=== PATIENT | female | born 1955 | race American Indian/Alaskan Native ===

== ENCOUNTER 2019-05-09 07:20 | Outpatient (CLI) | payer BC ==
--- NOTE | 2019-05-09 14:03 | Mammography Report ---
DIGITAL SCREENING MAMMOGRAM WITH CAD, 05/09/2019 INDICATION: Routine screening mammography. TECHNIQUE: Digital bilateral 2D mammography was obtained in the craniocaudal and mediolateral obliq ue projections. This examination was interpreted with the benefit of Computer-Aided Detection analysi s. COMPARISON: 04/19/2018 FINDINGS: Breast Density: There are scattered areas of fibroglandular density. There is no evidence of dominant mass, suspicious calcifications or architectural distortion in eithe r breast. IMPRESSION: No mammographic evidence of malignancy. Follow up recommendation: Routine yearly BI-RADS Category 2: Benign. A "normal" or negative report should not discourage follow up or biopsy of a clinically significant f inding. A written summary of these findings will be mailed to the patient. The patient will be entered into a mammography reporting system which will generate a reminder letter for the patient's next appointmen t at the appropriate interval. The [employer] recommends yearly mammograms starting at age 40 and continuing as l bryanna as a woman is in good health. Breast MRI is recommended for women with an approximate 20-25% or greater lifetime risk of breast cancer, including women with a strong family history of breast or ova mary cancer or who have been treated for Hodgkin's disease. Signer Name: Hao North MD Signed: 05/09/2019 1:58 PM Workstation Name: [id number]
== END 2019-05-09 07:21 | disposition home or self-care (01) ==
LOC: MAMMO 07:20
PROVIDERS: ATTEND Family Medicine Adult Medicine
DX: Z12.31 Encounter for screening mammogram for malignant neoplasm of breast (principal)
CPT/HCPCS: 77067

== ENCOUNTER 2019-11-16 06:53 | Outpatient (CLI) | payer BC ==
[2019-11-16 08:55] LABS: Basophils % (Auto) 0.7 % (0.0-1.8); Eosinophils # (Auto) 0.1 K/mm3 (0.0-0.4); Eosinophils % (Auto) 1.4 % (0.0-4.3); Hematocrit 39.3 % (30.3-42.9); Hemoglobin 13.3 gm/dl (10.1-14.3); Lymphocytes # (Auto) 2.2 K/mm3 (1.2-5.4); Lymphocytes % (Auto) 34.1 % (13.4-35.0); Mean Corpuscular HGB Conc 34 % (30-34); Mean Corpuscular Volume 87 fl (79-97); Monocytes # (Auto) 0.5 K/mm3 (0.0-0.8); Monocytes % (Auto) 7.8 % (0.0-7.3); Platelet Count 254 K/mm3 (140-440); Red Blood Count 4.51 M/mm3 (3.65-5.03); Red Cell Distribution Width 13.5 % (13.2-15.2)
[2019-11-16 10:01] LABS: Alanine Aminotransferase 16 units/L (7-56); BUN/Creatinine Ratio 14; Blood Urea Nitrogen 7 mg/dL (7-17); Calcium 9.4 mg/dL (8.4-10.2); Hemolysis Index 2; LDL Cholesterol,Direct 181 mg/dL (50-130)
[2019-11-16 10:49] LABS: Chol/HDL Ratio 5.57 %; HDL Cholesterol 42 mg/dL (40-59)
[2019-11-16 11:46] LABS: Albumin 4.4 g/dL (3.9-5)
[2019-11-19 11:58] LABS: Vitamin D, 25-OH, D2 <4 ng/mL
== END 2019-11-16 06:54 | disposition home or self-care (01) ==
LOC: LAB 06:53
PROVIDERS: ATTEND Internal Medicine
DX: Z00.00 Encounter for general adult medical examination without abnormal findings (principal); Z13.220 Encounter for screening for lipoid disorders; Z13.29 Encounter for screening for other suspected endocrine disorder; Z13.21 Encounter for screening for nutritional disorder
CPT/HCPCS: 36415; 80053; 80061; 82306; 82607; 83036; 84443; 85025

== ENCOUNTER 2020-03-07 06:53 | Outpatient (CLI) | payer BC ==
[2020-03-07 09:00] LABS: Chol/HDL Ratio 2.75 %
== END 2020-03-07 06:54 | disposition home or self-care (01) ==
LOC: LAB 06:53
PROVIDERS: ATTEND Internal Medicine
DX: E56.9 Vitamin deficiency, unspecified (principal); E78.5 Hyperlipidemia, unspecified; Z13.1 Encounter for screening for diabetes mellitus
CPT/HCPCS: 36415; 80061; 82306; 82607; 83036

== ENCOUNTER 2020-05-10 07:08 | Outpatient (CLI) | payer BC ==
--- NOTE | 2020-05-10 16:27 | Mammography Report ---
DIGITAL SCREENING MAMMOGRAM WITH CAD, 05/10/2020 INDICATION: Routine screening mammography. TECHNIQUE: Digital bilateral 2D mammography was obtained in the craniocaudal and mediolateral obliq ue projections. This examination was interpreted with the benefit of Computer-Aided Detection analysi s. COMPARISON: 05/09/2019. FINDINGS: Breast Density: There are scattered areas of fibroglandular density. There is no evidence of dominant mass, suspicious calcifications or architectural distortion in eithe r breast. IMPRESSION: Follow up recommendation: Routine yearly BI-RADS Category 1: Negative. A "normal" or negative report should not discourage follow up or biopsy of a clinically significant f inding. A written summary of these findings will be mailed to the patient. The patient will be entered into a mammography reporting system which will generate a reminder letter for the patient's next appointmen t at the appropriate interval. The [employer] recommends yearly mammograms starting at age 40 and continuing as l bryanna as a woman is in good health. Breast MRI is recommended for women with an approximate 20-25% or greater lifetime risk of breast cancer, including women with a strong family history of breast or ova mary cancer or who have been treated for Hodgkin's disease. Signer Name: Rico Ivan MD Signed: 05/10/2020 4:23 PM Workstation Name: [email or web address]
== END 2020-05-10 07:09 | disposition home or self-care (01) ==
LOC: MAMMO 07:08
PROVIDERS: ATTEND Internal Medicine
DX: Z12.31 Encounter for screening mammogram for malignant neoplasm of breast (principal)
CPT/HCPCS: 77067

== ENCOUNTER 2020-06-23 12:05 | Emergency (ER) | payer BC ==
[2020-06-23 12:17] VITALS: BP 134/92
--- NOTE | 2020-06-23 12:36 | Emergency Department Report ---
ED Back Pain/Injury HPI - General Chief Complaint: Back Pain/Injury Stated Complaint: BACK PAIN Time Seen by Provider: 06/23/20 12:31 Source: patient Limitations: No Limitations - History of Present Illness Initial Comments: The patient was evaluated in the emergency department for symptoms described in the history of present illness. He/she was evaluated in the context of the global COVID-19 pandemic, which necessitated consideration that the patient might be at risk for infection with the virus that causes COVID-19. Institutional protocols and algorithms that pertain to the evaluation of patients at risk for COVID-19 are in a state of rapid change based on information released by regulatory bodies including the CDC and federal and state organizations. These policies and algorithms were followed during the patient's care in the emergency department. Please note that these policies, procedures and recommendations changed on a rapid basis. 64-year-old -[place] female presents to the emergency room complaining of back pain for a week with a history of chronic back pain. Patient states that she has been on meloxicam and Flexeril without any relief of back pain. Patient states that she was seen by Dr. Frannie Freitas on Wednesday. She denies any fever no dysuria no chills no hematuria no vaginal discharge or bleeding. Patient denies any recent injuries. She reports the pain is worse with lying down and better with sitting up. Patient takes no chronic medication has no known drug allergies. MD Complaint: back pain Onset/Timin -: week(s) Similar Symptoms Previously: Yes Severity scale (0 -10): 7 Quality: aching Consistency: constant Improves With: sitting upright Worsens With: supine Associated Symptoms: denies other symptoms Treatments Prior to Arrival: NSAIDS, other medications (Flexeril) - Related Data Previous Rx's Medication Instructions Recorded Last Taken Type Celecoxib [celeBREX] 50 mg PO BID #30 capsule 06/23/20 Unknown Rx traMADoL [Ultram 50 MG tab] 50 mg PO Q6HR PRN #12 tablet 06/23/20 Unknown Rx Allergies Allergy/AdvReac Type Severity Reaction Status Date / Time No Known Allergies Allergy Unverified 04/19/18 07:47 ED Review of Systems ROS: Stated complaint: BACK PAIN Other details as noted in HPI Comment: All other systems reviewed and negative ED Past Medical Hx - Past Medical History Previous Medical History?: Yes Additional medical history: Back pain - Surgical History Past Surgical History?: No - Social History Smoking Status: Current Every Day Smoker Substance Use Type: Alcohol - Medications Home Medications: Home Medications Medication Instructions Recorded Confirmed Last Taken Type Celecoxib [celeBREX] 50 mg PO BID #30 capsule 06/23/20 Unknown Rx traMADoL [Ultram 50 MG tab] 50 mg PO Q6HR PRN #12 tablet 06/23/20 Unknown Rx ED Physical Exam - General Limitations: No Limitations General appearance: alert, in no apparent distress - Head Head exam: Present: atraumatic, normocephalic - Eye Eye exam: Present: normal appearance - ENT ENT exam: Present: mucous membranes moist - Neck Neck exam: Present: normal inspection, full ROM - Respiratory Respiratory exam: Absent: accessory muscle use - Cardiovascular Cardiovascular Exam: Present: regular rate, normal rhythm. Absent: systolic murmur, diastolic murmur, rubs, gallop - Extremities Exam Extremities exam: Present: normal inspection, full ROM - Back Exam Back exam: Present: full ROM. Absent: tenderness, muscle spasm, paraspinal tenderness - Neurological Exam Neurological exam: Present: alert, oriented X3, normal gait - Psychiatric Psychiatric exam: Present: normal affect, normal mood - Skin Skin exam: Present: warm, dry, intact, normal color. Absent: rash ED Course Vital Signs 06/23/20 12:09 Temperature 98.9 F Pulse Rate 94 H Respiratory 18 Rate Blood Pressure 134/92 O2 Sat by Pulse 100 Oximetry ED Medical Decision Making - Radiology Data Radiology results: report reviewed Patient: GRACY LIU MR#: [id number] : 1955 Acct:[id number] Age/Sex: 64 / F ADM Date: 06/23/20 Loc: ED Attending Dr: Ordering Physician: IRMA GIRON Date of Service: 06/23/20 Procedure(s): XR spine thoracolumbar 2V Accession Number(s): [id number] cc: IRMA GIRON Fluoro Time In Minutes: THORACOLUMBAR JUNCTION SPINE 2 VIEWS INDICATION / CLINICAL INFORMATION: Nontraumatic back pain. COMPARISON: None available. FINDINGS: VERTEBRAE: No acute fracture. No significant malalignment. DISC SPACES / FACET JOINTS:Mild multilevel degenerative changes. PARASPINAL SOFT TISSUES:No significant abnormality. ADDITIONAL FINDINGS: None. Signer Name: Pete Sosa MD Signed: 06/23/2020 1:05 PM Workstation Name: [id number] Transcribed By: ISABEL Dictated By: PETE SOSA Electronically Authenticated By: PETE SOSA Signed Date/Time: 06/23/20 1305 DD/ 1304 TD/TT: Referring Physician:SONJA SPEARPatient Name:GRACY LIUPatient ID:[id number] of :[id number]:FemaleAccession:[id number] Date:[id number] Status:Finalized Findings [facility] [address] [place] [address] XRay Report Signed Patient: GRACY LIU MR#: [id number] : 1955 Acct:[id number] Age/Sex: 64 / F ADM Date: 06/23/20 Loc: ED Attending Dr: Ordering Physician: IRMA GIRON Date of Service: 06/23/20 Procedure(s): XR spine lumbosacral 2-3V Accession Number(s): [id number] cc: IRMA GIRON Fluoro Time In Minutes: LUMBAR SPINE 3 VIEWS INDICATION / CLINICAL INFORMATION: Nontraumatic back pain. COMPARISON: None available. FINDINGS: VERTEBRAE: No acute fracture. Mild anterolisthesis noted at L4-L5. DISC SPACES / FACET JOINTS:Mild multilevel degenerative changes are noted most prominent at L4-L5 and L5-S1 with loss of intervertebral disc space height and facet arthropathy. PARASPINAL SOFT TISSUES:No significant abnormality. ADDITIONAL FINDINGS: Calcified fibroids are noted of the pelvis. Signer Name: Pete Sosa MD Signed: 06/23/2020 1:06 PM Workstation Name: [id number] Transcribed By: ISABEL Dictated By: PETE SOSA Electronically Authenticated By: PETE SOSA Signed Date/Time: 06/23/20 1306 DD/ 1305 TD/TT: - Medical Decision Making 64-year-old -[place] female presents to the emergency room complaining of back pain for a week with a history of chronic back pain. Patient states that she has been on meloxicam and Flexeril without any relief of back pain. Patient states that she was seen by Dr. Frannie Freitas on Wednesday. She denies any fever no dysuria no chills no hematuria no vaginal discharge or bleeding. Patient denies any recent injuries. She reports the pain is worse with lying down and better with sitting up. Patient takes no chronic medication has no known drug allergies. Urinalysis ordered, thoracic call number and lumbar sacral x-rays have been ordered. Urinalysis is negative for any acute infection x-ray of back shows multilevel degenerative disc disease. Patient be discharged home on Celebrex and tramadol referral to [facility] orthopedic provider as well as to follow-up with her primary care provider. Critical care attestation.: If time is entered above; I have spent that time in minutes in the direct care of this critically ill patient, excluding procedure time. ED Disposition Clinical Impression: Degenerative disc disease, lumbar Disposition: DC- TO HOME OR SELFCARE Is pt being admited?: No Does the pt Need Aspirin: No Condition: Stable Instructions: Degenerative Disk Disease Additional Instructions: X-rays are negative for any acute fractures. It does shows multilevel of degenerative disc disease. Urinalysis is negative for any infection and no blood in your urine. I recommend taking the Celebrex in tramadol for pain. Do not operate heavy machinery while taking tramadol. Follow-up with your primary care provider. As well as I am referring you to a back specialist. Prescriptions: Celecoxib [celeBREX] 50 mg PO BID #30 capsule traMADoL [Ultram 50 MG tab] 50 mg PO Q6HR PRN #12 tablet PRN Reason: Pain Referrals: PRIMARY MD MICHAEL [Primary Care Provider] - 3-5 Days CHAN JON MD [Staff Physician] - 3-5 Days [facility] [Provider Group] - 3-5 Days Forms: Work/School Release Form(ED)
--- NOTE | 2020-06-23 13:10 | XRay Report ---
THORACOLUMBAR JUNCTION SPINE 2 VIEWS INDICATION / CLINICAL INFORMATION: Nontraumatic back pain. COMPARISON: None available. FINDINGS: VERTEBRAE: No acute fracture. No significant malalignment. DISC SPACES / FACET JOINTS:Mild multilevel degenerative changes. PARASPINAL SOFT TISSUES:No significant abnormality. ADDITIONAL FINDINGS: None. Signer Name: Pete Vogel MD Signed: 06/23/2020 1:05 PM Workstation Name: [id number]
--- NOTE | 2020-06-23 13:11 | XRay Report ---
LUMBAR SPINE 3 VIEWS INDICATION / CLINICAL INFORMATION: Nontraumatic back pain. COMPARISON: None available. FINDINGS: VERTEBRAE: No acute fracture. Mild anterolisthesis noted at L4-L5. DISC SPACES / FACET JOINTS:Mild multilevel degenerative changes are noted most prominent at L4-L5 and L5-S1 with loss of intervertebral disc space height and facet arthropathy. PARASPINAL SOFT TISSUES:No significant abnormality. ADDITIONAL FINDINGS: Calcified fibroids are noted of the pelvis. Signer Name: Pete Vogel MD Signed: 06/23/2020 1:06 PM Workstation Name: [id number]
[2020-06-23 13:37] LABS: Bacteria,Urine 1+ /HPF (Negative); Bilirubin,Urine NEG (Negative); Blood,Urine NEG (Negative); Color,Urine Yellow (Yellow); Mucus,Urine FEW /HPF; Urobilinogen,Urine < 2.0 mg/dL (<2.0)
== END 2020-06-23 13:53 | disposition home or self-care (01) ==
LOC: ED 12:05
DX: M51.36 Other intervertebral disc degeneration, lumbar region (principal); F17.200 Nicotine dependence, unspecified, uncomplicated; Z79.899 Other long term (current) drug therapy
CPT/HCPCS: 72080; 72100; 81001

== ENCOUNTER 2020-07-14 09:55 | Emergency (ER) | payer BC ==
[2020-07-14 10:10] VITALS: BP 152/97
--- NOTE | 2020-07-14 10:12 | Emergency Department Report ---
Chief Complaint: Back Pain/Injury Stated Complaint: back pains Time Seen by Provider: 07/14/20 10:07 - HPI History of Present Illness: pt presents for chronic mid and lower back pain. she has had an exacerbation of her back pain for 6 weeks. she was evaluated in the ED on 06/23/2020 and had XRs performed at that time XR T-spine VERTEBRAE: No acute fracture. No significant malalignment. DISC SPACES / FACET JOINTS:Mild multilevel degenerative changes. PARASPINAL SOFT TISSUES:No significant abnormality. ADDITIONAL FINDINGS: None. XR L-spine: VERTEBRAE: No acute fracture. Mild anterolisthesis noted at L4-L5. DISC SPACES / FACET JOINTS:Mild multilevel degenerative changes are noted most prominent at L4-L5 and L5-S1 with loss of intervertebral disc space height and facet arthropathy. PARASPINAL SOFT TISSUES:No significant abnormality. ADDITIONAL FINDINGS: Calcified fibroids are noted of the pelvis. she was given tramadol on 06/23/2020. she states she has been seeing her PCP multiple times. she has not seen orthopedic or spine. she was given percocet on 07/03/2020 by her PCP. please see [place] PRODUCT SUPPORT REP below. she has had no change in her back pain. she has had no recent trauma. she denies any radiation of the pain. no numbness, weakness, bowel or bladder incontinence. VSS on exam: non toxic appearing, no acute distress atraumatic, normocephalic normal appearance of the eyes, EOMI, no periorbital edema or erythema no respiratory distress, no accessory muscle use A&Ox4, no focal neuro deficit, moving all extremities, normal gait pt is present for chronic back pain she has had no change in her back pain has had XRs and has been given two prescriptions for narcotics will be referred to orthopedic/spine discussed strict return precautions medical screening exam performed and there is no threat to life or limb at this time Filled ID Written Drug QTY Days Prescriber Rx # Pharmacy * Refills Daily Dose Pymt Type PRODUCT SUPPORT REP 07/03/2020 1 07/03/2020 OXYCODONE-ACETAMINOPHEN 5-325 28.0 7 CR CAR [id number] [facility] (6195) 0 30.0 [facility] [place] 06/23/2020 1 06/23/2020 TRAMADOL HCL 50 MG TABLET 12.0 3 RY SHE [id number] [facility] (3795) 0 20.0 [facility] [place] MSE screening note: Focused history and physical exam performed. Due to findings the following was ordered: ED Medical Decision Making - Radiology Data Radiology results: report reviewed Ordering Physician: IRMA GIRON Date of Service: 06/23/20 Procedure(s): XR spine thoracolumbar 2V Accession Number(s): [id number] cc: IRMA GIRON Fluoro Time In Minutes: THORACOLUMBAR JUNCTION SPINE 2 VIEWS INDICATION / CLINICAL INFORMATION: Nontraumatic back pain. COMPARISON: None available. FINDINGS: VERTEBRAE: No acute fracture. No significant malalignment. DISC SPACES / FACET JOINTS:Mild multilevel degenerative changes. PARASPINAL SOFT TISSUES:No significant abnormality. ADDITIONAL FINDINGS: None. Signer Name: Pete Sosa MD Signed: 06/23/2020 1:05 PM Workstation Name: [id number] Transcribed By: CH Dictated By: PETE SOSA Electronically Authenticated By: PETE SOSA Signed Date/Time: 06/23/20 1305 DD/ 1304 TD/TT: Patient: GRACY LIU MR#: [id number] : 1955 Acct:[id number] Age/Sex: 64 / F ADM Date: 06/23/20 Loc: ED Attending Dr: Ordering Physician: IRMA GIRON Date of Service: 06/23/20 Procedure(s): XR spine lumbosacral 2-3V Accession Number(s): [id number] cc: IRMA GIRON Fluoro Time In Minutes: LUMBAR SPINE 3 VIEWS INDICATION / CLINICAL INFORMATION: Nontraumatic back pain. COMPARISON: None available. FINDINGS: VERTEBRAE: No acute fracture. Mild anterolisthesis noted at L4-L5. DISC SPACES / FACET JOINTS:Mild multilevel degenerative changes are noted most prominent at L4-L5 and L5-S1 with loss of intervertebral disc space height and facet arthropathy. PARASPINAL SOFT TISSUES:No significant abnormality. ADDITIONAL FINDINGS: Calcified fibroids are noted of the pelvis. Signer Name: Pete Sosa MD Signed: 06/23/2020 1:06 PM Workstation Name: [id number] Transcribed By: Dictated By: PETE SOSA Electronically Authenticated By: PETE SOSA Signed Date/Time: 06/23/20 1306 DD/ 1305 TD/TT: ED Disposition for MSE Clinical Impression: Back pain Qualifiers: Back pain location: low back pain Chronicity: chronic Back pain laterality: b ilateral Sciatica presence: without sciatica Qualified Code(s): M54.5 - Low back pain Disposition: MED SCREENING EXAM-LEFT Is pt being admited?: No Does the pt Need Aspirin: No Condition: Stable Instructions: Chronic Back Pain Additional Instructions: may alternate tylenol or ibuprofen as needed for discomfort. may use ice pack, heating pad, rest, epsom salt bath. follow up with a primary care doctor. follow up with an orthopedic/entry specialists. return to the emergency room for any new or worsening symptoms. Referrals: CHAN JON MD [Staff Physician] - 3-5 Days JOHANNA MILLER II, MD [Staff Physician] - 3-5 Days [facility] [Provider Group] - 3-5 Days MACY MELGOZA MD [Staff Physician] - 3-5 Days Time of Disposition: 10:11 Print Language: MARSHALLESE
== END 2020-07-14 10:22 | disposition left against medical advice (07) ==
LOC: ED 09:55
DX: M54.9 Dorsalgia, unspecified (principal); Z53.21 Procedure and treatment not carried out due to patient leaving prior to being seen by health care provider

== ENCOUNTER 2020-08-01 10:06 | Outpatient (CLI) | payer BC ==
[2020-08-01 10:54] LABS: Alanine Aminotransferase 66 units/L (7-56); Albumin 4.4 g/dL (3.9-5); Blood Urea Nitrogen 7 mg/dL (7-17); Calcium 9.6 mg/dL (8.4-10.2); Eosinophils % (Auto) 0.6 % (0.0-4.3); Hematocrit 37.6 % (30.3-42.9); Hemoglobin 13.3 gm/dl (10.1-14.3); Hemolysis Index 9; Lymphocytes # (Auto) 2.2 K/mm3 (1.2-5.4); Lymphocytes % (Auto) 30.9 % (13.4-35.0); Mean Corpuscular HGB Conc 35 % (30-34); Mean Corpuscular Volume 85 fl (79-97); Monocytes # (Auto) 0.6 K/mm3 (0.0-0.8); Monocytes % (Auto) 8.5 % (0.0-7.3); Platelet Count 263 K/mm3 (140-440); Red Blood Count 4.41 M/mm3 (3.65-5.03); Red Cell Distribution Width 13.9 % (13.2-15.2)
[2020-08-01 11:02] LABS: BUN/Creatinine Ratio 12
[2020-08-01 11:33] LABS: Bacteria,Urine 1+ /HPF (Negative); Bilirubin,Urine NEG (Negative); Blood,Urine NEG (Negative); Color,Urine Amber (Yellow); Hyaline Casts,Urine 10 /LPF; Mucus,Urine 3+ /HPF
== END 2020-08-01 10:07 | disposition home or self-care (01) ==
LOC: LAB 10:06
PROVIDERS: ATTEND Internal Medicine
DX: E11.65 Type 2 diabetes mellitus with hyperglycemia (principal); N39.0 Urinary tract infection, site not specified; K21.9 Gastro-esophageal reflux disease without esophagitis
CPT/HCPCS: 36415; 80053; 81001; 83036; 85025; 87086

== ENCOUNTER 2020-08-05 05:42 | Inpatient (IN) | payer BC ==
[2020-08-05] MEDS ORDERED: dexAMETHasone 20 MG/5 ML VIAL IV ONE (06:11)
[2020-08-05] MEDS ORDERED: KETOROLAC 30 MG/1 ML INJ IV ONE (06:11)
--- NOTE | 2020-08-05 06:15 | Event Note ---
ED Screening Note Date of service: 08/05/20 Time: 06:12 ED Screening Note: Patient is a 64-year-old -[place] female with a history of chronic low back pain who presents to the ED with acute exacerbation of her chronic low back pain that worsened in the last 2 days. Patient states that she is currently taking Zanaflex and Tylenol 3 for pain with no relief. Patient states that she was recently evaluated by her primary care physician and had some lab she has not heard from her primary care physician about the results. Patient states that she woke up this morning about 3 hours ago with worsening pain in her lower back despite taking the medications. Patient denies fall, traumatic injury, dizziness, syncope, hematuria, dysuria, chest pain, shortness of breath, abdominal pain, vaginal bleeding, vaginal discharge, heavy lifting, fever and chills. This initial assessment/diagnostic orders/clinical plan/treatment(s) is/are subject to change based on patients health status, clinical progression and re- assessment by fellow clinical providers in the ED. Further treatment and workup at subsequent clinical providers discretion. Patient/guardian urged not to elope from the ED as their condition may be serious if not clinically assessed and managed. Initial orders include: CBC, CMP, UA, troponin, EKG, CT lumbar spine without contrast
[2020-08-05] MEDS ORDERED: ONDANSETRON 4 MG/2 ML INJ IV ONE (06:43)
[2020-08-05] MEDS ORDERED: MORPHINE 4 MG/1 ML INJ IV ONE (06:43)
--- NOTE | 2020-08-05 06:47 | Emergency Department Report ---
ED Abdominal Pain HPI - General Chief Complaint: Nausea/Vomiting/Diarrhea Stated Complaint: VOMITING/ABDOMINAL AND BACK PAIN Time Seen by Provider: 08/05/20 06:37 Source: patient Mode of arrival: Ambulatory Limitations: No Limitations - History of Present Illness Initial Comments: Patient is 65 years old female with no significant past medical history. Patient presented to the ER complaining of mid back pain, 10 out of 10, sharp in nature, constant. Patient stated that she started having epigastric abdominal pain yesterday and today she started having back pain. Patient stated that she has nausea and vomiting yesterday. Patient denied any fever or chills. Patient also denied any recent injury or trauma. No chest pain or shortness of breath. MD Complaint: abdominal pain -: Last night Location: epigastric Radiation: back Migration to: no migration Severity scale (0 -10): 10 Consistency: constant - Related Data Previous Rx's Medication Instructions Recorded Last Taken Type Celecoxib [celeBREX] 50 mg PO BID #30 capsule 06/23/20 Unknown Rx traMADoL [Ultram 50 MG tab] 50 mg PO Q6HR PRN #12 tablet 06/23/20 Unknown Rx Allergies Allergy/AdvReac Type Severity Reaction Status Date / Time No Known Allergies Allergy Unverified 04/19/18 07:47 ED Review of Systems ROS: Stated complaint: VOMITING/ABDOMINAL AND BACK PAIN Other details as noted in HPI Comment: All other systems reviewed and negative Constitutional: denies: chills, fever Respiratory: denies: cough, shortness of breath, SOB with exertion, SOB at rest, wheezing Cardiovascular: denies: chest pain, palpitations Gastrointestinal: abdominal pain, nausea, vomiting. denies: diarrhea, constipation, hematemesis, melena Musculoskeletal: back pain Neurological: weakness. denies: headache, numbness, paresthesias, confusion, abnormal gait ED Past Medical Hx - Past Medical History Hx Diabetes: Yes (pre-diabetes) Additional medical history: Back pain - Surgical History Past Surgical History?: No - Social History Smoking Status: Never Smoker Substance Use Type: None - Medications Home Medications: Home Medications Medication Instructions Recorded Confirmed Last Taken Type Celecoxib [celeBREX] 50 mg PO BID #30 capsule 06/23/20 Unknown Rx traMADoL [Ultram 50 MG tab] 50 mg PO Q6HR PRN #12 tablet 06/23/20 Unknown Rx ED Physical Exam - General Limitations: No Limitations General appearance: alert, in no apparent distress - Head Head exam: Present: atraumatic, normocephalic, normal inspection - Eye Eye exam: Present: normal appearance - ENT ENT exam: Present: mucous membranes dry - Neck Neck exam: Present: normal inspection, full ROM. Absent: tenderness, meningismus - Respiratory Respiratory exam: Present: normal lung sounds bilaterally - Cardiovascular Cardiovascular Exam: Present: regular rate, normal rhythm, normal heart sounds - GI/Abdominal GI/Abdominal exam: Present: soft, normal bowel sounds. Absent: distended, tenderness, guarding, rebound, rigid, organomegaly, mass, bruit, pulsatile mass, hernia - Extremities Exam Extremities exam: Present: normal inspection, full ROM, normal capillary refill. Absent: tenderness, pedal edema, joint swelling, calf tenderness - Back Exam Back exam: Present: normal inspection, full ROM. Absent: CVA tenderness (R), CVA tenderness (L), muscle spasm, paraspinal tenderness, vertebral tenderness - Neurological Exam Neurological exam: Present: alert, oriented X3, CN II-XII intact, normal gait, reflexes normal. Absent: motor sensory deficit - Psychiatric Psychiatric exam: Present: normal mood - Skin Skin exam: Present: warm, intact, normal color ED Course Vital Signs 08/05/20 08/05/20 08/05/20 06:02 07:25 07:26 Temperature 97.7 F Pulse Rate 72 75 Respiratory 18 19 20 Rate Blood Pressure Blood Pressure 128/81 [Right] O2 Sat by Pulse 100 Oximetry 08/05/20 08/05/20 08/05/20 07:30 07:46 08:06 Temperature Pulse Rate 82 74 Respiratory 18 7 L Rate Blood Pressure 128/81 128/81 128/81 Blood Pressure [Right] O2 Sat by Pulse 99 99 78 L Oximetry 08/05/20 08/05/20 08/05/20 08:16 08:30 08:46 Temperature Pulse Rate 67 71 75 Respiratory 10 L 13 12 Rate Blood Pressure 137/84 137/84 137/84 Blood Pressure [Right] O2 Sat by Pulse 99 97 98 Oximetry ED Medical Decision Making - Lab Data Result diagrams: 08/05/20 06:47 08/05/20 06:47 - EKG Data -: EKG Interpreted by Id EKG shows normal: sinus rhythm Rate: normal - Radiology Data Radiology results: report reviewed - Medical Decision Making Patient is 65 years old female with no significant past medical history. Patient presented to the ER complaining of mid back pain, 10 out of 10, sharp in nature, constant. Patient stated that she started having epigastric abdominal pain yesterday and today she started having back pain. Patient stated that she has nausea and vomiting yesterday. Patient denied any fever or chills. Patient also denied any recent injury or trauma. No chest pain or shortness of breath. Patient received morphine, Zofran and Dilaudid. Labs reviewed and showed el evated lipase of 150. CT abdomen pelvis with IV contrast showed a pancreatic mass. Patient will be admitted to the hospital for intractable pain and vomiting. I discussed the patient with Dr. Tony Sanchez, he agreed to admit the patient to medical service for further management. Critical care attestation.: If time is entered above; I have spent that time in minutes in the direct care of this critically ill patient, excluding procedure time. ED Disposition Clinical Impression: Acute abdominal pain, Intractable abdominal pain, Intractable nausea and vomiting, Pancreatic mass Disposition: OP ADMIT IP TO THIS HOSP Is pt being admited?: Yes Condition: Stable Referrals: PRIMARY CARE, [Primary Care Provider] - 3-5 Days
[2020-08-05 07:02] LABS: Basophils % (Auto) 0.7 % (0.0-1.8); Eosinophils % (Auto) 0.7 % (0.0-4.3); Hematocrit 39.6 % (30.3-42.9); Hemoglobin 13.1 gm/dl (10.1-14.3); Lymphocytes # (Auto) 1.8 K/mm3 (1.2-5.4); Mean Corpuscular HGB Conc 33 % (30-34); Mean Corpuscular Volume 87 fl (79-97); Monocytes # (Auto) 0.7 K/mm3 (0.0-0.8); Monocytes % (Auto) 10.5 % (0.0-7.3); Platelet Count 240 K/mm3 (140-440); Red Blood Count 4.54 M/mm3 (3.65-5.03); Red Cell Distribution Width 13.9 % (13.2-15.2)
[2020-08-05 07:24] LABS: Alanine Aminotransferase 48 units/L (7-56); Albumin 4.5 g/dL (3.9-5); Bilirubin,Direct 0.3 mg/dL (0-0.2); Blood Urea Nitrogen 7 mg/dL (7-17); Calcium 9.4 mg/dL (8.4-10.2); Hemolysis Index 0
[2020-08-05 07:26] LABS: BUN/Creatinine Ratio 12
--- NOTE | 2020-08-05 08:26 | Cat Scan Report ---
CT ABDOMEN AND PELVIS WITH CONTRAST HISTORY: Abdominal pain. Back pain.. COMPARISON: None. TECHNIQUE: Helical CT images of the abdomen and pelvis were obtained following administration of intr avenous contrast. Sagittal and coronal reformatted images were reviewed. All CT scans at this [facility] are performed using CT dose reduction for ALARA by means of automated exposure control. CONTRAST: 100 ml of intravenous contrast administered. FINDINGS: Abdomen/pelvis: There is abnormal soft tissue density measuring 3.7 x 2.9 cm which appears to encirc le the celiac axis. This appears to represent an exophytic mass projecting superiorly from the body o f the pancreas. Celiac axis adenopathy could also be considered. There is mild dilatation of the dist al pancreatic duct. No acute inflammatory findings are appreciated. The soft tissue density significa ntly narrows the celiac trunk and proximal splenic artery although they appear to be patent. The aort a, SMA, NORMAN and renal arteries are unremarkable. The portal venous system appears widely patent. The remainder of the pancreas is unremarkable. The liver is normal size and contour. 1.9 cm lobulated cyst in the posterior right hepatic lobe is no greg. The biliary system, spleen, and adrenal glands are unremarkable. Scattered simple renal cysts ar e noted. Punctate calyceal stone is identified at the superior pole of the left kidney. No hydronephr osis. There is mild diverticulosis of the distal colon. No evidence for bowel obstruction, free fluid or fr ee air. Normal appendix. A 3.6 cm simple appearing right ovarian cyst is identified. A 2.3 cm calcified fibroid is identified in the anterior uterine fundus. The left adnexa and bladder are unremarkable. Lungs/bones: The lung bases are clear. No suspicious bony lesion is detected. IMPRESSION: Abnormal soft tissue density encircling the celiac axis vessels as described. This appears to represe nt an exophytic lesion from the pancreas. Pancreatic neoplasm should be considered. Bilateral renal cysts. Nonobstructing left renal stone. 3.6 cm right ovarian cyst. Liver cyst. Mild diverticulosis of the distal colon. Mild uterine fibroid disease. Signer Name: Bob Villatoro Jr, MD Signed: 08/05/2020 8:22 AM Workstation Name: [id number]
[2020-08-05] MEDS ORDERED: SODIUM CHLORIDE 0.9% 1000 ML 1,000 ML IV ONE (09:22)
[2020-08-05] MEDS ORDERED: METOCLOPRAMIDE 10 MG/2 ML INJ IV ONE (09:22)
[2020-08-05] MEDS ORDERED: HYDROmorphone 1 MG/1 ML INJ IV ONE (09:22)
[2020-08-05 09:23] LABS: Bacteria,Urine 1+ /HPF (Negative); Bilirubin,Urine NEG (Negative); Blood,Urine SM (Negative); Color,Urine Amber (Yellow); Granular Casts,Urine 2 /LPF; Mucus,Urine 2+ /HPF
--- NOTE | 2020-08-05 12:14 | History and Physical Report ---
History of Present Illness Date of admission: 08/05/20 09:20 Chief complaint: Intractable vomiting History of present illness: 65 years old female with no significant past medical history here with back pain, intractable nausea and vomiting. Pain is around the mid back area, 10 out of 10, sharp in nature, constant. Patient stated that she has nausea and vomiting with very poor appetite. She notes some weight loss as a result of not tolerating PO. Patient denied any fever or chills. Patient also denied any recent injury or trauma. No chest pain or shortness of breath. She drinks alco hol sparingly. Last drink was in June. She denies tobacco abuse or IV drug use. Past History Past Medical History: No medical history Medications and Allergies Allergies Allergy/AdvReac Type Severity Reaction Status Date / Time No Known Allergies Allergy Unverified 04/19/18 07:47 Home Medications Medication Instructions Recorded Confirmed Last Taken Type Celecoxib [celeBREX] 50 mg PO BID #30 capsule 06/23/20 Unknown Rx traMADoL [Ultram 50 MG tab] 50 mg PO Q6HR PRN #12 tablet 06/23/20 Unknown Rx Review of Systems All systems: negative Gastrointestinal: nausea, vomiting Exam - Physical Exam Narrative exam: VITAL SIGNS: Reviewed. GENERAL: Awake HEAD: No signs of head trauma. EYES: Pupils are equal. Extraocular motions intact. MOUTH: Oropharynx is normal. NECK: No adenopathy, no JVD. CHEST: Chest with diminished breath sounds bilaterally. No wheezes, rales, or rhonchi. CARDIAC: normal S1 and S2, without murmurs, gallops, or rubs. ABDOMEN: Soft, non tender and non distended. No rebound or guarding, and no masses palpated. Bowel Sounds normal. MUSCULOSKELETAL: No edema NEUROLOGIC EXAM: Alert and oriented x3. No focal neurologic deficits SKIN: No obvious lesions - Constitutional Vitals: Temp Pulse Resp BP Pulse Ox 97.7 F 86 13 114/55 98 08/05/20 06:02 08/05/20 11:30 08/05/20 10:16 08/05/20 11:30 08/05/20 11:30 HEART Score - HEART Score Troponin: Troponin T < 0.010 ng/mL (0.00-0.029) 08/05/20 06:47 Results - Labs CBC & Chem 7: 08/05/20 06:47 08/05/20 06:47 Labs: Laboratory Last Values WBC 6.4 K/mm3 (4.5-11.0) 08/05/20 06:47 RBC 4.54 M/mm3 (3.65-5.03) 08/05/20 06:47 Hgb 13.1 gm/dl (10.1-14.3) 08/05/20 06:47 Hct 39.6 % (30.3-42.9) 08/05/20 06:47 MCV 87 fl (79-97) 08/05/20 06:47 MCH 29 pg (28-32) 08/05/20 06:47 MCHC 33 % (30-34) 08/05/20 06:47 RDW 13.9 % (13.2-15.2) 08/05/20 06:47 Plt Count 240 K/mm3 (140-440) 08/05/20 06:47 Lymph % (Auto) 29.0 % (13.4-35.0) 08/05/20 06:47 [place] % (Auto) 10.5 % (0.0-7.3) H 08/05/20 06:47 Eos % (Auto) 0.7 % (0.0-4.3) 08/05/20 06:47 Baso % (Auto) 0.7 % (0.0-1.8) 08/05/20 06:47 Lymph # (Auto) 1.8 K/mm3 (1.2-5.4) 08/05/20 06:47 [place] # (Auto) 0.7 K/mm3 (0.0-0.8) 08/05/20 06:47 Eos # (Auto) 0.0 K/mm3 (0.0-0.4) 08/05/20 06:47 Baso # (Auto) 0.0 K/mm3 (0.0-0.1) 08/05/20 06:47 Seg Neutrophils % 59.1 % (40.0-70.0) 08/05/20 06:47 Seg Neutrophils # 3.8 K/mm3 (1.8-7.7) 08/05/20 06:47 Sodium 138 mmol/L (137-145) 08/05/20 06:47 Potassium 3.5 mmol/L (3.6-5.0) L 08/05/20 06:47 Chloride 98.2 mmol/L (98-107) 08/05/20 06:47 Carbon Dioxide 30 mmol/L (22-30) 08/05/20 06:47 Anion Gap 13 mmol/L 08/05/20 06:47 BUN 7 mg/dL (7-17) 08/05/20 06:47 Creatinine 0.6 mg/dL (0.6-1.2) 08/05/20 06:47 Estimated GFR > 60 ml/min 08/05/20 06:47 BUN/Creatinine Ratio 12 % 08/05/20 06:47 Glucose 170 mg/dL (65-100) H 08/05/20 06:47 Calcium 9.4 mg/dL (8.4-10.2) 08/05/20 06:47 Total Bilirubin 1.50 mg/dL (0.1-1.2) H 08/05/20 06:47 Direct Bilirubin 0.3 mg/dL (0-0.2) H 08/05/20 06:47 Indirect Bilirubin 1.2 mg/dL 08/05/20 06:47 AST 22 units/L (5-40) 08/05/20 06:47 ALT 48 units/L (7-56) 08/05/20 06:47 Alkaline Phosphatase 55 units/L (35-129) 08/05/20 06:47 Troponin T < 0.010 ng/mL (0.00-0.029) 08/05/20 06:47 Total Protein 7.6 g/dL (6.3-8.2) 08/05/20 06:47 Albumin 4.5 g/dL (3.9-5) 08/05/20 06:47 Albumin/Globulin Ratio 1.5 % 08/05/20 06:47 Lipase 151 units/L (13-60) H 08/05/20 06:47 Urine Color Anastacia (Yellow) 08/05/20 07:55 Urine Turbidity Cloudy (Clear) 08/05/20 07:55 Urine pH 6.0 (5.0-7.0) 08/05/20 07:55 Ur Specific [place] 1.016 (1.003-1.030) 08/05/20 07:55 Urine Protein 100 mg/dl mg/dL (Negative) 08/05/20 07:55 Urine Glucose (UA) Neg mg/dL (Negative) 08/05/20 07:55 Urine Ketones 20 mg/dL (Negative) 08/05/20 07:55 Urine Blood Sm (Negative) 08/05/20 07:55 Urine Nitrite Neg (Negative) 08/05/20 07:55 Urine Bilirubin Neg (Negative) 08/05/20 07:55 Urine Urobilinogen 4.0 mg/dL (<2.0) 08/05/20 07:55 Ur Leukocyte Esterase Tr (Negative) 08/05/20 07:55 Urine WBC (Auto) 9.0 /HPF (0.0-6.0) H 08/05/20 07:55 Urine RBC (Auto) 7.0 /HPF (0.0-6.0) 08/05/20 07:55 U Epithel Cells (Auto) 21.0 /HPF (0-13.0) H 08/05/20 07:55 Urine Bacteria (Auto) 1+ /HPF (Negative) 08/05/20 07:55 Granular Casts 2 /LPF 08/05/20 07:55 Urine Mucus 2+ /HPF 08/05/20 07:55 Assessment and Plan Assessment and plan: #Intractable nausea vomiting -Continue Zofran -IV hydration -Labs showed elevated bilirubin, lipase 151 -CT abdomen with IV contrast shows abnormal soft tissue mass encircling the celiac axis vessels which represents an exophytic lesion on the pancreas. Pancreatic neoplasm should be considered. -GI consulted -Patient may need an MRI MRCP for further evaluation #Elevated lipase -Continue IV hydration #DVT prophylaxis-Lovenox Full code
[2020-08-05] MEDS: MORPHINE 2 MG/1 ML INJ IV PRN ×3 (13:25→22:17)
[2020-08-05] MEDS: ONDANSETRON 4 MG/2 ML INJ IV PRN (13:25)
[2020-08-05] MEDS: D5W/0.9% NACL 1,000 ML IV SCH (13:35)
[2020-08-06] MEDS: D5W/0.9% NACL 1,000 ML IV SCH ×2 (00:01→11:42)
[2020-08-06] MEDS: traZODone 50 MG TAB PO PRN (00:02)
[2020-08-06] MEDS: MORPHINE 2 MG/1 ML INJ IV PRN ×5 (04:07→20:57)
[2020-08-06 05:05] LABS: Basophils % (Auto) 0.1 % (0.0-1.8); Eosinophils % (Auto) 0.1 % (0.0-4.3); Hematocrit 36.1 % (30.3-42.9); Hemoglobin 12.1 gm/dl (10.1-14.3); Lymphocytes # (Auto) 1.9 K/mm3 (1.2-5.4); Lymphocytes % (Auto) 21.7 % (13.4-35.0); Mean Corpuscular HGB Conc 33 % (30-34); Mean Corpuscular Volume 88 fl (79-97); Monocytes # (Auto) 0.9 K/mm3 (0.0-0.8); Platelet Count 211 K/mm3 (140-440); Red Blood Count 4.13 M/mm3 (3.65-5.03); Red Cell Distribution Width 14.2 % (13.2-15.2)
[2020-08-06 05:22] LABS: Alanine Aminotransferase 46 units/L (7-56); Albumin 3.8 g/dL (3.9-5); Blood Urea Nitrogen 5 mg/dL (7-17); Calcium 8.8 mg/dL (8.4-10.2); Hemolysis Index 6
[2020-08-06 05:23] LABS: BUN/Creatinine Ratio 13
[2020-08-06] MEDS: POTASSIUM CHLORIDE 10 MEQ 10 MEQ/100 ML BAG IV SCH ×4 (08:36→12:08)
--- NOTE | 2020-08-06 09:05 | Progress Note ---
Assessment and Plan Assessment and plan: #Intractable nausea vomiting -Continue Zofran -IV hydration -Labs showed elevated bilirubin, lipase 151 -CT abdomen with IV contrast shows abnormal soft tissue mass encircling the celiac axis vessels which represents an exophytic lesion on the pancreas. Pancreatic neoplasm should be considered. -GI evaluation pending. -Patient may need an MRI MRCP for further evaluation. #Elevated lipase -Continue IV hydration -Trend lipase #DVT prophylaxis-Lovenox Full code History Interval history: 08/06. Tolerating diet more now. She still has back pain and some epigastric discomfort. GI evaluation pending. May need MRI MRCP for further evaluation of pancreatic pathology. Hospitalist Physical - Physical exam Narrative exam: VITAL SIGNS: Reviewed. GENERAL: Awake HEAD: No signs of head trauma. EYES: Pupils are equal. Extraocular motions intact. MOUTH: Oropharynx is normal. NECK: No adenopathy, no JVD. CHEST: Chest with diminished breath sounds bilaterally. No wheezes, rales, or rhonchi. CARDIAC: normal S1 and S2, without murmurs, gallops, or rubs. ABDOMEN: Soft, non tender and non distended. No rebound or guarding, and no masses palpated. Bowel Sounds normal. MUSCULOSKELETAL: No edema NEUROLOGIC EXAM: Alert and oriented x3. No focal neurologic deficits SKIN: No obvious lesions - Constitutional Vitals: Temp Pulse Resp BP Pulse Ox 98.0 F 69 16 123/85 100 08/06/20 08:21 08/06/20 08:21 08/06/20 08:37 08/06/20 08:21 08/06/20 08:21 HEART Score - HEART Score Troponin: Troponin T < 0.010 ng/mL (0.00-0.029) 08/05/20 06:47 Results - Labs CBC & Chem 7: 08/06/20 04:20 08/06/20 04:20 Labs: Laboratory Last Values WBC 8.6 K/mm3 (4.5-11.0) 08/06/20 04:20 RBC 4.13 M/mm3 (3.65-5.03) 08/06/20 04:20 Hgb 12.1 gm/dl (10.1-14.3) 08/06/20 04:20 Hct 36.1 % (30.3-42.9) 08/06/20 04:20 MCV 88 fl (79-97) 08/06/20 04:20 MCH 29 pg (28-32) 08/06/20 04:20 MCHC 33 % (30-34) 08/06/20 04:20 RDW 14.2 % (13.2-15.2) 08/06/20 04:20 Plt Count 211 K/mm3 (140-440) 08/06/20 04:20 Lymph % (Auto) 21.7 % (13.4-35.0) 08/06/20 04:20 [place] % (Auto) 10.0 % (0.0-7.3) H 08/06/20 04:20 Eos % (Auto) 0.1 % (0.0-4.3) 08/06/20 04:20 Baso % (Auto) 0.1 % (0.0-1.8) 08/06/20 04:20 Lymph # (Auto) 1.9 K/mm3 (1.2-5.4) 08/06/20 04:20 [place] # (Auto) 0.9 K/mm3 (0.0-0.8) H 08/06/20 04:20 Eos # (Auto) 0.0 K/mm3 (0.0-0.4) 08/06/20 04:20 Baso # (Auto) 0.0 K/mm3 (0.0-0.1) 08/06/20 04:20 Seg Neutrophils % 68.1 % (40.0-70.0) 08/06/20 04:20 Seg Neutrophils # 5.9 K/mm3 (1.8-7.7) 08/06/20 04:20 Sodium 139 mmol/L (137-145) 08/06/20 04:20 Potassium 3.2 mmol/L (3.6-5.0) L 08/06/20 04:20 Chloride 105.2 mmol/L (98-107) 08/06/20 04:20 Carbon Dioxide 23 mmol/L (22-30) D 08/06/20 04:20 Anion Gap 14 mmol/L 08/06/20 04:20 BUN 5 mg/dL (7-17) L 08/06/20 04:20 Creatinine 0.4 mg/dL (0.6-1.2) L 08/06/20 04:20 Estimated GFR > 60 ml/min 08/06/20 04:20 BUN/Creatinine Ratio 13 % 08/06/20 04:20 Glucose 159 mg/dL (65-100) H 08/06/20 04:20 Calcium 8.8 mg/dL (8.4-10.2) 08/06/20 04:20 Total Bilirubin 0.80 mg/dL (0.1-1.2) 08/06/20 04:20 Direct Bilirubin 0.3 mg/dL (0-0.2) H 08/05/20 06:47 Indirect Bilirubin 1.2 mg/dL 08/05/20 06:47 AST 24 units/L (5-40) 08/06/20 04:20 ALT 46 units/L (7-56) 08/06/20 04:20 Alkaline Phosphatase 49 units/L (35-129) 08/06/20 04:20 Troponin T < 0.010 ng/mL (0.00-0.029) 08/05/20 06:47 Total Protein 6.4 g/dL (6.3-8.2) 08/06/20 04:20 Albumin 3.8 g/dL (3.9-5) L 08/06/20 04:20 Albumin/Globulin Ratio 1.5 % 08/06/20 04:20 Lipase 151 units/L (13-60) H 08/05/20 06:47 Urine Color [place]astacia (Yellow) 08/05/20 07:55 Urine Turbidity Cloudy (Clear) 08/05/20 07:55 Urine pH 6.0 (5.0-7.0) 08/05/20 07:55 Ur Specific [place] 1.016 (1.003-1.030) 08/05/20 07:55 Urine Protein 100 mg/dl mg/dL (Negative) 08/05/20 07:55 Urine Glucose (UA) Neg mg/dL (Negative) 08/05/20 07:55 Urine Ketones 20 mg/dL (Negative) 08/05/20 07:55 Urine Blood Sm (Negative) 08/05/20 07:55 Urine Nitrite Neg (Negative) 08/05/20 07:55 Urine Bilirubin Neg (Negative) 08/05/20 07:55 Urine Urobilinogen 4.0 mg/dL (<2.0) 08/05/20 07:55 Ur Leukocyte Esterase Tr (Negative) 08/05/20 07:55 Urine WBC (Auto) 9.0 /HPF (0.0-6.0) H 08/05/20 07:55 Urine RBC (Auto) 7.0 /HPF (0.0-6.0) 08/05/20 07:55 U Epithel Cells (Auto) 21.0 /HPF (0-13.0) H 08/05/20 07:55 Urine Bacteria (Auto) 1+ /HPF (Negative) 08/05/20 07:55 Granular Casts 2 /LPF 08/05/20 07:55 Urine Mucus 2+ /HPF 08/05/20 07:55 [place]/IV: Voiding Method Toilet Active Medications - Current Medications Current Medications: Generic Name Dose Route Start Last Admin Trade Name Freq PRN Reason Stop Dose Admin Dextrose/Sodium Chloride 1,000 mls @ 100 mls/hr 08/05/20 13:00 08/06/20 00:01 D5ns IV 100 mls/hr DIRECT EVELYN Administration Potassium Chloride 10 meq in 100 mls @ 100 mls/hr 08/06/20 08:00 08/06/20 08:36 Kcl 10meq/100ml IV 08/06/20 11:59 100 mls/hr Q1H EVELYN Administration Morphine Sulfate 2 mg 08/05/20 12:27 08/06/20 08:37 Morphine 2 Mg/1 Ml Inj IV 2 mg Q4H PRN Administration Pain, Moderate (4-6) Ondansetron HCl 4 mg 08/05/20 12:26 08/05/20 13:25 Ondansetron 4 Mg/2 Ml Inj IV 4 mg Q8H PRN Administration Nausea And Vomiting Potassium Chloride 20 meq 08/06/20 10:00 Potassium Chloride Er 20 Meq Tab PO QDAY EVELYN Trazodone HCl 50 mg 08/05/20 22:23 08/06/20 00:02 Trazodone 50 Mg Tab PO 50 mg QHS PRN Administration Insomnia
[2020-08-06] MEDS ORDERED: POTASSIUM CHLORIDE ER 20 MEQ TAB PO SCH (10:00)
--- NOTE | 2020-08-06 22:48 | Consultation ---
REFERRING PHYSICIAN: Mayelin Bonilla M.D. INDICATION: 1. Abdominal pain. 2. Diverticulitis. HISTORY OF PRESENT ILLNESS: The patient is a 64-year-old female with no significant past medical history, now being seen for abdominal pain. The patient reports in recent days, she has had tenderness and lower abdominal sharp pain radiating to the back. She reports no diarrhea, constipation or rectal bleeding. Denies any nausea, vomiting. The patient reports no history of recent alcohol or drug use. The patient subsequently came to the Emergency Room, where she had a CT scan, raising the possibility of intra-abdominal process. She subsequently was admitted and GI consulted. Of note, the patient does report some unintentional weight loss and pain is radiating to the back. PAST MEDICAL HISTORY: Negative. MEDICATIONS: See chart. ALLERGIES: No known drug allergies. SOCIAL HISTORY: Denies alcohol, tobacco or drug abuse. FAMILY HISTORY: Negative for colon cancer, IBD, or liver disease. REVIEW OF SYSTEMS: GENERAL: Reports some weakness. HEENT: No visual complaints or tinnitus. PULMONARY: No shortness of breath or chest pain. GASTROINTESTINAL: Reports abdominal pain and back pain as well as weight loss. All points of 13-point review of systems otherwise negative. PHYSICAL EXAMINATION: VITAL SIGNS: Temperature of 98.0, pulse 61, respirations 18, blood pressure 111/71. GENERAL: Fairly nourished female, in no acute distress. HEENT: Pupils equal, round and reactive. PULMONARY: Clear to auscultation bilaterally. CARDIOVASCULAR: Regular rhythm. Normal S1, S2. ABDOMEN: Positive bowel, soft. SKIN: No obvious rashes. LABORATORY DATA: Pertinent for white count of 8.6, hemoglobin and hematocrit of 12.1 and 36.1, platelet count of 211. Chem-7 within normal limits except for potassium of 3.2. LFTs within normal limits. CT scan of abdomen and pelvis done with contrast on 08/05/2020, showed abnormal soft tissue density and ____. ASSESSMENT AND PLAN: This is a 64-year-old black female who reports recent weeks of mid abdominal pain radiating to the back with nonspecific weight loss. A CT scan raising possibility of a lesion in surrounding celiac axis, concerning for malignant process. PLAN: 1. Review CT scan. 2. Labs including CA-19-9. 3. MRI, MRCP. 4. Follow further recommendation based on progress as well as MRI. JOB# [id number] OBDULIO/NTS
[2020-08-07] MEDS: MORPHINE 2 MG/1 ML INJ IV PRN ×6 (00:44→23:00)
[2020-08-07] MEDS: D5W/0.9% NACL 1,000 ML IV SCH (05:01)
[2020-08-07 05:27] LABS: Basophils % (Auto) 0.3 % (0.0-1.8); Eosinophils % (Auto) 0.3 % (0.0-4.3); Hematocrit 35.7 % (30.3-42.9); Hemoglobin 12.1 gm/dl (10.1-14.3); Lymphocytes # (Auto) 2.6 K/mm3 (1.2-5.4); Lymphocytes % (Auto) 35.7 % (13.4-35.0); Mean Corpuscular HGB Conc 34 % (30-34); Mean Corpuscular Volume 87 fl (79-97); Monocytes # (Auto) 0.8 K/mm3 (0.0-0.8); Monocytes % (Auto) 10.4 % (0.0-7.3); Platelet Count 220 K/mm3 (140-440); Red Blood Count 4.11 M/mm3 (3.65-5.03); Red Cell Distribution Width 14.2 % (13.2-15.2)
[2020-08-07 05:40] LABS: Alanine Aminotransferase 60 units/L (7-56); Albumin 3.9 g/dL (3.9-5); Blood Urea Nitrogen 2 mg/dL (7-17); Calcium 8.7 mg/dL (8.4-10.2); Hemolysis Index 5
[2020-08-07 05:44] LABS: BUN/Creatinine Ratio 4
--- NOTE | 2020-08-07 11:23 | Progress Note ---
Assessment and Plan Assessment and plan: #Intractable nausea vomiting -CT abdomen with IV contrast shows abnormal soft tissue mass encircling the celiac axis vessels which represents an exophytic lesion on the pancreas. Pancreatic neoplasm should be considered. -Continue Zofran -Lipase bumped up to 202 today. Continue IV hydration -CA 19-9 and CEA ordered -For MR abdomen and MRCP today -GI recommendations appreciated #Elevated lipase -Continue IV hydration -Trend lipase #DVT prophylaxis-Lovenox Full code History Interval history: 65 years old female with no significant past medical history here with back pain, intractable nausea and vomiting. Pain is around the mid back area, 10 out of 10, sharp in nature, constant. Patient stated that she has nausea and vomiting with very poor appetite. She notes some weight loss as a result of not tolerating PO. Patient denied any fever or chills. Patient also denied any recent injury or trauma. No chest pain or shortness of breath. She drinks al cohol sparingly. Last drink was in June. She denies tobacco abuse or IV drug use. 3/2. Tolerating diet more now. She still has back pain and some epigastric discomfort. GI evaluation pending. CA 19-9 and CEA ordered. May need MRI MRCP for further evaluation of pancreatic pathology. 3/3. Complains of pain today. Labs reviewed-lipase 202. She has been seen by GI. Recommended checking CA 19-9 which has been ordered yesterday. MRI MRCP also ordered. Hospitalist Physical - Physical exam Narrative exam: VITAL SIGNS: Reviewed. GENERAL: Awake HEAD: No signs of head trauma. EYES: Pupils are equal. Extraocular motions intact. MOUTH: Oropharynx is normal. NECK: No adenopathy, no JVD. CHEST: Chest with diminished breath sounds bilaterally. No wheezes, rales, or rhonchi. CARDIAC: normal S1 and S2, without murmurs, gallops, or rubs. ABDOMEN: Soft, non tender and non distended. No rebound or guarding, and no masses palpated. Bowel Sounds normal. MUSCULOSKELETAL: No edema NEUROLOGIC EXAM: Alert and oriented x3. No focal neurologic deficits SKIN: No obvious lesions - Constitutional Vitals: Temp Pulse Resp BP Pulse Ox 98.4 F 71 16 100/61 97 08/07/20 07:48 08/07/20 07:48 08/07/20 07:48 08/07/20 07:48 08/07/20 07:48 HEART Score - HEART Score Troponin: Troponin T < 0.010 ng/mL (0.00-0.029) 08/05/20 06:47 Results - Labs CBC & Chem 7: 08/08/20 04:46 08/08/20 04:46 Labs: Laboratory Last Values WBC 7.3 K/mm3 (4.5-11.0) 08/07/20 05:00 RBC 4.11 M/mm3 (3.65-5.03) 08/07/20 05:00 Hgb 12.1 gm/dl (10.1-14.3) 08/07/20 05:00 Hct 35.7 % (30.3-42.9) 08/07/20 05:00 MCV 87 fl (79-97) 08/07/20 05:00 MCH 30 pg (28-32) 08/07/20 05:00 MCHC 34 % (30-34) 08/07/20 05:00 RDW 14.2 % (13.2-15.2) 08/07/20 05:00 Plt Count 220 K/mm3 (140-440) 08/07/20 05:00 Lymph % (Auto) 35.7 % (13.4-35.0) H 08/07/20 05:00 [place] % (Auto) 10.4 % (0.0-7.3) H 08/07/20 05:00 Eos % (Auto) 0.3 % (0.0-4.3) 08/07/20 05:00 Baso % (Auto) 0.3 % (0.0-1.8) 08/07/20 05:00 Lymph # (Auto) 2.6 K/mm3 (1.2-5.4) 08/07/20 05:00 [place] # (Auto) 0.8 K/mm3 (0.0-0.8) 08/07/20 05:00 Eos # (Auto) 0.0 K/mm3 (0.0-0.4) 08/07/20 05:00 Baso # (Auto) 0.0 K/mm3 (0.0-0.1) 08/07/20 05:00 Seg Neutrophils % 53.3 % (40.0-70.0) 08/07/20 05:00 Seg Neutrophils # 3.9 K/mm3 (1.8-7.7) 08/07/20 05:00 Sodium 138 mmol/L (137-145) 08/07/20 05:00 Potassium 3.4 mmol/L (3.6-5.0) L 08/07/20 05:00 Chloride 102.9 mmol/L (98-107) 08/07/20 05:00 Carbon Dioxide 25 mmol/L (22-30) 08/07/20 05:00 Anion Gap 14 mmol/L 08/07/20 05:00 BUN 2 mg/dL (7-17) L 08/07/20 05:00 Creatinine 0.5 mg/dL (0.6-1.2) L 08/07/20 05:00 Estimated GFR > 60 ml/min 08/07/20 05:00 BUN/Creatinine Ratio 4 % 08/07/20 05:00 Glucose 133 mg/dL (65-100) H 08/07/20 05:00 Calcium 8.7 mg/dL (8.4-10.2) 08/07/20 05:00 Total Bilirubin 1.10 mg/dL (0.1-1.2) 08/07/20 05:00 Direct Bilirubin 0.3 mg/dL (0-0.2) H 08/05/20 06:47 Indirect Bilirubin 1.2 mg/dL 08/05/20 06:47 AST 30 units/L (5-40) 08/07/20 05:00 ALT 60 units/L (7-56) H 08/07/20 05:00 Alkaline Phosphatase 48 units/L (35-129) 08/07/20 05:00 Troponin T < 0.010 ng/mL (0.00-0.029) 08/05/20 06:47 Total Protein 6.5 g/dL (6.3-8.2) 08/07/20 05:00 Albumin 3.9 g/dL (3.9-5) 08/07/20 05:00 Albumin/Globulin Ratio 1.5 % 08/07/20 05:00 Lipase 202 units/L (13-60) H 08/07/20 05:00 Urine Color Anastacia (Yellow) 08/05/20 07:55 Urine Turbidity Cloudy (Clear) 08/05/20 07:55 Urine pH 6.0 (5.0-7.0) 08/05/20 07:55 Ur Specific [place] 1.016 (1.003-1.030) 08/05/20 07:55 Urine Protein 100 mg/dl mg/dL (Negative) 08/05/20 07:55 Urine Glucose (UA) Neg mg/dL (Negative) 08/05/20 07:55 Urine Ketones 20 mg/dL (Negative) 08/05/20 07:55 Urine Blood Sm (Negative) 08/05/20 07:55 Urine Nitrite Neg (Negative) 08/05/20 07:55 Urine Bilirubin Neg (Negative) 08/05/20 07:55 Urine Urobilinogen 4.0 mg/dL (<2.0) 08/05/20 07:55 Ur Leukocyte Esterase Tr (Negative) 08/05/20 07:55 Urine WBC (Auto) 9.0 /HPF (0.0-6.0) H 08/05/20 07:55 Urine RBC (Auto) 7.0 /HPF (0.0-6.0) 08/05/20 07:55 U Epithel Cells (Auto) 21.0 /HPF (0-13.0) H 08/05/20 07:55 Urine Bacteria (Auto) 1+ /HPF (Negative) 08/05/20 07:55 Granular Casts 2 /LPF 08/05/20 07:55 Urine Mucus 2+ /HPF 08/05/20 07:55 Microbiology: Microbiology 08/05/20 07:55 Urine,Clean Catch Urine Culture - Final Gaspar/IV: Voiding Method Toilet Active Medications - Current Medications Current Medications: Generic Name Dose Route Start Last Admin Trade Name Freq PRN Reason Stop Dose Admin Dextrose/Sodium Chloride 1,000 mls @ 100 mls/hr 08/05/20 13:00 08/07/20 05:01 D5ns IV 100 mls/hr DIRECT EVELYN Administration Morphine Sulfate 2 mg 08/05/20 12:27 08/07/20 09:28 Morphine 2 Mg/1 Ml Inj IV 2 mg Q4H PRN Administration Pain, Moderate (4-6) Ondansetron HCl 4 mg 08/05/20 12:26 08/05/20 13:25 Ondansetron 4 Mg/2 Ml Inj IV 4 mg Q8H PRN Administration Nausea And Vomiting Potassium Chloride 40 meq 08/07/20 10:00 Potassium Chloride Er 20 Meq Tab PO QDAY EVELYN Trazodone HCl 50 mg 08/05/20 22:23 08/06/20 00:02 Trazodone 50 Mg Tab PO 50 mg QHS PRN Administration Insomnia Nutrition/Malnutrition Assess - Dietary Evaluation Nutrition/Malnutrition Findings: Nutrition Notes Start: 08/06/20 12:28 Freq: Status: Active Protocol: Document 08/06/20 12:28 AT (Rec: 08/06/20 12:43 AT [id number]) Co-Sign 08/06/20 12:28 MK Nutrition Notes Need for Assessment generated from: tip mender,MST Initial or Follow up Assessment Other Pertinent Diagnosis Intractable N/V, back pain Current Diet Full Liquids Labs/Tests K 3.2 BUN 5 Cr 0.4 BG 159 Pertinent Medications KCl 10 mEq D5NS at 100 mL/hr Zofran K-Dur 20 mEq Height 5 ft 4 in Weight 68.039 kg Usual Body Weight 72.5 kg [place] Body Weight (kg) 54.54 BMI 25.7 Intake Prior to Admission Poor Weight change and time frame 9% weight loss in 6 weeks () Weight Status Overweight Subjective/Other Information Screen for malnutrition. Pt reports eating less than 50% of meals since the beginning of June. Pt reports that she was experiencing severe pain, which prevented her from eating. Pt reports weight loss of 6% since the beginning of June, but per earlier visit, pt has lost 9% of body weight in 6 months. Billet Examiner observed that pt had consumed 25% of breakfast. Pt agreed to try ONS; pt does not like chocolate. Pt reports that she is no longer experiencing N/V . Burn Absent Trauma Absent GI Symptoms None Food Allergy No Usual Diet at Home Regular Current % PO Poor (25-49%) Minimum of two criteria Yes Energy Intake (severe) < or equal to 50% Estimated Energy Requirement > or equal to 5 days Interpretation of Weight Loss (severe) >5% in 1 month #2 Nutrition Diagnosis Inadequate energy intake Etiology intractable N/V As Evidenced by Signs and Symptoms pt reports inability to eat everyday for more than 2 months, pt on Full Liquid diet #1 Nutrition Diagnosis Malnutrition Etiology intractable N/V, severe pain As Evidenced by Signs and Symptoms >5% weight loss in one month, pt reports consuming <50% of energy needs for > 5 days Is patient on ventilator? No Is Patient Ambulatory and/or Out of Bed No REE-([place] [place]-confined to bed) 1475.604 Kcal/Kg value to use for calculation 25 Approximate Energy Requirements Using 1701 kcal/Kg Calculation Used for Recommendations Kcal/kg Additional Notes PRO needs: 82-102 g(1.2-1.5 g/ kg) Fluid needs: 1mL/kcal or per MD Nutrition Intervention Change Diet Order: Continue Full Liquids, advance when medically feasible Add Supplement/Snack (indicate name/kcal Ensure Enlive BID /protein ) Provides kCal: 700 Provides Protein (gm) 40 Goal #1 Diet advancement Goal #2 Weight maintenance Goal #3 Meet at least 80% of needs via diet and ONS Anticipated Discharge Needs: Regular Diet Follow-Up By: 08/08/20 Additional Comments F/U intakes, ONS tolerance
[2020-08-07] MEDS: POTASSIUM CHLORIDE ER 20 MEQ TAB PO SCH (11:43)
--- NOTE | 2020-08-07 12:01 | Magnetic Resonance Report ---
MRI ABDOMEN WITHOUT CONTRAST MRCP. HISTORY: Pancreatic mass COMPARISON: CT abdomen pelvis with contrast 08/05/2020 TECHNIQUE: Multiplanar, multisequence MR imaging was performed of the abdomen without intravenous con trast. T2-weighted MIP projections were post-processed under concurrent physician supervision for pu rposes of MRCP. CONTRAST: None. FINDINGS: Liver: The liver is normal size, contour and signal. 1.9 cm lobulated cyst is noted in the posterior right hepatic lobe. No suspicious liver mass. Biliary: The gallbladder, common bile duct and intrahepatic ducts are unremarkable. The proximal panc reatic duct is normal caliber measuring 2 mm. The distal pancreatic duct is dilated up to 4 mm. Spleen: No significant abnormality. Pancreas: Ill-defined mass arising from the body of the pancreas measuring up to 3.9 x 3.3 cm in axia l plane is again seen. This mass extends superiorly and appears to encircle the celiac axis/trunk ves sels. This mass abuts the splenic vein but does not appear to occlude it. The superior mesenteric vei n, portal vein and portal confluence are not involved. Adrenals: No significant abnormality. Kidneys: Both kidneys are normal size and position. There are a few scattered simple appearing renal cysts bilaterally measuring up to 2.4 cm. Lymphatics: No lymphadenopathy is detected. Vasculature: Patent. Bowel and Mesentery: Visualized portions without significant abnormality. Fluid: No ascites. Osseous Structures: No significant abnormality. Additional Findings: None. IMPRESSION: Noncontrast MRI and MRCP imaging is also suspicious for pancreatic neoplasm as described above. No me tastatic lesions or adenopathy is identified. Signer Name: Bob Villatoro Jr, MD Signed: 08/07/2020 11:57 AM Workstation Name: [id number]
[2020-08-07] MEDS: oxyCODONE 5 MG TAB PO PRN (13:01)
[2020-08-07] MEDS: ONDANSETRON 4 MG/2 ML INJ IV PRN ×2 (14:19→23:00)
--- NOTE | 2020-08-07 17:14 | Gastroenterology Progress Note ---
Assessment and Plan GI: pt presented w/ abdominal pain w/ ct concerning for possible malignancy. MRCP results reviewed, pancreatic body mass w/ vascular involvement - will require EUS w/ bx as outpt - rec Oncology consult - follow ca 19-9 - if stable can complete further evaluation and management as outpt - will follow Subjective Date of service: 08/07/20 Interval history: - pt reports continued abdominal pain. Denies other complaints Objective - Constitutional Vitals: Temp Pulse Resp BP Pulse Ox 98.4 F 71 16 100/61 97 08/07/20 07:48 08/07/20 07:48 08/07/20 07:48 08/07/20 07:48 08/07/20 07:48 General appearance: no acute distress - EENT Eyes: PERRL - Respiratory Respiratory: bilateral: CTA - Cardiovascular Rhythm: regular Heart Sounds: Present: S1 & S2 - Gastrointestinal General gastrointestinal: Present: soft, non-tender, tender - Labs CBC & Chem 7: 08/07/20 05:00 08/07/20 05:00 Labs: Laboratory Results - last 24 hr 08/07/20 08/07/20 05:00 05:00 WBC 7.3 RBC 4.11 Hgb 12.1 Hct 35.7 MCV 87 MCH 30 MCHC 34 RDW 14.2 Plt Count 220 Lymph % (Auto) 35.7 H [place] % (Auto) 10.4 H Eos % (Auto) 0.3 Baso % (Auto) 0.3 Lymph # (Auto) 2.6 [place] # (Auto) 0.8 Eos # (Auto) 0.0 Baso # (Auto) 0.0 Seg Neutrophils % 53.3 Seg Neutrophils # 3.9 Sodium 138 Potassium 3.4 L Chloride 102.9 Carbon Dioxide 25 Anion Gap 14 BUN 2 L Creatinine 0.5 L Estimated GFR > 60 BUN/Creatinine Ratio 4 Glucose 133 H Calcium 8.7 Total Bilirubin 1.10 AST 30 ALT 60 H Alkaline Phosphatase 48 Total Protein 6.5 Albumin 3.9 Albumin/Globulin Ratio 1.5 Lipase 202 H
[2020-08-08] MEDS: oxyCODONE 5 MG TAB PO PRN (01:45)
[2020-08-08] MEDS: D5W/0.9% NACL 1,000 ML IV SCH ×3 (01:46→17:50)
[2020-08-08 05:35] LABS: Basophils % (Auto) 0.3 % (0.0-1.8); Eosinophils % (Auto) 0.7 % (0.0-4.3); Hematocrit 36.8 % (30.3-42.9); Hemoglobin 12.4 gm/dl (10.1-14.3); Lymphocytes # (Auto) 1.9 K/mm3 (1.2-5.4); Lymphocytes % (Auto) 30.8 % (13.4-35.0); Mean Corpuscular HGB Conc 34 % (30-34); Mean Corpuscular Volume 88 fl (79-97); Monocytes # (Auto) 0.7 K/mm3 (0.0-0.8); Platelet Count 205 K/mm3 (140-440); Red Cell Distribution Width 13.9 % (13.2-15.2)
[2020-08-08 06:06] LABS: Alanine Aminotransferase 98 units/L (7-56); Blood Urea Nitrogen 2 mg/dL (7-17); Hemolysis Index 10
[2020-08-08 06:12] LABS: BUN/Creatinine Ratio 4
[2020-08-08] MEDS: MORPHINE 2 MG/1 ML INJ IV PRN ×3 (07:10→17:07)
[2020-08-08] MEDS: POTASSIUM CHLORIDE ER 20 MEQ TAB PO SCH (09:15)
--- NOTE | 2020-08-08 09:33 | Progress Note ---
Assessment and Plan Assessment and plan: #Intractable nausea vomiting -CT abdomen with IV contrast shows abnormal soft tissue mass encircling the celiac axis vessels which represents an exophytic lesion on the pancreas. Pancreatic neoplasm should be considered. -MR abdomen and MRCP shows possible pancreatic malignancy. Plan to have endoscopic ultrasound as outpatient as per GI -Continue Zofran. Pain medications -CA 19-9 and CEA pending -GI recommendations appreciated -Hematology/oncology consulted #Elevated lipase -Continue IV hydration -Trend lipase #DVT prophylaxis-Lovenox Full code Discharge planning-discharge when pain is more tolerable. Plan to follow-up with oncology and GI as outpatient History Interval history: 65 years old female with no significant past medical history here with back pain, intractable nausea and vomiting. Pain is around the mid back area, 10 out of 10, sharp in nature, constant. Patient stated that she has nausea and vomiting with very poor appetite. She notes some weight loss as a result of not tolerating PO. Patient denied any fever or chills. Patient also denied any recent injury or trauma. No chest pain or shortness of breath. She drinks alcohol sparingly. Last drink was in June. She denies tobacco abuse or IV drug use. 3/2. Tolerating diet more now. She still has back pain and some epigastric discomfort. GI evaluation pending. CA 19-9 and CEA ordered. May need MRI MRCP for further evaluation of pancreatic pathology. 3/3. Complains of pain today. Labs reviewed-lipase 202. She has been seen by GI. Recommended checking CA 19-9 which has been ordered yesterday. MRI MRCP also ordered. 08/08. MRI abdomen/MRCP also shows pancreatic mass with vascularization around vascular bed. CA 19-9 pending. Hematology oncology consulted. Patient still complains of pain this AM which interferes with eating. Pain medications adjusted. As per GI, patient will need to have endoscopic ultrasound performed as outpatient. Vitals remained stable Hospitalist Physical - Physical exam Narrative exam: VITAL SIGNS: Reviewed. GENERAL: Awake HEAD: No signs of head trauma. EYES: Pupils are equal. Extraocular motions intact. MOUTH: Oropharynx is normal. NECK: No adenopathy, no JVD. CHEST: Chest with diminished breath sounds bilaterally. No wheezes, rales, or rhonchi. CARDIAC: normal S1 and S2, without murmurs, gallops, or rubs. ABDOMEN: Soft, abdominal discomfort. MUSCULOSKELETAL: No edema NEUROLOGIC EXAM: Alert and oriented x3. No focal neurologic deficits SKIN: No obvious lesions - Constitutional Vitals: Temp Pulse Resp BP Pulse Ox 97.9 F 65 18 110/67 100 08/08/20 05:27 08/08/20 05:27 08/08/20 07:40 08/08/20 05:27 08/08/20 05:27 HEART Score - HEART Score Troponin: Troponin T < 0.010 ng/mL (0.00-0.029) 08/05/20 06:47 Results - Labs CBC & Chem 7: 08/08/20 04:46 08/08/20 04:46 Labs: Laboratory Last Values WBC 6.2 K/mm3 (4.5-11.0) 08/08/20 04:46 RBC 4.20 M/mm3 (3.65-5.03) 08/08/20 04:46 Hgb 12.4 gm/dl (10.1-14.3) 08/08/20 04:46 Hct 36.8 % (30.3-42.9) 08/08/20 04:46 MCV 88 fl (79-97) 08/08/20 04:46 MCH 30 pg (28-32) 08/08/20 04:46 MCHC 34 % (30-34) 08/08/20 04:46 RDW 13.9 % (13.2-15.2) 08/08/20 04:46 Plt Count 205 K/mm3 (140-440) 08/08/20 04:46 Lymph % (Auto) 30.8 % (13.4-35.0) 08/08/20 04:46 [place] % (Auto) 12.0 % (0.0-7.3) H 08/08/20 04:46 Eos % (Auto) 0.7 % (0.0-4.3) 08/08/20 04:46 Baso % (Auto) 0.3 % (0.0-1.8) 08/08/20 04:46 Lymph # (Auto) 1.9 K/mm3 (1.2-5.4) 08/08/20 04:46 [place] # (Auto) 0.7 K/mm3 (0.0-0.8) 08/08/20 04:46 Eos # (Auto) 0.0 K/mm3 (0.0-0.4) 08/08/20 04:46 Baso # (Auto) 0.0 K/mm3 (0.0-0.1) 08/08/20 04:46 Seg Neutrophils % 56.2 % (40.0-70.0) 08/08/20 04:46 Seg Neutrophils # 3.5 K/mm3 (1.8-7.7) 08/08/20 04:46 Sodium 141 mmol/L (137-145) 08/08/20 04:46 Potassium 3.6 mmol/L (3.6-5.0) 08/08/20 04:46 Chloride 104.3 mmol/L (98-107) 08/08/20 04:46 Carbon Dioxide 27 mmol/L (22-30) 08/08/20 04:46 Anion Gap 13 mmol/L 08/08/20 04:46 BUN 2 mg/dL (7-17) L 08/08/20 04:46 Creatinine 0.5 mg/dL (0.6-1.2) L 08/08/20 04:46 Estimated GFR > 60 ml/min 08/08/20 04:46 BUN/Creatinine Ratio 4 % 08/08/20 04:46 Glucose 176 mg/dL (65-100) H 08/08/20 04:46 Calcium 9.0 mg/dL (8.4-10.2) 08/08/20 04:46 Total Bilirubin 1.20 mg/dL (0.1-1.2) 08/08/20 04:46 Direct Bilirubin 0.3 mg/dL (0-0.2) H 08/05/20 06:47 Indirect Bilirubin 1.2 mg/dL 08/05/20 06:47 AST 55 units/L (5-40) H 08/08/20 04:46 ALT 98 units/L (7-56) H 08/08/20 04:46 Alkaline Phosphatase 55 units/L (35-129) 08/08/20 04:46 Troponin T < 0.010 ng/mL (0.00-0.029) 08/05/20 06:47 Total Protein 6.8 g/dL (6.3-8.2) 08/08/20 04:46 Albumin 4.0 g/dL (3.9-5) 08/08/20 04:46 Albumin/Globulin Ratio 1.4 % 08/08/20 04:46 Lipase 202 units/L (13-60) H 08/07/20 05:00 Urine Color [place]ast[place] (Yellow) 08/05/20 07:55 Urine Turbidity Cloudy (Clear) 08/05/20 07:55 Urine pH 6.0 (5.0-7.0) 08/05/20 07:55 Ur Specific [place] 1.016 (1.003-1.030) 08/05/20 07:55 Urine Protein 100 mg/dl mg/dL (Negative) 08/05/20 07:55 Urine Glucose (UA) Neg mg/dL (Negative) 08/05/20 07:55 Urine Ketones 20 mg/dL (Negative) 08/05/20 07:55 Urine Blood Sm (Negative) 08/05/20 07:55 Urine Nitrite Neg (Negative) 08/05/20 07:55 Urine Bilirubin Neg (Negative) 08/05/20 07:55 Urine Urobilinogen 4.0 mg/dL (<2.0) 08/05/20 07:55 Ur Leukocyte Esterase Tr (Negative) 08/05/20 07:55 Urine WBC (Auto) 9.0 /HPF (0.0-6.0) H 08/05/20 07:55 Urine RBC (Auto) 7.0 /HPF (0.0-6.0) 08/05/20 07:55 U Epithel Cells (Auto) 21.0 /HPF (0-13.0) H 08/05/20 07:55 Urine Bacteria (Auto) 1+ /HPF (Negative) 08/05/20 07:55 Granular Casts 2 /LPF 08/05/20 07:55 Urine Mucus 2+ /HPF 08/05/20 07:55 Microbiology: Microbiology 08/05/20 07:55 Urine,Clean Catch Urine Culture - Final Gaspar/IV: Voiding Method Toilet Active Medications - Current Medications Current Medications: Generic Name Dose Route Start Last Admin Trade Name Freq PRN Reason Stop Dose Admin Dextrose/Sodium Chloride 1,000 mls @ 125 mls/hr 08/05/20 13:00 08/08/20 09:20 D5ns IV 100 mls/hr DIRECT EVELYN Administration Morphine Sulfate 2 mg 08/05/20 12:27 08/08/20 07:10 Morphine 2 Mg/1 Ml Inj IV 2 mg Q4H PRN Administration Pain, Moderate (4-6) Ondansetron HCl 4 mg 08/05/20 12:26 08/07/20 23:00 Ondansetron 4 Mg/2 Ml Inj IV 4 mg Q8H PRN Administration Nausea And Vomiting Oxycodone HCl 5 mg 08/07/20 12:08 08/08/20 01:45 Oxycodone 5 Mg Tab PO 5 mg Q8H PRN Administration Pain, Moderate (4-6) Potassium Chloride 40 meq 08/07/20 10:00 08/08/20 09:15 Potassium Chloride Er 20 Meq Tab PO 40 meq QDAY EVELYN Administration Trazodone HCl 50 mg 08/05/20 22:23 08/06/20 00:02 Trazodone 50 Mg Tab PO 50 mg QHS PRN Administration Insomnia Nutrition/Malnutrition Assess - Dietary Evaluation Nutrition/Malnutrition Findings: Nutrition Notes Start: 08/06/20 12:28 Freq: Status: Active Protocol: Document 08/06/20 12:28 AT (Rec: 08/06/20 12:43 AT [id number]) Co-Sign 08/06/20 12:28 MK Nutrition Notes Need for Assessment generated from: dip tanker,MST Initial or Follow up Assessment Other Pertinent Diagnosis Intractable N/V, back pain Current Diet Full Liquids Labs/Tests K 3.2 BUN 5 Cr 0.4 BG 159 Pertinent Medications KCl 10 mEq D5NS at 100 mL/hr Zofran K-Dur 20 mEq Height 5 ft 4 in Weight 68.039 kg Usual Body Weight 72.5 kg [place] Body Weight (kg) 54.54 BMI 25.7 Intake Prior to Admission Poor Weight change and time frame 9% weight loss in 6 weeks () Weight Status Overweight Subjective/Other Information Screen for malnutrition. Pt reports eating less than 50% of meals since the beginning of June. Pt reports that she was experiencing severe pain, which prevented her from eating. Pt reports weight loss of 6% since the beginning of June, but per earlier visit, pt has lost 9% of body weight in 6 months. Director Of Collections And Archives observed that pt had consumed 25% of breakfast. Pt agreed to try ONS; pt does not like chocolate. Pt reports that she is no longer experiencing N/V . Burn Absent Trauma Absent GI Symptoms None Food Allergy No Usual Diet at Home Regular Current % PO Poor (25-49%) Minimum of two criteria Yes Energy Intake (severe) < or equal to 50% Estimated Energy Requirement > or equal to 5 days Interpretation of Weight Loss (severe) >5% in 1 month #2 Nutrition Diagnosis Inadequate energy intake Etiology intractable N/V As Evidenced by Signs and Symptoms pt reports inability to eat everyday for more than 2 months, pt on Full Liquid diet #1 Nutrition Diagnosis Malnutrition Etiology intractable N/V, severe pain As Evidenced by Signs and Symptoms >5% weight loss in one month, pt reports consuming <50% of energy needs for > 5 days Is patient on ventilator? No Is Patient Ambulatory and/or Out of Bed No REE-([place]-confined to bed) 1475.604 Kcal/Kg value to use for calculation 25 Approximate Energy Requirements Using 1701 kcal/Kg Calculation Used for Recommendations Kcal/kg Additional Notes PRO needs: 82-102 g(1.2-1.5 g/ kg) Fluid needs: 1mL/kcal or per MD Nutrition Intervention Change Diet Order: Continue Full Liquids, advance when medically feasible Add Supplement/Snack (indicate name/kcal Ensure Enlive BID /protein ) Provides kCal: 700 Provides Protein (gm) 40 Goal #1 Diet advancement Goal #2 Weight maintenance Goal #3 Meet at least 80% of needs via diet and ONS Anticipated Discharge Needs: Regular Diet Follow-Up By: 08/08/20 Additional Comments F/U intakes, ONS tolerance
[2020-08-08] MEDS: oxyCODONE ER 10 MG TAB PO SCH ×2 (13:14→21:50)
--- NOTE | 2020-08-08 16:09 | Hem/Onc Consultation ---
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 will need long-acting pain meds for home consider celiac block procedure referral to tertiary care oncologist for "neoadjuvant" chemo for pancreatic cancer GI eval underway-->Outpt EUS/biopsy labs to include CEA, CA19-9 Vital Signs Temp Pulse Resp BP Pulse Ox 97.9 F 65 18 110/67 100 08/08/20 05:27 08/08/20 05:27 08/08/20 07:40 08/08/20 05:27 08/08/20 05:27 Temperature -Last 24 Hours Temperature 97.9 F Temperature 98.7 F Temperature 99.0 F Active Medications Dextrose/Sodium Chloride (D5ns) 1,000 mls @ 125 mls/hr IV DIRECT [facility] Last Admin: 08/08/20 09:20 Dose: 100 mls/hr Documented by: Morphine Sulfate (Morphine 2 Mg/1 Ml Inj) 2 mg IV Q4H PRN PRN Reason: Pain, Moderate (4-6) Last Admin: 08/08/20 10:47 Dose: 2 mg Documented by: Ondansetron HCl (Ondansetron 4 Mg/2 Ml Inj) 4 mg IV Q8H PRN PRN Reason: Nausea And Vomiting Last Admin: 08/07/20 23:00 Dose: 4 mg Documented by: Oxycodone HCl (Oxycodone 5 Mg Tab) 5 mg PO Q8H PRN PRN Reason: Pain, Moderate (4-6) Last Admin: 08/08/20 01:45 Dose: 5 mg Documented by: Oxycodone HCl (Oxycodone Er 10 Mg Tab) 10 mg PO Q12HR [facility] Last Admin: 08/08/20 13:14 Dose: 10 mg Documented by: Potassium Chloride (Potassium Chloride Er 20 Meq Tab) 40 meq PO QDAY [facility] Last Admin: 08/08/20 09:15 Dose: 40 meq Documented by: Trazodone HCl (Trazodone 50 Mg Tab) 50 mg PO QHS PRN PRN Reason: Insomnia Last Admin: 08/06/20 00:02 Dose: 50 mg Documented by: Laboratory Last Values WBC 6.2 K/mm3 (4.5-11.0) 08/08/20 04:46 Hgb 12.4 gm/dl (10.1-14.3) 08/08/20 04:46 Hct 36.8 % (30.3-42.9) 08/08/20 04:46 Plt Count 205 K/mm3 (140-440) 08/08/20 04:46 Creatinine 0.5 mg/dL (0.6-1.2) L 08/08/20 04:46 Total Bilirubin 1.20 mg/dL (0.1-1.2) 08/08/20 04:46 Direct Bilirubin 0.3 mg/dL (0-0.2) H 08/05/20 06:47 Indirect Bilirubin 1.2 mg/dL 08/05/20 06:47 AST 55 units/L (5-40) H 08/08/20 04:46 ALT 98 units/L (7-56) H 08/08/20 04:46 Alkaline Phosphatase 55 units/L (35-129) 08/08/20 04:46 Urine Mucus 2+ /HPF 08/05/20 07:55 Past History Past Medical History: No medical history Medications and Allergies Allergies Allergy/AdvReac Type Severity Reaction Status Date / Time No Known Allergies Allergy Unverified 04/19/18 07:47 Home Medications Medication Instructions Recorded Confirmed Last Taken Type Celecoxib [celeBREX] 50 mg PO BID #30 capsule 06/23/20 08/07/20 Unknown Rx traMADoL [Ultram 50 MG tab] 50 mg PO Q6HR PRN #12 tablet 06/23/20 08/07/20 Unknown Rx Active Meds: Active Medications Dextrose/Sodium Chloride (D5ns) 1,000 mls @ 125 mls/hr IV DIRECT [facility] Last Admin: 08/08/20 09:20 Dose: 100 mls/hr Documented by: Morphine Sulfate (Morphine 2 Mg/1 Ml Inj) 2 mg IV Q4H PRN PRN Reason: Pain, Moderate (4-6) Last Admin: 08/08/20 10:47 Dose: 2 mg Documented by: Ondansetron HCl (Ondansetron 4 Mg/2 Ml Inj) 4 mg IV Q8H PRN PRN Reason: Nausea And Vomiting Last Admin: 08/07/20 23:00 Dose: 4 mg Documented by: Oxycodone HCl (Oxycodone 5 Mg Tab) 5 mg PO Q8H PRN PRN Reason: Pain, Moderate (4-6) Last Admin: 08/08/20 01:45 Dose: 5 mg Documented by: Oxycodone HCl (Oxycodone Er 10 Mg Tab) 10 mg PO Q12HR [facility] Last Admin: 08/08/20 13:14 Dose: 10 mg Documented by: Potassium Chloride (Potassium Chloride Er 20 Meq Tab) 40 meq PO QDAY [facility] Last Admin: 08/08/20 09:15 Dose: 40 meq Documented by: Trazodone HCl (Trazodone 50 Mg Tab) 50 mg PO QHS PRN PRN Reason: Insomnia Last Admin: 08/06/20 00:02 Dose: 50 mg Documented by: Exam - Constitutional Vitals: Last Vital Signs Temp 97.9 F 08/08/20 05:27 Pulse 65 08/08/20 05:27 Resp 18 08/08/20 07:40 BP 110/67 08/08/20 05:27 Pulse Ox 100 08/08/20 05:27 Results - Labs lab Results: Laboratory Results - last 24 hr 08/08/20 08/08/20 04:46 04:46 WBC 6.2 RBC 4.20 Hgb 12.4 Hct 36.8 MCV 88 MCH 30 MCHC 34 RDW 13.9 Plt Count 205 Lymph % (Auto) 30.8 Gates % (Auto) 12.0 H Eos % (Auto) 0.7 Baso % (Auto) 0.3 Lymph # (Auto) 1.9 Gates # (Auto) 0.7 Eos # (Auto) 0.0 Baso # (Auto) 0.0 Seg Neutrophils % 56.2 Seg Neutrophils # 3.5 Sodium 141 Potassium 3.6 Chloride 104.3 Carbon Dioxide 27 Anion Gap 13 BUN 2 L Creatinine 0.5 L Estimated GFR > 60 BUN/Creatinine Ratio 4 Glucose 176 H Calcium 9.0 Total Bilirubin 1.20 AST 55 H ALT 98 H Alkaline Phosphatase 55 Total Protein 6.8 Albumin 4.0 Albumin/Globulin Ratio 1.4
[2020-08-08] MEDS ORDERED: diphenhydrAMINE 50 MG/ML VIAL IV PRN (16:10)
[2020-08-08] MEDS ORDERED: METOCLOPRAMIDE 10 MG/2 ML INJ IV PRN (16:10)
[2020-08-08] MEDS ORDERED: ONDANSETRON 4 MG/2 ML INJ IV PRN (16:10)
[2020-08-08] MEDS ORDERED: NALOXONE 0.4 MG/1 ML INJ IV PRN (16:10)
--- NOTE | 2020-08-08 16:19 | Gastroenterology Progress Note ---
Assessment and Plan GI: pancreatic mass w/ possible vascular involvement - awaiting ca 19-9 - EUS w/ bx as outpt - pain management per primary team - ok to dc in am from GI standpoint, will schedule EUS as outpt Subjective Date of service: 08/08/20 Interval history: - reports still w/ abdominal pain managed w/ pain meds Objective - Constitutional Vitals: Temp Pulse Resp BP Pulse Ox 97.9 F 65 18 110/67 100 08/08/20 05:27 08/08/20 05:27 08/08/20 07:40 08/08/20 05:27 08/08/20 05:27 General appearance: no acute distress - EENT Eyes: PERRL - Respiratory Respiratory: bilateral: CTA - Cardiovascular Rhythm: regular Heart Sounds: Present: S1 & S2 - Gastrointestinal General gastrointestinal: Present: soft, non-tender, non-distended - Labs CBC & Chem 7: 08/08/20 04:46 08/08/20 04:46 Labs: Laboratory Results - last 24 hr 08/08/20 08/08/20 04:46 04:46 WBC 6.2 RBC 4.20 Hgb 12.4 Hct 36.8 MCV 88 MCH 30 MCHC 34 RDW 13.9 Plt Count 205 Lymph % (Auto) 30.8 Nolan % (Auto) 12.0 H Eos % (Auto) 0.7 Baso % (Auto) 0.3 Lymph # (Auto) 1.9 Nolan # (Auto) 0.7 Eos # (Auto) 0.0 Baso # (Auto) 0.0 Seg Neutrophils % 56.2 Seg Neutrophils # 3.5 Sodium 141 Potassium 3.6 Chloride 104.3 Carbon Dioxide 27 Anion Gap 13 BUN 2 L Creatinine 0.5 L Estimated GFR > 60 BUN/Creatinine Ratio 4 Glucose 176 H Calcium 9.0 Total Bilirubin 1.20 AST 55 H ALT 98 H Alkaline Phosphatase 55 Total Protein 6.8 Albumin 4.0 Albumin/Globulin Ratio 1.4
[2020-08-08] MEDS ORDERED: HYDROmorphone/NS 6 MG/30 ML PCA INJ IV SCH (18:00)
[2020-08-08] MEDS: HYDROmorphone 2 MG/1 ML INJ IV PRN (19:52)
[2020-08-08] MEDS: SENNOSIDES/DOCUSATE SODIUM 8.6/50 MG TAB PO SCH (21:50)
[2020-08-08] MEDS: traZODone 50 MG TAB PO PRN (21:50)
[2020-08-09] MEDS: D5W/0.9% NACL 1,000 ML IV SCH ×2 (00:57→10:01)
[2020-08-09 04:58] VITALS: BP 119/65
[2020-08-09 05:24] LABS: Basophils % (Auto) 0.4 % (0.0-1.8); Eosinophils # (Auto) 0.1 K/mm3 (0.0-0.4); Eosinophils % (Auto) 1.3 % (0.0-4.3); Hematocrit 36.3 % (30.3-42.9); Hemoglobin 12.3 gm/dl (10.1-14.3); Lymphocytes % (Auto) 32.8 % (13.4-35.0); Mean Corpuscular HGB Conc 34 % (30-34); Mean Corpuscular Volume 85 fl (79-97); Monocytes # (Auto) 0.6 K/mm3 (0.0-0.8); Monocytes % (Auto) 9.7 % (0.0-7.3); Platelet Count 209 K/mm3 (140-440); Red Blood Count 4.25 M/mm3 (3.65-5.03); Red Cell Distribution Width 13.8 % (13.2-15.2)
[2020-08-09 05:46] LABS: Alanine Aminotransferase 90 units/L (7-56); Albumin 3.9 g/dL (3.9-5); Calcium 8.9 mg/dL (8.4-10.2); Hemolysis Index 12
[2020-08-09 05:48] LABS: BUN/Creatinine Ratio 3; Blood Urea Nitrogen 1 mg/dL (7-17)
[2020-08-09] MEDS: HYDROmorphone 2 MG/1 ML INJ IV PRN (06:57)
[2020-08-09] MEDS ORDERED: POTASSIUM CHLORIDE ER 20 MEQ TAB PO SCH (10:00)
[2020-08-09] MEDS: oxyCODONE ER 10 MG TAB PO SCH (10:02)
[2020-08-09] MEDS: SENNOSIDES/DOCUSATE SODIUM 8.6/50 MG TAB PO SCH (10:02)
--- NOTE | 2020-08-09 10:18 | Discharge Summary ---
Providers - Providers Date of Admission: 08/05/20 09:20 Date of discharge: 08/09/20 Attending physician: BRIANA JEFFERSON 08/05/20 10:48 Consult to Physician [CONS] Routine Comment: Consulting Provider: OLIMPIA BRAGG Physician Instructions: Reason For Exam: Intractable nausea and vomiting. Pancreatic mass 08/07/20 13:16 Consult to Physician [CONS] Routine Comment: Consulting Provider: JOSE C TORRES Physician Instructions: Reason For Exam: Pancreatic mass 08/08/20 16:33 Consult to Physician [CONS] Routine Comment: Consulting Provider: GLENN SIMONS Physician Instructions: Reason For Exam: Celiac nerve block Primary care physician: IN[employer]PLICATION ANALYST Hospitalization Reason for admission: Pancreatic mass Condition: Stable Hospital course: 65 years old female with no significant past medical history here with back pain, intractable nausea and vomiting. The patient presented with pain around the mid back area, 10 out of 10, sharp in nature, constant in character and stated that she had nausea and vomiting with very poor appetite. The patient also reported some weight loss as a result of not tolerating PO. The patient was admitted with diagnosis of intractable nausea and vomiting, pancreatic mass and elevated lipase. CT abdomen with IV contrast shows abnormal soft tissue mass encircling the celiac axis vessels which represents an exophytic lesion on the pancreas. Pancreatic neoplasm should be considered. The patient was seen by oncology and gastroenterology in consultation. CA 199 was ordered and is pending and will be followed up as an outpatient. Patient is also to follow-up with EUS w/ bx as outpt. Dedicated discharge time 35 minutes. Disposition: - TO HOME OR SELFCARE Time spent for discharge: 35 - Discharge Diagnoses (1) Acute abdominal pain Status: Acute (2) Intractable abdominal pain Status: Acute (3) Intractable nausea and vomiting Status: Acute (4) Pancreatic mass Status: Acute Core Measure Documentation - Palliative Care Palliative Care/ Comfort Measures: Not Applicable - Core Measures Any of the following diagnoses?: none Exam - Constitutional Vitals: Temp Pulse Resp BP Pulse Ox 98.7 F 71 17 119/65 100 08/09/20 04:43 08/09/20 04:43 08/09/20 06:57 08/09/20 04:43 08/09/20 04:43 General appearance: Present: no acute distress, well-nourished - EENT Eyes: Present: PERRL ENT: hearing intact, clear oral mucosa - Neck Neck: Present: supple, normal ROM - Respiratory Respiratory effort: normal Respiratory: bilateral: CTA - Cardiovascular Heart Sounds: Present: S1 & S2. Absent: rub, click - Extremities Extremities: pulses symmetrical, No edema Peripheral Pulses: within normal limits - Abdominal General gastrointestinal: Present: soft, non-tender, non-distended, normal bowel sounds Female genitourinary: Present: normal - Integumentary Integumentary: Present: clear, warm, dry - Musculoskeletal Musculoskeletal: gait normal, strength equal bilaterally - Psychiatric Psychiatric: appropriate mood/affect, intact judgment & insight - Neurologic Neurologic: CNII-XII intact, moves all extremities Plan Activity: advance as tolerated Weight Bearing Status: Weight Bear as Tolerated Diet: regular Additional Instructions: Patient is also to follow-up with EUS w/ bx as outpt. Follow up with: PRIMARY CARE, [Primary Care Provider] - 3-5 Days OLIMPIA BRAGG MD [Staff Physician] - 7 Days JOSE C TORRES MD [Staff Physician] - 7 Days Prescriptions: Celecoxib [celeBREX] 50 mg PO BID #30 capsule traZODone [Desyrel] 50 mg PO QHS PRN #30 tablet PRN Reason: Insomnia oxyCODONE ER [oxyCONTIN ER] 10 mg PO Q12HR #30 tablet oxyCODONE [roxiCODONE] 5 mg PO Q8H PRN #30 tablet PRN Reason: Pain, Moderate (4-6) traMADoL [Ultram 50 MG tab] 50 mg PO Q6HR PRN #12 tablet PRN Reason: Pain
[2020-08-09] MEDS: oxyCODONE 5 MG TAB PO PRN (11:57)
--- NOTE | 2020-08-09 11:59 | Hem/Onc Progress Note ---
Subjective Interval history: 65yo [place] woman, [employer] employee with no chornic medical ptoblems now adm for back pain x 2 months, vomiting, now found to have 3cm panc mass, presumed malig unresectable-appearing tumor MRI reveals tumor encircling celiat axis/trunk she received dilaudid yesterday, finally says pain is tolerable planning discharge, discussed referral to oncologist on her health plan after discharge discussed "neoadjuvant" chemotherapy DATA REVIEWED BELOW IMP: locally advanced pamcreatic cancer, unresectable-appearing tumor severe pain requiring opiate mets good functional status; good candidate for chemotherapy REC: opiate meds for pain--> will need long-acting pain meds for home referral to oncologist on her health plan for "neoadjuvant" chemo for pancreatic cancer GI eval underway-->Outpt EUS/biopsy needed labs to include CEA, CA19-9 OK to plan discharge from onc perspective, but needs help with planning, appointments Laboratory Last Values WBC 6.1 K/mm3 (4.5-11.0) 08/09/20 04:58 Hgb 12.3 gm/dl (10.1-14.3) 08/09/20 04:58 Hct 36.3 % (30.3-42.9) 08/09/20 04:58 Plt Count 209 K/mm3 (140-440) 08/09/20 04:58 Total Bilirubin 1.10 mg/dL (0.1-1.2) 08/09/20 04:58 Direct Bilirubin 0.3 mg/dL (0-0.2) H 08/05/20 06:47 Indirect Bilirubin 1.2 mg/dL 08/05/20 06:47 AST 37 units/L (5-40) 08/09/20 04:58 ALT 90 units/L (7-56) H 08/09/20 04:58 Alkaline Phosphatase 55 units/L (35-129) 08/09/20 04:58 Albumin 3.9 g/dL (3.9-5) 08/09/20 04:58 Granular Casts 2 /LPF 08/05/20 07:55 Urine Mucus 2+ /HPF 08/05/20 07:55 Objective - Constitutional Vitals: Last Vital Signs Temp 98.7 F 08/09/20 04:43 Pulse 71 08/09/20 04:43 Resp 17 08/09/20 06:57 BP 119/65 08/09/20 04:43 Pulse Ox 100 08/09/20 04:43 - Labs Lab Results: Laboratory Results - last 24 hr 08/09/20 08/09/20 04:58 04:58 WBC 6.1 RBC 4.25 Hgb 12.3 Hct 36.3 MCV 85 MCH 29 MCHC 34 RDW 13.8 Plt Count 209 Lymph % (Auto) 32.8 [place] % (Auto) 9.7 H Eos % (Auto) 1.3 Baso % (Auto) 0.4 Lymph # (Auto) 2.0 [place] # (Auto) 0.6 Eos # (Auto) 0.1 Baso # (Auto) 0.0 Seg Neutrophils % 55.8 Seg Neutrophils # 3.4 Sodium 141 Potassium 3.4 L Chloride 103.2 Carbon Dioxide 29 Anion Gap 12 BUN 1 L Creatinine 0.4 L Estimated GFR > 60 BUN/Creatinine Ratio 3 Glucose 162 H Calcium 8.9 Total Bilirubin 1.10 AST 37 ALT 90 H Alkaline Phosphatase 55 Total Protein 6.4 Albumin 3.9 Albumin/Globulin Ratio 1.6 Lipase 171 H Medications & Allergies - Medications Allergies/Adverse Reactions: Allergies No Known Allergies Allergy (Unverified 04/19/18 07:47) Home Medications: Home Medications Medication Instructions Recorded Confirmed Last Taken Type Celecoxib [celeBREX] 50 mg PO BID #30 capsule 08/09/20 Unknown Rx Sennosides/Docusate Sodium [Stool 1 each PO DAILY #30 tablet 08/09/20 Unknown Rx Soft-Stimulant Lax Tab] oxyCODONE ER [oxyCONTIN ER] 10 mg PO Q12HR #30 tablet 08/09/20 Unknown Rx oxyCODONE [roxiCODONE] 5 mg PO Q8H PRN #30 tablet 08/09/20 Unknown Rx traMADoL [Ultram 50 MG tab] 50 mg PO Q6HR PRN #12 tablet 08/09/20 Unknown Rx traZODone [Desyrel] 50 mg PO QHS PRN #30 tablet 08/09/20 Unknown Rx Active Medications: Generic Name Dose Route Start Last Admin Trade Name Freq PRN Reason Stop Dose Admin Diphenhydramine HCl 25 mg 08/08/20 16:10 Diphenhydramine 50 Mg/Ml Vial IV Q4H PRN Itching Hydromorphone HCl 2 mg 08/08/20 16:10 08/09/20 06:57 Hydromorphone 2 Mg/1 Ml Inj IV 2 mg Q2H PRN Administration Pain , Severe (7-10) Dextrose/Sodium Chloride 1,000 mls @ 125 mls/hr 08/05/20 13:00 08/09/20 10:01 D5ns IV 100 mls/hr DIRECT [facility] Administration Metoclopramide HCl 10 mg 08/08/20 16:10 Metoclopramide 10 Mg/2 Ml Inj IV Q6H PRN N/V if NPO. Morphine Sulfate 2 mg 08/05/20 12:27 08/08/20 17:07 Morphine 2 Mg/1 Ml Inj IV 2 mg Q4H PRN Administration Pain, Moderate (4-6) Naloxone HCl 0.1 mg 08/08/20 16:10 Naloxone 0.4 Mg/1 Ml Inj IV Q2MIN PRN Res Rate </= 8 or 02 SAT < 92% Ondansetron HCl 4 mg 08/08/20 16:10 Ondansetron 4 Mg/2 Ml Inj IV Q8H PRN N/V unrelieved by Fantasma Oxycodone HCl 5 mg 08/07/20 12:08 08/08/20 01:45 Oxycodone 5 Mg Tab PO 5 mg Q8H PRN Administration Pain, Moderate (4-6) Oxycodone HCl 10 mg 08/08/20 10:00 08/09/20 10:02 Oxycodone Er 10 Mg Tab PO 10 mg Q12HR [facility] Administration Potassium Chloride 20 meq 08/09/20 10:00 08/09/20 10:03 Potassium Chloride Er 20 Meq Tab PO 20 meq QDAY [facility] Administration Senna/Docusate Sodium 1 tab 08/08/20 22:00 08/09/20 10:02 Sennosides/Docusate Sodium 8.6/50 Mg Tab PO 1 tab BID [facility] Administration Trazodone HCl 50 mg 08/05/20 22:23 08/08/20 21:50 Trazodone 50 Mg Tab PO 50 mg QHS PRN Administration Insomnia
--- NOTE | 2020-08-09 14:07 | Gastroenterology Progress Note ---
Assessment and Plan GI: pancreatic mass w/ signs vascular involvement - for outpt eus and further management - ok to dc w/ follow up outpt Subjective Date of service: 08/09/20 Interval history: - stable overnight w/ some discomfort Objective - Constitutional Vitals: Temp Pulse Resp BP Pulse Ox 98.7 F 71 17 119/65 100 08/09/20 04:43 08/09/20 04:43 08/09/20 06:57 08/09/20 04:43 08/09/20 04:43 General appearance: no acute distress - EENT Eyes: PERRL - Respiratory Respiratory: bilateral: CTA - Cardiovascular Rhythm: regular Heart Sounds: Present: S1 & S2 - Gastrointestinal General gastrointestinal: Present: soft, non-tender, non-distended - Labs CBC & Chem 7: 08/09/20 04:58 08/09/20 04:58 Labs: Laboratory Results - last 24 hr 08/09/20 08/09/20 04:58 04:58 WBC 6.1 RBC 4.25 Hgb 12.3 Hct 36.3 MCV 85 MCH 29 MCHC 34 RDW 13.8 Plt Count 209 Lymph % (Auto) 32.8 Phillips % (Auto) 9.7 H Eos % (Auto) 1.3 Baso % (Auto) 0.4 Lymph # (Auto) 2.0 Phillips # (Auto) 0.6 Eos # (Auto) 0.1 Baso # (Auto) 0.0 Seg Neutrophils % 55.8 Seg Neutrophils # 3.4 Sodium 141 Potassium 3.4 L Chloride 103.2 Carbon Dioxide 29 Anion Gap 12 BUN 1 L Creatinine 0.4 L Estimated GFR > 60 BUN/Creatinine Ratio 3 Glucose 162 H Calcium 8.9 Total Bilirubin 1.10 AST 37 ALT 90 H Alkaline Phosphatase 55 Total Protein 6.4 Albumin 3.9 Albumin/Globulin Ratio 1.6 Lipase 171 H
== END 2020-08-09 12:31 | disposition home or self-care (01) | DRG 436 ==
LOC: ED 05:42 → 4A 09:20 → 3A 08-07 15:59
PROVIDERS: ADMIT Internal Medicine; ATTEND Hospitalist
DX: C25.9 Malignant neoplasm of pancreas, unspecified (principal); K57.92 Diverticulitis of intestine, part unspecified, without perforation or abscess without bleeding; M54.9 Dorsalgia, unspecified; G89.29 Other chronic pain; R73.03 Prediabetes; Z79.899 Other long term (current) drug therapy; Z79.891 Long term (current) use of opiate analgesic; Z79.01 Long term (current) use of anticoagulants
CPT/HCPCS: 36415; 74177; 74181; 80048; 80053; 80076; 81001; 82378; 83690; 84484; 85025; 86301; 87086; 93005; 96361; 96374; 96375; G0378; J1100; J1170; J2270; J2405; J2765; J3480; J7030; J7042; Q9967

== ENCOUNTER 2020-08-23 13:57 | Emergency (ER) | payer BC ==
[2020-08-23] MEDS ORDERED: MORPHINE 2 MG/1 ML INJ IV ONE (14:14)
[2020-08-23] MEDS ORDERED: ONDANSETRON 4 MG/2 ML INJ IV ONE (14:14)
[2020-08-23] MEDS ORDERED: SODIUM CHLORIDE 0.9% 1000 ML 1,000 ML IV ONE (14:16)
--- NOTE | 2020-08-23 14:18 | Emergency Department Report ---
<RIZWAN TURPIN III - Last Filed: 08/23/20 17:33> ED Abdominal Pain HPI - General Chief Complaint: Abdominal Pain Stated Complaint: PAIN Time Seen by Provider: 08/23/20 14:03 - Related Data Previous Rx's Medication Instructions Recorded Last Taken Type Celecoxib [celeBREX] 50 mg PO BID #30 capsule 08/09/20 Unknown Rx Sennosides/Docusate Sodium [Stool 1 each PO DAILY #30 tablet 08/09/20 Unknown Rx Soft-Stimulant Lax Tab] oxyCODONE ER [oxyCONTIN ER] 10 mg PO Q12HR #30 tablet 08/09/20 Unknown Rx traMADoL [Ultram 50 MG tab] 50 mg PO Q6HR PRN #12 tablet 08/09/20 Unknown Rx traZODone [Desyrel] 50 mg PO QHS PRN #30 tablet 08/09/20 Unknown Rx Dicyclomine [Bentyl] 20 mg PO QID PRN #20 tablet 08/23/20 Unknown Rx oxyCODONE [roxiCODONE] 5 mg PO Q6H PRN #12 tablet 08/23/20 Unknown Rx Allergies Allergy/AdvReac Type Severity Reaction Status Date / Time No Known Allergies Allergy Unverified 04/19/18 07:47 ED Past Medical Hx - Medications Home Medications: Home Medications Medication Instructions Recorded Confirmed Last Taken Type Celecoxib [celeBREX] 50 mg PO BID #30 capsule 08/09/20 Unknown Rx Sennosides/Docusate Sodium [Stool 1 each PO DAILY #30 tablet 08/09/20 Unknown Rx Soft-Stimulant Lax Tab] oxyCODONE ER [oxyCONTIN ER] 10 mg PO Q12HR #30 tablet 08/09/20 Unknown Rx traMADoL [Ultram 50 MG tab] 50 mg PO Q6HR PRN #12 tablet 08/09/20 Unknown Rx traZODone [Desyrel] 50 mg PO QHS PRN #30 tablet 08/09/20 Unknown Rx Dicyclomine [Bentyl] 20 mg PO QID PRN #20 tablet 08/23/20 Unknown Rx oxyCODONE [roxiCODONE] 5 mg PO Q6H PRN #12 tablet 08/23/20 Unknown Rx ED Medical Decision Making - Lab Data Result diagrams: 08/23/20 14:18 08/23/20 14:18 ED Disposition Clinical Impression: Abdominal pain Disposition: DC-01 TO HOME OR SELFCARE Condition: Stable Instructions: Abdominal Pain, Adult, Abdominal Pain (ED) Prescriptions: Dicyclomine [Bentyl] 20 mg PO QID PRN #20 tablet PRN Reason: abdominal pain oxyCODONE [roxiCODONE] 5 mg PO Q6H PRN #12 tablet PRN Reason: Pain, Moderate (4-6) Referrals: PRIMARY CARE,MD [Primary Care Provider] - 3-5 Days <MANAN LINDSEY - Last Filed: 08/24/20 18:16> ED Abdominal Pain HPI - General Source: patient Mode of arrival: Ambulatory Limitations: No Limitations - History of Present Illness Initial Comments: 64-year-old female with pancreatic cancer, presents to ED with abdominal pain. Patient was recently diagnosed with pancreatic cancer earlier this month via b iopsy. Patient states she is due to start chemotherapy soon. Patient states she normally has back pain, however this morning she began having lower abdominal pain which is new for her. Patient states pain is crampy in nature, located below the bellybutton. Patient has been taking oxycodone and reports she has not had a bowel movement in 2 weeks. She also reports she has not been eating or drinking much for 1 month due to decrease in appetite. Patient states she took a Dulcolax last night due to her constipation. This morning she woke up with cramping in the lower abdomen and feeling like she needed to have a bowel movement. Patient states she sat on the commode but did not have a bowel movement. Patient reports associated mild nausea and vomiting. She denies any fever, dysuria, hematuria, urinary frequency. MD Complaint: abdominal pain -: This morning Location: suprapubic Radiation: none Migration to: no migration Severity: moderate Severity scale (0 -10): 10 Quality: cramping Consistency: constant Improves With: nothing Worsens With: nothing Associated Symptoms: nausea, vomiting, constipation. denies: diarrhea, fever, chills, dysuria, hematuria ED Review of Systems ROS: Stated complaint: PAIN Other details as noted in HPI Comment: All other systems reviewed and negative Constitutional: denies: chills, fever Gastrointestinal: abdominal pain, nausea, vomiting, constipation. denies: diarrhea Genitourinary: denies: dysuria, frequency ED Past Medical Hx - Past Medical History Previous Medical History?: Yes Hx Diabetes: Yes (pre-diabetes) Additional medical history: Pancreatic CA - Social History Smoking Status: Never Smoker ED Physical Exam - General Limitations: No Limitations General appearance: alert, in no apparent distress - Head Head exam: Present: atraumatic, normocephalic - Eye Eye exam: Present: normal appearance. Absent: scleral icterus - ENT ENT exam: Present: mucous membranes moist - Neck Neck exam: Present: normal inspection - Respiratory Respiratory exam: Present: normal lung sounds bilaterally. Absent: respiratory distress - Cardiovascular Cardiovascular Exam: Present: regular rate, normal rhythm - GI/Abdominal GI/Abdominal exam: Present: soft. Absent: distended, tenderness - Extremities Exam Extremities exam: Present: normal inspection - Neurological Exam Neurological exam: Present: alert, oriented X3 - Psychiatric Psychiatric exam: Present: normal affect, normal mood - Skin Skin exam: Present: warm, dry, intact, normal color ED Course Vital Signs 08/23/20 08/23/20 08/23/20 13:59 14:01 15:50 Temperature 97.4 F L Pulse Rate 80 Respiratory 18 Rate Blood Pressure Blood Pressure 132/91 [Right] O2 Sat by Pulse 97 96 Oximetry 08/23/20 08/23/20 08/23/20 16:01 16:15 16:31 Temperature Pulse Rate Respiratory Rate Blood Pressure 115/83 115/83 135/70 Blood Pressure [Right] O2 Sat by Pulse 99 99 97 Oximetry 08/23/20 08/23/20 08/23/20 16:45 17:01 17:15 Temperature Pulse Rate Respiratory Rate Blood Pressure 134/78 139/88 139/88 Blood Pressure [Right] O2 Sat by Pulse 98 97 99 Oximetry 08/23/20 08/23/20 08/23/20 17:31 17:45 17:51 Temperature Pulse Rate Respiratory 18 Rate Blood Pressure 144/88 140/91 Blood Pressure [Right] O2 Sat by Pulse 98 98 Oximetry 08/23/20 08/23/20 18:01 18:21 Temperature Pulse Rate Respiratory 18 Rate Blood Pressure 121/82 Blood Pressure [Right] O2 Sat by Pulse 94 Oximetry ED Medical Decision Making - Lab Data Result diagrams: 08/23/20 14:18 08/23/20 14:18 - Radiology Data Radiology results: report reviewed, image reviewed - Medical Decision Making 64-year-old female presents to ED with a history of lower abdominal cramping after taking a Dulcolax for constipation last night. Patient recently diagnosed with pancreatic cancer. Abdomen soft and nontender on exam. Patient has elevated WBCs, however she is afebrile. Remainder of vitals are normal. Pneumonia unlikely as patient is not tachypneic or hypoxic and denies cough. UA is negative for infection. CT is negative for any acute findings. Patient reports she has not had a bowel movement in 2 weeks, however patient states she has not really been eating much in the past month. She states she has not had the urge to have bowel movements until today after taking the Dulcolax. Abdominal cramping may be secondary to this laxative. Work-up is unremarkable except for leukocytosis. Patient given strong return precautions, advised to return if she develops fever, worsening abdominal pain or vomiting, or any other findings of concern. Will discharge at this time with prescriptions. Patient has follow-up appointment with her oncologist in 3 days. - Differential Diagnosis Bowel obstruction, constipation, UTI Critical care attestation.: If time is entered above; I have spent that time in minutes in the direct care of this critically ill patient, excluding procedure time. ED Disposition Is pt being admited?: No Time of Disposition: 16:20
[2020-08-23 14:31] LABS: Hematocrit 39.1 % (30.3-42.9); Hemoglobin 13.4 gm/dl (10.1-14.3); Mean Corpuscular HGB Conc 34 % (30-34); Mean Corpuscular Volume 86 fl (79-97); Platelet Count 242 K/mm3 (140-440); Red Blood Count 4.56 M/mm3 (3.65-5.03); Red Cell Distribution Width 13.9 % (13.2-15.2)
[2020-08-23 14:47] LABS: Blood Urea Nitrogen 9 mg/dL (7-17); Hemolysis Index 11
[2020-08-23 14:51] LABS: Albumin 4.3 g/dL (3.9-5); Bilirubin,Direct 0.5 mg/dL (0-0.2)
[2020-08-23 14:52] LABS: BUN/Creatinine Ratio 18
[2020-08-23 15:28] LABS: Mucus,Urine FEW /HPF
[2020-08-23 15:43] LABS: Bilirubin,Urine SM (Negative); Blood,Urine NEG (Negative); Color,Urine Amber (Yellow); Protein,Urine <15 mg/dL mg/dL (Negative)
[2020-08-23 15:52] LABS: Ictotest,Urine Positive (Negative)
--- NOTE | 2020-08-23 16:04 | Cat Scan Report ---
CT ABDOMEN AND PELVIS WITH CONTRAST INDICATION / CLINICAL INFORMATION: Lower abdominal pain, history of pancreatic cancer. TECHNIQUE: Axial CT images were obtained through the abdomen and pelvis after 100 cc Omnipaque [address] scans at this location are performed using CT dose reduction for ALARA by means of automated exposure control. COMPARISON: CT abdomen and pelvis with contrast from 08/05/2020. FINDINGS: LOWER CHEST: A 3 mm noncalcified nodule of uncertain significance is seen superiorly along the right middle lobe on image 9 of series 2. No other significant abnormality. LIVER: Unchanged posterior hepatic dome cyst. No other significant abnormality. GALLBLADDER: No significant abnormality. BILE DUCTS: No significant abnormality. PANCREAS: Mild dilatation of the pancreatic duct is unchanged. A hypodense mass is again seen that is continuous with the pancreatic body and surrounds the celiac trunk and its proximal branches on imag es 54 through 68 of series 2 measuring up to 3.5 x 3.3 cm. This mass extends cranially to the gastroh epatic ligament and caudally to the mesenteric root with a craniocaudal dimension of 4.5 cm. No assoc iated acute vascular abnormality is identified. SPLEEN: No significant abnormality. ADRENALS: No significant abnormality. RIGHT KIDNEY / URETER: Unchanged right renal cysts. No other significant abnormality. LEFT KIDNEY / URETER: Unchanged left renal cysts. No other significant abnormality. STOMACH / SMALL BOWEL: No significant abnormality. COLON: There is descending and sigmoid diverticulosis without evidence of diverticulitis. No other si gnificant abnormality. APPENDIX: No significant abnormality. PERITONEUM: No free fluid. No free air. No fluid collection. LYMPH NODES: No significant adenopathy. AORTA / ARTERIES: No significant abnormality. IVC / VEINS: No significant abnormality. URINARY BLADDER: No significant abnormality. REPRODUCTIVE ORGANS: Unchanged calcified uterine fundal fibroid. Unchanged right ovarian cyst. No oth er significant abnormality. ADDITIONAL FINDINGS: None. SKELETAL SYSTEM: No significant abnormality. IMPRESSION: 1. Pancreatic mass as above without evidence of metastatic disease in the abdomen or pelvis. 2. Indeterminate right middle lobe nodule measuring 3 mm could represent metastatic disease. Continue d imaging follow up is recommended with a repeat CT chest in 3 months. Signer Name: Cricket Bowens MD Signed: 08/23/2020 4:00 PM Workstation Name: [id number]
[2020-08-23] MEDS ORDERED: POTASSIUM CHLORIDE ER 20 MEQ TAB PO ONE (16:12)
[2020-08-23] MEDS ORDERED: DICYCLOMINE 20 MG TAB PO ONE (16:13)
[2020-08-23 17:41] LABS: Band Neutrophils # (Manual) 2.1 K/mm3; Total Cells Counted 100
[2020-08-23 17:42] LABS: Burr Cells Few; Ovalocytes Rare
[2020-08-23 17:43] LABS: Large Platelets Rare; Platelet Estimate Consistent w Auto
[2020-08-23] MEDS ORDERED: HYDROmorphone 1 MG/1 ML INJ IV ONE (17:45)
[2020-08-23 18:42] VITALS: BP 121/82
== END 2020-08-23 18:44 | disposition home or self-care (01) ==
LOC: ED 13:57
DX: R10.9 Unspecified abdominal pain (principal); E11.9 Type 2 diabetes mellitus without complications; Z79.899 Other long term (current) drug therapy
CPT/HCPCS: 36415; 74177; 80048; 80076; 81001; 83690; 85007; 85025; 96361; 96374; 96375; 99284; J1170; J2270; J2405; J7030; Q9967

== ENCOUNTER 2020-10-18 08:07 | Outpatient (CLI) | payer BC ==
[2020-10-18 08:51] LABS: Blood Urea Nitrogen 5 mg/dL (7-17)
--- NOTE | 2020-10-18 10:32 | Cat Scan Report ---
CT OF THE CHEST WITH CONTRAST INDICATION: Pancreatic cancer, right middle lobe nodule CONTRAST: 100 cc Omnipaque 300 IV COMPARISON: CT abdomen and pelvis 08/23/[address] scans at this location are performed using CT dose reduction for ALARA by means of automated e xposure control. FINDINGS: No significant focal bony lesions are seen. No significant axillary or chest wall abnormali ties are noted. No mediastinal or hilar masses are seen. No pleural effusions are noted. No obvious e ndobronchial lesions are seen. No pneumothorax or pneumomediastinum are noted. Views of the lung rose show no acute infiltrates. A minimal fissural nodule in the medial aspect of the right major fissure is elongated with a length of less than 5 mm and a thickness of less than 2 mm. This probably is a fissural node other benign type plaque. Nodularity anteriorly in the right bas e is again seen. In the anterior aspect of the right middle lobe a 3 mm nodule is seen near the minor fissure which is unchanged. A tiny less than 2 mm nodule is seen associated with the minor fissure a nteriorly. Possibly there is a faint 2 mm nodule more laterally in the right middle lobe which is bet ter seen today with better resolution of the parenchyma on current examination compared to prior stud y. Visualized portions of the upper abdomen show the known pancreatic mass though much less well defined given the early phase of contrast on this study. However, there is more tumor now surrounding the ce liac axis vasculature than on previous study, particularly just the right of the celiac axis trunk. T he width of the area of tumor, though ill-defined, appears to be roughly 4.2 cm compared to 3.6 cm pr eviously. Pancreatic ductal dilatation in the tail appears mildly more prominent. Left renal cyst wit h mild adjacent calcification is again seen. Right hepatic cyst is again noted. IMPRESSION: 1. Worsening appearance of the pancreatic mass as above 2. The briefly noted right middle lobe minimal nodule is not significantly changed considering differ ences and resolution. There are other tiny nodules in the right anterior lung base as above which pro bably are better seen today rather than new and are of questionable significance. Recommend follow-up in this setting however. Signer Name: Beltran Stubbs MD Signed: 10/18/2020 10:27 AM Workstation Name: [id number]
== END 2020-10-18 08:08 | disposition home or self-care (01) ==
LOC: CT 08:07
PROVIDERS: ATTEND Internal Medicine Hematology & Oncology
DX: C25.1 Malignant neoplasm of body of pancreas (principal); R91.1 Solitary pulmonary nodule; N28.1 Cyst of kidney, acquired; K76.89 Other specified diseases of liver
CPT/HCPCS: 36415; 71260; 82565; 84520; Q9967

== ENCOUNTER 2020-10-18 20:35 | Inpatient (IN) | payer BC ==
[2020-10-18] MEDS ORDERED: ONDANSETRON 4 MG/2 ML INJ IV ONE (21:27)
[2020-10-18] MEDS ORDERED: SODIUM CHLORIDE 0.9% 1000 ML 1,000 ML IV ONE ×2 (21:27→23:24)
--- NOTE | 2020-10-18 21:30 | Emergency Department Report ---
<LUCITA FULLER - Last Filed: 10/19/20 03:25> ED N/V/D HPI - General Chief complaint: Nausea/Vomiting/Diarrhea Stated complaint: WEAKNESS Time Seen by Provider: 10/18/20 21:26 Mode of arrival: Ambulatory - Related Data Previous Rx's Medication Instructions Recorded Last Taken Type Celecoxib [celeBREX] 50 mg PO BID #30 capsule 08/09/20 Unknown Rx Sennosides/Docusate Sodium [Stool 1 each PO DAILY #30 tablet 08/09/20 Unknown Rx Soft-Stimulant Lax Tab] oxyCODONE ER [oxyCONTIN ER] 10 mg PO Q12HR #30 tablet 08/09/20 Unknown Rx traMADoL [Ultram 50 MG tab] 50 mg PO Q6HR PRN #12 tablet 08/09/20 Unknown Rx traZODone [Desyrel] 50 mg PO QHS PRN #30 tablet 08/09/20 Unknown Rx Dicyclomine [Bentyl] 20 mg PO QID PRN #20 tablet 08/23/20 Unknown Rx oxyCODONE [roxiCODONE] 5 mg PO Q6H PRN #12 tablet 08/23/20 Unknown Rx Allergies Allergy/AdvReac Type Severity Reaction Status Date / Time No Known Allergies Allergy Verified 10/19/20 02:21 ED Past Medical Hx - Medications Home Medications: Home Medications Medication Instructions Recorded Confirmed Last Taken Type Celecoxib [celeBREX] 50 mg PO BID #30 capsule 08/09/20 Unknown Rx Sennosides/Docusate Sodium [Stool 1 each PO DAILY #30 tablet 08/09/20 Unknown Rx Soft-Stimulant Lax Tab] oxyCODONE ER [oxyCONTIN ER] 10 mg PO Q12HR #30 tablet 08/09/20 Unknown Rx traMADoL [Ultram 50 MG tab] 50 mg PO Q6HR PRN #12 tablet 08/09/20 Unknown Rx traZODone [Desyrel] 50 mg PO QHS PRN #30 tablet 08/09/20 Unknown Rx Dicyclomine [Bentyl] 20 mg PO QID PRN #20 tablet 08/23/20 Unknown Rx oxyCODONE [roxiCODONE] 5 mg PO Q6H PRN #12 tablet 08/23/20 Unknown Rx ED Medical Decision Making - Lab Data Result diagrams: 10/18/20 21:50 10/18/20 21:50 ED Disposition Clinical Impression: Intractable nausea and vomiting, Intractable abdominal pain, Acute abdominal pa in, Weakness, Dehydration Disposition: DC-[id number] OP ADMIT IP TO THIS HOSP Condition: Critical <VASILIYLEONOR RIZWAN ROSALES - Last Filed: 10/19/20 05:23> ED N/V/D HPI - General PUI?: No Source: patient, family Mode of arrival: Ambulatory Limitations: Other - History of Present Illness Initial comments: Patient is a 65-year-old female that presents emergency room for nausea vomiting weakness. Patient states she was sent here by her oncologist. Patient states she had a new chemotherapy on Wednesday and has had nausea and vomiting since. Patient states 3 days ago she developed diarrhea. Patient states she is now having weakness, loss of appetite and fatigue. Patient states she has had anything by mouth except for mild sips of water for the last 5 days. Patient states she feels dehydrated. Patient denies fever or chills. Patient denies blood in vomitus. Patient states she is on chemo for stage IV pancreatic cancer. Patient denies blood in her stool. Patient denies recent travel. Patient denies recent international travel. Patient denies exposure to the novel coronavirus. Patient denies sick contacts. Patient denies fever and chills. Patient denies cough. Patient denies diarrhea. Patient denies coming in contact with anybody with symptoms of the novel coronavirus. complaint: nausea, vomiting -: Sudden Description of Vomiting: watery Description of Diarrhea: water Associated Abdominal Pain: No Severity: severe Pain Scale: 0 Consistency: constant Improves with: rest Worsens with: eating, movement Context: other Associated Symptoms: loss of appetite, malaise, nausea/vomiting, weakness. denies: myalgias, chest pain, cough, diaphoresis, fever/chills, headaches, rash, dysuria, shortness of breath, syncope ED Review of Systems ROS: Stated complaint: WEAKNESS Other details as noted in HPI Constitutional: denies: chills, fever Eyes: denies: eye pain, eye discharge, vision change ENT: denies: ear pain, throat pain Respiratory: denies: cough, shortness of breath, wheezing Cardiovascular: denies: chest pain, palpitations Endocrine: no symptoms reported Gastrointestinal: as per HPI, nausea, vomiting, diarrhea. denies: abdominal pain Genitourinary: denies: urgency, dysuria, discharge Musculoskeletal: denies: back pain, joint swelling, arthralgia Skin: denies: rash, lesions Neurological: denies: headache, weakness, paresthesias Psychiatric: denies: anxiety, depression Hematological/Lymphatic: denies: easy bleeding, easy bruising ED Past Medical Hx - Past Medical History Previous Medical History?: Yes Hx Diabetes: Yes (pre-diabetes) Additional medical history: Pancreatic CA - Surgical History Past Surgical History?: No - Social History Smoking Status: Never Smoker Substance Use Type: None ED Physical Exam - General Limitations: Other General appearance: alert, in no apparent distress - Head Head exam: Present: atraumatic, normocephalic - Eye Eye exam: Present: normal appearance, PERRL Pupils: Present: normal accommodation - ENT ENT exam: Present: mucous membranes dry - Neck Neck exam: Present: normal inspection - Respiratory Respiratory exam: Present: normal lung sounds bilaterally. Absent: respiratory distress - Cardiovascular Cardiovascular Exam: Present: regular rate, normal rhythm. Absent: systolic murmur, diastolic murmur, rubs, gallop - GI/Abdominal GI/Abdominal exam: Present: soft, tenderness, normal bowel sounds. Absent: distended, guarding - Rectal Rectal exam: Present: deferred - Extremities Exam Extremities exam: Present: normal inspection - Back Exam Back exam: Present: normal inspection - Neurological Exam Neurological exam: Present: alert, oriented X3 - Psychiatric Psychiatric exam: Present: normal affect, normal mood - Skin Skin exam: Present: warm, dry, intact, normal color. Absent: rash ED Course Vital Signs 10/18/20 10/18/20 10/18/20 20:49 21:05 21:15 Temperature 98.1 F 98.1 F Pulse Rate 97 H 92 H 89 Respiratory 18 13 16 Rate Blood Pressure 114/78 114/69 Blood Pressure 103/71 [Left] O2 Sat by Pulse 100 100 98 Oximetry 10/18/20 10/18/20 10/18/20 21:31 21:45 22:01 Temperature Pulse Rate 89 98 H 71 Respiratory 18 13 Rate Blood Pressure 104/69 117/83 115/72 Blood Pressure [Left] O2 Sat by Pulse 99 100 100 Oximetry 10/18/20 10/18/20 10/18/20 22:15 22:31 22:45 Temperature Pulse Rate 71 93 H 83 Respiratory 15 17 Rate Blood Pressure 124/74 119/77 115/73 Blood Pressure [Left] O2 Sat by Pulse 99 98 99 Oximetry 10/18/20 10/18/20 10/18/20 22:53 22:57 23:01 Temperature Pulse Rate 73 78 Respiratory 15 18 Rate Blood Pressure 115/73 125/73 Blood Pressure [Left] O2 Sat by Pulse 99 99 Oximetry 10/18/20 10/18/20 10/18/20 23:15 23:27 23:31 Temperature Pulse Rate 74 73 Respiratory 15 18 13 Rate Blood Pressure 106/67 97/56 Blood Pressure [Left] O2 Sat by Pulse 98 100 Oximetry 10/18/20 10/19/20 10/19/20 23:45 00:01 00:15 Temperature Pulse Rate 70 72 71 Respiratory 13 14 15 Rate Blood Pressure 105/58 110/60 110/65 Blood Pressure [Left] O2 Sat by Pulse 100 99 100 Oximetry 10/19/20 10/19/20 10/19/20 00:31 00:43 00:45 Temperature Pulse Rate 71 98 H Respiratory 18 Rate Blood Pressure 112/65 110/60 Blood Pressure [Left] O2 Sat by Pulse 100 97 Oximetry 10/19/20 10/19/20 10/19/20 01:13 02:15 02:31 Temperature Pulse Rate 82 82 Respiratory 18 16 16 Rate Blood Pressure 103/52 104/57 Blood Pressure [Left] O2 Sat by Pulse 98 97 Oximetry 10/19/20 10/19/20 10/19/20 02:45 03:01 03:15 Temperature Pulse Rate 82 88 89 Respiratory 18 13 17 Rate Blood Pressure 104/51 109/61 102/55 Blood Pressure [Left] O2 Sat by Pulse 97 98 97 Oximetry 10/19/20 10/19/20 10/19/20 03:31 03:45 03:55 Temperature Pulse Rate 92 H 89 87 Respiratory 12 15 18 Rate Blood Pressure 97/56 97/55 Blood Pressure 117/62 [Left] O2 Sat by Pulse 99 98 97 Oximetry - Reevaluation(s) Reevaluation #1: Patient continues to vomit even after 8 mg of Zofran. Patient was given rectal Phenergan and a CT scan of the abdomen will be done. Patient is complaining of abdominal pain. Patient given Dilaudid. 10/18/20 23:15 Reevaluation #2: I discussed all results with patient. I discussed plan of care with patient. Patient agrees with plan of care and admission. Patient to be admitted to the hospitalist service. 10/19/20 02:51 - Consultations Consultation #1: Hospitalist consulted for admission. Hospitalist to admit patient. 10/19/20 02:51 ED Medical Decision Making - Lab Data Result diagrams: 10/18/20 21:50 10/18/20 21:50 - Radiology Data Radiology results: report reviewed CT ABDOMEN AND PELVIS WITH CONTRAST INDICATION / CLINICAL INFORMATION: Abdominal pain, intermittent nausea and vomiting. Recently diagnosed pancreatic cancer. TECHNIQUE: Axial CT images were obtained through the abdomen and pelvis after 100 cc Omnipaque [address] scans at this location are performed using CT dose reduction for ALARA by means of automated exposure control. COMPARISON: CT abdomen and pelvis with contrast from 08/23/2020. FINDINGS: LOWER CHEST: The previously described right middle lobe nodule has increased in size from 3 mm to 6 mm on image 1 of series 2. No other significant abnormality. LIVER: A superior/posterior right hepatic lobe cyst is unchanged. No other significant abnormality. GALLBLADDER: No significant abnormality. BILE DUCTS: No significant abnormality. PANCREAS: The previously described pancreatic body mass is minimally larger and measures 3.8 x 3.3 cm on image 50 of series 2, previously 3.5 x 3.3 cm. There is secondary dilatation of the pancreatic duct that is unchanged. No other significant abnormality. SPLEEN: No significant abnormality. ADRENALS: No significant abnormality. RIGHT KIDNEY / URETER: Unchanged right renal cysts without other significant abnormalities. LEFT KIDNEY / URETER: The previously seen dominant left upper renal pole cyst is now hyperdense without other significant interval changes. The remaining left renal cysts are unchanged. No other significant abnormalities. STOMACH / SMALL BOWEL: No significant abnormality. COLON: There is generalized mild thickening of the colon with mild surrounding inflammation. Colonic diverticulosis is again seen without evidence of diverticulitis. No other significant abnormality. APPENDIX: No significant abnormality. PERITONEUM: No free fluid. No free air. No fluid collection. Multiple omental/peritoneal nodules have increased in number and size. A sales representative business courses lesion located along the left mid abdomen at the level of the kidneys on image 77 of series 2 measures 1.5 x 1.4 cm. LYMPH NODES: No significant adenopathy. AORTA / ARTERIES: No significant abnormality. IVC / VEINS: No significant abnormality. URINARY BLADDER: No significant abnormality. REPRODUCTIVE ORGANS: Unchanged calcified uterine fibroid. No other significant abnormalities. ADDITIONAL FINDINGS: None. SKELETAL SYSTEM: No significant interval changes. IMPRESSION: 1. Suspected pancolitis. 2. Interval disease progression as above. 3. Additional findings as above. - Medical Decision Making Patient is a 65-year-old female who presents emergency room with complaints of nausea, vomiting, diarrhea. Patient initially denied abdominal pain but after vomiting some HDL patient complains abdominal pain. Patient then had a CT scan of the abdomen to rule out obstruction after she had multiple doses of Zofran and Phenergan and continued to vomit. Patient given multiple dose of Dilaudid for her abdominal pain. Patient has history of stage IV cancer recent change in her chemotherapy medication. Patient CT scan shows pain colitis. Patient given IV fluids in the ER as well. Patient admitted to the hospital service for further evaluation and treatment. . Critical care time documented due to the multiple reassessments, prolonged time at the bedside, interpretation of diagnostics and labs. - Differential Diagnosis Chemo reaction, nausea, vomiting, diarrhea, abdominal pain Critical Care Time: Yes Critical care time in (mins) excluding proc time.: 35 Critical care attestation.: If time is entered above; I have spent that time in minutes in the direct care of this critically ill patient, excluding procedure time. Critical Care Time: 35 minutes ED Disposition Is pt being admited?: Yes Does the pt Need Aspirin: No Time of Disposition: 02:54
[2020-10-18 21:59] LABS: Hematocrit 34.1 % (30.3-42.9); Hemoglobin 11.6 gm/dl (10.1-14.3); Mean Corpuscular HGB Conc 34 % (30-34); Mean Corpuscular Volume 86 fl (79-97); Platelet Count 168 K/mm3 (140-440); Red Blood Count 3.96 M/mm3 (3.65-5.03); Red Cell Distribution Width 14.2 % (13.2-15.2)
[2020-10-18 22:53] LABS: Alanine Aminotransferase 213 units/L (7-56); Albumin 3.8 g/dL (3.9-5); Blood Urea Nitrogen 5 mg/dL (7-17); Calcium 8.8 mg/dL (8.4-10.2); Hemolysis Index 2
[2020-10-18] MEDS ORDERED: HYDROmorphone 1 MG/1 ML INJ IV ONE (22:53)
[2020-10-18 22:55] LABS: BUN/Creatinine Ratio 13
[2020-10-18] MEDS ORDERED: HYDROmorphone 1 MG/1 ML INJ ONE (22:55)
[2020-10-18] MEDS ORDERED: PROMETHAZINE 25 MG RECT SUPP PR ONE (22:57)
[2020-10-19] MEDS ORDERED: HYDROmorphone 1 MG/1 ML INJ IV ONE (00:28)
--- NOTE | 2020-10-19 02:31 | Cat Scan Report ---
CT ABDOMEN AND PELVIS WITH CONTRAST INDICATION / CLINICAL INFORMATION: Abdominal pain, intermittent nausea and vomiting. Recently diagnosed pancreatic cancer. TECHNIQUE: Axial CT images were obtained through the abdomen and pelvis after 100 cc Omnipaque [address] scans at this location are performed using CT dose reduction for ALARA by means of automated exposure control. COMPARISON: CT abdomen and pelvis with contrast from 08/23/2020. FINDINGS: LOWER CHEST: The previously described right middle lobe nodule has increased in size from 3 mm to 6 m m on image 1 of series 2. No other significant abnormality. LIVER: A superior/posterior right hepatic lobe cyst is unchanged. No other significant abnormality. GALLBLADDER: No significant abnormality. BILE DUCTS: No significant abnormality. PANCREAS: The previously described pancreatic body mass is minimally larger and measures 3.8 x 3.3 cm on image 50 of series 2, previously 3.5 x 3.3 cm. There is secondary dilatation of the pancreatic du ct that is unchanged. No other significant abnormality. SPLEEN: No significant abnormality. ADRENALS: No significant abnormality. RIGHT KIDNEY / URETER: Unchanged right renal cysts without other significant abnormalities. LEFT KIDNEY / URETER: The previously seen dominant left upper renal pole cyst is now hyperdense witho ut other significant interval changes. The remaining left renal cysts are unchanged. No other signifi cant abnormalities. STOMACH / SMALL BOWEL: No significant abnormality. COLON: There is generalized mild thickening of the colon with mild surrounding inflammation. Colonic diverticulosis is again seen without evidence of diverticulitis. No other significant abnormality. APPENDIX: No significant abnormality. PERITONEUM: No free fluid. No free air. No fluid collection. Multiple omental/peritoneal nodules have increased in number and size. A event representative lesion located along the left mid abdomen at the leve l of the kidneys on image 77 of series 2 measures 1.5 x 1.4 cm. LYMPH NODES: No significant adenopathy. AORTA / ARTERIES: No significant abnormality. IVC / VEINS: No significant abnormality. URINARY BLADDER: No significant abnormality. REPRODUCTIVE ORGANS: Unchanged calcified uterine fibroid. No other significant abnormalities. ADDITIONAL FINDINGS: None. SKELETAL SYSTEM: No significant interval changes. IMPRESSION: 1. Suspected pancolitis. 2. Interval disease progression as above. 3. Additional findings as above. Signer Name: Cricket Bowens MD Signed: 10/19/2020 2:27 AM Workstation Name: [id number]
[2020-10-19] MEDS ORDERED: PIPERACIL/TAZOBACTA 4.5/NS 100 4.5 GM/100 ML VIAL IV ONE (02:58)
[2020-10-19] MEDS ORDERED: ALUM-MAG HYDROXIDE-SIMETHICONE 200-200-20MG/5ML ORAL LIQD 30 ML PO PRN (03:27)
[2020-10-19] MEDS ORDERED: ACETAMINOPHEN 325 MG TAB PO PRN (03:27)
[2020-10-19] MEDS ORDERED: MAGNESIUM HYDROXIDE (MOM) ORAL LIQD UDC PO PRN (03:27)
[2020-10-19] MEDS ORDERED: SENNOSIDES 8.6 MG TAB PO PRN (03:27)
[2020-10-19] MEDS ORDERED: hydrALAZINE 20 MG/1 ML INJ IV PRN (03:29)
[2020-10-19] MEDS ORDERED: traMADol 50 MG TAB PO PRN (03:29)
[2020-10-19] MEDS ORDERED: traZODone 50 MG TAB PO PRN (03:29)
[2020-10-19] MEDS ORDERED: SODIUM CHLORIDE 0.9% 1000 ML 1,000 ML IV SCH (03:30)
[2020-10-19] MEDS ORDERED: POTASSIUM CHLORIDE 20 MEQ 20 MEQ/100 ML BAG IV SCH (04:00)
--- NOTE | 2020-10-19 05:44 | History and Physical Report ---
History of Present Illness Date of examination: 10/19/20 Date of admission: 10/19/20 Chief complaint: Nausea and vomiting History of present illness: Patient is a 65-year-old female that presents emergency room for nausea vomiting weakness. Patient states she was sent here by her oncologist. Patient states she had a new chemotherapy on Wednesday and has had nausea and vomiting since. Patient states 3 days ago she developed diarrhea. Patient states she is now chris ving weakness, loss of appetite and fatigue. Patient states she has had anything by mouth except for mild sips of water for the last 5 days. Patient states she feels dehydrated. Patient denies fever or chills. Patient denies blood in vomitus. Patient states she is on chemo for stage IV pancreatic cancer. Patient denies blood in her stool. ED work-up showed WBC 2.3 hemoglobin 11.6, platelets 168, sodium 135, potassium 3.1, creatinine 0.4, serum glucose 134, calcium 8.8, AST 81, ALT 213, and albumin 3.8. CT of the abdomen and pelvis with contrast done result is highly suspicious of pancolitis,: Has generalized mild thickening of the colon with mild surrounding inflammation colonic diverticulosis is seen without evidence of diverticulitis peritoneum showed multiple omental peritoneal nodules and pancreatic body mass measuring 3.8 x 3.3 cm. Patient seen at bedside in ED. Patient is alert oriented x3. Patient admits abdominal pain pain level 7/10. Patient also admits nausea and vomiting but denies chest pain and shortness of breath. Patient has a history of pancreatic CA getting chemotherapy via left subclavian Port-A-Cath. I reviewed patient medical record medication record and vital signs. Past History Past Medical History: cancer (Pancreatic cancer, presently on chemotherapy) Past Surgical History: No surgical history Social history: lives with family Family history: no significant family history Medications and Allergies Allergies Allergy/AdvReac Type Severity Reaction Status Date / Time No Known Allergies Allergy Verified 10/19/20 02:21 Home Medications Medication Instructions Recorded Confirmed Last Taken Type Celecoxib [celeBREX] 50 mg PO BID #30 capsule 08/09/20 Unknown Rx Sennosides/Docusate Sodium [Stool 1 each PO DAILY #30 tablet 08/09/20 Unknown Rx Soft-Stimulant Lax Tab] oxyCODONE ER [oxyCONTIN ER] 10 mg PO Q12HR #30 tablet 08/09/20 Unknown Rx traMADoL [Ultram 50 MG tab] 50 mg PO Q6HR PRN #12 tablet 08/09/20 Unknown Rx traZODone [Desyrel] 50 mg PO QHS PRN #30 tablet 08/09/20 Unknown Rx Dicyclomine [Bentyl] 20 mg PO QID PRN #20 tablet 08/23/20 Unknown Rx oxyCODONE [roxiCODONE] 5 mg PO Q6H PRN #12 tablet 08/23/20 Unknown Rx Active Meds: Active Medications Piperacillin Sod/Tazobactam Sod (Zosyn/Ns 4.5gm/100ml) 4.5 gm in 100 mls @ 200 mls/hr IV ONCE ONE; Protocol Stop: 10/19/20 03:27 Review of Systems Constitutional: fatigue, weakness Ears, nose, mouth and throat: no epistaxis, no bleeding gums Cardiovascular: no chest pain, no rapid/irregular heart beat Respiratory: no pain on inspiration Gastrointestinal: abdominal pain, nausea, vomiting Genitourinary Female: no abnormal vaginal bleeding Musculoskeletal: no hot joints Integumentary: no rash, no pruritis Neurological: no head injury Hematologic/Lymphatic: no easy bruising, no easy bleeding Allergic/Immunologic: no urticaria Exam - Constitutional Vitals: Temp Pulse Resp BP Pulse Ox 98.1 F 82 16 103/52 98 10/18/20 21:05 10/19/20 02:15 10/19/20 02:15 10/19/20 02:15 10/19/20 02:15 General appearance: Present: mild distress - EENT Eyes: Present: PERRL ENT: hearing intact, clear oral mucosa - Neck Neck: Present: supple, normal ROM - Respiratory Respiratory effort: normal Respiratory: bilateral: CTA - Cardiovascular Heart rate: 87 Heart Sounds: Present: S1 & S2. Absent: rub, click - Extremities Extremities: pulses symmetrical, No edema Peripheral Pulses: within normal limits - Abdominal General gastrointestinal: Present: soft, tender, distended, normal bowel sounds Localized gastrointestinal: tender: RUQ, LUQ, RLQ, LLQ Female genitourinary: Present: normal - Integumentary Integumentary: Present: clear, warm, dry - Musculoskeletal Musculoskeletal: gait normal, strength equal bilaterally - Psychiatric Psychiatric: appropriate mood/affect, intact judgment & insight, cooperative - Neurologic Neurologic: CNII-XII intact, moves all extremities - Allied Health Allied health notes reviewed: nursing Results - Labs CBC & Chem 7: 10/18/20 21:50 10/18/20 21:50 Labs: Abnormal lab results 10/18/20 10/18/20 Range/Units 21:50 21:50 WBC 2.3 L (4.5-11.0) K/mm3 Sodium 135 L (137-145) mmol/L Potassium 3.1 L (3.6-5.0) mmol/L Chloride 94.2 L (98-107) mmol/L BUN 5 L (7-17) mg/dL Creatinine 0.4 L (0.6-1.2) mg/dL Glucose 134 H (65-100) mg/dL AST 81 H (5-40) units/L ALT 213 H (7-56) units/L Albumin 3.8 L (3.9-5) g/dL Assessment and Plan - Patient Problems (1) Intractable abdominal pain Current Visit: Yes Status: Acute Plan to address problem: Likely secondary to colonic inflammation/pancreatic CA Patient is blaming presently on chemotherapy. She said her chemotherapy schedule for Wednesday Continue pain management. GI consult. (2) Intractable nausea and vomiting Current Visit: Yes Status: Acute Plan to address problem: Continue antiemetic (3) Dehydration Current Visit: Yes Status: Acute Plan to address problem: Likely secondary to nausea /vomiting Continue IV hydration Monitor electrolytes (4) Pancreatic mass Current Visit: No Status: Acute Plan to address problem: Recent diagnosis pancreatic CA Currently on chemotherapy (5) Pancolitis Current Visit: Yes Status: Acute Plan to address problem: Appreciated on CT of the abdomen and pelvis Patient has colonic inflammation Continue antibiotic with Zosyn empirically GI is consulted (6) Hypokalemia Current Visit: Yes Status: Acute Plan to address problem: likely 2/2 to gastric loss-patient has nausea and vomiting Replace potassium Check mag and electrolytes -replace PRN (7) DVT prophylaxis Current Visit: Yes Status: Acute Plan to address problem: SCD
[2020-10-19] MEDS ORDERED: NALOXONE 0.4 MG/1 ML INJ IV PRN (09:37)
[2020-10-19] MEDS ORDERED: PIPERACILLIN/TAZOBACTAM 3.375 3.375 GM/50 ML BAG IV SCH (10:00)
[2020-10-19] MEDS ORDERED: PIPERACIL/TAZOBACTA 4.5/NS 100 4.5 GM/100 ML VIAL IV SCH (10:00)
[2020-10-19] MEDS: MORPHINE 2 MG/1 ML INJ IV PRN ×2 (10:05→19:04)
[2020-10-19] MEDS: D5W/0.9% NACL 1,000 ML IV SCH ×2 (10:06→18:57)
--- NOTE | 2020-10-19 11:15 | Event Note ---
Date: 10/19/20 Patient seen and examined resting comfortably although still with abdominal pain 7/10 intensity started on IV morphine fluids changed to D5. Patient still not tolerating p.o. We will continue supportive care we will check a rule out C. difficile.
[2020-10-19] MEDS: ONDANSETRON 4 MG/2 ML INJ IV PRN (12:44)
[2020-10-19] MEDS: PIPERACIL/TAZOBACTA 4.5/NS 100 4.5 GM/100 ML VIAL IV SCH ×2 (12:45→21:05)
--- NOTE | 2020-10-19 13:09 | Event Note ---
Date: 10/19/20 - full GI consults dictated - probable pancolitis, infectious vs drug induced vs other - stool labs including C. diff - antibiotics - start po when improves - no plans to scope - will follow
[2020-10-19] MEDS: METOCLOPRAMIDE 10 MG/2 ML INJ IV PRN (16:26)
--- NOTE | 2020-10-20 00:03 | Consultation ---
DATE OF CONSULTATION: 10/19/2020 REFERRING PHYSICIAN: Dr. Gorge Luna. INDICATION: 1. Nausea and vomiting. 2. Diarrhea. 3. Colitis. HISTORY OF PRESENT ILLNESS: The patient is a 65-year-old black female with history of pancreatic cancer, now been seen by GI for GI symptoms. The patient reports approximately 2 weeks ago, she had her first bout of chemotherapy for metastatic pancreatic cancer. The patient reports since then she has been having nausea, vomiting with more recent loose stools for the last three days. She reports some fevers and chills. The patient denies previous symptoms prior to having chemotherapy. The patient reports she subsequently called her oncologist and was told to come to the emergency room for further evaluation. She denies rectal bleeding. She does report some weight loss. She denies any other specific complaints. The patient subsequently was seen in the emergency room. CT showed signs of pancolitis and she was admitted for GI evaluation. No other specific complaints. PAST MEDICAL HISTORY: Pancreatic cancer. MEDICATIONS: Reviewed and updated in chart. ALLERGIES: No known drug allergies. SOCIAL HISTORY: Denies alcohol, tobacco or drug abuse. FAMILY HISTORY: Colon cancer, IBD, or liver disease. REVIEW OF SYSTEMS: GENERAL: Fatigue and weakness. HEENT: No visual complaints or tinnitus. PULMONARY: Denies shortness of breath, chest pain. GASTROINTESTINAL: Reports abdominal pain, nausea and vomiting. All other points a 13-point review of system otherwise negative. PHYSICAL EXAMINATION: VITAL SIGNS: Temperature of 99.0, pulse 84, respirations 18, pressure 110/68. GENERAL: Fairly thin female in no acute distress. HEENT: Pupils round and reactive. PULMONARY: Clear to auscultation bilaterally. CARDIOVASCULAR: Regular rhythm. Normal S1, S2. ABDOMEN: Positive bowel sounds, soft. SKIN: No obvious rashes. LABORATORY DATA: Pertinent for white count 2.3, hemoglobin and hematocrit 11.6 and 34.1, platelet count 168. Chem-7 within normal limits. LFTs within normal limits. CT scan of the abdomen and pelvis with contrast was performed on 10/18/2020 shows signs of pancolitis. ASSESSMENT AND PLAN: A 65-year-old female with history of metastatic pancreatic cancer. Now after her first bite of chemotherapy, developed nausea, vomiting and more recently 3 days of loose, nonbloody stools with a CT scan showing signs of pancolitis. It is unclear as to whether or not the patient has had any recent antibiotics. Possible infectious versus inflammatory versus related to chemo versus other. PLAN: 1. We will review CT scan. 2. N.p.o. for now, but will start that based on progress. 3. Antibiotics empirically as ordered by primary team. 4. We will rule out Clostridium difficile and other stool labs. 5. IV hydration, antiemetics, and pain medications p.r.n. 6. Recommend oncology followup. 7. We will follow with no plans to scope at this time. TID: [id number] RECEIPT: [id number] OBDULIO/MANDO
[2020-10-20] MEDS: traZODone 50 MG TAB PO SCH ×2 (00:16→21:41)
[2020-10-20] MEDS: ONDANSETRON 4 MG/2 ML INJ IV PRN ×2 (03:30→10:30)
[2020-10-20] MEDS: D5W/0.9% NACL 1,000 ML IV SCH ×3 (03:36→21:39)
[2020-10-20] MEDS: MORPHINE 2 MG/1 ML INJ IV PRN ×2 (08:34→13:18)
[2020-10-20 08:54] LABS: Hematocrit 31.5 % (30.3-42.9); Hemoglobin 10.8 gm/dl (10.1-14.3); Mean Corpuscular HGB Conc 34 % (30-34); Mean Corpuscular Volume 87 fl (79-97); Platelet Count 189 K/mm3 (140-440); Red Blood Count 3.61 M/mm3 (3.65-5.03); Red Cell Distribution Width 14.3 % (13.2-15.2)
[2020-10-20 09:21] LABS: Alanine Aminotransferase 155 units/L (7-56); Albumin 3.2 g/dL (3.9-5); Calcium 7.7 mg/dL (8.4-10.2); Hemolysis Index 1
[2020-10-20 09:25] LABS: BUN/Creatinine Ratio 3; Blood Urea Nitrogen < 1 mg/dL (7-17)
--- NOTE | 2020-10-20 10:12 | Progress Note ---
Assessment and Plan Assessment and plan: Patient is a 65-year-old female that presents emergency room for nausea vomiting weakness. Patient states she was sent here by her oncologist. Patient states she had a new chemotherapy on Wednesday and has had nausea and vomiting since. Patient states 3 days ago she developed diarrhea. Patient states she is now having weakness, loss of appetite and fatigue. Patient states she has had anything by mouth except for mild sips of water for the last 5 days. Patient states she feels dehydrated. Patient denies fever or chills. Patient denies blood in vomitus. Patient states she is on chemo for stage IV pancreatic cancer. Patient denies blood in her stool. ED work-up showed WBC 2.3 hemoglobin 11.6, platelets 168, sodium 135, potassium 3.1, creatinine 0.4, serum glucose 134, calcium 8.8, AST 81, ALT 213, and albumin 3.8. CT of the abdomen and pelvis with contrast done result is highly suspicious of pancolitis,: Has generalized mild thickening of the colon with mild surrounding inflammation colonic diverticulosis is seen without evidence of diverticulitis peritoneum showed multiple omental peritoneal nodules and pancreatic body mass measuring 3.8 x 3.3 cm. Patient seen at bedside in ED. Patient is alert oriented x3. Patient admits abdominal pain pain level 7/10. Patient also admits nausea and vomiting but denies chest pain and shortness of breath. Patient has a history of pancreatic CA getting chemotherapy via left subclavian Port-A-Cath. I reviewed patient medical record medication record and vital signs. 10/20: GI input noted no plans for scope at this time. Continue current management we will restart patient's oxycodone for chronic pain is related to pancreatic cancer. Imaging studies reviewed appears to be possible increase in mass noted. Patient noted with leukopenia today hematology consulted to assist will start on sliding scale coverage due to elevated blood sugar doubt diabetes although with pancreatic cancer I would not be surprised. Advance care plan d iscussion with the patient for 30 minutes patient will remain a full code. We will advance diet once she begins to improve with improving pain. Also replace potassium and recheck in a.m. (1) Intractable abdominal pain/pancolitis Current Visit: Yes Status: Acute Plan to address problem: Likely secondary to colonic inflammation/pancreatic CA Patient is blaming presently on chemotherapy. She said her chemotherapy schedule for Wednesday Continue pain management. GI consult. (2) Intractable nausea and vomiting Current Visit: Yes Status: Acute Plan to address problem: Continue antiemetic (3) Dehydration Current Visit: Yes Status: Acute Plan to address problem: Likely secondary to nausea /vomiting Continue IV hydration Monitor electrolytes (4) Pancreatic mass Current Visit: No Status: Acute Plan to address problem: Recent diagnosis pancreatic CA Currently on chemotherapy (5) Pancolitis Current Visit: Yes Status: Acute Plan to address problem: Appreciated on CT of the abdomen and pelvis Patient has colonic inflammation Continue antibiotic with Zosyn empirically GI is consulted (6) Hypokalemia Current Visit: Yes Status: Acute Plan to address problem: likely 2/2 to gastric loss-patient has nausea and vomiting Replace potassium Check mag and electrolytes -replace PRN (7) leukopenia (8) hypokalemia severe (9) hyperglycemia (10) DVT prophylaxis Current Visit: Yes Status: Acute Plan to address problem: SCD History Interval history: Patient seen and examined this morning no further diarrhea although some mild loose stools noted. 2 bowel movements reported in the last 24 hours. No blood in stool. Still with some abdominal pain. Hospitalist Physical - Physical exam Narrative exam: VITAL SIGNS: Reviewed. GENERAL: The patient appears normally developed, debilitated chronically ill-appearing vital signs as documented. HEAD: No signs of head trauma. EYES: Pupils are equal. Extraocular motions intact. EARS: Hearing grossly intact. MOUTH: Oropharynx is normal. NECK: No adenopathy, no JVD. CHEST: Chest with clear breath sounds bilaterally. No wheezes, rales, or rhonchi. CARDIAC: Regular rate and rhythm. S1 and S2, without murmurs, gallops, or rubs. VASCULAR: No Edema. Peripheral pulses normal and equal in all extremities. ABDOMEN: Soft, non tender and non distended. No rebound or guarding, and no masses palpated. Bowel Sounds normal. MUSCULOSKELETAL: Good range of motion of all major joints. Extremities without clubbing, cyanosis or edema. NEUROLOGIC EXAM: Awake but lethargic however oriented x 3 No focal sensory or strength deficits. Speech normal. Follows commands. PSYCHIATRIC: Mood normal. SKIN: detail exam as documented in skin assessment - Constitutional Vitals: Temp Pulse Resp BP Pulse Ox 99.3 F 85 16 107/58 98 10/19/20 23:14 10/19/20 23:14 10/19/20 23:14 10/19/20 23:14 10/19/20 23:14 General appearance: Present: mild distress Results - Labs CBC & Chem 7: 10/20/20 08:40 10/20/20 08:40 Labs: Laboratory Last Values WBC 1.0 K/mm3 (4.5-11.0) L* 10/20/20 08:40 RBC 3.61 M/mm3 (3.65-5.03) L 10/20/20 08:40 Hgb 10.8 gm/dl (10.1-14.3) 10/20/20 08:40 Hct 31.5 % (30.3-42.9) 10/20/20 08:40 MCV 87 fl (79-97) 10/20/20 08:40 MCH 30 pg (28-32) 10/20/20 08:40 MCHC 34 % (30-34) 10/20/20 08:40 RDW 14.3 % (13.2-15.2) 10/20/20 08:40 Plt Count 189 K/mm3 (140-440) 10/20/20 08:40 Lymph % (Auto) Eyeglass Lens Cutter 10/20/20 08:40 [place] % (Auto) Eyeglass Lens Cutter 10/20/20 08:40 Seg Neutrophils % Eyeglass Lens Cutter 10/20/20 08:40 Sodium 138 mmol/L (137-145) 10/20/20 08:40 Potassium 2.0 mmol/L (3.6-5.0) L* D 10/20/20 08:40 Chloride 99.3 mmol/L (98-107) 10/20/20 08:40 Carbon Dioxide 25 mmol/L (22-30) 10/20/20 08:40 Anion Gap 16 mmol/L 10/20/20 08:40 BUN < 1 mg/dL (7-17) L 10/20/20 08:40 Creatinine 0.4 mg/dL (0.6-1.2) L 10/20/20 08:40 Estimated GFR > 60 ml/min 10/20/20 08:40 BUN/Creatinine Ratio 3 % 10/20/20 08:40 Glucose 216 mg/dL (65-100) H 10/20/20 08:40 Calcium 7.7 mg/dL (8.4-10.2) L 10/20/20 08:40 Phosphorus 2.70 mg/dL (2.5-4.5) 10/19/20 05:50 Magnesium 1.70 mg/dL (1.7-2.3) 10/19/20 05:50 Total Bilirubin 0.60 mg/dL (0.1-1.2) 10/20/20 08:40 AST 48 units/L (5-40) H 10/20/20 08:40 ALT 155 units/L (7-56) H 10/20/20 08:40 Alkaline Phosphatase 60 units/L (35-129) 10/20/20 08:40 Total Protein 6.0 g/dL (6.3-8.2) L 10/20/20 08:40 Albumin 3.2 g/dL (3.9-5) L 10/20/20 08:40 Albumin/Globulin Ratio 1.1 % 10/20/20 08:40 Gaspar/IV: Voiding Method Bedside Commode Active Medications - Current Medications Current Medications: Generic Name Dose Route Start Last Admin Trade Name Freq PRN Reason Stop Dose Admin Acetaminophen 650 mg 10/19/20 03:27 Acetaminophen 325 Mg Tab PO Q4H PRN Pain MILD(1-3)/Fever >100.5/KEVIN Al Hydrox/Mg Hydrox/Simethicone 30 ml 10/19/20 03:27 Alum-Mag Hydroxide-Simethicone [id number]/5ml Oral Liqd 30 Ml PO Q4H PRN Indigestion Hydralazine HCl 5 mg 10/19/20 03:29 Hydralazine 20 Mg/1 Ml Inj IV Q4H PRN Hypertension Dextrose/Sodium Chloride 1,000 mls @ 125 mls/hr 10/19/20 10:00 10/20/20 03:36 D5ns IV 125 mls/hr DIRECT EVELYN Administration Piperacillin Sod/Tazobactam Sod 4.5 gm in 100 mls @ 200 mls/hr 10/19/20 12:00 10/19/20 21:05 Zosyn/Ns 4.5gm/100ml IV 200 mls/hr Q8HR EVELYN Administration Magnesium Hydroxide 30 ml 10/19/20 03:27 Magnesium Hydroxide (Mom) Oral Liqd Udc PO Q4H PRN Constipation Metoclopramide HCl 10 mg 10/19/20 03:27 10/19/20 16:26 Metoclopramide 10 Mg/2 Ml Inj IV 10 mg Q6H PRN Administration Nausea And Vomiting Morphine Sulfate 2 mg 10/19/20 09:36 10/20/20 08:34 Morphine 2 Mg/1 Ml Inj IV 2 mg Q4H PRN Administration Pain, Moderate (4-6) Naloxone HCl 0.1 mg 10/19/20 09:37 Naloxone 0.4 Mg/1 Ml Inj IV Q2MIN PRN Res Rate </= 8 or 02 SAT < 92% Ondansetron HCl 4 mg 10/19/20 03:27 10/20/20 03:30 Ondansetron 4 Mg/2 Ml Inj IV 4 mg Q8H PRN Administration Nausea And Vomiting Oxycodone HCl 10 mg 10/20/20 22:00 Oxycodone Er 10 Mg Tab PO Q12HR EVELYN Potassium Chloride 40 meq 10/20/20 10:00 Potassium Chloride 20 Meq Packet PO 10/20/20 14:01 Q2H EVELYN Senna 8.6 mg 10/19/20 03:27 Sennosides 8.6 Mg Tab PO Q12HR PRN Constipation Sodium Chloride 10 ml 10/19/20 10:00 10/20/20 09:02 Sodium Chloride 0.9% 10 Ml Flush Syringe IV Not Given BID EVELYN Sodium Chloride 10 ml 10/19/20 03:27 Sodium Chloride 0.9% 10 Ml Flush Syringe IV PRN PRN LINE FLUSH Tramadol HCl 50 mg 10/19/20 03:29 Tramadol 50 Mg Tab PO Q6H PRN Pain, Moderate (4-6) Trazodone HCl 50 mg 10/19/20 03:29 10/19/20 21:05 Trazodone 50 Mg Tab PO 50 mg QHS PRN Administration Insomnia Trazodone HCl 50 mg 10/20/20 01:00 10/20/20 00:16 Trazodone 50 Mg Tab PO 50 mg QHS EVELYN Administration Nutrition/Malnutrition Assess - Dietary Evaluation Nutrition/Malnutrition Findings: Nutrition Notes Start: 10/19/20 13:06 Freq: Status: Active Protocol: Document 10/19/20 13:06 RODOLFO (Rec: 10/19/20 13:13 RODOLFO [id number]) Nutrition Notes 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 She is s/p new chemo treatment this past Wednesday; c/ o N/V since then and has not been able to tolerate PO intake (only sips of water). Unable to reach pt via phone at 13:05. Burn Absent Trauma Absent GI Symptoms Nausea,Vomiting,Diarrhea Current % PO Poor (25-49%) Minimum of two criteria No Energy Intake (severe) < or equal to 50% Estimated Energy Requirement > or equal to 5 days #1 Nutrition Diagnosis Inadequate oral intake Etiology s/p new chemo treatment As Evidenced by Signs and Symptoms pt presents with abd pain, N/V and reports inability to tolerate PO Is patient on ventilator? No Is Patient Ambulatory and/or Out of Bed Yes REE-([facility]-ambulatory/OOB) [ [id number] [id number]] Kcal/Kg value to use for calculation 30 Approximate Energy Requirements Using 1742 kcal/Kg Calculation Used for Recommendations Kcal/kg Additional Notes Pro needs 1.2-1.5g/k-87g/ day Fluid needs 1ml/kcal Nutrition Intervention Change Diet Order: Advance diet as tolerated Nutrition Support: PN support if necessary Goal #1 PO tolerance Goal #2 Diet advancement to meet nutrient needs Goal #3 Wt maintenance Anticipated Discharge Needs: Unable to determine at this time Follow-Up By: 10/21/20 Additional Comments F/U: PO tolerance, diet advancement, wt assessment
[2020-10-20] MEDS: POTASSIUM CHLORIDE 20 MEQ PACKET PO SCH ×3 (10:25→14:29)
[2020-10-20 10:27] LABS: Eosinophils % (Manual) 4.3 % (0.0-4.3); Nucleated Red Blood Cells 4.2 % (0.0-0.9); Total Cells Counted 70
[2020-10-20 10:28] LABS: Burr Cells Rare; Platelet Estimate Consistent w Auto
[2020-10-20] MEDS: PIPERACIL/TAZOBACTA 4.5/NS 100 4.5 GM/100 ML VIAL IV SCH ×3 (14:00→21:40)
--- NOTE | 2020-10-20 16:34 | Gastroenterology Progress Note ---
Assessment and Plan GI: pt w/ pancreatic cancer now presents w/ pancolitis after chemotherapy - C. diff negative - reports nausea and diarrhea improving - agree w/ continue pain meds - will start to advance diet - await Oncology input, pt concerned about plan as to chemotherapy - no plans for colonoscopy at this time but will consider based on progress - when symptoms stable and tolerating po ok to dc from GI standpoint - will follow Subjective Date of service: 10/20/20 Interval history: - reports overall improved but generally weak. Denies diarrhea or other specific complaints except abdominal pain. Objective - Constitutional Vitals: Temp Pulse Resp BP Pulse Ox 99.3 F 85 16 107/58 98 10/19/20 23:14 10/19/20 23:14 10/19/20 23:14 10/19/20 23:14 10/19/20 23:14 General appearance: no acute distress - EENT Eyes: PERRL - Respiratory Respiratory: bilateral: CTA - Cardiovascular Rhythm: regular Heart Sounds: Present: S1 & S2 - Gastrointestinal General gastrointestinal: Present: soft, non-tender, non-distended - Labs CBC & Chem 7: 10/20/20 08:40 10/20/20 08:40 Labs: Laboratory Results - last 24 hr 10/19/20 10/20/20 10/20/20 09:36 04:40 08:40 WBC 1.0 L* RBC 3.61 L Hgb 10.8 Hct 31.5 MCV 87 MCH 30 MCHC 34 RDW 14.3 Plt Count 189 Lymph % (Auto) Fabrication Department Supervisor Cotton % (Auto) Fabrication Department Supervisor Add Manual Diff Complete Total Counted 70 Seg Neutrophils % Fabrication Department Supervisor Seg Neuts % (Manual) 14.3 L Lymphocytes % (Manual) 81.4 H Eosinophils % (Manual) 4.3 Nucleated RBC % 4.2 H Seg Neutrophils # Man 0.1 L Band Neutrophils # 0.0 Lymphocytes # (Manual) 0.8 L Abs React Lymphs (Man) 0.0 Monocytes # (Manual) 0.0 Eosinophils # (Manual) 0.0 Basophils # (Manual) 0.0 Metamyelocytes # 0.0 Myelocytes # 0.0 Promyelocytes # 0.0 Blast Cells # 0.0 WBC Morphology Not Reportable Hypersegmented Neuts Not Reportable Hyposegmented Neuts Not Reportable Hypogranular Neuts Not Reportable Smudge Cells Not Reportable Toxic Granulation Not Reportable Toxic Vacuolation Not Reportable Dohle Bodies Not Reportable Pelger-Huet Anomaly Not Reportable Philip Rods Not Reportable Platelet Estimate Consistent w auto Clumped Platelets Not Reportable Plt Clumps, EDTA Not Reportable Large Platelets Not Reportable Giant Platelets Not Reportable Platelet Satelliting Not Reportable Plt Morphology Comment Not Reportable RBC Morphology Not Reportable Dimorphic RBCs Not Reportable Polychromasia Not Reportable Hypochromasia Not Reportable Poikilocytosis Not Reportable Anisocytosis Not Reportable Microcytosis Not Reportable Macrocytosis Not Reportable Spherocytes Not Reportable Pappenheimer Bodies Not Reportable Sickle Cells Not Reportable Target Cells Not Reportable Tear Drop Cells Not Reportable Ovalocytes Not Reportable Helmet Cells Not Reportable Page-Ayr Bodies Not Reportable Gilchrist Rings Not Reportable Tresa Cells Rare Bite Cells Not Reportable Crenated Cell Not Reportable Elliptocytes Not Reportable Acanthocytes (Spur) Not Reportable Rouleaux Not Reportable Hemoglobin C Crystals Not Reportable Schistocytes Not Reportable Malaria parasites Not Reportable Emeterio Bodies Not Reportable Hem Pathologist Commnt No Sodium Potassium Chloride Carbon Dioxide Anion Gap BUN Creatinine Estimated GFR BUN/Creatinine Ratio Glucose Calcium Total Bilirubin AST ALT Alkaline Phosphatase Total Protein Albumin Albumin/Globulin Ratio Nasal Screen MRSA (PCR) Negative C. difficile Tox (PCR) Negative 10/20/20 08:40 WBC RBC Hgb Hct MCV MCH MCHC RDW Plt Count Lymph % (Auto) Cotton % (Auto) Add Manual Diff Total Counted Seg Neutrophils % Seg Neuts % (Manual) Lymphocytes % (Manual) Eosinophils % (Manual) Nucleated RBC % Seg Neutrophils # Man Band Neutrophils # Lymphocytes # (Manual) Abs React Lymphs (Man) Monocytes # (Manual) Eosinophils # (Manual) Basophils # (Manual) Metamyelocytes # Myelocytes # Promyelocytes # Blast Cells # WBC Morphology Hypersegmented Neuts Hyposegmented Neuts Hypogranular Neuts Smudge Cells Toxic Granulation Toxic Vacuolation Dohle Bodies Pelger-Huet Anomaly Philip Rods Platelet Estimate Clumped Platelets Plt Clumps, EDTA Large Platelets Giant Platelets Platelet Satelliting Plt Morphology Comment RBC Morphology Dimorphic RBCs Polychromasia Hypochromasia Poikilocytosis Anisocytosis Microcytosis Macrocytosis Spherocytes Pappenheimer Bodies Sickle Cells Target Cells Tear Drop Cells Ovalocytes Helmet Cells Page-Ayr Bodies Gilchrist Rings Tresa Cells Bite Cells Crenated Cell Elliptocytes Acanthocytes (Spur) Rouleaux Hemoglobin C Crystals Schistocytes Malaria parasites Emeterio Bodies Hem Pathologist Commnt Sodium 138 Potassium 2.0 L* D Chloride 99.3 Carbon Dioxide 25 Anion Gap 16 BUN < 1 L Creatinine 0.4 L Estimated GFR > 60 BUN/Creatinine Ratio 3 Glucose 216 H Calcium 7.7 L Total Bilirubin 0.60 AST 48 H ALT 155 H Alkaline Phosphatase 60 Total Protein 6.0 L Albumin 3.2 L Albumin/Globulin Ratio 1.1 Nasal Screen MRSA (PCR) C. difficile Tox (PCR)
[2020-10-20] MEDS: oxyCODONE ER 10 MG TAB PO SCH (21:41)
[2020-10-21] MEDS: MORPHINE 2 MG/1 ML INJ IV PRN ×2 (05:02→15:52)
[2020-10-21] MEDS: PIPERACIL/TAZOBACTA 4.5/NS 100 4.5 GM/100 ML VIAL IV SCH ×3 (05:02→22:50)
[2020-10-21] MEDS: D5W/0.9% NACL 1,000 ML IV SCH (09:13)
[2020-10-21] MEDS: oxyCODONE ER 10 MG TAB PO SCH ×2 (09:14→22:59)
[2020-10-21 09:51] LABS: Hematocrit 29.9 % (30.3-42.9); Hemoglobin 10.3 gm/dl (10.1-14.3); Mean Corpuscular HGB Conc 34 % (30-34); Mean Corpuscular Volume 88 fl (79-97); Platelet Count 201 K/mm3 (140-440); Red Blood Count 3.41 M/mm3 (3.65-5.03); Red Cell Distribution Width 14.7 % (13.2-15.2)
[2020-10-21 10:06] LABS: Alanine Aminotransferase 116 units/L (7-56); Albumin 3.1 g/dL (3.9-5); Calcium 7.3 mg/dL (8.4-10.2); Hemolysis Index 3
[2020-10-21 10:13] LABS: BUN/Creatinine Ratio 2; Blood Urea Nitrogen < 1 mg/dL (7-17)
[2020-10-21] MEDS ORDERED: POTASSIUM CHLORIDE ER 20 MEQ TAB PO ONE ×2 (10:19→21:23)
[2020-10-21] MEDS ORDERED: D5W/0.9% NACL 1,000 ML with POTASSIUM CHLORIDE 20 MEQ IV SCH (10:21)
[2020-10-21] MEDS ORDERED: POTASSIUM CHLORIDE 20 MEQ PACKET PO ONE (10:21)
[2020-10-21] MEDS ORDERED: POTASSIUM CHLORIDE ER 20 MEQ TAB PO NR ×2 (10:30→12:00)
--- NOTE | 2020-10-21 10:54 | Consultation ---
History of Present Illness - Reason for Consult Consult date: 10/21/20 hypokalemia - History of Present Illness The patient is a 65 YO female with history significant for stage 4 Pancreatic cancer on chemo who presented to [facility] ED emergency room 10/18 with 1 week h/o nausea, vomiting, diarrhea and weakness. Patient states she had a new chemotherapy on Wednesday and has had nausea, vomiting and diarrhea since. The stools are watery and non-bloody. Patient also reports weakness, loss of appeti te, fatigue and feel dehydrated. She has had only some sips of water for the last 5 days. Patient feels dehydrated. Patient denies fever, chills, hemetemesis, melena, abd pain, cp or sob. Labs significant for K 1.9, WBC 2.3 and elevated ALT & AST. CT abdomen and pelvis is highly suspicious of p ancolitis, peritoneum showed multiple omental peritoneal nodules and pancreatic body mass measuring 3.8 x 3.3 cm. Nephrology was consulted for further evaluation of severe hypokalemia. Past History Past Medical History: cancer (Pancreatic cancer, presently on chemotherapy) Past Surgical History: No surgical history Social history: lives with family Family history: no significant family history Medications and Allergies Allergies Allergy/AdvReac Type Severity Reaction Status Date / Time No Known Allergies Allergy Verified 10/19/20 02:21 Home Medications Medication Instructions Recorded Confirmed Last Taken Type Celecoxib [celeBREX] 50 mg PO BID #30 capsule 08/09/20 Unknown Rx Sennosides/Docusate Sodium [Stool 1 each PO DAILY #30 tablet 08/09/20 Unknown Rx Soft-Stimulant Lax Tab] oxyCODONE ER [oxyCONTIN ER] 10 mg PO Q12HR #30 tablet 08/09/20 Unknown Rx traMADoL [Ultram 50 MG tab] 50 mg PO Q6HR PRN #12 tablet 08/09/20 Unknown Rx traZODone [Desyrel] 50 mg PO QHS PRN #30 tablet 08/09/20 Unknown Rx Dicyclomine [Bentyl] 20 mg PO QID PRN #20 tablet 08/23/20 Unknown Rx oxyCODONE [roxiCODONE] 5 mg PO Q6H PRN #12 tablet 08/23/20 Unknown Rx Active Meds: Active Medications Acetaminophen (Acetaminophen 325 Mg Tab) 650 mg PO Q4H PRN PRN Reason: Pain MILD(1-3)/Fever >100.5/KEVIN Al Hydrox/Mg Hydrox/Simethicone (Alum-Mag Hydroxide-Simethicone [phone]/5ml Oral Liqd 30 Ml) 30 ml PO Q4H PRN PRN Reason: Indigestion Hydralazine HCl (Hydralazine 20 Mg/1 Ml Inj) 5 mg IV Q4H PRN PRN Reason: Hypertension Piperacillin Sod/Tazobactam Sod (Zosyn/Ns 4.5gm/100ml) 4.5 gm in 100 mls @ 200 mls/hr IV Q8HR EVELYN Last Infusion: 10/21/20 05:48 Dose: Infused Documented by: Potassium Chloride (Kcl 10meq/100ml) 10 meq in 100 mls @ 100 mls/hr IV Q1H EVELYN Stop: 10/21/20 14:59 Magnesium Sulfate 1 gm/ Sodium (Chloride) 52 mls @ 52 mls/hr IV ONCE ONE Stop: 10/21/20 11:59 Potassium Chloride/Dextrose/Sod Cl (D5w/Ns W/Kcl 20meq) 20 meq in 1,000 mls @ 125 mls/hr IV DIRECT EVELYN Magnesium Hydroxide (Magnesium Hydroxide (Mom) Oral Liqd Udc) 30 ml PO Q4H PRN PRN Reason: Constipation Metoclopramide HCl (Metoclopramide 10 Mg/2 Ml Inj) 10 mg IV Q6H PRN PRN Reason: Nausea And Vomiting Last Admin: 10/19/20 16:26 Dose: 10 mg Documented by: Morphine Sulfate (Morphine 2 Mg/1 Ml Inj) 2 mg IV Q4H PRN PRN Reason: Pain, Moderate (4-6) Last Admin: 10/21/20 05:02 Dose: 2 mg Documented by: Naloxone HCl (Naloxone 0.4 Mg/1 Ml Inj) 0.1 mg IV Q2MIN PRN PRN Reason: Res Rate </= 8 or 02 SAT < 92% Ondansetron HCl (Ondansetron 4 Mg/2 Ml Inj) 4 mg IV Q8H PRN PRN Reason: Nausea And Vomiting Last Admin: 10/20/20 10:30 Dose: 4 mg Documented by: Oxycodone HCl (Oxycodone Er 10 Mg Tab) 10 mg PO Q12HR EVELYN Last Admin: 10/21/20 09:14 Dose: 10 mg Documented by: Potassium Chloride (Potassium Chloride Er 20 Meq Tab) 40 meq PO ONCE@1030 NR Stop: 10/21/20 13:00 Potassium Chloride (Potassium Chloride Er 20 Meq Tab) 40 meq PO ONCE@1200 NR Stop: 10/21/20 14:00 Senna (Sennosides 8.6 Mg Tab) 8.6 mg PO Q12HR PRN PRN Reason: Constipation Sodium Chloride (Sodium Chloride 0.9% 10 Ml Flush Syringe) 10 ml IV BID [facility] Last Admin: 10/21/20 09:25 Dose: Not Given Documented by: Sodium Chloride (Sodium Chloride 0.9% 10 Ml Flush Syringe) 10 ml IV PRN PRN PRN Reason: LINE FLUSH Tramadol HCl (Tramadol 50 Mg Tab) 50 mg PO Q6H PRN PRN Reason: Pain, Moderate (4-6) Last Admin: 10/20/20 10:25 Dose: 50 mg Documented by: Trazodone HCl (Trazodone 50 Mg Tab) 50 mg PO QHS PRN PRN Reason: Insomnia Last Admin: 10/19/20 21:05 Dose: 50 mg Documented by: Trazodone HCl (Trazodone 50 Mg Tab) 50 mg PO QHS [facility] Last Admin: 10/20/20 21:41 Dose: 50 mg Documented by: Review of Systems Constitutional: weight loss, anorexia, fatigue, weakness, poor appetite, no weight gain, no fever, no chills Breasts: deferred Cardiovascular: no chest pain, no orthopnea, no edema, no syncope, no lightheadedness, no shortness of breath, no dyspnea on exertion, no high blood pressure, no leg edema Respiratory: no shortness of breath, no dyspnea on exertion Gastrointestinal: nausea, vomiting, diarrhea, loss of appetite, no abdominal pain, no constipation, no hematemesis, no melena Genitourinary Female: no dysuria Rectal: no bleeding Musculoskeletal: morning stiffness Neurological: no seizures, no syncope, no convulsions, no aphasia, no change in speech, no change in mentation, no confusion Exam - Vital Signs Vital signs: Vital Signs Temp Pulse Resp BP Pulse Ox 98.1 F 97 H 18 114/78 100 10/18/20 20:49 10/18/20 20:49 10/18/20 20:49 10/18/20 20:49 10/18/20 20:49 Results - Lab Results 10/21/20 09:20 10/21/20 18:07 Most recent lab results Calcium 7.3 mg/dL (8.4-10.2) L 10/21/20 09:20 Phosphorus 2.70 mg/dL (2.5-4.5) 10/19/20 05:50 Magnesium 1.70 mg/dL (1.7-2.3) 10/19/20 05:50 Assessment and Plan 1. Hypokalemia: Secondary to GI loss and poor PO intake. Very low suspicious for any renal loss. Replace potassium. Check mag and electrolytes -replace PRN. 2. FEN: Continue IV fluids. Monitor lytes and volume status. 3. Intractable N, V & D, pancolitis: Abx. Seen by GI. 4. Pancreatic cancer: Currently on chemotherapy. 5. Leukopenia: Monitor. 6. Hyperglycemia. Subjective: Patient was seen and examined at the bedside. Objective: General appearance: well-developed, appears stated age, not in distress, emaciated HEENT: ATNC Neck: trachea midline Respiratory: ctab Heart: S1S2, regular, no murmur Abdomen: soft, normoactive bowel sounds, not tender Integumentary: no obvious rash Ext: no edema Neurologic: AO, able to move extremities
[2020-10-21] MEDS ORDERED: D5NS W/KCL 20 MEQ 20 MEQ/1,000 ML BAG IV SCH (11:00)
[2020-10-21] MEDS ORDERED: MAGNESIUM SULFATE 1 GM in SODIUM CHLORIDE 0.9% 50 ML IV ONE (11:00)
--- NOTE | 2020-10-21 11:05 | Progress Note ---
Assessment and Plan Assessment and plan: Patient is a 65-year-old female that presents emergency room for nausea vomiting weakness. Patient states she was sent here by her oncologist. Patient states she had a new chemotherapy on Wednesday and has had nausea and vomiting since. Patient states 3 days ago she developed diarrhea. Patient states she is now having weakness, loss of appetite and fatigue. Patient states she has had anything by mouth except for mild sips of water for the last 5 days. Patient states she feels dehydrated. Patient denies fever or chills. Patient denies blood in vomitus. Patient states she is on chemo for stage IV pancreatic cancer. Patient denies blood in her stool. ED work-up showed WBC 2.3 hemoglobin 11.6, platelets 168, sodium 135, potassium 3.1, creatinine 0.4, serum glucose 134, calcium 8.8, AST 81, ALT 213, and albumin 3.8. CT of the abdomen and pelvis with contrast done result is highly suspicious of pancolitis,: Has generalized mild thickening of the colon with mild surrounding inflammation colonic diverticulosis is seen without evidence of diverticulitis peritoneum showed multiple omental peritoneal nodules and pancreatic body mass measuring 3.8 x 3.3 cm. Patient seen at bedside in ED. Patient is alert oriented x3. Patient admits abdominal pain pain level 7/10. Patient also admits nausea and vomiting but denies chest pain and shortness of breath. Patient has a history of pancreatic CA getting chemotherapy via left subclavian Port-A-Cath. I reviewed patient medical record medication record and vital signs. 10/20: GI input noted no plans for scope at this time. Continue current management we will restart patient's oxycodone for chronic pain is related to pancreatic cancer. Imaging studies reviewed appears to be possible increase in mass noted. Patient noted with leukopenia today hematology consulted to assist will start on sliding scale coverage due to elevated blood sugar doubt diabetes although with pancreatic cancer I would not be surprised. Advance care plan d iscussion with the patient for 30 minutes patient will remain a full code. We will advance diet once she begins to improve with improving pain. Also replace potassium and recheck in a.m. 10/21: 65-year-old female with history of pancreatic cancer admitted with nausea vomiting and generalized weakness now with severe hypokalemia likely secondary to loose bowel stools. Will transfer patient to telemetry as IMCU beds are not available. Multiple potassium replacement ordered. We will also obtain nephrology consult to assist with electrolyte replacement. 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 We will also give a gram of magnesium. Patient can be discharged once electrolytes are stabilized. She does not have any further nausea or vomiting at this time. GI input is appreciated (1) Intractable abdominal pain/pancolitis Current Visit: Yes Status: Acute Plan to address problem: Likely secondary to colonic inflammation/pancreatic CA Patient is blaming presently on chemotherapy. She said her chemotherapy schedule for Wednesday Continue pain management. GI consult. (2) Intractable nausea and vomiting Current Visit: Yes Status: Acute Plan to address problem: Continue antiemetic (3) Dehydration Current Visit: Yes Status: Acute Plan to address problem: Likely secondary to nausea /vomiting Continue IV hydration Monitor electrolytes (4) Pancreatic mass Current Visit: No Status: Acute Plan to address problem: Recent diagnosis pancreatic CA Currently on chemotherapy (5) Pancolitis Current Visit: Yes Status: Acute Plan to address problem: Appreciated on CT of the abdomen and pelvis Patient has colonic inflammation Continue antibiotic with Zosyn empirically GI is consulted (6) Hypokalemia Current Visit: Yes Status: Acute Plan to address problem: likely 2/2 to gastric loss-patient has nausea and vomiting Replace potassium Check mag and electrolytes -replace PRN (7) leukopenia (8) hypokalemia severe (9) hypomagnesemia (10) hyperglycemia (11) DVT prophylaxis Current Visit: Yes Status: Acute Plan to address problem: SCD History Interval history: Patient seen and examined this morning. Had repeated episodes of loose bowel y . This morning tearful. Nurse reported severe hypokalemia therefore critical lab. No cardiac issues noted. Hospitalist Physical - Physical exam Narrative exam: VITAL SIGNS: Reviewed. GENERAL: The patient appears normally developed, debilitated chronically ill- appearing vital signs as documented. HEAD: No signs of head trauma. EYES: Pupils are equal. Extraocular motions intact. EARS: Hearing grossly intact. MOUTH: Oropharynx is normal. NECK: No adenopathy, no JVD. CHEST: Chest with clear breath sounds bilaterally. No wheezes, rales, or rhonchi. CARDIAC: Regular rate and rhythm. S1 and S2, without murmurs, gallops, or rubs. VASCULAR: No Edema. Peripheral pulses normal and equal in all extremities. ABDOMEN: Soft, non tender and non distended. No rebound or guarding, and no masses palpated. Bowel Sounds normal. MUSCULOSKELETAL: Good range of motion of all major joints. Extremities without clubbing, cyanosis or edema. NEUROLOGIC EXAM: Awake but lethargic however oriented x 3 No focal sensory or strength deficits. Speech normal. Follows commands. PSYCHIATRIC: Mood normal. SKIN: detail exam as documented in skin assessment - Constitutional Vitals: Temp Pulse Resp BP Pulse Ox 98.3 F 67 16 101/61 100 10/21/20 10:55 10/21/20 10:55 10/21/20 10:55 10/21/20 10:55 10/21/20 10:55 General appearance: Present: mild distress Results - Labs CBC & Chem 7: 10/21/20 09:20 10/21/20 09:20 Labs: Laboratory Last Values WBC 2.2 K/mm3 (4.5-11.0) L 10/21/20 09:20 RBC 3.41 M/mm3 (3.65-5.03) L 10/21/20 09:20 Hgb 10.3 gm/dl (10.1-14.3) 10/21/20 09:20 Hct 29.9 % (30.3-42.9) L 10/21/20 09:20 MCV 88 fl (79-97) 10/21/20 09:20 MCH 30 pg (28-32) 10/21/20 09:20 MCHC 34 % (30-34) 10/21/20 09:20 RDW 14.7 % (13.2-15.2) 10/21/20 09:20 Plt Count 201 K/mm3 (140-440) 10/21/20 09:20 Lymph % (Auto) Live In Companion 10/20/20 08:40 Collier % (Auto) Live In Companion 10/20/20 08:40 Add Manual Diff Complete 10/20/20 08:40 Total Counted 70 10/20/20 08:40 Seg Neutrophils % Live In Companion 10/20/20 08:40 Seg Neuts % (Manual) 14.3 % (40.0-70.0) L 10/20/20 08:40 Lymphocytes % (Manual) 81.4 % (13.4-35.0) H 10/20/20 08:40 Eosinophils % (Manual) 4.3 % (0.0-4.3) 10/20/20 08:40 Nucleated RBC % 4.2 % (0.0-0.9) H 10/20/20 08:40 Seg Neutrophils # Man 0.1 K/mm3 (1.8-7.7) L 10/20/20 08:40 Band Neutrophils # 0.0 K/mm3 10/20/20 08:40 Lymphocytes # (Manual) 0.8 K/mm3 (1.2-5.4) L 10/20/20 08:40 Abs React Lymphs (Man) 0.0 K/mm3 10/20/20 08:40 Monocytes # (Manual) 0.0 K/mm3 (0.0-0.8) 10/20/20 08:40 Eosinophils # (Manual) 0.0 K/mm3 (0.0-0.4) 10/20/20 08:40 Basophils # (Manual) 0.0 K/mm3 (0.0-0.1) 10/20/20 08:40 Metamyelocytes # 0.0 K/mm3 10/20/20 08:40 Myelocytes # 0.0 K/mm3 10/20/20 08:40 Promyelocytes # 0.0 K/mm3 10/20/20 08:40 Blast Cells # 0.0 K/mm3 10/20/20 08:40 WBC Morphology Not Reportable 10/20/20 08:40 Hypersegmented Neuts Not Reportable 10/20/20 08:40 Hyposegmented Neuts Not Reportable 10/20/20 08:40 Hypogranular Neuts Not Reportable 10/20/20 08:40 Smudge Cells Not Reportable 10/20/20 08:40 Toxic Granulation Not Reportable 10/20/20 08:40 Toxic Vacuolation Not Reportable 10/20/20 08:40 Dohle Bodies Not Reportable 10/20/20 08:40 Pelger-Huet Anomaly Not Reportable 10/20/20 08:40 Philip Rods Not Reportable 10/20/20 08:40 Platelet Estimate Consistent w auto 10/20/20 08:40 Clumped Platelets Not Reportable 10/20/20 08:40 Plt Clumps, EDTA Not Reportable 10/20/20 08:40 Large Platelets Not Reportable 10/20/20 08:40 Giant Platelets Not Reportable 10/20/20 08:40 Platelet Satelliting Not Reportable 10/20/20 08:40 Plt Morphology Comment Not Reportable 10/20/20 08:40 RBC Morphology Not Reportable 10/20/20 08:40 Dimorphic RBCs Not Reportable 10/20/20 08:40 Polychromasia Not Reportable 10/20/20 08:40 Hypochromasia Not Reportable 10/20/20 08:40 Poikilocytosis Not Reportable 10/20/20 08:40 Anisocytosis Not Reportable 10/20/20 08:40 Microcytosis Not Reportable 10/20/20 08:40 Macrocytosis Not Reportable 10/20/20 08:40 Spherocytes Not Reportable 10/20/20 08:40 Pappenheimer Bodies Not Reportable 10/20/20 08:40 Sickle Cells Not Reportable 10/20/20 08:40 Target Cells Not Reportable 10/20/20 08:40 Tear Drop Cells Not Reportable 10/20/20 08:40 Ovalocytes Not Reportable 10/20/20 08:40 Helmet Cells Not Reportable 10/20/20 08:40 [place] Bodies Not Reportable 10/20/20 08:40 [place] Rings Not Reportable 10/20/20 08:40 [place] Cells Rare 10/20/20 08:40 Bite Cells Not Reportable 10/20/20 08:40 Crenated Cell Not Reportable 10/20/20 08:40 Elliptocytes Not Reportable 10/20/20 08:40 Acanthocytes (Spur) Not Reportable 10/20/20 08:40 Rouleaux Not Reportable 10/20/20 08:40 Hemoglobin C Crystals Not Reportable 10/20/20 08:40 Schistocytes Not Reportable 10/20/20 08:40 Malaria parasites Not Reportable 10/20/20 08:40 Emeterio Bodies Not Reportable 10/20/20 08:40 Hem Pathologist Commnt No 10/20/20 08:40 Sodium 137 mmol/L (137-145) 10/21/20 09:20 Potassium 1.9 mmol/L (3.6-5.0) L* 10/21/20 09:20 Chloride 100.9 mmol/L (98-107) 10/21/20 09:20 Carbon Dioxide 22 mmol/L (22-30) 10/21/20 09:20 Anion Gap 16 mmol/L 10/21/20 09:20 BUN < 1 mg/dL (7-17) L 10/21/20 09:20 Creatinine 0.5 mg/dL (0.6-1.2) L 10/21/20 09:20 Estimated GFR > 60 ml/min 10/21/20 09:20 BUN/Creatinine Ratio 2 % 10/21/20 09:20 Glucose 207 mg/dL (65-100) H 10/21/20 09:20 Calcium 7.3 mg/dL (8.4-10.2) L 10/21/20 09:20 Phosphorus 2.70 mg/dL (2.5-4.5) 10/19/20 05:50 Magnesium 1.70 mg/dL (1.7-2.3) 10/19/20 05:50 Total Bilirubin 0.60 mg/dL (0.1-1.2) 10/21/20 09:20 AST 25 units/L (5-40) 10/21/20 09:20 ALT 116 units/L (7-56) H 10/21/20 09:20 Alkaline Phosphatase 58 units/L (35-129) 10/21/20 09:20 Total Protein 5.4 g/dL (6.3-8.2) L 10/21/20 09:20 Albumin 3.1 g/dL (3.9-5) L 10/21/20 09:20 Albumin/Globulin Ratio 1.3 % 10/21/20 09:20 Nasal Screen MRSA (PCR) Negative (Negative) 10/20/20 04:40 C. difficile Tox (PCR) Negative (Negative) 10/19/20 09:36 Microbiology: Microbiology 10/20/20 10:00 Stool Cryptosporidium Exam - Final NEGATIVE 10/20/20 10:00 Stool Giardia Antigen (YOANA) - Final NEGATIVE Gaspar/IV: Voiding Method Bedside Commode Active Medications - Current Medications Current Medications: Generic Name Dose Route Start Last Admin Trade Name Freq PRN Reason Stop Dose Admin Acetaminophen 650 mg 10/19/20 03:27 Acetaminophen 325 Mg Tab PO Q4H PRN Pain MILD(1-3)/Fever >100.5/KEVIN Al Hydrox/Mg Hydrox/Simethicone 30 ml 10/19/20 03:27 Alum-Mag Hydroxide-Simethicone [id number]/5ml Oral Liqd 30 Ml PO Q4H PRN Indigestion Hydralazine HCl 5 mg 10/19/20 03:29 Hydralazine 20 Mg/1 Ml Inj IV Q4H PRN Hypertension Piperacillin Sod/Tazobactam Sod 4.5 gm in 100 mls @ 200 mls/hr 10/19/20 12:00 10/21/20 05:48 Zosyn/Ns 4.5gm/100ml IV Infused Q8HR EVELYN Infusion Potassium Chloride 10 meq in 100 mls @ 100 mls/hr 10/21/20 11:00 Kcl 10meq/100ml IV 10/21/20 14:59 Q1H EVELYN Magnesium Sulfate 1 gm/ Sodium 52 mls @ 52 mls/hr 10/21/20 11:00 Chloride IV 10/21/20 11:59 ONCE ONE Potassium Chloride 40 meq/ 1,020 mls @ 100 mls/hr 10/21/20 12:00 Sodium Chloride IV DIRECT EVELYN Magnesium Hydroxide 30 ml 10/19/20 03:27 Magnesium Hydroxide (Mom) Oral Liqd Udc PO Q4H PRN Constipation Metoclopramide HCl 10 mg 10/19/20 03:27 10/19/20 16:26 Metoclopramide 10 Mg/2 Ml Inj IV 10 mg Q6H PRN Administration Nausea And Vomiting Morphine Sulfate 2 mg 10/19/20 09:36 10/21/20 05:02 Morphine 2 Mg/1 Ml Inj IV 2 mg Q4H PRN Administration Pain, Moderate (4-6) Naloxone HCl 0.1 mg 10/19/20 09:37 Naloxone 0.4 Mg/1 Ml Inj IV Q2MIN PRN Res Rate </= 8 or 02 SAT < 92% Ondansetron HCl 4 mg 10/19/20 03:27 10/20/20 10:30 Ondansetron 4 Mg/2 Ml Inj IV 4 mg Q8H PRN Administration Nausea And Vomiting Oxycodone HCl 10 mg 10/20/20 22:00 10/21/20 09:14 Oxycodone Er 10 Mg Tab PO 10 mg Q12HR EVELYN Administration Potassium Chloride 40 meq 10/21/20 10:30 Potassium Chloride Er 20 Meq Tab PO 10/21/20 13:00 ONCE@1030 NR Potassium Chloride 40 meq 10/21/20 12:00 Potassium Chloride Er 20 Meq Tab PO 10/21/20 14:00 ONCE@1200 NR Senna 8.6 mg 10/19/20 03:27 Sennosides 8.6 Mg Tab PO Q12HR PRN Constipation Sodium Chloride 10 ml 10/19/20 10:00 10/21/20 09:25 Sodium Chloride 0.9% 10 Ml Flush Syringe IV Not Given BID EVELYN Sodium Chloride 10 ml 10/19/20 03:27 Sodium Chloride 0.9% 10 Ml Flush Syringe IV PRN PRN LINE FLUSH Tramadol HCl 50 mg 10/19/20 03:29 10/20/20 10:25 Tramadol 50 Mg Tab PO 50 mg Q6H PRN Administration Pain, Moderate (4-6) Trazodone HCl 50 mg 10/19/20 03:29 10/19/20 21:05 Trazodone 50 Mg Tab PO 50 mg QHS PRN Administration Insomnia Trazodone HCl 50 mg 10/20/20 01:00 10/20/20 21:41 Trazodone 50 Mg Tab PO 50 mg QHS EVELYN Administration Nutrition/Malnutrition Assess - Dietary Evaluation Nutrition/Malnutrition Findings: Nutrition Notes Start: 10/19/20 13:06 Freq: Status: Active Protocol: Document 10/19/20 13:06 RODOLFO (Rec: 10/19/20 13:13 RODOLFO [id number]) Nutrition Notes Need for Assessment generated from: bindery worker,MST Initial or Follow up Assessment Other Pertinent Diagnosis Stage 4 pancreatic CA (on chemo), abd pain, N/V/D, Dehydration, Pancolitis Current Diet Cl liq Labs/Tests reviewed Pertinent Medications D5NS at 125ml/hr (provides 510 kcal per 24 hrs) Height 5 ft 4 in Weight 58.06 kg [place] Body Weight (kg) 54.54 BMI 21.9 Intake Prior to Admission Poor Weight Status Underweight Subjective/Other Information Pt screened for malnutrition risk. She is s/p new chemo treatment this past Wednesday; c/ o N/V since then and has not been able to tolerate PO intake (only sips of water). Unable to reach pt via phone at 13:05. Burn Absent Trauma Absent GI Symptoms Nausea,Vomiting,Diarrhea Current % PO Poor (25-49%) Minimum of two criteria No Energy Intake (severe) < or equal to 50% Estimated Energy Requirement > or equal to 5 days #1 Nutrition Diagnosis Inadequate oral intake Etiology s/p new chemo treatment As Evidenced by Signs and Symptoms pt presents with abd pain, N/V and reports inability to tolerate PO Is patient on ventilator? No Is Patient Ambulatory and/or Out of Bed Yes REE-([place]-St. Jeor-ambulatory/OOB) [ 1456.780 NUTR.[id number]] Kcal/Kg value to use for calculation 30 Approximate Energy Requirements Using 1742 kcal/Kg Calculation Used for Recommendations Kcal/kg Additional Notes Pro needs 1.2-1.5g/k-87g/ day Fluid needs 1ml/kcal Nutrition Intervention Change Diet Order: Advance diet as tolerated Nutrition Support: PN support if necessary Goal #1 PO tolerance Goal #2 Diet advancement to meet nutrient needs Goal #3 Wt maintenance Anticipated Discharge Needs: Unable to determine at this time Follow-Up By: 10/21/20 Additional Comments F/U: PO tolerance, diet advancement, wt assessment
[2020-10-21] MEDS: POTASSIUM CHLORIDE 10 MEQ 10 MEQ/100 ML BAG IV SCH ×4 (11:33→15:10)
[2020-10-21] MEDS: POTASSIUM CHLORIDE 40 MEQ in SODIUM CHLORIDE 0.45% 1000 ML 1,000 ML IV SCH (11:33)
[2020-10-21] MEDS: METOCLOPRAMIDE 10 MG/2 ML INJ IV PRN (15:55)
--- NOTE | 2020-10-21 17:11 | Gastroenterology Progress Note ---
Assessment and Plan GI: pt w/ pancreatic cancer now presents w/ pancolitis after chemotherapy - C. diff negative - reports nausea and diarrhea improving - agree w/ continue pain meds - will start to advance diet - no plans for colonoscopy at this time but will consider based on progress - electrolyte and other issues per primary team - when symptoms stable and electrolytes stable, tolerating po, ok to dc from GI standpoint - will follow for now Subjective Date of service: 10/21/20 Interval history: - reports overall feeling better, diarrhea improved Objective - Constitutional Vitals: Temp Pulse Resp BP Pulse Ox 97.8 F 69 16 104/68 97 10/21/20 13:58 10/21/20 13:58 10/21/20 16:22 10/21/20 13:58 10/21/20 13:58 General appearance: no acute distress - EENT Eyes: PERRL - Respiratory Respiratory: bilateral: CTA - Cardiovascular Rhythm: regular Heart Sounds: Present: S1 & S2 - Gastrointestinal General gastrointestinal: Present: soft, non-tender, non-distended - Labs CBC & Chem 7: 10/21/20 09:20 10/21/20 09:20 Labs: Laboratory Results - last 24 hr 10/21/20 10/21/20 09:20 09:20 WBC 2.2 L RBC 3.41 L Hgb 10.3 Hct 29.9 L MCV 88 MCH 30 MCHC 34 RDW 14.7 Plt Count 201 Sodium 137 Potassium 1.9 L* Chloride 100.9 Carbon Dioxide 22 Anion Gap 16 BUN < 1 L Creatinine 0.5 L Estimated GFR > 60 BUN/Creatinine Ratio 2 Glucose 207 H Calcium 7.3 L Total Bilirubin 0.60 AST 25 ALT 116 H Alkaline Phosphatase 58 Total Protein 5.4 L Albumin 3.1 L Albumin/Globulin Ratio 1.3
[2020-10-21] MEDS: HYDROmorphone 2 MG/1 ML INJ IV PRN (18:12)
[2020-10-21] MEDS ORDERED: MAGNESIUM SULFATE 2 GM/50 ML BAG IV ONE (21:22)
[2020-10-21] MEDS: traZODone 50 MG TAB PO SCH (22:59)
[2020-10-22] MEDS: PIPERACIL/TAZOBACTA 4.5/NS 100 4.5 GM/100 ML VIAL IV SCH ×3 (05:12→22:04)
[2020-10-22] MEDS: POTASSIUM CHLORIDE 40 MEQ in SODIUM CHLORIDE 0.45% 1000 ML 1,000 ML IV SCH ×2 (05:12→18:50)
[2020-10-22] MEDS: HYDROmorphone 2 MG/1 ML INJ IV PRN ×2 (05:42→15:36)
[2020-10-22 05:54] LABS: Calcium 7.7 mg/dL (8.4-10.2); Hemolysis Index 2
[2020-10-22 05:57] LABS: Hematocrit 29.1 % (30.3-42.9); Hemoglobin 9.9 gm/dl (10.1-14.3); Mean Corpuscular HGB Conc 34 % (30-34); Mean Corpuscular Volume 87 fl (79-97); Platelet Count 197 K/mm3 (140-440); Red Blood Count 3.35 M/mm3 (3.65-5.03)
[2020-10-22 06:02] LABS: BUN/Creatinine Ratio 3; Blood Urea Nitrogen < 1 mg/dL (7-17)
[2020-10-22] MEDS ORDERED: POTASSIUM CHLORIDE ER 20 MEQ TAB PO NR (07:32)
--- NOTE | 2020-10-22 09:08 | Progress Note ---
Assessment and Plan 1. Hypokalemia: Secondary to GI loss and poor PO intake. Very low suspicious for any renal loss. Replace potassium. Check mag and electrolytes -replace PRN. 2. FEN: Continue IV fluids. Monitor lytes and volume status. 3. Intractable N, V & D, pancolitis: Abx. Seen by GI. 4. Pancreatic cancer: Was on chemotherapy. 5. Leukopenia: Monitor. 6. Hyperglycemia. Subjective: Patient was seen and examined at the bedside. Doing somewhat better today. Objective: General appearance: well-developed, appears stated age, not in distress, emaciated HEENT: ATNC Neck: trachea midline Respiratory: ctab Heart: S1S2, regular, no murmur Abdomen: soft, normoactive bowel sounds, not tender Integumentary: no obvious rash Ext: no edema Neurologic: AO, able to move extremities Subjective Date of service: 10/22/20 Objective - Vital Signs Vital signs: Vital Signs - 12hr 10/21/20 10/21/20 10/22/20 22:00 23:55 04:07 Temperature 98.1 F 98.4 F Pulse Rate 85 90 Pulse Rate [ 75 From Monitor] Pulse Rate [ 75 Right Radial] Respiratory 16 18 18 Rate Blood Pressure 111/74 106/72 O2 Sat by Pulse 100 97 Oximetry 10/22/20 08:06 Temperature 98.3 F Pulse Rate 90 Pulse Rate [ From Monitor] Pulse Rate [ Right Radial] Respiratory 18 Rate Blood Pressure 93/57 O2 Sat by Pulse 97 Oximetry - Lab 10/22/20 05:00 10/22/20 19:00 Most recent lab results Calcium 7.7 mg/dL (8.4-10.2) L 10/22/20 05:00 Phosphorus 2.70 mg/dL (2.5-4.5) 10/19/20 05:50 Magnesium 1.50 mg/dL (1.7-2.3) L 10/21/20 18:07 Medications & Allergies - Medications Allergies/Adverse Reactions: Allergies No Known Allergies Allergy (Verified 10/19/20 02:21) Home Medications: Home Medications Medication Instructions Recorded Confirmed Last Taken Type Celecoxib [celeBREX] 50 mg PO BID #30 capsule 08/09/20 Unknown Rx Sennosides/Docusate Sodium [Stool 1 each PO DAILY #30 tablet 08/09/20 Unknown R x Soft-Stimulant Lax Tab] oxyCODONE ER [oxyCONTIN ER] 10 mg PO Q12HR #30 tablet 08/09/20 Unknown Rx traMADoL [Ultram 50 MG tab] 50 mg PO Q6HR PRN #12 tablet 08/09/20 Unknown Rx traZODone [Desyrel] 50 mg PO QHS PRN #30 tablet 08/09/20 Unknown Rx Dicyclomine [Bentyl] 20 mg PO QID PRN #20 tablet 08/23/20 Unknown Rx oxyCODONE [roxiCODONE] 5 mg PO Q6H PRN #12 tablet 08/23/20 Unknown Rx Active Medications: Generic Name Dose Route Start Last Admin Trade Name Freq PRN Reason Stop Dose Admin Acetaminophen 650 mg 10/19/20 03:27 Acetaminophen 325 Mg Tab PO Q4H PRN Pain MILD(1-3)/Fever >100.5/KEVIN Al Hydrox/Mg Hydrox/Simethicone 30 ml 10/19/20 03:27 Alum-Mag Hydroxide-Simethicone [id number]/5ml Oral Liqd 30 Ml PO Q4H PRN Indigestion Hydralazine HCl 5 mg 10/19/20 03:29 Hydralazine 20 Mg/1 Ml Inj IV Q4H PRN Hypertension Hydromorphone HCl 2 mg 10/21/20 17:30 10/22/20 05:42 Hydromorphone 2 Mg/1 Ml Inj IV 2 mg Q4H PRN Administration Pain , Severe (7-10) Piperacillin Sod/Tazobactam Sod 4.5 gm in 100 mls @ 200 mls/hr 10/19/20 12:00 10/22/20 05:12 Zosyn/Ns 4.5gm/100ml IV 200 mls/hr Q8HR EVELYN Administration Potassium Chloride 40 meq/ 1,020 mls @ 100 mls/hr 10/21/20 12:00 10/22/20 05:12 Sodium Chloride IV 100 mls/hr DIRECT EVELYN Administration Potassium Chloride 10 meq in 100 mls @ 100 mls/hr 10/22/20 08:00 Kcl 10meq/100ml IV 10/22/20 11:59 Q1H EVELYN Magnesium Hydroxide 30 ml 10/19/20 03:27 Magnesium Hydroxide (Mom) Oral Liqd Udc PO Q4H PRN Constipation Metoclopramide HCl 10 mg 10/19/20 03:27 10/21/20 15:55 Metoclopramide 10 Mg/2 Ml Inj IV 10 mg Q6H PRN Administration Nausea And Vomiting Morphine Sulfate 2 mg 10/19/20 09:36 10/21/20 15:52 Morphine 2 Mg/1 Ml Inj IV 2 mg Q4H PRN Administration Pain, Moderate (4-6) Naloxone HCl 0.1 mg 10/19/20 09:37 Naloxone 0.4 Mg/1 Ml Inj IV Q2MIN PRN Res Rate </= 8 or 02 SAT < 92% Ondansetron HCl 4 mg 10/19/20 03:27 10/20/20 10:30 Ondansetron 4 Mg/2 Ml Inj IV 4 mg Q8H PRN Administration Nausea And Vomiting Oxycodone HCl 10 mg 10/20/20 22:00 10/21/20 22:59 Oxycodone Er 10 Mg Tab PO 10 mg Q12HR EVELYN Administration Potassium Chloride 40 meq 10/22/20 07:32 Potassium Chloride Er 20 Meq Tab PO 10/22/20 13:00 ONCE NR Senna 8.6 mg 10/19/20 03:27 Sennosides 8.6 Mg Tab PO Q12HR PRN Constipation Sodium Chloride 10 ml 10/19/20 10:00 10/21/20 22:50 Sodium Chloride 0.9% 10 Ml Flush Syringe IV 10 ml BID EVELYN Administration Sodium Chloride 10 ml 10/19/20 03:27 Sodium Chloride 0.9% 10 Ml Flush Syringe IV PRN PRN LINE FLUSH Tramadol HCl 50 mg 10/19/20 03:29 10/20/20 10:25 Tramadol 50 Mg Tab PO 50 mg Q6H PRN Administration Pain, Moderate (4-6) Trazodone HCl 50 mg 10/19/20 03:29 10/19/20 21:05 Trazodone 50 Mg Tab PO 50 mg QHS PRN Administration Insomnia Trazodone HCl 50 mg 10/20/20 01:00 10/21/20 22:59 Trazodone 50 Mg Tab PO 50 mg QHS EVELYN Administration
--- NOTE | 2020-10-22 09:37 | Hem/Onc Consultation ---
History of Present Illness - History of Present Illness heme onc consult televisit by sasha 65yo woman with recent dx pancreatic cancer--on "neoadjuvant" chemotherapy had her first treatment 10/14/20? Alexa GIBSON-->then admitted to [facility] for vomiting, diarrhea, weakness found to have very low blood counts since admission receiving IVF and IV Abx poor historian DATA REVIEWED BELOW IMP: pancytopenia due to recent chemotherapy chemo-associated enterocolitis hypokalemia related to enteritis REC: IV Abx prescribed stay in hospital to recover from chemotherapy antiemetics, lomotil GI eval underwai Previous Rx's Medication Instructions Recorded Last Taken Type Celecoxib [celeBREX] 50 mg PO BID #30 capsule 08/09/20 Unknown Rx Sennosides/Docusate Sodium [Stool 1 each PO DAILY #30 tablet 08/09/20 Unknown Rx Soft-Stimulant Lax Tab] oxyCODONE ER [oxyCONTIN ER] 10 mg PO Q12HR #30 tablet 08/09/20 Unknown Rx traMADoL [Ultram 50 MG tab] 50 mg PO Q6HR PRN #12 tablet 08/09/20 Unknown Rx traZODone [Desyrel] 50 mg PO QHS PRN #30 tablet 08/09/20 Unknown Rx Dicyclomine [Bentyl] 20 mg PO QID PRN #20 tablet 08/23/20 Unknown Rx oxyCODONE [roxiCODONE] 5 mg PO Q6H PRN #12 tablet 08/23/20 Unknown Rx Active Medications Documented by: Piperacillin Sod/Tazobactam Sod (Zosyn/Ns 4.5gm/100ml) 4.5 gm in 100 mls @ 200 mls/hr IV Q8HR EVELYN Last Admin: 10/22/20 05:12 Dose: 200 mls/hr Documented by: Potassium Chloride 40 meq/ (Sodium Chloride) 1,020 mls @ 100 mls/hr IV DIRECT EVELYN Last Admin: 10/22/20 05:12 Dose: 100 mls/hr Documented by: Potassium Chloride (Kcl 10meq/100ml) 10 meq in 100 mls @ 100 mls/hr IV Q1H EVELYN Stop: 10/22/20 11:59 Metoclopramide HCl (Metoclopramide 10 Mg/2 Ml Inj) 10 mg IV Q6H PRN PRN Reason: Nausea And Vomiting Last Admin: 10/21/20 15:55 Dose: 10 mg Documented by: Morphine Sulfate (Morphine 2 Mg/1 Ml Inj) 2 mg IV Q4H PRN PRN Reason: Pain, Moderate (4-6) Last Admin: 10/21/20 15:52 Dose: 2 mg Documented by: Naloxone HCl (Naloxone 0.4 Mg/1 Ml Inj) 0.1 mg IV Q2MIN PRN PRN Reason: Res Rate </= 8 or 02 SAT < 92% Ondansetron HCl (Ondansetron 4 Mg/2 Ml Inj) 4 mg IV Q8H PRN PRN Reason: Nausea And Vomiting Last Admin: 10/20/20 10:30 Dose: 4 mg Documented by: Oxycodone HCl (Oxycodone Er 10 Mg Tab) 10 mg PO Q12HR EVELYN Last Admin: 10/21/20 22:59 Dose: 10 mg Documented by: Laboratory Last Values WBC 2.7 K/mm3 (4.5-11.0) L 10/22/20 05:00 Hgb 9.9 gm/dl (10.1-14.3) L 10/22/20 05:00 Hct 29.1 % (30.3-42.9) L 10/22/20 05:00 Plt Count 197 K/mm3 (140-440) 10/22/20 05:00 Potassium 3.2 mmol/L (3.6-5.0) L 10/22/20 05:00 Total Bilirubin 0.60 mg/dL (0.1-1.2) 10/21/20 09:20 AST 25 units/L (5-40) 10/21/20 09:20 ALT 116 units/L (7-56) H 10/21/20 09:20 Alkaline Phosphatase 58 units/L (35-129) 10/21/20 09:20 C. difficile Tox (PCR) Negative (Negative) 10/19/20 09:36 Past History Past Medical History: cancer (Pancreatic cancer, presently on chemotherapy) Past Surgical History: No surgical history Social history: lives with family Family history: no significant family history Medications and Allergies Allergies Allergy/AdvReac Type Severity Reaction Status Date / Time No Known Allergies Allergy Verified 10/19/20 02:21 Home Medications Medication Instructions Recorded Confirmed Last Taken Type Celecoxib [celeBREX] 50 mg PO BID #30 capsule 03/05/21 Unknown Rx Sennosides/Docusate Sodium [Stool 1 each PO DAILY #30 tablet 08/09/20 Unknown Rx Soft-Stimulant Lax Tab] oxyCODONE ER [oxyCONTIN ER] 10 mg PO Q12HR #30 tablet 08/09/20 Unknown Rx traMADoL [Ultram 50 MG tab] 50 mg PO Q6HR PRN #12 tablet 08/09/20 Unknown Rx traZODone [Desyrel] 50 mg PO QHS PRN #30 tablet 08/09/20 Unknown Rx Dicyclomine [Bentyl] 20 mg PO QID PRN #20 tablet 08/23/20 Unknown Rx oxyCODONE [roxiCODONE] 5 mg PO Q6H PRN #12 tablet 08/23/20 Unknown Rx Active Meds: Active Medications Acetaminophen (Acetaminophen 325 Mg Tab) 650 mg PO Q4H PRN PRN Reason: Pain MILD(1-3)/Fever >100.5/KEVIN Al Hydrox/Mg Hydrox/Simethicone (Alum-Mag Hydroxide-Simethicone [phone]/5ml Oral Liqd 30 Ml) 30 ml PO Q4H PRN PRN Reason: Indigestion Hydralazine HCl (Hydralazine 20 Mg/1 Ml Inj) 5 mg IV Q4H PRN PRN Reason: Hypertension Hydromorphone HCl (Hydromorphone 2 Mg/1 Ml Inj) 2 mg IV Q4H PRN PRN Reason: Pain , Severe (7-10) Last Admin: 10/22/20 05:42 Dose: 2 mg Documented by: Piperacillin Sod/Tazobactam Sod (Zosyn/Ns 4.5gm/100ml) 4.5 gm in 100 mls @ 200 mls/hr IV Q8HR EVELYN Last Admin: 10/22/20 05:12 Dose: 200 mls/hr Documented by: Potassium Chloride 40 meq/ (Sodium Chloride) 1,020 mls @ 100 mls/hr IV DIRECT EVELYN Last Admin: 10/22/20 05:12 Dose: 100 mls/hr Documented by: Potassium Chloride (Kcl 10meq/100ml) 10 meq in 100 mls @ 100 mls/hr IV Q1H EVELYN Stop: 10/22/20 11:59 Magnesium Hydroxide (Magnesium Hydroxide (Mom) Oral Liqd Udc) 30 ml PO Q4H PRN PRN Reason: Constipation Metoclopramide HCl (Metoclopramide 10 Mg/2 Ml Inj) 10 mg IV Q6H PRN PRN Reason: Nausea And Vomiting Last Admin: 10/21/20 15:55 Dose: 10 mg Documented by: Morphine Sulfate (Morphine 2 Mg/1 Ml Inj) 2 mg IV Q4H PRN PRN Reason: Pain, Moderate (4-6) Last Admin: 10/21/20 15:52 Dose: 2 mg Documented by: Naloxone HCl (Naloxone 0.4 Mg/1 Ml Inj) 0.1 mg IV Q2MIN PRN PRN Reason: Res Rate </= 8 or 02 SAT < 92% Ondansetron HCl (Ondansetron 4 Mg/2 Ml Inj) 4 mg IV Q8H PRN PRN Reason: Nausea And Vomiting Last Admin: 10/20/20 10:30 Dose: 4 mg Documented by: Oxycodone HCl (Oxycodone Er 10 Mg Tab) 10 mg PO Q12HR [facility] Last Admin: 10/21/20 22:59 Dose: 10 mg Documented by: Potassium Chloride (Potassium Chloride Er 20 Meq Tab) 40 meq PO ONCE NR Stop: 10/22/20 13:00 Senna (Sennosides 8.6 Mg Tab) 8.6 mg PO Q12HR PRN PRN Reason: Constipation Sodium Chloride (Sodium Chloride 0.9% 10 Ml Flush Syringe) 10 ml IV BID [facility] Last Admin: 10/21/20 22:50 Dose: 10 ml Documented by: Sodium Chloride (Sodium Chloride 0.9% 10 Ml Flush Syringe) 10 ml IV PRN PRN PRN Reason: LINE FLUSH Tramadol HCl (Tramadol 50 Mg Tab) 50 mg PO Q6H PRN PRN Reason: Pain, Moderate (4-6) Last Admin: 10/20/20 10:25 Dose: 50 mg Documented by: Trazodone HCl (Trazodone 50 Mg Tab) 50 mg PO QHS PRN PRN Reason: Insomnia Last Admin: 10/19/20 21:05 Dose: 50 mg Documented by: Trazodone HCl (Trazodone 50 Mg Tab) 50 mg PO QHS [facility] Last Admin: 10/21/20 22:59 Dose: 50 mg Documented by: Exam - Constitutional Vitals: Last Vital Signs Temp 98.3 F 10/22/20 08:06 Pulse 90 10/22/20 08:06 Resp 18 10/22/20 08:06 BP 93/57 10/22/20 08:06 Pulse Ox 97 10/22/20 08:06 Results - Labs lab Results: Laboratory Results - last 24 hr 10/21/20 10/21/20 10/21/20 09:20 09:20 18:07 WBC 2.2 L RBC 3.41 L Hgb 10.3 Hct 29.9 L MCV 88 MCH 30 MCHC 34 RDW 14.7 Plt Count 201 Sodium 137 Potassium 1.9 L* 3.0 L D Chloride 100.9 Carbon Dioxide 22 Anion Gap 16 BUN < 1 L Creatinine 0.5 L Estimated GFR > 60 BUN/Creatinine Ratio 2 Glucose 207 H Calcium 7.3 L Magnesium Total Bilirubin 0.60 AST 25 ALT 116 H Alkaline Phosphatase 58 Total Protein 5.4 L Albumin 3.1 L Albumin/Globulin Ratio 1.3 10/21/20 10/22/20 10/22/20 18:07 05:00 05:00 WBC 2.7 L RBC 3.35 L Hgb 9.9 L Hct 29.1 L MCV 87 MCH 30 MCHC 34 RDW 15.0 Plt Count 197 Sodium 137 Potassium 3.2 L Chloride 103.6 Carbon Dioxide 21 L Anion Gap 16 BUN < 1 L Creatinine 0.4 L Estimated GFR > 60 BUN/Creatinine Ratio 3 Glucose 107 H Calcium 7.7 L Magnesium 1.50 L Total Bilirubin AST ALT Alkaline Phosphatase Total Protein Albumin Albumin/Globulin Ratio
[2020-10-22] MEDS: oxyCODONE ER 10 MG TAB PO SCH ×2 (10:18→22:03)
--- NOTE | 2020-10-22 10:31 | Progress Note ---
Assessment and Plan Assessment and plan: Patient is a 65-year-old female that presents emergency room for nausea vomiting weakness. Patient states she was sent here by her oncologist. Patient states she had a new chemotherapy on Wednesday and has had nausea and vomiting since. Patient states 3 days ago she developed diarrhea. Patient states she is now having weakness, loss of appetite and fatigue. Patient states she has had anything by mouth except for mild sips of water for the last 5 days. Patient states she feels dehydrated. Patient denies fever or chills. Patient denies blood in vomitus. Patient states she is on chemo for stage IV pancreatic cancer. Patient denies blood in her stool. ED work-up showed WBC 2.3 hemoglobin 11.6, platelets 168, sodium 135, potassium 3.1, creatinine 0.4, serum glucose 134, calcium 8.8, AST 81, ALT 213, and albumin 3.8. CT of the abdomen and pelvis with contrast done result is highly suspicious of pancolitis,: Has generalized mild thickening of the colon with mild surrounding inflammation colonic diverticulosis is seen without evidence of diverticulitis peritoneum showed multiple omental peritoneal nodules and pancreatic body mass measuring 3.8 x 3.3 cm. Patient seen at bedside in ED. Patient is alert oriented x3. Patient admits abdominal pain pain level 7/10. Patient also admits nausea and vomiting but denies chest pain and shortness of breath. Patient has a history of pancreatic CA getting chemotherapy via left subclavian Port-A-Cath. I reviewed patient medical record medication record and vital signs. 10/20: GI input noted no plans for scope at this time. Continue current management we will restart patient's oxycodone for chronic pain is related to pancreatic cancer. Imaging studies reviewed appears to be possible increase in mass noted. Patient noted with leukopenia today hematology consulted to assist will start on sliding scale coverage due to elevated blood sugar doubt diabetes although with pancreatic cancer I would not be surprised. Advance care plan discussion with the patient for 30 minutes patient will remain a full code. We will advance diet once she begins to improve with improving pain. Also replace potassium and recheck in a.m. 10/21: 65-year-old female with history of pancreatic cancer admitted with nausea vomiting and generalized weakness now with severe hypokalemia likely secondary to loose bowel stools. Will transfer patient to telemetry as IMCU beds are not available. Multiple potassium replacement ordered. We will also obtain nephrology consult to assist with electrolyte replacement. Patient will be placed on a farm technician due to severe hypokalemia. We will also give a gram of magnesium. Patient can be discharged once electrolytes are stabilized. She does not have any further nausea or vomiting at this time. GI input is appreciated 10/22. Remains on IV antibiotics for colitis. Potassium continues to be r epleted. Appreciate GI recommendations. Nephrology following (1) Intractable abdominal pain/pancolitis Current Visit: Yes Status: Acute Plan to address problem: Likely secondary to colonic inflammation/pancreatic CA IV antibiotics for prophylaxis C. difficile negative Continue pain management. GI on board Chemotherapy as outpatient (2) Intractable nausea and vomiting Current Visit: Yes Status: Acute Plan to address problem: Continue antiemetic (3) Dehydration Current Visit: Yes Status: Acute Plan to address problem: Likely secondary to nausea /vomiting Continue IV hydration Monitor electrolytes (4) Pancreatic mass Current Visit: No Status: Acute Plan to address problem: Recent diagnosis pancreatic CA Currently on chemotherapy (5) Pancolitis Current Visit: Yes Status: Acute Plan to address problem: Continue antibiotic with Zosyn empirically GI recommendations appreciated Clostridium difficile negative (6) Hypokalemia Current Visit: Yes Status: Acute Plan to address problem: likely 2/2 to gastric loss-patient has nausea and vomiting Replace potassium Check mag and electrolytes -replace PRN (7) leukopenia (8) hypokalemia severe (9) hypomagnesemia (10) hyperglycemia (11) DVT prophylaxis Current Visit: Yes Status: Acute Plan to address problem: SCD History Interval history: Patient seen and examined this morning. Had repeated episodes of loose bowel ye sterday. This morning tearful. Nurse reported severe hypokalemia therefore critical lab. No cardiac issues noted. Hospitalist Physical - Physical exam Narrative exam: VITAL SIGNS: Reviewed. GENERAL: Awake HEAD: No signs of head trauma. EYES: Pupils are equal. Extraocular motions intact. MOUTH: Oropharynx is normal. NECK: No adenopathy, no JVD. CHEST: Chest with diminished breath sounds bilaterally. No wheezes, rales, or rhonchi. CARDIAC: normal S1 and S2, without murmurs, gallops, or rubs. ABDOMEN: Soft, abdominal discomfort MUSCULOSKELETAL: No edema NEUROLOGIC EXAM: Alert and oriented x3. No focal neurologic deficits SKIN: No obvious lesions - Constitutional Vitals: Temp Pulse Resp BP Pulse Ox 98.3 F 90 18 93/57 97 10/22/20 08:06 10/22/20 08:06 10/22/20 08:06 10/22/20 08:06 10/22/20 08:06 Results - Labs CBC & Chem 7: 10/22/20 05:00 10/22/20 05:00 Labs: Laboratory Last Values WBC 2.7 K/mm3 (4.5-11.0) L 10/22/20 05:00 RBC 3.35 M/mm3 (3.65-5.03) L 10/22/20 05:00 Hgb 9.9 gm/dl (10.1-14.3) L 10/22/20 05:00 Hct 29.1 % (30.3-42.9) L 10/22/20 05:00 MCV 87 fl (79-97) 10/22/20 05:00 MCH 30 pg (28-32) 10/22/20 05:00 MCHC 34 % (30-34) 10/22/20 05:00 RDW 15.0 % (13.2-15.2) 10/22/20 05:00 Plt Count 197 K/mm3 (140-440) 10/22/20 05:00 Lymph % (Auto) Butter Grader 10/20/20 08:40 [place] % (Auto) Butter Grader 10/20/20 08:40 Add Manual Diff Complete 10/20/20 08:40 Total Counted 70 10/20/20 08:40 Seg Neutrophils % Butter Grader 10/20/20 08:40 Seg Neuts % (Manual) 14.3 % (40.0-70.0) L 10/20/20 08:40 Lymphocytes % (Manual) 81.4 % (13.4-35.0) H 10/20/20 08:40 Eosinophils % (Manual) 4.3 % (0.0-4.3) 10/20/20 08:40 Nucleated RBC % 4.2 % (0.0-0.9) H 10/20/20 08:40 Seg Neutrophils # Man 0.1 K/mm3 (1.8-7.7) L 10/20/20 08:40 Band Neutrophils # 0.0 K/mm3 10/20/20 08:40 Lymphocytes # (Manual) 0.8 K/mm3 (1.2-5.4) L 10/20/20 08:40 Abs React Lymphs (Man) 0.0 K/mm3 10/20/20 08:40 Monocytes # (Manual) 0.0 K/mm3 (0.0-0.8) 10/20/20 08:40 Eosinophils # (Manual) 0.0 K/mm3 (0.0-0.4) 10/20/20 08:40 Basophils # (Manual) 0.0 K/mm3 (0.0-0.1) 10/20/20 08:40 Metamyelocytes # 0.0 K/mm3 10/20/20 08:40 Myelocytes # 0.0 K/mm3 10/20/20 08:40 Promyelocytes # 0.0 K/mm3 10/20/20 08:40 Blast Cells # 0.0 K/mm3 10/20/20 08:40 WBC Morphology Not Reportable 10/20/20 08:40 Hypersegmented Neuts Not Reportable 10/20/20 08:40 Hyposegmented Neuts Not Reportable 10/20/20 08:40 Hypogranular Neuts Not Reportable 10/20/20 08:40 Smudge Cells Not Reportable 10/20/20 08:40 Toxic Granulation Not Reportable 10/20/20 08:40 Toxic Vacuolation Not Reportable 10/20/20 08:40 Dohle Bodies Not Reportable 10/20/20 08:40 Pelger-Huet Anomaly Not Reportable 10/20/20 08:40 Philip Rods Not Reportable 10/20/20 08:40 Platelet Estimate Consistent w auto 10/20/20 08:40 Clumped Platelets Not Reportable 10/20/20 08:40 Plt Clumps, EDTA Not Reportable 10/20/20 08:40 Large Platelets Not Reportable 10/20/20 08:40 Giant Platelets Not Reportable 10/20/20 08:40 Platelet Satelliting Not Reportable 10/20/20 08:40 Plt Morphology Comment Not Reportable 10/20/20 08:40 RBC Morphology Not Reportable 10/20/20 08:40 Dimorphic RBCs Not Reportable 10/20/20 08:40 Polychromasia Not Reportable 10/20/20 08:40 Hypochromasia Not Reportable 10/20/20 08:40 Poikilocytosis Not Reportable 10/20/20 08:40 Anisocytosis Not Reportable 10/20/20 08:40 Microcytosis Not Reportable 10/20/20 08:40 Macrocytosis Not Reportable 10/20/20 08:40 Spherocytes Not Reportable 10/20/20 08:40 Pappenheimer Bodies Not Reportable 10/20/20 08:40 Sickle Cells Not Reportable 10/20/20 08:40 Target Cells Not Reportable 10/20/20 08:40 Tear Drop Cells Not Reportable 10/20/20 08:40 Ovalocytes Not Reportable 10/20/20 08:40 Helmet Cells Not Reportable 10/20/20 08:40 [place] Bodies Not Reportable 10/20/20 08:40 [place] Rings Not Reportable 10/20/20 08:40 Tresa Cells Rare 10/20/20 08:40 Bite Cells Not Reportable 10/20/20 08:40 Crenated Cell Not Reportable 10/20/20 08:40 Elliptocytes Not Reportable 10/20/20 08:40 Acanthocytes (Spur) Not Reportable 10/20/20 08:40 Rouleaux Not Reportable 10/20/20 08:40 Hemoglobin C Crystals Not Reportable 10/20/20 08:40 Schistocytes Not Reportable 10/20/20 08:40 Malaria parasites Not Reportable 10/20/20 08:40 Emeterio Bodies Not Reportable 10/20/20 08:40 Hem Pathologist Commnt No 10/20/20 08:40 Sodium 137 mmol/L (137-145) 10/22/20 05:00 Potassium 3.2 mmol/L (3.6-5.0) L 10/22/20 05:00 Chloride 103.6 mmol/L (98-107) 10/22/20 05:00 Carbon Dioxide 21 mmol/L (22-30) L 10/22/20 05:00 Anion Gap 16 mmol/L 10/22/20 05:00 BUN < 1 mg/dL (7-17) L 10/22/20 05:00 Creatinine 0.4 mg/dL (0.6-1.2) L 10/22/20 05:00 Estimated GFR > 60 ml/min 10/22/20 05:00 BUN/Creatinine Ratio 3 % 05/18/21 05:00 Glucose 107 mg/dL (65-100) H 10/22/20 05:00 Calcium 7.7 mg/dL (8.4-10.2) L 10/22/20 05:00 Phosphorus 2.70 mg/dL (2.5-4.5) 10/19/20 05:50 Magnesium 1.50 mg/dL (1.7-2.3) L 10/21/20 18:07 Total Bilirubin 0.60 mg/dL (0.1-1.2) 10/21/20 09:20 AST 25 units/L (5-40) 10/21/20 09:20 ALT 116 units/L (7-56) H 10/21/20 09:20 Alkaline Phosphatase 58 units/L (35-129) 10/21/20 09:20 Total Protein 5.4 g/dL (6.3-8.2) L 10/21/20 09:20 Albumin 3.1 g/dL (3.9-5) L 10/21/20 09:20 Albumin/Globulin Ratio 1.3 % 10/21/20 09:20 Nasal Screen MRSA (PCR) Negative (Negative) 10/20/20 04:40 C. difficile Tox (PCR) Negative (Negative) 10/19/20 09:36 Microbiology: Microbiology 10/20/20 10:00 Stool Stool Culture - Preliminary [place]/IV: Voiding Method Bedside Commode Active Medications - Current Medications Current Medications: Generic Name Dose Route Start Last Admin Trade Name Freq PRN Reason Stop Dose Admin Acetaminophen 650 mg 10/19/20 03:27 Acetaminophen 325 Mg Tab PO Q4H PRN Pain MILD(1-3)/Fever >100.5/KEVIN Al Hydrox/Mg Hydrox/Simethicone 30 ml 10/19/20 03:27 Alum-Mag Hydroxide-Simethicone [phone]/[phone] Oral Liqd 30 Ml PO Q4H PRN Indigestion Hydralazine HCl 5 mg 10/19/20 03:29 Hydralazine 20 Mg/1 Ml Inj IV Q4H PRN Hypertension Hydromorphone HCl 2 mg 10/21/20 17:30 10/22/20 05:42 Hydromorphone 2 Mg/1 Ml Inj IV 2 mg Q4H PRN Administration Pain , Severe (7-10) Piperacillin Sod/Tazobactam Sod 4.5 gm in 100 mls @ 200 mls/hr 10/19/20 12:00 10/22/20 05:12 Zosyn/Ns 4.5gm/100ml IV 200 mls/hr Q8HR EVELYN Administration Potassium Chloride 40 meq/ 1,020 mls @ 100 mls/hr 10/21/20 12:00 10/22/20 05:12 Sodium Chloride IV 100 mls/hr DIRECT EVELYN Administration Potassium Chloride 10 meq in 100 mls @ 100 mls/hr 10/22/20 08:00 Kcl 10meq/100ml IV 10/22/20 11:59 Q1H EVELYN Magnesium Hydroxide 30 ml 10/19/20 03:27 Magnesium Hydroxide (Mom) Oral Liqd Udc PO Q4H PRN Constipation Metoclopramide HCl 10 mg 10/19/20 03:27 10/21/20 15:55 Metoclopramide 10 Mg/2 Ml Inj IV 10 mg Q6H PRN Administration Nausea And Vomiting Morphine Sulfate 2 mg 10/19/20 09:36 10/21/20 15:52 Morphine 2 Mg/1 Ml Inj IV 2 mg Q4H PRN Administration Pain, Moderate (4-6) Naloxone HCl 0.1 mg 10/19/20 09:37 Naloxone 0.4 Mg/1 Ml Inj IV Q2MIN PRN Res Rate </= 8 or 02 SAT < 92% Ondansetron HCl 4 mg 10/19/20 03:27 10/20/20 10:30 Ondansetron 4 Mg/2 Ml Inj IV 4 mg Q8H PRN Administration Nausea And Vomiting Oxycodone HCl 10 mg 10/20/20 22:00 10/22/20 10:18 Oxycodone Er 10 Mg Tab PO 10 mg Q12HR EVELYN Administration Potassium Chloride 40 meq 10/22/20 07:32 10/22/20 10:17 Potassium Chloride Er 20 Meq Tab PO 10/22/20 13:00 40 meq ONCE NR Administration Senna 8.6 mg 10/19/20 03:27 Sennosides 8.6 Mg Tab PO Q12HR PRN Constipation Sodium Chloride 10 ml 10/19/20 10:00 10/21/20 22:50 Sodium Chloride 0.9% 10 Ml Flush Syringe IV 10 ml BID EVELYN Administration Sodium Chloride 10 ml 10/19/20 03:27 Sodium Chloride 0.9% 10 Ml Flush Syringe IV PRN PRN LINE FLUSH Tramadol HCl 50 mg 10/19/20 03:29 10/20/20 10:25 Tramadol 50 Mg Tab PO 50 mg Q6H PRN Administration Pain, Moderate (4-6) Trazodone HCl 50 mg 10/19/20 03:29 10/19/20 21:05 Trazodone 50 Mg Tab PO 50 mg QHS PRN Administration Insomnia Trazodone HCl 50 mg 10/20/20 01:00 10/21/20 22:59 Trazodone 50 Mg Tab PO 50 mg QHS EVELYN Administration Nutrition/Malnutrition Assess - Dietary Evaluation Nutrition/Malnutrition Findings: Nutrition Notes Start: 10/19/20 13:06 Freq: Status: Active Protocol: Document 10/21/20 14:59 CW (Rec: 10/21/20 15:10 CW [id number]) Nutrition Notes Initial or Follow up Reassessment Other Pertinent Diagnosis Stage 4 pancreatic CA (on chemo), abd pain, N/V/D, Dehydration, Pancolitis Current Diet Cl liq Labs/Tests K 1.9 BG 207 Pertinent Medications KCl 80 mEq KDur 80 mEq D5NS at 125 ml/hr Height 5 ft 4 in Weight 57.4 kg Usual Body Weight 72 kg [place] Body Weight (kg) 54.54 BMI 21.7 Weight change and time frame 27% weight loss x 6 months per pt Weight Status Underweight Subjective/Other Information F/U for intakes, diet tolerance, and wt assessment. Per chart, pt consumed 50% of clear liquid diet yesterday. Pt reports weight loss since may. pt open to attempting Ensure clear. Pt denies vomiting today and reports consuming cl liq diet. Percent of energy/protein needs met: 17%/11% Burn Absent Trauma Absent GI Symptoms Nausea,Diarrhea Current % PO Fair (50-74%) Minimum of two criteria No Energy Intake (severe) < or equal to 50% Estimated Energy Requirement > or equal to 5 days #1 Nutrition Diagnosis Inadequate oral intake Diagnosis Progress(for reassessment Continues documentation) Is patient on ventilator? No Is Patient Ambulatory and/or Out of Bed Yes REE-([place]. Jeor-ambulatory/OOB) [ 1448.200 [id number]] Kcal/Kg value to use for calculation 30 Approximate Energy Requirements Using 1722 kcal/Kg Calculation Used for Recommendations Kcal/kg Additional Notes Pro needs 1.2-1.5g/k-87g/ day Fluid needs 1ml/kcal Nutrition Intervention Change Diet Order: Advance diet as tolerated Add Supplement/Snack (indicate name/kcal Ensure Clear TID /protein ) Provides kCal: 720 Provides Protein (gm) 24 Goal #1 PO tolerance Goal #2 Diet advancement to meet nutrient needs Goal #3 Wt maintenance Anticipated Discharge Needs: Unable to determine at this time Follow-Up By: 10/23/20 Additional Comments F/U: PO tolerance, diet advancement,
[2020-10-22] MEDS: POTASSIUM CHLORIDE 10 MEQ 10 MEQ/100 ML BAG IV SCH ×4 (12:29→16:38)
[2020-10-22] MEDS: ONDANSETRON 4 MG/2 ML INJ IV PRN (12:36)
--- NOTE | 2020-10-22 15:01 | Gastroenterology Progress Note ---
Assessment and Plan 1. GI: pt w/ pancreatic cancer now with colitis after chemo - stool cx's negative for C. diff - pt w/ signs improvement, advance to semi-soft diet, pt reports was only on ensure at home - electrolytes per primary team - antiemetics and pain meds prn - no plans to scope at this time - when tolerating po ok to dc from GI standpoint Subjective Date of service: 10/22/20 Interval history: - reports overall feeling better, tolerating diet Objective - Constitutional Vitals: Temp Pulse Resp BP Pulse Ox 98.3 F 90 18 98/66 97 10/22/20 08:06 10/22/20 08:06 10/22/20 08:06 10/22/20 10:58 10/22/20 08:06 - EENT Eyes: PERRL - Respiratory Respiratory: bilateral: CTA - Cardiovascular Rhythm: regular Heart Sounds: Present: S1 & S2 - Gastrointestinal General gastrointestinal: Present: soft, non-tender, non-distended - Labs CBC & Chem 7: 10/22/20 05:00 10/22/20 05:00 Labs: Laboratory Results - last 24 hr 10/21/20 10/21/20 10/22/20 18:07 18:07 05:00 WBC 2.7 L RBC 3.35 L Hgb 9.9 L Hct 29.1 L MCV 87 MCH 30 MCHC 34 RDW 15.0 Plt Count 197 Sodium Potassium 3.0 L D Chloride Carbon Dioxide Anion Gap BUN Creatinine Estimated GFR BUN/Creatinine Ratio Glucose Calcium Magnesium 1.50 L 10/22/20 05:00 WBC RBC Hgb Hct MCV MCH MCHC RDW Plt Count Sodium 137 Potassium 3.2 L Chloride 103.6 Carbon Dioxide 21 L Anion Gap 16 BUN < 1 L Creatinine 0.4 L Estimated GFR > 60 BUN/Creatinine Ratio 3 Glucose 107 H Calcium 7.7 L Magnesium
[2020-10-22 19:31] LABS: Calcium 7.6 mg/dL (8.4-10.2); Hemolysis Index 2
[2020-10-22 19:34] LABS: BUN/Creatinine Ratio 3; Blood Urea Nitrogen < 1 mg/dL (7-17)
[2020-10-22] MEDS: traZODone 50 MG TAB PO SCH (22:03)
[2020-10-23] MEDS: POTASSIUM CHLORIDE 40 MEQ in SODIUM CHLORIDE 0.45% 1000 ML 1,000 ML IV SCH (06:16)
[2020-10-23] MEDS: PIPERACIL/TAZOBACTA 4.5/NS 100 4.5 GM/100 ML VIAL IV SCH ×3 (06:46→22:24)
[2020-10-23] MEDS: HYDROmorphone 2 MG/1 ML INJ IV PRN ×2 (06:58→14:20)
[2020-10-23 07:21] LABS: Calcium 7.7 mg/dL (8.4-10.2); Hemolysis Index 1
[2020-10-23 07:25] LABS: BUN/Creatinine Ratio 3; Blood Urea Nitrogen < 1 mg/dL (7-17)
[2020-10-23] MEDS ORDERED: MAGNESIUM SULFATE 2 GM/50 ML BAG IV ONE (09:00)
--- NOTE | 2020-10-23 09:59 | Progress Note ---
Assessment and Plan Assessment and plan: Patient is a 65-year-old female that presents emergency room for nausea vomiting weakness. Patient states she was sent here by her oncologist. Patient states she had a new chemotherapy on Wednesday and has had nausea and vomiting since. Patient states 3 days ago she developed diarrhea. Patient states she is now having weakness, loss of appetite and fatigue. Patient states she has had anything by mouth except for mild sips of water for the last 5 days. Patient states she feels dehydrated. Patient denies fever or chills. Patient denies blood in vomitus. Patient states she is on chemo for stage IV pancreatic cancer. Patient denies blood in her stool. ED work-up showed WBC 2.3 hemoglobin 11.6, platelets 168, sodium 135, potassium 3.1, creatinine 0.4, serum glucose 134, calcium 8.8, AST 81, ALT 213, and albumin 3.8. CT of the abdomen and pelvis with contrast done result is highly suspicious of pancolitis,: Has generalized mild thickening of the colon with mild surrounding inflammation colonic diverticulosis is seen without evidence of diverticulitis peritoneum showed multiple omental peritoneal nodules and pancreatic body mass measuring 3.8 x 3.3 cm. Patient seen at bedside in ED. Patient is alert oriented x3. Patient admits abdominal pain pain level 7/10. Patient also admits nausea and vomiting but denies chest pain and shortness of breath. Patient has a history of pancreatic CA getting chemotherapy via left subclavian Port-A-Cath. I reviewed patient medical record medication record and vital signs. 10/20: GI input noted no plans for scope at this time. Continue current management we will restart patient's oxycodone for chronic pain is related to pancreatic cancer. Imaging studies reviewed appears to be possible increase in mass noted. Patient noted with leukopenia today hematology consulted to assist will start on sliding scale coverage due to elevated blood sugar doubt diabetes although with pancreatic cancer I would not be surprised. Advance care plan discussion with the patient for 30 minutes patient will remain a full code. We will advance diet once she begins to improve with improving pain. Also replace potassium and recheck in a.m. 10/21: 65-year-old female with history of pancreatic cancer admitted with nausea vomiting and generalized weakness now with severe hypokalemia likely secondary to loose bowel stools. Will transfer patient to telemetry as IMCU beds are not available. Multiple potassium replacement ordered. We will also obtain nephrology consult to assist with electrolyte replacement. Patient will be placed on a storeroom clerk due to severe hypokalemia. We will also give a gram of magnesium. Patient can be discharged once electrolytes are stabilized. She does not have any further nausea or vomiting at this time. GI input is appreciated 10/22. Remains on IV antibiotics for colitis. Potassium continues to be r epleted. Appreciate GI recommendations. Nephrology following 10/23. Has tachycardia. Telemetry review showed sinus tach. Ordered TFTs. Echocardiogram ordered as well. Electrolytes stable today. Problems (1) Intractable abdominal pain/pancolitis Current Visit: Yes Status: Acute Plan to address problem: Likely secondary to colonic inflammation/pancreatic CA Complete antibiotics C. difficile negative Continue pain management. GI on board Chemotherapy as outpatient (2) Intractable nausea and vomiting Current Visit: Yes Status: Acute Plan to address problem: Continue antiemetic (3) Dehydration Current Visit: Yes Status: Acute Plan to address problem: Likely secondary to nausea /vomiting Continue IV hydration Monitor electrolytes (4) Pancreatic mass Current Visit: No Status: Acute Plan to address problem: Recent diagnosis pancreatic CA Currently on chemotherapy (5) Pancolitis Current Visit: Yes Status: Acute Plan to address problem: Continue antibiotic with Zosyn empirically GI recommendations appreciated Clostridium difficile negative (6) Hypokalemia Current Visit: Yes Status: Acute Plan to address problem: likely 2/2 to gastric loss-patient has nausea and vomiting Replace potassium Check mag and electrolytes -replace PRN (7) leukopenia (8) hypokalemia severe (9) hypomagnesemia (10) hyperglycemia (11) DVT prophylaxis Current Visit: Yes Status: Acute Plan to address problem: SCD History Interval history: Patient seen and examined this morning. Has no complaints. She is having tachycardia. Telemetry shows sinus tachycardia up to 150s. Ordered echocardiogram. Check TFTs. Hospitalist Physical - Physical exam Narrative exam: VITAL SIGNS: Reviewed. GENERAL: Awake HEAD: No signs of head trauma. EYES: Pupils are equal. Extraocular motions intact. MOUTH: Oropharynx is normal. NECK: No adenopathy, no JVD. CHEST: Chest with diminished breath sounds bilaterally. No wheezes, rales, or rhonchi. CARDIAC: normal S1 and S2, without murmurs, gallops, or rubs. ABDOMEN: Soft, abdominal discomfort MUSCULOSKELETAL: No edema NEUROLOGIC EXAM: Alert and oriented x3. No focal neurologic deficits SKIN: No obvious lesions - Constitutional Vitals: Temp Pulse Resp BP Pulse Ox 97.7 F 125 H 18 86/58 96 10/23/20 08:25 10/23/20 08:25 10/23/20 08:25 10/23/20 08:25 10/23/20 08:25 Results - Labs CBC & Chem 7: 10/22/20 05:00 10/23/20 06:50 Labs: Laboratory Last Values WBC 2.7 K/mm3 (4.5-11.0) L 10/22/20 05:00 RBC 3.35 M/mm3 (3.65-5.03) L 10/22/20 05:00 Hgb 9.9 gm/dl (10.1-14.3) L 10/22/20 05:00 Hct 29.1 % (30.3-42.9) L 10/22/20 05:00 MCV 87 fl (79-97) 10/22/20 05:00 MCH 30 pg (28-32) 10/22/20 05:00 MCHC 34 % (30-34) 10/22/20 05:00 RDW 15.0 % (13.2-15.2) 10/22/20 05:00 Plt Count 197 K/mm3 (140-440) 10/22/20 05:00 Lymph % (Auto) Door Paneler 10/20/20 08:40 [place] % (Auto) Door Paneler 10/20/20 08:40 Add Manual Diff Complete 10/20/20 08:40 Total Counted 70 10/20/20 08:40 Seg Neutrophils % Door Paneler 10/20/20 08:40 Seg Neuts % (Manual) 14.3 % (40.0-70.0) L 10/20/20 08:40 Lymphocytes % (Manual) 81.4 % (13.4-35.0) H 10/20/20 08:40 Eosinophils % (Manual) 4.3 % (0.0-4.3) 10/20/20 08:40 Nucleated RBC % 4.2 % (0.0-0.9) H 10/20/20 08:40 Seg Neutrophils # Man 0.1 K/mm3 (1.8-7.7) L 10/20/20 08:40 Band Neutrophils # 0.0 K/mm3 10/20/20 08:40 Lymphocytes # (Manual) 0.8 K/mm3 (1.2-5.4) L 10/20/20 08:40 Abs React Lymphs (Man) 0.0 K/mm3 10/20/20 08:40 Monocytes # (Manual) 0.0 K/mm3 (0.0-0.8) 10/20/20 08:40 Eosinophils # (Manual) 0.0 K/mm3 (0.0-0.4) 10/20/20 08:40 Basophils # (Manual) 0.0 K/mm3 (0.0-0.1) 10/20/20 08:40 Metamyelocytes # 0.0 K/mm3 10/20/20 08:40 Myelocytes # 0.0 K/mm3 10/20/20 08:40 Promyelocytes # 0.0 K/mm3 10/20/20 08:40 Blast Cells # 0.0 K/mm3 10/20/20 08:40 WBC Morphology Not Reportable 10/20/20 08:40 Hypersegmented Neuts Not Reportable 10/20/20 08:40 Hyposegmented Neuts Not Reportable 10/20/20 08:40 Hypogranular Neuts Not Reportable 10/20/20 08:40 Smudge Cells Not Reportable 10/20/20 08:40 Toxic Granulation Not Reportable 10/20/20 08:40 Toxic Vacuolation Not Reportable 10/20/20 08:40 Dohle Bodies Not Reportable 10/20/20 08:40 Pelger-Huet Anomaly Not Reportable 10/20/20 08:40 Philip Rods Not Reportable 10/20/20 08:40 Platelet Estimate Consistent w auto 10/20/20 08:40 Clumped Platelets Not Reportable 10/20/20 08:40 Plt Clumps, EDTA Not Reportable 10/20/20 08:40 Large Platelets Not Reportable 10/20/20 08:40 Giant Platelets Not Reportable 10/20/20 08:40 Platelet Satelliting Not Reportable 10/20/20 08:40 Plt Morphology Comment Not Reportable 10/20/20 08:40 RBC Morphology Not Reportable 10/20/20 08:40 Dimorphic RBCs Not Reportable 10/20/20 08:40 Polychromasia Not Reportable 10/20/20 08:40 Hypochromasia Not Reportable 10/20/20 08:40 Poikilocytosis Not Reportable 10/20/20 08:40 Anisocytosis Not Reportable 10/20/20 08:40 Microcytosis Not Reportable 10/20/20 08:40 Macrocytosis Not Reportable 10/20/20 08:40 Spherocytes Not Reportable 10/20/20 08:40 Pappenheimer Bodies Not Reportable 10/20/20 08:40 Sickle Cells Not Reportable 10/20/20 08:40 Target Cells Not Reportable 10/20/20 08:40 Tear Drop Cells Not Reportable 10/20/20 08:40 Ovalocytes Not Reportable 10/20/20 08:40 Helmet Cells Not Reportable 10/20/20 08:40 Page-Wagener Bodies Not Reportable 10/20/20 08:40 [place] Rings Not Reportable 10/20/20 08:40 Tresa Cells Rare 10/20/20 08:40 Bite Cells Not Reportable 10/20/20 08:40 Crenated Cell Not Reportable 10/20/20 08:40 Elliptocytes Not Reportable 10/20/20 08:40 Acanthocytes (Spur) Not Reportable 10/20/20 08:40 Rouleaux Not Reportable 10/20/20 08:40 Hemoglobin C Crystals Not Reportable 10/20/20 08:40 Schistocytes Not Reportable 10/20/20 08:40 Malaria parasites Not Reportable 10/20/20 08:40 Emeterio Bodies Not Reportable 10/20/20 08:40 Hem Pathologist Commnt No 10/20/20 08:40 Sodium 137 mmol/L (137-145) 10/23/20 06:50 Potassium 4.5 mmol/L (3.6-5.0) 10/23/20 06:50 Chloride 106.3 mmol/L (98-107) 10/23/20 06:50 Carbon Dioxide 23 mmol/L (22-30) 10/23/20 06:50 Anion Gap 12 mmol/L 10/23/20 06:50 BUN < 1 mg/dL (7-17) L 10/23/20 06:50 Creatinine 0.3 mg/dL (0.6-1.2) L 10/23/20 06:50 Estimated GFR > 60 ml/min 10/23/20 06:50 BUN/Creatinine Ratio 3 % 10/23/20 06:50 Glucose 109 mg/dL (65-100) H 10/23/20 06:50 Calcium 7.7 mg/dL (8.4-10.2) L 10/23/20 06:50 Phosphorus 2.70 mg/dL (2.5-4.5) 10/19/20 05:50 Magnesium 1.60 mg/dL (1.7-2.3) L 10/23/20 06:50 Total Bilirubin 0.60 mg/dL (0.1-1.2) 10/21/20 09:20 AST 25 units/L (5-40) 10/21/20 09:20 ALT 116 units/L (7-56) H 10/21/20 09:20 Alkaline Phosphatase 58 units/L (35-129) 10/21/20 09:20 Total Protein 5.4 g/dL (6.3-8.2) L 10/21/20 09:20 Albumin 3.1 g/dL (3.9-5) L 10/21/20 09:20 Albumin/Globulin Ratio 1.3 % 10/21/20 09:20 Nasal Screen MRSA (PCR) Negative (Negative) 10/20/20 04:40 C. difficile Tox (PCR) Negative (Negative) 10/19/20 09:36 Gaspar/IV: Voiding Method Bedside Commode Active Medications - Current Medications Current Medications: Generic Name Dose Route Start Last Admin Trade Name Freq PRN Reason Stop Dose Admin Acetaminophen 650 mg 10/19/20 03:27 Acetaminophen 325 Mg Tab PO Q4H PRN Pain MILD(1-3)/Fever >100.5/KEVIN Al Hydrox/Mg Hydrox/Simethicone 30 ml 10/19/20 03:27 Alum-Mag Hydroxide-Simethicone [id number]/5ml Oral Liqd 30 Ml PO Q4H PRN Indigestion Enoxaparin Sodium 40 mg 10/23/20 22:00 Enoxaparin 40 Mg/0.4 Ml Inj SUB-Q QDAY@2200 EVELYN Protocol Hydralazine HCl 5 mg 10/19/20 03:29 Hydralazine 20 Mg/1 Ml Inj IV Q4H PRN Hypertension Hydromorphone HCl 2 mg 10/21/20 17:30 10/23/20 06:58 Hydromorphone 2 Mg/1 Ml Inj IV 2 mg Q4H PRN Administration Pain , Severe (7-10) Piperacillin Sod/Tazobactam Sod 4.5 gm in 100 mls @ 200 mls/hr 10/19/20 12:00 10/23/20 06:46 Zosyn/Ns 4.5gm/100ml IV 200 mls/hr Q8HR EVELYN Administration Potassium Chloride 40 meq/ 1,020 mls @ 100 mls/hr 10/21/20 12:00 10/23/20 0 6:16 Sodium Chloride IV 100 mls/hr DIRECT EVELYN Administration Magnesium Sulfate 2 gm in 50 mls @ 25 mls/hr 10/23/20 09:00 Magnesium Sulfate 2gm/50ml IV 10/23/20 10:59 ONCE ONE Magnesium Hydroxide 30 ml 10/19/20 03:27 Magnesium Hydroxide (Mom) Oral Liqd Udc PO Q4H PRN Constipation Metoclopramide HCl 10 mg 10/19/20 03:27 10/21/20 15:55 Metoclopramide 10 Mg/2 Ml Inj IV 10 mg Q6H PRN Administration Nausea And Vomiting Morphine Sulfate 2 mg 10/19/20 09:36 10/21/20 15:52 Morphine 2 Mg/1 Ml Inj IV 2 mg Q4H PRN Administration Pain, Moderate (4-6) Naloxone HCl 0.1 mg 10/19/20 09:37 Naloxone 0.4 Mg/1 Ml Inj IV Q2MIN PRN Res Rate </= 8 or 02 SAT < 92% Ondansetron HCl 4 mg 10/19/20 03:27 10/22/20 12:36 Ondansetron 4 Mg/2 Ml Inj IV 4 mg Q8H PRN Administration Nausea And Vomiting Oxycodone HCl 10 mg 10/20/20 22:00 10/22/20 22:03 Oxycodone Er 10 Mg Tab PO 10 mg Q12HR EVELYN Administration Senna 8.6 mg 10/19/20 03:27 Sennosides 8.6 Mg Tab PO Q12HR PRN Constipation Sodium Chloride 10 ml 10/19/20 10:00 10/22/20 22:04 Sodium Chloride 0.9% 10 Ml Flush Syringe IV 10 ml BID EVELYN Administration Sodium Chloride 10 ml 10/19/20 03:27 Sodium Chloride 0.9% 10 Ml Flush Syringe IV PRN PRN LINE FLUSH Tramadol HCl 50 mg 10/19/20 03:29 10/20/20 10:25 Tramadol 50 Mg Tab PO 50 mg Q6H PRN Administration Pain, Moderate (4-6) Trazodone HCl 50 mg 10/19/20 03:29 10/19/20 21:05 Trazodone 50 Mg Tab PO 50 mg QHS PRN Administration Insomnia Trazodone HCl 50 mg 10/20/20 01:00 10/22/20 22:03 Trazodone 50 Mg Tab PO 50 mg QHS EVELYN Administration Nutrition/Malnutrition Assess - Dietary Evaluation Nutrition/Malnutrition Findings: Nutrition Notes Start: 10/19/20 13:06 Freq: Status: Active Protocol: Document 10/21/20 14:59 CW (Rec: 10/21/20 15:10 CW [id number]) Nutrition Notes Initial or Follow up Reassessment Other Pertinent Diagnosis Stage 4 pancreatic CA (on chemo), abd pain, N/V/D, Dehydration, Pancolitis Current Diet Cl liq Labs/Tests K 1.9 BG 207 Pertinent Medications KCl 80 mEq KDur 80 mEq D5NS at 125 ml/hr Height 5 ft 4 in Weight 57.4 kg Usual Body Weight 72 kg [place] Body Weight (kg) 54.54 BMI 21.7 Weight change and time frame 27% weight loss x 6 months per pt Weight Status Underweight Subjective/Other Information F/U for intakes, diet tolerance, and wt assessment. Per chart, pt consumed 50% of clear liquid diet yesterday. Pt reports weight loss since may. pt open to attempting Ensure clear. Pt denies vomiting today and reports consuming cl liq diet. Percent of energy/protein needs met: 17%/11% Burn Absent Trauma Absent GI Symptoms Nausea,Diarrhea Current % PO Fair (50-74%) Minimum of two criteria No Energy Intake (severe) < or equal to 50% Estimated Energy Requirement > or equal to 5 days #1 Nutrition Diagnosis Inadequate oral intake Diagnosis Progress(for reassessment Continues documentation) Is patient on ventilator? No Is Patient Ambulatory and/or Out of Bed Yes REE-([place] [place]-ambulatory/OOB) [ 1448.200 [id number]] Kcal/Kg value to use for calculation 30 Approximate Energy Requirements Using 1722 kcal/Kg Calculation Used for Recommendations Kcal/kg Additional Notes Pro needs 1.2-1.5g/k-87g/ day Fluid needs 1ml/kcal Nutrition Intervention Change Diet Order: Advance diet as tolerated Add Supplement/Snack (indicate name/kcal Ensure Clear TID /protein ) Provides kCal: 720 Provides Protein (gm) 24 Goal #1 PO tolerance Goal #2 Diet advancement to meet nutrient needs Goal #3 Wt maintenance Anticipated Discharge Needs: Unable to determine at this time Follow-Up By: 10/23/20 Additional Comments F/U: PO tolerance, diet advancement,
[2020-10-23] MEDS: SODIUM CHLORIDE 0.9% 1000 ML 1,000 ML IV SCH (10:14)
[2020-10-23] MEDS: oxyCODONE ER 10 MG TAB PO SCH ×2 (10:14→22:25)
[2020-10-23] MEDS ORDERED: METOPROLOL TARTRATE 25 MG TAB PO SCH (12:00)
--- NOTE | 2020-10-23 12:15 | Progress Note ---
Assessment and Plan 1. Hypokalemia: Secondary to GI loss and poor PO intake. Very low suspicious for any renal loss. Potassium level is better. Check mag and electrolytes -replace PRN. 2. FEN: Continue IV fluids. Monitor lytes and volume status. 3. Intractable N, V & D // pancolitis: Abx. Seen by GI. 4. Pancreatic cancer: Was on chemotherapy. 5. Leukopenia: Monitor. 6. Hyperglycemia. Will sign off, please call with any questions. Subjective: Patient was was not examined today. However the examination findings from other providers noted. The current and previous medical records are reviewed in detail as are laboratory and imaging data reviewed when appropriate. Medications being given are also reviewed. In addition the case has been discussed with the attending hospitalist and the nurse when needed. New renal recommendations as above. Subjective Date of service: 10/23/20 Objective - Vital Signs Vital signs: Vital Signs - 12hr 10/23/20 10/23/20 10/23/20 00:21 04:57 08:25 Temperature 98.4 F 98.0 F 97.7 F Pulse Rate 111 H 101 H 125 H Respiratory 18 18 18 Rate Blood Pressure 90/57 100/68 86/58 O2 Sat by Pulse 97 100 96 Oximetry - Lab 10/22/20 05:00 10/23/20 06:50 Most recent lab results Calcium 7.7 mg/dL (8.4-10.2) L 10/23/20 06:50 Phosphorus 2.70 mg/dL (2.5-4.5) 10/19/20 05:50 Magnesium 1.60 mg/dL (1.7-2.3) L 10/23/20 06:50 Medications & Allergies - Medications Allergies/Adverse Reactions: Allergies No Known Allergies Allergy (Verified 10/19/20 02:21) Home Medications: Home Medications Medication Instructions Recorded Confirmed Last Taken Type Celecoxib [celeBREX] 50 mg PO BID #30 capsule 08/09/20 10/23/20 Unknown Rx Sennosides/Docusate Sodium [Stool 1 each PO DAILY #30 tablet 08/09/20 10/23/20 Unknown Rx Soft-Stimulant Lax Tab] oxyCODONE ER [oxyCONTIN ER] 10 mg PO Q12HR #30 tablet 08/09/20 10/23/20 Unknown Rx traMADoL [Ultram 50 MG tab] 50 mg PO Q6HR PRN #12 tablet 08/09/20 10/23/20 Unknown Rx traZODone [Desyrel] 50 mg PO QHS PRN #30 tablet 08/09/20 10/23/20 Unknown Rx Dicyclomine [Bentyl] 20 mg PO QID PRN #20 tablet 08/23/20 10/23/20 Unknown Rx oxyCODONE [roxiCODONE] 5 mg PO Q6H PRN #12 tablet 08/23/20 10/23/20 Unknown Rx Active Medications: Generic Name Dose Route Start Last Admin Trade Name Freq PRN Reason Stop Dose Admin Acetaminophen 650 mg 10/19/20 03:27 Acetaminophen 325 Mg Tab PO Q4H PRN Pain MILD(1-3)/Fever >100.5/KEVIN Al Hydrox/Mg Hydrox/Simethicone 30 ml 10/19/20 03:27 Alum-Mag Hydroxide-Simethicone [id number]/5ml Oral Liqd 30 Ml PO Q4H PRN Indigestion Enoxaparin Sodium 40 mg 10/23/20 22:00 Enoxaparin 40 Mg/0.4 Ml Inj SUB-Q QDAY@2200 EVELYN Protocol Hydralazine HCl 5 mg 10/19/20 03:29 Hydralazine 20 Mg/1 Ml Inj IV Q4H PRN Hypertension Hydromorphone HCl 2 mg 10/21/20 17:30 10/23/20 06:58 Hydromorphone 2 Mg/1 Ml Inj IV 2 mg Q4H PRN Administration Pain , Severe (7-10) Piperacillin Sod/Tazobactam Sod 4.5 gm in 100 mls @ 200 mls/hr 10/19/20 12:00 10/23/20 06:46 Zosyn/Ns 4.5gm/100ml IV 200 mls/hr Q8HR EVELYN Administration Sodium Chloride 1,000 mls @ 75 mls/hr 10/23/20 10:00 10/23/20 10:14 Nacl 0.9% 1000 Ml IV 75 mls/hr DIRECT EVELYN Administration Magnesium Hydroxide 30 ml 10/19/20 03:27 Magnesium Hydroxide (Mom) Oral Liqd Udc PO Q4H PRN Constipation Metoclopramide HCl 10 mg 10/19/20 03:27 10/21/20 15:55 Metoclopramide 10 Mg/2 Ml Inj IV 10 mg Q6H PRN Administration Nausea And Vomiting Metoprolol Tartrate 12.5 mg 10/23/20 12:00 Metoprolol Tartrate 25 Mg Tab PO BID EVELYN Morphine Sulfate 2 mg 10/19/20 09:36 10/21/20 15:52 Morphine 2 Mg/1 Ml Inj IV 2 mg Q4H PRN Administration Pain, Moderate (4-6) Naloxone HCl 0.1 mg 10/19/20 09:37 Naloxone 0.4 Mg/1 Ml Inj IV Q2MIN PRN Res Rate </= 8 or 02 SAT < 92% Ondansetron HCl 4 mg 10/19/20 03:27 10/22/20 12:36 Ondansetron 4 Mg/2 Ml Inj IV 4 mg Q8H PRN Administration Nausea And Vomiting Oxycodone HCl 10 mg 10/20/20 22:00 10/23/20 10:14 Oxycodone Er 10 Mg Tab PO 10 mg Q12HR EVELYN Administration Senna 8.6 mg 10/19/20 03:27 Sennosides 8.6 Mg Tab PO Q12HR PRN Constipation Sodium Chloride 10 ml 10/19/20 10:00 10/23/20 10:15 Sodium Chloride 0.9% 10 Ml Flush Syringe IV 10 ml BID EVELYN Administration Sodium Chloride 10 ml 10/19/20 03:27 Sodium Chloride 0.9% 10 Ml Flush Syringe IV PRN PRN LINE FLUSH Tramadol HCl 50 mg 10/19/20 03:29 10/20/20 10:25 Tramadol 50 Mg Tab PO 50 mg Q6H PRN Administration Pain, Moderate (4-6) Trazodone HCl 50 mg 10/20/20 01:00 10/22/20 22:03 Trazodone 50 Mg Tab PO 50 mg QHS EVELYN Administration
[2020-10-23] MEDS: ONDANSETRON 4 MG/2 ML INJ IV PRN ×2 (14:15→22:27)
[2020-10-23 15:30] LABS: Free T4 (Free Thyroxine) 1.26 ng/dL (0.76-1.46)
[2020-10-23] MEDS ORDERED: SODIUM CHLORIDE 0.9% 250ML 250 ML IV ONE (17:18)
[2020-10-23] MEDS ORDERED: ENOXAPARIN 40 MG/0.4 ML INJ SUB-Q SCH ×2 (18:00→22:00)
[2020-10-23] MEDS: ENOXAPARIN 60 MG/0.6 ML INJ SUB-Q SCH (18:26)
--- NOTE | 2020-10-23 18:33 | Cat Scan Report ---
CT angio chest INDICATION / CLINICAL INFORMATION: Rule out PE. TECHNIQUE: Axial CT images were obtained after injection of 100 cc of Omnipaque 350 IV contrast using CTA protoc ol. 3 plane MIP / 3D reconstructions were produced. All CT scans at this location are performed using CT dose reduction for ALARA by means of automated exposure control. COMPARISON: Chest CT dated 10/18/2020 FINDINGS: Following the administration of intravenous contrast, bilateral pulmonary emboli are seen more extens ively on the right than the left. No significant parenchymal abnormality is seen in the lungs. No enl arged mediastinal or hilar lymph nodes are identified. IMPRESSION: Bilateral pulmonary emboli more extensive on the right than the left CRITICAL RESULT: Time of Discovery: [address] Time of Communication: [address] Licensed Practitioner Receiving Report: Sabine Damico RN Read Back Performed: Yes. Signer Name: Buzz Hendrickson MD FACR Signed: 10/23/2020 6:28 PM Workstation Name: [id number]
--- NOTE | 2020-10-23 21:50 | Vascular Lab Report ---
DUPLEX DOPPLER LOWER EXTREMITY VEINS, BILATERAL INDICATION / CLINICAL INFORMATION: DVT. TECHNIQUE: Duplex doppler imaging was performed through the veins of both lower extremities using venous makeda lisy and other maneuvers. COMPARISON: None available. FINDINGS: RIGHT COMMON FEMORAL VEIN: Negative. RIGHT FEMORAL VEIN: Negative. RIGHT POPLITEAL VEIN: Negative. RIGHT CALF VEINS: Negative. LEFT COMMON FEMORAL VEIN: Negative. LEFT FEMORAL VEIN: Negative. LEFT POPLITEAL VEIN: Negative. LEFT CALF VEINS: Negative. ADDITIONAL FINDINGS: None. IMPRESSION: No sonographic evidence for DVT in either lower extremity. Signer Name: Kee Hendrickson MD Signed: 10/23/2020 9:46 PM Workstation Name: [id number]
[2020-10-23] MEDS: traZODone 50 MG TAB PO SCH (22:25)
--- NOTE | 2020-10-23 22:26 | Gastroenterology Progress Note ---
Assessment and Plan 1. GI: pt w/ pancreatic cancer now with colitis after chemo - stool cx's negative for C. diff - pt w/ signs improvement, advance to semi-soft diet, pt reports was only on ensure at home - electrolytes per primary team - antiemetics and pain meds prn - no plans to scope at this time - ok to dc from a GI standpoint - will sign off, call if needed Subjective Date of service: 10/23/20 Interval history: -more stable,tolerating po Objective - Constitutional Vitals: Temp Pulse Resp BP Pulse Ox 95.5 F L 121 H 18 91/64 97 10/23/20 19:25 10/23/20 19:25 10/23/20 19:25 10/23/20 19:25 10/23/20 19:25 General appearance: no acute distress - EENT Eyes: PERRL - Respiratory Respiratory: bilateral: CTA - Cardiovascular Rhythm: regular Heart Sounds: Present: S1 & S2 - Gastrointestinal General gastrointestinal: Present: soft, non-tender, non-distended - Labs CBC & Chem 7: 10/22/20 05:00 10/23/20 06:50 Labs: Laboratory Results - last 24 hr 10/23/20 10/23/20 06:50 14:38 Sodium 137 Potassium 4.5 Chloride 106.3 Carbon Dioxide 23 Anion Gap 12 BUN < 1 L Creatinine 0.3 L Estimated GFR > 60 BUN/Creatinine Ratio 3 Glucose 109 H Calcium 7.7 L Magnesium 1.60 L TSH 4.190 Free T4 1.26
[2020-10-24] MEDS: ENOXAPARIN 60 MG/0.6 ML INJ SUB-Q SCH ×3 (00:08→21:04)
[2020-10-24] MEDS: SODIUM CHLORIDE 0.9% 1000 ML 1,000 ML IV SCH (04:40)
[2020-10-24] MEDS: PIPERACIL/TAZOBACTA 4.5/NS 100 4.5 GM/100 ML VIAL IV SCH (06:35)
[2020-10-24 07:10] LABS: Hemolysis Index 5
[2020-10-24 07:16] LABS: BUN/Creatinine Ratio TNR; Blood Urea Nitrogen TNR mg/dL (7-17)
[2020-10-24 07:17] LABS: Calcium TNR mg/dL (8.4-10.2)
[2020-10-24] MEDS: oxyCODONE ER 10 MG TAB PO SCH ×2 (09:20→21:05)
[2020-10-24] MEDS: ONDANSETRON 4 MG/2 ML INJ IV PRN ×2 (09:21→18:17)
[2020-10-24 11:00] LABS: Hematocrit 30.2 % (30.3-42.9); Hemoglobin 10.4 gm/dl (10.1-14.3); Mean Corpuscular HGB Conc 34 % (30-34); Mean Corpuscular Volume 87 fl (79-97); Platelet Count 206 K/mm3 (140-440); Red Blood Count 3.46 M/mm3 (3.65-5.03); Red Cell Distribution Width 15.2 % (13.2-15.2)
[2020-10-24 11:08] LABS: Blood Urea Nitrogen 2 mg/dL (7-17); Calcium 7.4 mg/dL (8.4-10.2); Hemolysis Index 3
[2020-10-24 11:10] LABS: BUN/Creatinine Ratio 5
[2020-10-24] MEDS ORDERED: LOPERAMIDE 2 MG CAP PO PRN (12:28)
[2020-10-24] MEDS: POTASSIUM CHLORIDE 10 MEQ 10 MEQ/100 ML BAG IV SCH ×7 (12:30→21:01)
--- NOTE | 2020-10-24 12:34 | Progress Note ---
Assessment and Plan Assessment and plan: #Intractable abdominal pain/pancolitis Likely secondary to colonic inflammation/pancreatic CA Complete antibiotics Antidiarrheal C. difficile negative Continue pain management. GI on board Chemotherapy as outpatient #Severe electrolyte abnormalities Continue to replete potassium Daily magnesium and potassium #Bilateral pulmonary embolism Continue Lovenox 60 mg twice daily Ultrasound lower extremity Doppler negative for any DVT #History of pancreatic mass On chemotherapy Follow-up with oncology as outpatient #Leukopenia From chemotherapy #DVT prophylaxis-patient is on Lovenox twice daily for PE History Interval history: Patient is a 65-year-old female that presents emergency room for nausea vomiting weakness. Patient states she was sent here by her oncologist. Patient states she had a new chemotherapy on Wednesday and has had nausea and vomiting since. Patient states 3 days ago she developed diarrhea. Patient states she is now having weakness, loss of appetite and fatigue. Patient states she has had anything by mouth except for mild sips of water for the last 5 days. Patient states she feels dehydrated. Patient denies fever or chills. Patient denies blood in vomitus. Patient states she is on chemo for stage IV pancreatic cancer. Patient denies blood in her stool. ED work-up showed WBC 2.3 hemoglobin 11.6, platelets 168, sodium 135, potassium 3.1, creatinine 0.4, serum glucose 134, calcium 8.8, AST 81, ALT 213, and albumin 3.8. CT of the abdomen and pelvis with contrast done result is highly suspicious of pancolitis,: Has generalized mild thickening of the colon with mild surrounding inflammation colonic diverticulosis is seen without evidence of diverticulitis peritoneum showed multiple omental peritoneal nodules and pancreatic body mass measuring 3.8 x 3.3 cm. Patient seen at bedside in ED. Patient is alert oriented x3. Patient admits abdominal pain pain level 7/10. Patient also adm its nausea and vomiting but denies chest pain and shortness of breath. Patient has a history of pancreatic CA getting chemotherapy via left subclavian Port-A-Cath. I reviewed patient medical record medication record and vital signs. 10/20: GI input noted no plans for scope at this time. Continue current management we will restart patient's oxycodone for chronic pain is related to pancreatic cancer. Imaging studies reviewed appears to be possible increase in mass noted. Patient noted with leukopenia today hematology consulted to assist will start on sliding scale coverage due to elevated blood sugar doubt diabetes although with pancreatic cancer I would not be surprised. Advance care plan discussion with the patient for 30 minutes patient will remain a full code. We will advance diet once she begins to improve with improving pain. Also replace potassium and recheck in a.m. 10/21: 65-year-old female with history of pancreatic cancer admitted with nausea vomiting and generalized weakness now with severe hypokalemia likely secondary to loose bowel stools. Will transfer patient to telemetry as IMCU beds are not available. Multiple potassium replacement ordered. We will also obtain nephrology consult to assist with electrolyte replacement. Patient will be placed on a youth nutritional monitor due to severe hypokalemia. We will also give a gram of magnesium. Patient can be discharged once electrolytes are stabilized. She does not have any further nausea or vomiting at this time. GI input is appreciated 10/22. Remains on IV antibiotics for colitis. Potassium continues to be repleted. Appreciate GI recommendations. Nephrology following 10/23. Has tachycardia. Telemetry review showed sinus tach. Ordered TFTs. Echocardiogram ordered as well. Electrolytes stable today. 10/24. Heart rate remained elevated yesterday and TFTs were within normal limits. Echocardiogram showed slightly reduced EF. CTA chest showed bilateral PE and patient was started on Lovenox twice daily. This morning, she has no complaints except for multiple episodes of diarrhea. Potassium is low and this will be repleted Hospitalist Physical - Physical exam Narrative exam: VITAL SIGNS: Reviewed. GENERAL: Awake HEAD: No signs of head trauma. EYES: Pupils are equal. Extraocular motions intact. MOUTH: Oropharynx is normal. NECK: No adenopathy, no JVD. CHEST: Chest with diminished breath sounds bilaterally. No wheezes, rales, or rhonchi. CARDIAC: normal S1 and S2, without murmurs, gallops, or rubs. ABDOMEN: Soft, abdominal discomfort MUSCULOSKELETAL: No edema NEUROLOGIC EXAM: Alert and oriented x3. No focal neurologic deficits SKIN: No obvious lesions - Constitutional Vitals: Temp Pulse Resp BP Pulse Ox 98.6 F 111 H 18 92/62 98 10/24/20 07:36 10/24/20 07:36 10/24/20 07:36 10/24/20 07:36 10/24/20 07:36 Results - Labs CBC & Chem 7: 10/24/20 06:45 10/24/20 07:56 Labs: Laboratory Last Values WBC 7.6 K/mm3 (4.5-11.0) 10/24/20 06:45 RBC 3.46 M/mm3 (3.65-5.03) L 10/24/20 06:45 Hgb 10.4 gm/dl (10.1-14.3) 10/24/20 06:45 Hct 30.2 % (30.3-42.9) L 10/24/20 06:45 MCV 87 fl (79-97) 10/24/20 06:45 MCH 30 pg (28-32) 10/24/20 06:45 MCHC 34 % (30-34) 10/24/20 06:45 RDW 15.2 % (13.2-15.2) 10/24/20 06:45 Plt Count 206 K/mm3 (140-440) 10/24/20 06:45 Lymph % (Auto) Junior Account Manager 10/20/20 08:40 [place] % (Auto) Junior Account Manager 10/20/20 08:40 Add Manual Diff Complete 10/20/20 08:40 Total Counted 70 10/20/20 08:40 Seg Neutrophils % Junior Account Manager 10/20/20 08:40 Seg Neuts % (Manual) 14.3 % (40.0-70.0) L 10/20/20 08:40 Lymphocytes % (Manual) 81.4 % (13.4-35.0) H 10/20/20 08:40 Eosinophils % (Manual) 4.3 % (0.0-4.3) 10/20/20 08:40 Nucleated RBC % 4.2 % (0.0-0.9) H 10/20/20 08:40 Seg Neutrophils # Man 0.1 K/mm3 (1.8-7.7) L 10/20/20 08:40 Band Neutrophils # 0.0 K/mm3 10/20/20 08:40 Lymphocytes # (Manual) 0.8 K/mm3 (1.2-5.4) L 10/20/20 08:40 Abs React Lymphs (Man) 0.0 K/mm3 10/20/20 08:40 Monocytes # (Manual) 0.0 K/mm3 (0.0-0.8) 10/20/20 08:40 Eosinophils # (Manual) 0.0 K/mm3 (0.0-0.4) 10/20/20 08:40 Basophils # (Manual) 0.0 K/mm3 (0.0-0.1) 10/20/20 08:40 Metamyelocytes # 0.0 K/mm3 10/20/20 08:40 Myelocytes # 0.0 K/mm3 10/20/20 08:40 Promyelocytes # 0.0 K/mm3 10/20/20 08:40 Blast Cells # 0.0 K/mm3 10/20/20 08:40 WBC Morphology Not Reportable 10/20/20 08:40 Hypersegmented Neuts Not Reportable 10/20/20 08:40 Hyposegmented Neuts Not Reportable 10/20/20 08:40 Hypogranular Neuts Not Reportable 10/20/20 08:40 Smudge Cells Not Reportable 10/20/20 08:40 Toxic Granulation Not Reportable 10/20/20 08:40 Toxic Vacuolation Not Reportable 10/20/20 08:40 Dohle Bodies Not Reportable 10/20/20 08:40 Pelger-Huet Anomaly Not Reportable 10/20/20 08:40 Philip Rods Not Reportable 10/20/20 08:40 Platelet Estimate Consistent w auto 10/20/20 08:40 Clumped Platelets Not Reportable 10/20/20 08:40 Plt Clumps, EDTA Not Reportable 10/20/20 08:40 Large Platelets Not Reportable 10/20/20 08:40 Giant Platelets Not Reportable 10/20/20 08:40 Platelet Satelliting Not Reportable 10/20/20 08:40 Plt Morphology Comment Not Reportable 10/20/20 08:40 RBC Morphology Not Reportable 10/20/20 08:40 Dimorphic RBCs Not Reportable 10/20/20 08:40 Polychromasia Not Reportable 10/20/20 08:40 Hypochromasia Not Reportable 10/20/20 08:40 Poikilocytosis Not Reportable 10/20/20 08:40 Anisocytosis Not Reportable 10/20/20 08:40 Microcytosis Not Reportable 10/20/20 08:40 Macrocytosis Not Reportable 10/20/20 08:40 Spherocytes Not Reportable 10/20/20 08:40 Pappenheimer Bodies Not Reportable 10/20/20 08:40 Sickle Cells Not Reportable 10/20/20 08:40 Target Cells Not Reportable 10/20/20 08:40 Tear Drop Cells Not Reportable 10/20/20 08:40 Ovalocytes Not Reportable 10/20/20 08:40 Helmet Cells Not Reportable 10/20/20 08:40 [place] Bodies Not Reportable 10/20/20 08:40 [place] Rings Not Reportable 10/20/20 08:40 [place] Cells Rare 10/20/20 08:40 Bite Cells Not Reportable 10/20/20 08:40 Crenated Cell Not Reportable 10/20/20 08:40 Elliptocytes Not Reportable 10/20/20 08:40 Acanthocytes (Spur) Not Reportable 10/20/20 08:40 Rouleaux Not Reportable 10/20/20 08:40 Hemoglobin C Crystals Not Reportable 10/20/20 08:40 Schistocytes Not Reportable 10/20/20 08:40 Malaria parasites Not Reportable 10/20/20 08:40 [place] Bodies Not Reportable 10/20/20 08:40 Hem Pathologist Commnt No 10/20/20 08:40 Sodium 139 mmol/L (137-145) 10/24/20 07:56 Potassium 2.4 mmol/L (3.6-5.0) L* D 10/24/20 07:56 Chloride 106.2 mmol/L (98-107) 10/24/20 07:56 Carbon Dioxide 19 mmol/L (22-30) L 10/24/20 07:56 Anion Gap 16 mmol/L 10/24/20 07:56 BUN 2 mg/dL (7-17) L 10/24/20 07:56 Creatinine 0.4 mg/dL (0.6-1.2) L 10/24/20 07:56 Estimated GFR > 60 ml/min 10/24/20 07:56 BUN/Creatinine Ratio 5 % 10/24/20 07:56 Glucose 192 mg/dL (65-100) H 10/24/20 07:56 Calcium 7.4 mg/dL (8.4-10.2) L 10/24/20 07:56 Phosphorus 2.70 mg/dL (2.5-4.5) 10/19/20 05:50 Magnesium 1.60 mg/dL (1.7-2.3) L 10/23/20 06:50 Total Bilirubin 0.60 mg/dL (0.1-1.2) 10/21/20 09:20 AST 25 units/L (5-40) 10/21/20 09:20 ALT 116 units/L (7-56) H 10/21/20 09:20 Alkaline Phosphatase 58 units/L (35-129) 10/21/20 09:20 Total Protein 5.4 g/dL (6.3-8.2) L 10/21/20 09:20 Albumin 3.1 g/dL (3.9-5) L 10/21/20 09:20 Albumin/Globulin Ratio 1.3 % 10/21/20 09:20 TSH 4.190 mlU/mL (0.270-4.200) 10/23/20 14:38 Free T4 1.26 ng/dL (0.76-1.46) 10/23/20 14:38 Nasal Screen MRSA (PCR) Negative (Negative) 10/20/20 04:40 C. difficile Tox (PCR) Negative (Negative) 10/19/20 09:36 Microbiology: Microbiology 10/20/20 10:00 Stool Stool Culture - Final [place]/IV: Voiding Method Bedside Commode Active Medications - Current Medications Current Medications: Generic Name Dose Route Start Last Admin Trade Name Freq PRN Reason Stop Dose Admin Acetaminophen 650 mg 10/19/20 03:27 Acetaminophen 325 Mg Tab PO Q4H PRN Pain MILD(1-3)/Fever >100.5/KEVIN Al Hydrox/Mg Hydrox/Simethicone 30 ml 10/19/20 03:27 Alum-Mag Hydroxide-Simethicone [phone]/5ml Oral Liqd 30 Ml PO Q4H PRN Indigestion Enoxaparin Sodium 60 mg 10/23/20 18:00 10/24/20 09:21 Enoxaparin 60 Mg/0.6 Ml Inj SUB-Q 60 mg Q12HR EVELYN Administration Hydralazine HCl 5 mg 10/19/20 03:29 Hydralazine 20 Mg/1 Ml Inj IV Q4H PRN Hypertension Hydromorphone HCl 2 mg 10/21/20 17:30 10/23/20 14:20 Hydromorphone 2 Mg/1 Ml Inj IV 2 mg Q4H PRN Administration Pain , Severe (7-10) Sodium Chloride 1,000 mls @ 75 mls/hr 10/23/20 10:00 10/24/20 04:40 Nacl 0.9% 1000 Ml IV 75 mls/hr DIRECT EVELYN Administration Potassium Chloride 10 meq in 100 mls @ 100 mls/hr 10/24/20 12:00 10/24/20 12:31 Kcl 10meq/100ml IV 10/24/20 19:59 100 mls/hr Q1H EVELYN Administration Loperamide HCl 2 mg 10/24/20 12:28 Loperamide 2 Mg Cap PO Q2H PRN Diarrhea Loperamide HCl 4 mg 10/24/20 12:28 Loperamide 2 Mg Cap PO 10/24/20 12:29 ONCE ONE Magnesium Hydroxide 30 ml 10/19/20 03:27 Magnesium Hydroxide (Mom) Oral Liqd Udc PO Q4H PRN Constipation Metoclopramide HCl 10 mg 10/19/20 03:27 10/21/20 15:55 Metoclopramide 10 Mg/2 Ml Inj IV 10 mg Q6H PRN Administration Nausea And Vomiting Morphine Sulfate 2 mg 10/19/20 09:36 10/21/20 15:52 Morphine 2 Mg/1 Ml Inj IV 2 mg Q4H PRN Administration Pain, Moderate (4-6) Naloxone HCl 0.1 mg 10/19/20 09:37 Naloxone 0.4 Mg/1 Ml Inj IV Q2MIN PRN Res Rate </= 8 or 02 SAT < 92% Ondansetron HCl 4 mg 10/19/20 03:27 10/24/20 09:21 Ondansetron 4 Mg/2 Ml Inj IV 4 mg Q8H PRN Administration Nausea And Vomiting Oxycodone HCl 10 mg 10/20/20 22:00 10/24/20 09:20 Oxycodone Er 10 Mg Tab PO 10 mg Q12HR EVELYN Administration Sodium Chloride 10 ml 10/19/20 10:00 10/24/20 09:21 Sodium Chloride 0.9% 10 Ml Flush Syringe IV 10 ml BID EVELYN Administration Sodium Chloride 10 ml 10/19/20 03:27 Sodium Chloride 0.9% 10 Ml Flush Syringe IV PRN PRN LINE FLUSH Tramadol HCl 50 mg 10/19/20 03:29 10/20/20 10:25 Tramadol 50 Mg Tab PO 50 mg Q6H PRN Administration Pain, Moderate (4-6) Trazodone HCl 50 mg 10/20/20 01:00 10/23/20 22:25 Trazodone 50 Mg Tab PO 50 mg QHS EVELYN Administration Nutrition/Malnutrition Assess - Dietary Evaluation Nutrition/Malnutrition Findings: Nutrition Notes Start: 10/19/20 13:06 Freq: Status: Active Protocol: Document 10/23/20 13:04 AT (Rec: 10/23/20 13:17 AT [id number]) Co-Sign 10/23/20 13:04 MK Nutrition Notes Initial or Follow up Reassessment Other Pertinent Diagnosis Stage 4 pancreatic CA (on chemo), abd pain, N/V/D, Dehydration, Pancolitis Current Diet Mechanical Soft Labs/Tests BUN <1 Cr 0.3 Ca 7.7 Mg 1.6 Pertinent Medications NS at 75 mL/hr Height 5 ft 4 in Weight 56.8 kg [place] Body Weight (kg) 54.54 BMI 21.4 Weight change and time frame 2% weight loss x 1 week Weight Status Underweight Subjective/Other Information Follow up for PO tolerance, diet advancement. Pt upgraded to mechanical soft diet, but it is not indicated. Pt has no swallowing or chewing difficulties. Pt reports that today is her first day with foods. She consumed 50% of applesauce and no other fluids . Pt reports consuming 100% Ensure Clears. Pt cannot tolerate Ensure Enlive. Percent of energy/protein needs met: 42%/34% (negligible amounts of food, 100% ONS) Burn Absent Trauma Absent GI Symptoms Nausea Current % PO Poor (25-49%) Minimum of two criteria Yes Energy Intake (severe) < or equal to 50% Estimated Energy Requirement > or equal to 5 days Interpretation of Weight Loss (non- 1-2% in 1 week severe) #2 Nutrition Diagnosis Malnutrition Etiology chronic illness As Evidenced by Signs and Symptoms < 50% EER for < or = 5 days, 2 % weight loss in one week #1 Nutrition Diagnosis Inadequate oral intake Diagnosis Progress(for reassessment Continues documentation) Is patient on ventilator? No Is Patient Ambulatory and/or Out of Bed Yes REE-([place]-St. Jeor-ambulatory/OOB) [ 1440.400 [id number]] Kcal/Kg value to use for calculation 30 Approximate Energy Requirements Using 1704 kcal/Kg Calculation Used for Recommendations Kcal/kg Additional Notes PRO needs: 68-85g (1.2-1.5 g/ kg) Fluid needs: 1 mL/kcal or per MD Nutrition Intervention Change Diet Order: Change to GI Soft Add Supplement/Snack (indicate name/kcal Ensure Clear TID /protein ) Provides kCal: 720 Provides Protein (gm) 24 Goal #1 PO tolerance Goal #2 Meet needs as best as possible Goal #3 Weight maintenance Anticipated Discharge Needs: Unable to determine at this time Follow-Up By: 10/25/20 Additional Comments F/U for diet tolerance, intakes
[2020-10-24] MEDS ORDERED: LOPERAMIDE 2 MG CAP PO ONE (12:39)
[2020-10-24] MEDS: METOCLOPRAMIDE 10 MG/2 ML INJ IV PRN (13:25)
[2020-10-24] MEDS ORDERED: POTASSIUM CHLORIDE ER 20 MEQ TAB PO ONE (15:08)
[2020-10-24 15:34] LABS: Band Neutrophils # (Manual) 0.5 K/mm3; Myelocytes # (Manual) 0.2 K/mm3; Total Cells Counted 100
[2020-10-24 15:35] LABS: Anisocytosis Few; Large Platelets Rare; Platelet Estimate Consistent w Auto
[2020-10-24] MEDS: HYDROmorphone 2 MG/1 ML INJ IV PRN (18:16)
[2020-10-24] MEDS: traZODone 50 MG TAB PO SCH (21:06)
[2020-10-24 23:46] LABS: Calcium 7.3 mg/dL (8.4-10.2); Hemolysis Index 2
[2020-10-25 00:01] LABS: BUN/Creatinine Ratio 3; Blood Urea Nitrogen < 1 mg/dL (7-17)
[2020-10-25 07:11] LABS: Hematocrit 28.2 % (30.3-42.9); Hemoglobin 9.6 gm/dl (10.1-14.3); Mean Corpuscular HGB Conc 34 % (30-34); Mean Corpuscular Volume 87 fl (79-97); Platelet Count 203 K/mm3 (140-440); Red Blood Count 3.26 M/mm3 (3.65-5.03); Red Cell Distribution Width 15.1 % (13.2-15.2)
[2020-10-25] MEDS: HYDROmorphone 2 MG/1 ML INJ IV PRN ×2 (07:12→15:31)
[2020-10-25 07:35] LABS: Alanine Aminotransferase 37 units/L (7-56); Albumin 2.6 g/dL (3.9-5); Calcium 7.2 mg/dL (8.4-10.2); Hemolysis Index 0
[2020-10-25] MEDS ORDERED: MAGNESIUM SULFATE 2 GM/50 ML BAG IV NR (07:47)
[2020-10-25 08:05] LABS: BUN/Creatinine Ratio 3; Blood Urea Nitrogen < 1 mg/dL (7-17)
[2020-10-25] MEDS: ENOXAPARIN 60 MG/0.6 ML INJ SUB-Q SCH ×2 (09:10→21:35)
[2020-10-25] MEDS: oxyCODONE ER 10 MG TAB PO SCH ×2 (09:10→21:35)
[2020-10-25] MEDS: POTASSIUM CHLORIDE ER 20 MEQ TAB PO SCH ×2 (09:11→21:36)
[2020-10-25] MEDS: POTASSIUM CHLORIDE 10 MEQ 10 MEQ/100 ML BAG IV SCH ×4 (09:11→13:35)
--- NOTE | 2020-10-25 10:11 | Progress Note ---
Assessment and Plan Assessment and plan: #Intractable abdominal pain/pancolitis Likely secondary to colonic inflammation/pancreatic CA Completed antibiotics C. difficile negative Antidiarrheals GI on board. Will reconsult as she is still having diarrhea Chemotherapy as outpatient #Severe electrolyte abnormalities Continue to replete potassium Daily magnesium and potassium #Bilateral pulmonary embolism Continue Lovenox 60 mg twice daily Ultrasound lower extremity Doppler negative for any DVT #History of pancreatic mass On chemotherapy Follow-up with oncology as outpatient #Leukopenia From chemotherapy #DVT prophylaxis-patient is on Lovenox twice daily for PE History Interval history: Patient is a 65-year-old female that presents emergency room for nausea vomiting weakness. Patient states she was sent here by her oncologist. Patient states she had a new chemotherapy on Wednesday and has had nausea and vomiting since. Patient states 3 days ago she developed diarrhea. Patient states she is now having weakness, loss of appetite and fatigue. Patient states she has had anything by mouth except for mild sips of water for the last 5 days. Patient states she feels dehydrated. Patient denies fever or chills. Patient denies blood in vomitus. Patient states she is on chemo for stage IV pancreatic cancer. Patient denies blood in her stool. ED work-up showed WBC 2.3 hemoglobin 11.6, platelets 168, sodium 135, potassium 3.1, creatinine 0.4, serum glucose 134, calcium 8.8, AST 81, ALT 213, and albumin 3.8. CT of the abdomen and pelvis with contrast done result is highly suspicious of pancolitis,: Has generalized mild thickening of the colon with mild surrounding inflammation colonic diverticulosis is seen without evidence of diverticulitis peritoneum showed multiple omental peritoneal nodules and pancreatic body mass measuring 3.8 x 3.3 cm. Patient seen at bedside in ED. Patient is alert oriented x3. Patient admits abdominal pain pain level 7/10. Patient also admits nausea and vomiting but denies chest pain and shortness of breath. Radha ent has a history of pancreatic CA getting chemotherapy via left subclavian Port-A-Cath. I reviewed patient medical record medication record and vital signs. 10/20: GI input noted no plans for scope at this time. Continue current management we will restart patient's oxycodone for chronic pain is related to pancreatic cancer. Imaging studies reviewed appears to be possible increase in mass noted. Patient noted with leukopenia today hematology consulted to assist will start on sliding scale coverage due to elevated blood sugar doubt diabetes although with pancreatic cancer I would not be surprised. Advance care plan discussion with the patient for 30 minutes patient will remain a full code. We will advance diet once she begins to improve with improving pain. Also replace potassium and recheck in a.m. 10/21: 65-year-old female with history of pancreatic cancer admitted with nausea vomiting and generalized weakness now with severe hypokalemia likely secondary to loose bowel stools. Will transfer patient to telemetry as IMCU beds are not available. Multiple potassium replacement ordered. We will also obtain nephrology consult to assist with electrolyte replacement. Patient will be placed on a sanitarian inspector due to severe hypokalemia. We will also give a gram of magnesium. Patient can be discharged once electrolytes are stabilized. She does not have any further nausea or vomiting at this time. GI input is appreciated 10/22. Remains on IV antibiotics for colitis. Potassium continues to be repleted. Appreciate GI recommendations. Nephrology following 10/23. Has tachycardia. Telemetry review showed sinus tach. Ordered TFTs. Echocardiogram ordered as well. Electrolytes stable today. 10/24. Heart rate remained elevated yesterday and TFTs were within normal limits. Echocardiogram showed slightly reduced EF. CTA chest showed bilateral PE and patient was started on Lovenox twice daily. This morning, she has no complaints except for multiple episodes of diarrhea. Potassium is low and this will be repleted 10/25. Reconsulted GI as she is still having diarrhea with electrolyte imbalance. On antidiarrheals already. Added creon pending GI evaluation. Switch fluid to K containing fluids. She remains on Lovenox for PE. Answered all her questions thi s AM. Hospitalist Physical - Physical exam Narrative exam: VITAL SIGNS: Reviewed. GENERAL: Awake HEAD: No signs of head trauma. EYES: Pupils are equal. Extraocular motions intact. MOUTH: Oropharynx is normal. NECK: No adenopathy, no JVD. CHEST: Chest with diminished breath sounds bilaterally. No wheezes, rales, or rhonchi. CARDIAC: normal S1 and S2, without murmurs, gallops, or rubs. ABDOMEN: Soft, abdominal discomfort MUSCULOSKELETAL: No edema NEUROLOGIC EXAM: Alert and oriented x3. No focal neurologic deficits SKIN: No obvious lesions - Constitutional Vitals: Temp Pulse Resp BP Pulse Ox 99.1 F 110 H 18 104/63 98 05/21/21 05:42 10/25/20 05:42 10/25/20 05:42 10/25/20 05:42 10/25/20 05:42 Results - Labs CBC & Chem 7: 10/25/20 07:00 10/25/20 07:00 Labs: Laboratory Last Values WBC 9.0 K/mm3 (4.5-11.0) 10/25/20 07:00 RBC 3.26 M/mm3 (3.65-5.03) L 10/25/20 07:00 Hgb 9.6 gm/dl (10.1-14.3) L 10/25/20 07:00 Hct 28.2 % (30.3-42.9) L 10/25/20 07:00 MCV 87 fl (79-97) 10/25/20 07:00 MCH 29 pg (28-32) 10/25/20 07:00 MCHC 34 % (30-34) 10/25/20 07:00 RDW 15.1 % (13.2-15.2) 10/25/20 07:00 Plt Count 203 K/mm3 (140-440) 10/25/20 07:00 Lymph % (Auto) [place] 10/20/20 08:40 Bacon % (Auto) [place] 10/20/20 08:40 Add Manual Diff Complete 10/24/20 06:45 Total Counted 100 10/24/20 06:45 Seg Neutrophils % [place] 10/20/20 08:40 Seg Neuts % (Manual) 47.0 % (40.0-70.0) 10/24/20 06:45 Band Neutrophils % 6.0 % 10/24/20 06:45 Lymphocytes % (Manual) 35.0 % (13.4-35.0) 10/24/20 06:45 Reactive Lymphs % (Man) 3.0 % 10/24/20 06:45 Monocytes % (Manual) 5.0 % (0.0-7.3) 10/24/20 06:45 Eosinophils % (Manual) 1.0 % (0.0-4.3) 10/24/20 06:45 Metamyelocytes % 1.0 % 10/24/20 06:45 Myelocytes % 2.0 % 10/24/20 06:45 Nucleated RBC % Not Reportable 10/24/20 06:45 Seg Neutrophils # Man 3.6 K/mm3 (1.8-7.7) 10/24/20 06:45 Band Neutrophils # 0.5 K/mm3 10/24/20 06:45 Lymphocytes # (Manual) 2.7 K/mm3 (1.2-5.4) 10/24/20 06:45 Abs React Lymphs (Man) 0.2 K/mm3 10/24/20 06:45 Monocytes # (Manual) 0.4 K/mm3 (0.0-0.8) 10/24/20 06:45 Eosinophils # (Manual) 0.1 K/mm3 (0.0-0.4) 10/24/20 06:45 Basophils # (Manual) 0.0 K/mm3 (0.0-0.1) 10/24/20 06:45 Metamyelocytes # 0.1 K/mm3 10/24/20 06:45 Myelocytes # 0.2 K/mm3 10/24/20 06:45 Promyelocytes # 0.0 K/mm3 10/24/20 06:45 Blast Cells # 0.0 K/mm3 10/24/20 06:45 WBC Morphology Not Reportable 10/24/20 06:45 Hypersegmented Neuts Not Reportable 10/24/20 06:45 Hyposegmented Neuts Not Reportable 10/24/20 06:45 Hypogranular Neuts Not Reportable 10/24/20 06:45 Smudge Cells Not Reportable 10/24/20 06:45 Toxic Granulation Not Reportable 10/24/20 06:45 Toxic Vacuolation Not Reportable 10/24/20 06:45 Dohle Bodies Not Reportable 10/24/20 06:45 Pelger-Huet Anomaly Not Reportable 10/24/20 06:45 Philip Rods Not Reportable 10/24/20 06:45 Platelet Estimate Consistent w auto 10/24/20 06:45 Clumped Platelets Not Reportable 10/24/20 06:45 Plt Clumps, EDTA Not Reportable 10/24/20 06:45 Large Platelets Rare 10/24/20 06:45 Giant Platelets Not Reportable 10/24/20 06:45 Platelet Satelliting Not Reportable 10/24/20 06:45 Plt Morphology Comment Not Reportable 10/24/20 06:45 RBC Morphology Not Reportable 10/24/20 06:45 Dimorphic RBCs Not Reportable 10/24/20 06:45 Polychromasia Not Reportable 10/24/20 06:45 Hypochromasia Not Reportable 10/24/20 06:45 Poikilocytosis Not Reportable 10/24/20 06:45 Anisocytosis Few 10/24/20 06:45 Microcytosis Not Reportable 10/24/20 06:45 Macrocytosis Not Reportable 10/24/20 06:45 Spherocytes Not Reportable 10/24/20 06:45 Pappenheimer Bodies Not Reportable 10/24/20 06:45 Sickle Cells Not Reportable 10/24/20 06:45 Target Cells Not Reportable 10/24/20 06:45 Tear Drop Cells Not Reportable 10/24/20 06:45 Ovalocytes Not Reportable 10/24/20 06:45 Helmet Cells Not Reportable 10/24/20 06:45 Page-[place] Bodies Not Reportable 10/24/20 06:45 [place] Rings Not Reportable 10/24/20 06:45 [place] Cells Not Reportable 10/24/20 06:45 Bite Cells Not Reportable 10/24/20 06:45 Crenated Cell Not Reportable 10/24/20 06:45 Elliptocytes Not Reportable 10/24/20 06:45 Acanthocytes (Spur) Not Reportable 10/24/20 06:45 Rouleaux Not Reportable 10/24/20 06:45 Hemoglobin C Crystals Not Reportable 10/24/20 06:45 Schistocytes Not Reportable 10/24/20 06:45 Malaria parasites Not Reportable 10/24/20 06:45 Emeterio Bodies Not Reportable 10/24/20 06:45 Hem Pathologist Commnt No 10/24/20 06:45 Sodium 137 mmol/L (137-145) 10/25/20 07:00 Potassium 2.7 mmol/L (3.6-5.0) L* 10/25/20 07:00 Chloride 105.0 mmol/L (98-107) 10/25/20 07:00 Carbon Dioxide 19 mmol/L (22-30) L 10/25/20 07:00 Anion Gap 16 mmol/L 10/25/20 07:00 BUN < 1 mg/dL (7-17) L 10/25/20 07:00 Creatinine 0.4 mg/dL (0.6-1.2) L 10/25/20 07:00 Estimated GFR > 60 ml/min 10/25/20 07:00 BUN/Creatinine Ratio 3 % 10/25/20 07:00 Glucose 163 mg/dL (65-100) H 10/25/20 07:00 Calcium 7.2 mg/dL (8.4-10.2) L 10/25/20 07:00 Phosphorus 2.70 mg/dL (2.5-4.5) 10/19/20 05:50 Magnesium 1.50 mg/dL (1.7-2.3) L 10/25/20 07:00 Total Bilirubin 0.50 mg/dL (0.1-1.2) 10/25/20 07:00 AST 13 units/L (5-40) 10/25/20 07:00 ALT 37 units/L (7-56) 10/25/20 07:00 Alkaline Phosphatase 66 units/L (35-129) 10/25/20 07:00 Total Protein 4.7 g/dL (6.3-8.2) L 10/25/20 07:00 Albumin 2.6 g/dL (3.9-5) L 10/25/20 07:00 Albumin/Globulin Ratio 1.2 % 10/25/20 07:00 TSH 4.190 mlU/mL (0.270-4.200) 10/23/20 14:38 Free T4 1.26 ng/dL (0.76-1.46) 10/23/20 14:38 Nasal Screen MRSA (PCR) Negative (Negative) 10/20/20 04:40 C. difficile Tox (PCR) Negative (Negative) 10/19/20 09:36 Gaspar/IV: Voiding Method Bedside Commode Active Medications - Current Medications Current Medications: Generic Name Dose Route Start Last Admin Trade Name Freq PRN Reason Stop Dose Admin Acetaminophen 650 mg 10/19/20 03:27 Acetaminophen 325 Mg Tab PO Q4H PRN Pain MILD(1-3)/Fever >100.5/KEVIN Al Hydrox/Mg Hydrox/Simethicone 30 ml 10/19/20 03:27 Alum-Mag Hydroxide-Simethicone [id number]/5ml Oral Liqd 30 Ml PO Q4H PRN Indigestion Lipase/Protease/Amylase 12 each 10/25/20 11:30 Lipase 6000/Protease 19,000/Amylase 30,000 (Units) Dr Cap PO AC EVELYN Enoxaparin Sodium 60 mg 10/23/20 18:00 10/25/20 09:10 Enoxaparin 60 Mg/0.6 Ml Inj SUB-Q 60 mg Q12HR EVELYN Administration Hydralazine HCl 5 mg 10/19/20 03:29 Hydralazine 20 Mg/1 Ml Inj IV Q4H PRN Hypertension Hydromorphone HCl 2 mg 10/21/20 17:30 10/25/20 07:12 Hydromorphone 2 Mg/1 Ml Inj IV 2 mg Q4H PRN Administration Pain , Severe (7-10) Magnesium Sulfate 2 gm in 50 mls @ 25 mls/hr 10/25/20 07:47 10/25/20 09:11 Magnesium Sulfate 2gm/50ml IV 10/25/20 12:00 25 mls/hr ONCE NR Administration Potassium Chloride 10 meq in 100 mls @ 100 mls/hr 10/25/20 09:00 10/25/20 09:11 Kcl 10meq/100ml IV 10/25/20 12:59 100 mls/hr Q1H EVELYN Administration Potassium Chloride/Sodium Chloride 40 meq in 1,000 mls @ 75 mls/hr 10/25/20 10:00 Ns/Kcl 40meq IV DIRECT EVELYN Loperamide HCl 2 mg 10/24/20 12:28 Loperamide 2 Mg Cap PO Q2H PRN Diarrhea Magnesium Hydroxide 30 ml 10/19/20 03:27 Magnesium Hydroxide (Mom) Oral Liqd Udc PO Q4H PRN Constipation Metoclopramide HCl 10 mg 10/19/20 03:27 10/24/20 13:25 Metoclopramide 10 Mg/2 Ml Inj IV 10 mg Q6H PRN Administration Nausea And Vomiting Morphine Sulfate 2 mg 10/19/20 09:36 10/21/20 15:52 Morphine 2 Mg/1 Ml Inj IV 2 mg Q4H PRN Administration Pain, Moderate (4-6) Naloxone HCl 0.1 mg 10/19/20 09:37 Naloxone 0.4 Mg/1 Ml Inj IV Q2MIN PRN Res Rate </= 8 or 02 SAT < 92% Ondansetron HCl 4 mg 10/19/20 03:27 10/24/20 18:17 Ondansetron 4 Mg/2 Ml Inj IV 4 mg Q8H PRN Administration Nausea And Vomiting Oxycodone HCl 10 mg 10/20/20 22:00 10/25/20 09:10 Oxycodone Er 10 Mg Tab PO 10 mg Q12HR EVELYN Administration Potassium Chloride 40 meq 10/25/20 10:00 10/25/20 09:11 Potassium Chloride Er 20 Meq Tab PO 40 meq BID EVELYN Administration Sodium Chloride 10 ml 10/19/20 10:00 10/25/20 09:12 Sodium Chloride 0.9% 10 Ml Flush Syringe IV 10 ml BID EVELYN Administration Sodium Chloride 10 ml 10/19/20 03:27 Sodium Chloride 0.9% 10 Ml Flush Syringe IV PRN PRN LINE FLUSH Tramadol HCl 50 mg 10/19/20 03:29 10/20/20 10:25 Tramadol 50 Mg Tab PO 50 mg Q6H PRN Administration Pain, Moderate (4-6) Trazodone HCl 50 mg 10/20/20 01:00 10/24/20 21:06 Trazodone 50 Mg Tab PO 50 mg QHS EVELYN Administration Nutrition/Malnutrition Assess - Dietary Evaluation Nutrition/Malnutrition Findings: Nutrition Notes Start: 10/19/20 13:06 Freq: Status: Active Protocol: Document 10/25/20 09:31 AT (Rec: 10/25/20 09:36 AT [id number]) Co-Sign 10/25/20 09:31 Nutrition Notes Initial or Follow up Reassessment Other Pertinent Diagnosis Stage 4 pancreatic CA (on chemo), abd pain, N/V/D, Dehydration, Pancolitis Current Diet GI soft Labs/Tests Hgb 9.6 Na 137 K 2.7 BUN <1 Cr 0.4 BG 163 Ca 7.2 Mg 1.5 Pertinent Medications K-Dur KCl 10 mEq/100 mL Mg Sulfate 2 g/50 mL KCl 40 mEq in NaCl Height 5 ft 4 in Weight 57.07 kg Usual Body Weight 72 kg [place] Body Weight (kg) 54.54 BMI 21.6 Weight Status Underweight Subjective/Other Information Follow up for diet tolerance and intakes. Burn Absent Trauma Absent GI Symptoms Nausea,Diarrhea
[2020-10-25 10:13] LABS: Total Cells Counted 100
[2020-10-25 10:15] LABS: Platelet Estimate Consistent w Auto; Poikilocytosis Rare
[2020-10-25] MEDS ORDERED: LIPASE PO SCH (11:30)
[2020-10-25] MEDS ORDERED: PROTEASE PO SCH (11:30)
[2020-10-25] MEDS ORDERED: AMYLASE PO SCH (11:30)
[2020-10-25] MEDS: LIPASE 12,000/PROTEASE 38,000/AMYLASE 60,000 (UNITS) DR CAP PO SCH ×2 (13:35→17:00)
[2020-10-25] MEDS: ONDANSETRON 4 MG/2 ML INJ IV PRN (15:18)
--- NOTE | 2020-10-25 15:23 | Gastroenterology Progress Note ---
Assessment and Plan 1. GI: pt w/ pancreatic cancer now with colitis after chemo - stool cx's negative for C. diff - pt reports diarrhea improved from admission and now approx 3 loose stools per day - will start Questran 4gm po bid - diet as tolerated - electrolytes per primary team - antiemetics and pain meds prn - no plans to scope at this time - ok to dc from a GI standpoint when electrolytes stable - will follow for now Subjective Date of service: 10/25/20 Interval history: - reports 3-4 loose stools but much improved since admission. Denies other GI complaints Objective - Constitutional Vitals: Temp Pulse Resp BP Pulse Ox 96.6 F L 119 H 16 108/77 98 10/25/20 12:30 10/25/20 12:30 10/25/20 12:30 10/25/20 12:30 10/25/20 12:30 General appearance: no acute distress - EENT Eyes: PERRL - Respiratory Respiratory: bilateral: CTA - Cardiovascular Rhythm: regular Heart Sounds: Present: S1 & S2 - Gastrointestinal General gastrointestinal: Present: soft, non-tender, non-distended - Labs CBC & Chem 7: 10/25/20 07:00 10/25/20 07:00 Labs: Laboratory Results - last 24 hr 10/24/20 10/24/20 10/25/20 06:45 23:20 07:00 WBC 9.0 RBC 3.26 L Hgb 9.6 L Hct 28.2 L MCV 87 MCH 29 MCHC 34 RDW 15.1 Plt Count 203 Add Manual Diff Complete Complete Total Counted 100 100 Seg Neuts % (Manual) 47.0 76.0 H Band Neutrophils % 6.0 Lymphocytes % (Manual) 35.0 21.0 Reactive Lymphs % (Man) 3.0 Monocytes % (Manual) 5.0 2.0 Eosinophils % (Manual) 1.0 1.0 Metamyelocytes % 1.0 Myelocytes % 2.0 Nucleated RBC % Not Reportable 5.0 H Seg Neutrophils # Man 3.6 6.8 Band Neutrophils # 0.5 0.0 Lymphocytes # (Manual) 2.7 1.9 Abs React Lymphs (Man) 0.2 0.0 Monocytes # (Manual) 0.4 0.2 Eosinophils # (Manual) 0.1 0.1 Basophils # (Manual) 0.0 0.0 Metamyelocytes # 0.1 0.0 Myelocytes # 0.2 0.0 Promyelocytes # 0.0 0.0 Blast Cells # 0.0 0.0 WBC Morphology Not Reportable Not Reportable Hypersegmented Neuts Not Reportable Not Reportable Hyposegmented Neuts Not Reportable Not Reportable Hypogranular Neuts Not Reportable Not Reportable Smudge Cells Not Reportable Not Reportable Toxic Granulation Not Reportable Not Reportable Toxic Vacuolation Not Reportable Not Reportable Dohle Bodies Not Reportable Not Reportable Pelger-Huet Anomaly Not Reportable Not Reportable Philip Rods Not Reportable Not Reportable Platelet Estimate Consistent w auto Consistent w auto Clumped Platelets Not Reportable Not Reportable Plt Clumps, EDTA Not Reportable Not Reportable Large Platelets Rare Not Reportable Giant Platelets Not Reportable Not Reportable Platelet Satelliting Not Reportable Not Reportable Plt Morphology Comment Not Reportable Not Reportable RBC Morphology Not Reportable Not Reportable Dimorphic RBCs Not Reportable Not Reportable Polychromasia Not Reportable Not Reportable Hypochromasia Not Reportable Not Reportable Poikilocytosis Not Reportable Rare Anisocytosis Few Not Reportable Microcytosis Not Reportable Not Reportable Macrocytosis Not Reportable Not Reportable Spherocytes Not Reportable Not Reportable Pappenheimer Bodies Not Reportable Not Reportable Sickle Cells Not Reportable Not Reportable Target Cells Not Reportable Not Reportable Tear Drop Cells Not Reportable Not Reportable Ovalocytes Not Reportable Not Reportable Helmet Cells Not Reportable Not Reportable [place] Bodies Not Reportable Not Reportable [place] Rings Not Reportable Not Reportable [place] Cells Not Reportable Not Reportable Bite Cells Not Reportable Not Reportable Crenated Cell Not Reportable Not Reportable Elliptocytes Not Reportable Not Reportable Acanthocytes (Spur) Not Reportable Not Reportable Rouleaux Not Reportable Not Reportable Hemoglobin C Crystals Not Reportable Not Reportable Schistocytes Not Reportable Not Reportable Malaria parasites Not Reportable Not Reportable Emeterio Bodies Not Reportable Not Reportable Hem Pathologist Commnt No No Sodium 136 L Potassium 3.2 L D Chloride 105.4 Carbon Dioxide 21 L Anion Gap 13 BUN < 1 L Creatinine 0.4 L Estimated GFR > 60 BUN/Creatinine Ratio 3 Glucose 122 H Calcium 7.3 L Magnesium 1.60 L Total Bilirubin AST ALT Alkaline Phosphatase Total Protein Albumin Albumin/Globulin Ratio 10/25/20 07:00 WBC RBC Hgb Hct MCV MCH MCHC RDW Plt Count Add Manual Diff Total Counted Seg Neuts % (Manual) Band Neutrophils % Lymphocytes % (Manual) Reactive Lymphs % (Man) Monocytes % (Manual) Eosinophils % (Manual) Metamyelocytes % Myelocytes % Nucleated RBC % Seg Neutrophils # Man Band Neutrophils # Lymphocytes # (Manual) Abs React Lymphs (Man) Monocytes # (Manual) Eosinophils # (Manual) Basophils # (Manual) Metamyelocytes # Myelocytes # Promyelocytes # Blast Cells # WBC Morphology Hypersegmented Neuts Hyposegmented Neuts Hypogranular Neuts Smudge Cells Toxic Granulation Toxic Vacuolation Dohle Bodies Pelger-Huet Anomaly Philip Rods Platelet Estimate Clumped Platelets Plt Clumps, EDTA Large Platelets Giant Platelets Platelet Satelliting Plt Morphology Comment RBC Morphology Dimorphic RBCs Polychromasia Hypochromasia Poikilocytosis Anisocytosis Microcytosis Macrocytosis Spherocytes Pappenheimer Bodies Sickle Cells Target Cells Tear Drop Cells Ovalocytes Helmet Cells [place] Bodies [place] Rings Tresa Cells Bite Cells Crenated Cell Elliptocytes Acanthocytes (Spur) Rouleaux Hemoglobin C Crystals Schistocytes Malaria parasites Emeterio Bodies Hem Pathologist Commnt Sodium 137 Potassium 2.7 L* Chloride 105.0 Carbon Dioxide 19 L Anion Gap 16 BUN < 1 L Creatinine 0.4 L Estimated GFR > 60 BUN/Creatinine Ratio 3 Glucose 163 H Calcium 7.2 L Magnesium 1.50 L Total Bilirubin 0.50 AST 13 ALT 37 Alkaline Phosphatase 66 Total Protein 4.7 L Albumin 2.6 L Albumin/Globulin Ratio 1.2
[2020-10-25] MEDS: NACL 0.9%/KCL 40 MEQ 40 MEQ/1,000 ML BAG IV SCH (16:59)
[2020-10-25 18:54] LABS: Calcium 7.2 mg/dL (8.4-10.2); Hemolysis Index 9
[2020-10-25 18:56] LABS: BUN/Creatinine Ratio 3; Blood Urea Nitrogen < 1 mg/dL (7-17)
[2020-10-25] MEDS: traZODone 50 MG TAB PO SCH (21:36)
[2020-10-25] MEDS: CHOLESTYRAMINE (WITH SUGAR) 4 GM PACKET PO SCH (21:37)
[2020-10-26] MEDS: NACL 0.9%/KCL 40 MEQ 40 MEQ/1,000 ML BAG IV SCH (05:20)
[2020-10-26 05:28] LABS: Alanine Aminotransferase 32 units/L (7-56); Albumin 2.7 g/dL (3.9-5); Calcium 7.8 mg/dL (8.4-10.2); Hemolysis Index 2
[2020-10-26 05:39] LABS: BUN/Creatinine Ratio 3; Blood Urea Nitrogen < 1 mg/dL (7-17)
[2020-10-26] MEDS: HYDROmorphone 2 MG/1 ML INJ IV PRN ×2 (07:34→18:47)
--- NOTE | 2020-10-26 09:38 | Progress Note ---
Assessment and Plan Assessment and plan: #Intractable abdominal pain/pancolitis Likely secondary to colonic inflammation/pancreatic CA Completed antibiotics C. difficile negative Antidiarrheals GI recommendations appreciated-started on Questran Chemotherapy as outpatient #Severe electrolyte abnormalities Improved #Bilateral pulmonary embolism Continue Lovenox 60 mg twice daily Ultrasound lower extremity Doppler negative for any DVT #History of pancreatic mass On chemotherapy Follow-up with oncology as outpatient #Leukopenia From chemotherapy #DVT prophylaxis-patient is on Lovenox twice daily for PE Disposition-plan to discharge tomorrow if electrolytes are stable History Interval history: Patient is a 65-year-old female that presents emergency room for nausea vomiting weakness. Patient states she was sent here by her oncologist. Patient states she had a new chemotherapy on Wednesday and has had nausea and vomiting since. Patient states 3 days ago she developed diarrhea. Patient states she is now having weakness, loss of appetite and fatigue. Patient states she has had anything by mouth except for mild sips of water for the last [address] ates she feels dehydrated. Patient denies fever or chills. Patient denies blood in vomitus. Patient states she is on chemo for stage IV pancreatic cancer. Patient denies blood in her stool. ED work-up showed WBC 2.3 hemoglobin 11.6, platelets 168, sodium 135, potassium 3.1, creatinine 0.4, serum glucose 134, calcium 8.8, AST 81, ALT 213, and albumin 3.8. CT of the abdomen and pelvis with contrast done result is highly suspicious of pancolitis,: Has generalized mild thickening of the colon with mild surrounding inflammation colonic diverticulosis is seen without evidence of diverticulitis peritoneum showed multiple omental peritoneal nodules and pancreatic body mass measuring 3.8 x 3.3 cm. Patient seen at bedside in ED. Patient is alert oriented x3. Patient admits abdominal pain pain level 7/10. Patient also admits nausea and vomiting but denies chest pain and shortness of breath. Patient has a history of pancreatic CA getting chemotherapy via left subclavian Port-A-Cath. I reviewed patient medical record medication record and vital signs. 10/20: GI input noted no plans for scope at this time. Continue current management we will restart patient's oxycodone for chronic pain is related to pancreatic cancer. Imaging studies reviewed appears to be possible increase in mass noted. Patient noted with leukopenia today hematology consulted to assist will start on sliding scale coverage due to elevated blood sugar doubt diabetes although with pancreatic cancer I would not be surprised. Advance care plan discussion with the patient for 30 minutes patient will remain a full code. We will advance diet once she begins to improve with improving pain. Also replace potassium and recheck in a.m. 10/21: 65-year-old female with history of pancreatic cancer admitted with nausea vomiting and generalized weakness now with severe hypokalemia likely secondary to loose bowel stools. Will transfer patient to telemetry as IM beds are not available. Multiple potassium replacement ordered. We will also obtain nephrology consult to assist with electrolyte replacement. Patient will be placed on a monitor car operator due to severe hypokalemia. We will also give a gram of magnesium. Patient can be discharged once electrolytes are stabilized. She does not have any further nausea or vomiting at this time. GI input is appreciated 10/22. Remains on IV antibiotics for colitis. Potassium continues to be repleted. Appreciate GI recommendations. Nephrology following 10/23. Has tachycardia. Telemetry review showed sinus tach. Ordered TFTs. Echocardiogram ordered as well. Electrolytes stable today. 10/24. Heart rate remained elevated yesterday and TFTs were within normal limits. Echocardiogram showed slightly reduced EF. CTA chest showed bilateral PE and patient was started on Lovenox twice daily. This morning, she has no complaints except for multiple episodes of diarrhea. Potassium is low and this will be repleted 10/25. Reconsulted GI as she is still having diarrhea with electrolyte imbalance. On antidiarrheals already. Added creon pending GI evaluation. Switch fluid to K containing fluids. She remains on Lovenox for PE. Answered all her questions this AM. 10/26. Patient started on Questran per GI. Diarrhea is better. Electrolytes better as well. Switch to containing fluid to normal saline. Remains on Lovenox for PE. Plan to discharge tomorrow if she remains stable. Hospitalist Physical - Physical exam Narrative exam: VITAL SIGNS: Reviewed. GENERAL: Awake HEAD: No signs of head trauma. EYES: Pupils are equal. Extraocular motions intact. MOUTH: Oropharynx is normal. NECK: No adenopathy, no JVD. CHEST: Chest with diminished breath sounds bilaterally. No wheezes, rales, or rhonchi. CARDIAC: normal S1 and S2, without murmurs, gallops, or rubs. ABDOMEN: Soft, abdominal discomfort MUSCULOSKELETAL: No edema NEUROLOGIC EXAM: Alert and oriented x3. No focal neurologic deficits SKIN: No obvious lesions - Constitutional Vitals: Temp Pulse Resp BP Pulse Ox 97.7 F 111 H 18 113/76 97 10/26/20 08:34 10/26/20 08:34 10/26/20 08:34 10/26/20 08:34 10/26/20 08:34 Results - Labs CBC & Chem 7: 10/25/20 07:00 10/26/20 04:29 Labs: Laboratory Last Values WBC 9.0 K/mm3 (4.5-11.0) 10/25/20 07:00 RBC 3.26 M/mm3 (3.65-5.03) L 10/25/20 07:00 Hgb 9.6 gm/dl (10.1-14.3) L 10/25/20 07:00 Hct 28.2 % (30.3-42.9) L 10/25/20 07:00 MCV 87 fl (79-97) 10/25/20 07:00 MCH 29 pg (28-32) 10/25/20 07:00 MCHC 34 % (30-34) 10/25/20 07:00 RDW 15.1 % (13.2-15.2) 10/25/20 07:00 Plt Count 203 K/mm3 (140-440) 10/25/20 07:00 Lymph % (Auto) [employer] Apprentice 10/20/20 08:40 [place] % (Auto) [employer]ricator Apprentice 10/20/20 08:40 Add Manual Diff Complete 10/25/20 07:00 Total Counted 100 10/25/20 07:00 Seg Neutrophils % [employer] Apprentice 10/20/20 08:40 Seg Neuts % (Manual) 76.0 % (40.0-70.0) H 10/25/20 07:00 Band Neutrophils % 6.0 % 10/24/20 06:45 Lymphocytes % (Manual) 21.0 % (13.4-35.0) 10/25/20 07:00 Reactive Lymphs % (Man) 3.0 % 10/24/20 06:45 Monocytes % (Manual) 2.0 % (0.0-7.3) 10/25/20 07:00 Eosinophils % (Manual) 1.0 % (0.0-4.3) 10/25/20 07:00 Metamyelocytes % 1.0 % 10/24/20 06:45 Myelocytes % 2.0 % 10/24/20 06:45 Nucleated RBC % 5.0 % (0.0-0.9) H 10/25/20 07:00 Seg Neutrophils # Man 6.8 K/mm3 (1.8-7.7) 10/25/20 07:00 Band Neutrophils # 0.0 K/mm3 10/25/20 07:00 Lymphocytes # (Manual) 1.9 K/mm3 (1.2-5.4) 10/25/20 07:00 Abs React Lymphs (Man) 0.0 K/mm3 10/25/20 07:00 Monocytes # (Manual) 0.2 K/mm3 (0.0-0.8) 10/25/20 07:00 Eosinophils # (Manual) 0.1 K/mm3 (0.0-0.4) 10/25/20 07:00 Basophils # (Manual) 0.0 K/mm3 (0.0-0.1) 10/25/20 07:00 Metamyelocytes # 0.0 K/mm3 10/25/20 07:00 Myelocytes # 0.0 K/mm3 10/25/20 07:00 Promyelocytes # 0.0 K/mm3 10/25/20 07:00 Blast Cells # 0.0 K/mm3 10/25/20 07:00 WBC Morphology Not Reportable 10/25/20 07:00 Hypersegmented Neuts Not Reportable 10/25/20 07:00 Hyposegmented Neuts Not Reportable 10/25/20 07:00 Hypogranular Neuts Not Reportable 10/25/20 07:00 Smudge Cells Not Reportable 10/25/20 07:00 Toxic Granulation Not Reportable 10/25/20 07:00 Toxic Vacuolation Not Reportable 10/25/20 07:00 Dohle Bodies Not Reportable 10/25/20 07:00 Pelger-Huet Anomaly Not Reportable 10/25/20 07:00 Philip Rods Not Reportable 10/25/20 07:00 Platelet Estimate Consistent w auto 10/25/20 07:00 Clumped Platelets Not Reportable 10/25/20 07:00 Plt Clumps, EDTA Not Reportable 10/25/20 07:00 Large Platelets Not Reportable 10/25/20 07:00 Giant Platelets Not Reportable 10/25/20 07:00 Platelet Satelliting Not Reportable 10/25/20 07:00 Plt Morphology Comment Not Reportable 10/25/20 07:00 RBC Morphology Not Reportable 10/25/20 07:00 Dimorphic RBCs Not Reportable 10/25/20 07:00 Polychromasia Not Reportable 10/25/20 07:00 Hypochromasia Not Reportable 10/25/20 07:00 Poikilocytosis Rare 10/25/20 07:00 Anisocytosis Not Reportable 10/25/20 07:00 Microcytosis Not Reportable 10/25/20 07:00 Macrocytosis Not Reportable 10/25/20 07:00 Spherocytes Not Reportable 10/25/20 07:00 Pappenheimer Bodies Not Reportable 10/25/20 07:00 Sickle Cells Not Reportable 10/25/20 07:00 Target Cells Not Reportable 10/25/20 07:00 Tear Drop Cells Not Reportable 10/25/20 07:00 Ovalocytes Not Reportable 10/25/20 07:00 Helmet Cells Not Reportable 10/25/20 07:00 Page-Taft Bodies Not Reportable 10/25/20 07:00 Vona Rings Not Reportable 10/25/20 07:00 Tresa Cells Not Reportable 10/25/20 07:00 Bite Cells Not Reportable 10/25/20 07:00 Crenated Cell Not Reportable 10/25/20 07:00 Elliptocytes Not Reportable 10/25/20 07:00 Acanthocytes (Spur) Not Reportable 10/25/20 07:00 Rouleaux Not Reportable 10/25/20 07:00 Hemoglobin C Crystals Not Reportable 10/25/20 07:00 Schistocytes Not Reportable 10/25/20 07:00 Malaria parasites Not Reportable 10/25/20 07:00 Emeterio Bodies Not Reportable 10/25/20 07:00 Hem Pathologist Commnt No 10/25/20 07:00 Sodium 140 mmol/L (137-145) 10/26/20 04:29 Potassium 4.4 mmol/L (3.6-5.0) D 10/26/20 04:29 Chloride 108.2 mmol/L (98-107) H 10/26/20 04:29 Carbon Dioxide 22 mmol/L (22-30) 10/26/20 04:29 Anion Gap 14 mmol/L 10/26/20 04:29 BUN < 1 mg/dL (7-17) L 10/26/20 04:29 Creatinine 0.3 mg/dL (0.6-1.2) L 10/26/20 04:29 Estimated GFR > 60 ml/min 10/26/20 04:29 BUN/Creatinine Ratio 3 % 10/26/20 04:29 Glucose 110 mg/dL (65-100) H 10/26/20 04:29 Calcium 7.8 mg/dL (8.4-10.2) L 10/26/20 04:29 Phosphorus 2.70 mg/dL (2.5-4.5) 10/19/20 05:50 Magnesium 1.70 mg/dL (1.7-2.3) 10/26/20 04:29 Total Bilirubin 0.40 mg/dL (0.1-1.2) 10/26/20 04:29 AST 13 units/L (5-40) 10/26/20 04:29 ALT 32 units/L (7-56) 10/26/20 04:29 Alkaline Phosphatase 72 units/L (35-129) 10/26/20 04:29 Total Protein 4.8 g/dL (6.3-8.2) L 10/26/20 04:29 Albumin 2.7 g/dL (3.9-5) L 10/26/20 04:29 Albumin/Globulin Ratio 1.3 % 10/26/20 04:29 TSH 4.190 mlU/mL (0.270-4.200) 10/23/20 14:38 Free T4 1.26 ng/dL (0.76-1.46) 10/23/20 14:38 Nasal Screen MRSA (PCR) Negative (Negative) 10/20/20 04:40 C. difficile Tox (PCR) Negative (Negative) 10/19/20 09:36 Gaspar/IV: Voiding Method Bedside Commode Active Medications - Current Medications Current Medications: Generic Name Dose Route Start Last Admin Trade Name Freq PRN Reason Stop Dose Admin Acetaminophen 650 mg 10/19/20 03:27 Acetaminophen 325 Mg Tab PO Q4H PRN Pain MILD(1-3)/Fever >100.5/KEVIN Al Hydrox/Mg Hydrox/Simethicone 30 ml 10/19/20 03:27 Alum-Mag Hydroxide-Simethicone [id number]/5ml Oral Liqd 30 Ml PO Q4H PRN Indigestion Lipase/Protease/Amylase 6 each 10/25/20 11:30 10/25/20 17:00 Lipase 12,000/Protease 38,000/Amylase 60,000 (Units) Dr Cap PO 6 each AC EVELYN Administration Cholestyramine Resin 4 gm 10/25/20 22:00 10/25/20 21:37 Cholestyramine (With Sugar) 4 Gm Packet PO 4 gm BID EVELYN Administration Enoxaparin Sodium 60 mg 10/23/20 18:00 10/25/20 21:35 Enoxaparin 60 Mg/0.6 Ml Inj SUB-Q 60 mg Q12HR EVELYN Administration Hydralazine HCl 5 mg 10/19/20 03:29 Hydralazine 20 Mg/1 Ml Inj IV Q4H PRN Hypertension Hydromorphone HCl 2 mg 10/21/20 17:30 10/26/20 07:34 Hydromorphone 2 Mg/1 Ml Inj IV 2 mg Q4H PRN Administration Pain , Severe (7-10) Loperamide HCl 2 mg 10/24/20 12:28 10/25/20 15:26 Loperamide 2 Mg Cap PO 2 mg Q2H PRN Administration Diarrhea Magnesium Hydroxide 30 ml 10/19/20 03:27 Magnesium Hydroxide (Mom) Oral Liqd Udc PO Q4H PRN Constipation Magnesium Oxide 400 mg 10/26/20 09:36 Magnesium Oxide 400 Mg Tab PO 10/26/20 09:37 QDAY ONE Metoclopramide HCl 10 mg 10/19/20 03:27 10/24/20 13:25 Metoclopramide 10 Mg/2 Ml Inj IV 10 mg Q6H PRN Administration Nausea And Vomiting Morphine Sulfate 2 mg 10/19/20 09:36 10/21/20 15:52 Morphine 2 Mg/1 Ml Inj IV 2 mg Q4H PRN Administration Pain, Moderate (4-6) Naloxone HCl 0.1 mg 10/19/20 09:37 Naloxone 0.4 Mg/1 Ml Inj IV Q2MIN PRN Res Rate </= 8 or 02 SAT < 92% Ondansetron HCl 4 mg 10/19/20 03:27 10/25/20 15:18 Ondansetron 4 Mg/2 Ml Inj IV 4 mg Q8H PRN Administration Nausea And Vomiting Oxycodone HCl 10 mg 10/20/20 22:00 10/25/20 21:35 Oxycodone Er 10 Mg Tab PO 10 mg Q12HR EVELYN Administration Potassium Chloride 40 meq 10/25/20 10:00 10/25/20 21:36 Potassium Chloride Er 20 Meq Tab PO 40 meq BID EVELYN Administration Sodium Chloride 10 ml 10/19/20 10:00 10/25/20 21:38 Sodium Chloride 0.9% 10 Ml Flush Syringe IV 10 ml BID EVELYN Administration Sodium Chloride 10 ml 10/19/20 03:27 Sodium Chloride 0.9% 10 Ml Flush Syringe IV PRN PRN LINE FLUSH Tramadol HCl 50 mg 10/19/20 03:29 10/20/20 10:25 Tramadol 50 Mg Tab PO 50 mg Q6H PRN Administration Pain, Moderate (4-6) Trazodone HCl 50 mg 10/20/20 01:00 10/25/20 21:36 Trazodone 50 Mg Tab PO 50 mg QHS EVELYN Administration Nutrition/Malnutrition Assess - Dietary Evaluation Nutrition/Malnutrition Findings: Nutrition Notes Start: 10/19/20 13:06 Freq: Status: Active Protocol: Document 10/25/20 09:31 AT (Rec: 10/25/20 09:36 AT [id number]) Co-Sign 10/25/20 09:31 Nutrition Notes Initial or Follow up Reassessment Other Pertinent Diagnosis Stage 4 pancreatic CA (on chemo), abd pain, N/V/D, Dehydration, Pancolitis Current Diet GI soft Labs/Tests Hgb 9.6 Na 137 K 2.7 BUN <1 Cr 0.4 BG 163 Ca 7.2 Mg 1.5 Pertinent Medications K-Dur KCl 10 mEq/100 mL Mg Sulfate 2 g/50 mL KCl 40 mEq in NaCl Height 5 ft 4 in Weight 57.07 kg Usual Body Weight 72 kg [place] Body Weight (kg) 54.54 BMI 21.6 Weight Status Underweight Subjective/Other Information Follow up for diet tolerance and intakes. Pt reports that she is eating 25% of meals and 100% of ONS. Pt reports that she is consuming fluids more than foods at this time. Percent of energy/protein needs met: 72%/67% Burn Absent Trauma Absent GI Symptoms Nausea,Diarrhea Current % PO Poor (25-49%) Minimum of two criteria Yes Energy Intake (severe) < or equal to 50% Estimated Energy Requirement > or equal to 5 days Interpretation of Weight Loss (non- 1-2% in 1 week severe) #2 Nutrition Diagnosis Malnutrition Diagnosis Progress(for reassessment Continues documentation) #1 Nutrition Diagnosis Inadequate oral intake As Evidenced by Signs and Symptoms pt tolerating 25% of meals and 100% of ONS Diagnosis Progress(for reassessment Continues documentation) Is patient on ventilator? No Is Patient Ambulatory and/or Out of Bed Yes REE-([place]-St. Jeor-ambulatory/OOB) [ 1443.910 NUTR.[id number]] Kcal/Kg value to use for calculation 30 Approximate Energy Requirements Using 1712 kcal/Kg Calculation Used for Recommendations Kcal/kg Additional Notes PRO needs: 68-85g (1.2-1.5 g/ kg) Fluid needs: 1 mL/kcal or per MD Nutrition Intervention Change Diet Order: Continue current Add Supplement/Snack (indicate name/kcal Ensure Clear TID /protein ) Provides kCal: 720 Provides Protein (gm) 24 Goal #1 PO tolerance Goal #2 Meet at least 80% of estimated energy and protein needs via diet and ONS Goal #3 Weight maintenance Anticipated Discharge Needs: Unable to determine at this time Follow-Up By: 10/28/20 Additional Comments F/U for stable intakes
[2020-10-26] MEDS ORDERED: MAGNESIUM OXIDE 400 MG TAB PO ONE (10:00)
[2020-10-26] MEDS: LIPASE 12,000/PROTEASE 38,000/AMYLASE 60,000 (UNITS) DR CAP PO SCH ×3 (10:02→16:28)
[2020-10-26] MEDS: POTASSIUM CHLORIDE ER 20 MEQ TAB PO SCH ×2 (10:02→21:17)
[2020-10-26] MEDS: oxyCODONE ER 10 MG TAB PO SCH ×2 (10:03→21:17)
[2020-10-26] MEDS: ENOXAPARIN 60 MG/0.6 ML INJ SUB-Q SCH ×2 (10:03→21:18)
[2020-10-26] MEDS: CHOLESTYRAMINE (WITH SUGAR) 4 GM PACKET PO SCH ×2 (10:04→21:17)
--- NOTE | 2020-10-26 16:54 | Progress Note ---
Assessment and Plan 1. Diarrhea -most likely related to chemotherapy. Patient states she is doing well and tolerating p.o. -Continue cholestyramine and okay to discharge from GI standpoint. We will sign off. Please call as needed. Thanks. Subjective Date of service: 10/26/20 Interval history: Patient had 3 watery bowel movements today. Tolerating p.o. well. Overall, states she is much better. Objective - Constitutional Vitals: Vital Signs - 12hr 10/26/20 10/26/20 10/26/20 05:02 08:34 11:32 Temperature 97.5 F L 97.7 F Pulse Rate 99 H 111 H Respiratory 18 18 18 Rate Blood Pressure 111/81 113/76 O2 Sat by Pulse 99 97 97 Oximetry 10/26/20 16:19 Temperature Pulse Rate 91 H Respiratory Rate Blood Pressure O2 Sat by Pulse Oximetry General appearance: Present: no acute distress - EENT Eyes: PERRL, EOM intact ENT: hearing intact - Respiratory Respiratory effort: normal - Cardiovascular Rhythm: regular Heart Sounds: Present: S1 & S2 Extremities: No edema - Gastrointestinal General gastrointestinal: Present: soft, non-tender - Labs CBC & Chem 7: 10/25/20 07:00 10/26/20 04:29 Labs: Abnormal lab results 10/25/20 10/26/20 Range/Units 18:22 04:29 Sodium 135 L (137-145) mmol/L Potassium 3.3 L D (3.6-5.0) mmol/L Chloride 108.2 H (98-107) mmol/L Carbon Dioxide 18 L (22-30) mmol/L BUN < 1 L < 1 L (7-17) mg/dL Creatinine 0.3 L 0.3 L (0.6-1.2) mg/dL Glucose 155 H 110 H (65-100) mg/dL Calcium 7.2 L 7.8 L (8.4-10.2) mg/dL Total Protein 4.8 L (6.3-8.2) g/dL Albumin 2.7 L (3.9-5) g/dL Medications & Allergies - Medications Allergies/Adverse Reactions: Allergies No Known Allergies Allergy (Verified 10/19/20 02:21) Home Medications: Home Medications Medication Instructions Recorded Confirmed Last Taken Type Celecoxib [celeBREX] 50 mg PO BID #30 capsule 08/09/20 10/23/20 Unknown Rx Sennosides/Docusate Sodium [Stool 1 each PO DAILY #30 tablet 08/09/20 10/23/20 Unknown Rx Soft-Stimulant Lax Tab] oxyCODONE ER [oxyCONTIN ER] 10 mg PO Q12HR #30 tablet 08/09/20 10/23/20 Unknown Rx traMADoL [Ultram 50 MG tab] 50 mg PO Q6HR PRN #12 tablet 08/09/20 10/23/20 Unknown Rx traZODone [Desyrel] 50 mg PO QHS PRN #30 tablet 08/09/20 10/23/20 Unknown Rx Dicyclomine [Bentyl] 20 mg PO QID PRN #20 tablet 08/23/20 10/23/20 Unknown Rx oxyCODONE [roxiCODONE] 5 mg PO Q6H PRN #12 tablet 08/23/20 10/23/20 Unknown Rx Active Medications: Generic Name Dose Route Start Last Admin Trade Name Freq PRN Reason Stop Dose Admin Acetaminophen 650 mg 10/19/20 03:27 Acetaminophen 325 Mg Tab PO Q4H PRN Pain MILD(1-3)/Fever >100.5/KEVIN Al Hydrox/Mg Hydrox/Simethicone 30 ml 10/19/20 03:27 Alum-Mag Hydroxide-Simethicone [id number]/5ml Oral Liqd 30 Ml PO Q4H PRN Indigestion Lipase/Protease/Amylase 6 each 10/25/20 11:30 10/26/20 16:28 Lipase 12,000/Protease 38,000/Amylase 60,000 (Units) Dr Cap PO 6 each AC EVELYN Administration Cholestyramine Resin 4 gm 10/25/20 22:00 10/26/20 10:04 Cholestyramine (With Sugar) 4 Gm Packet PO 4 gm BID EVELYN Administration Enoxaparin Sodium 60 mg 10/23/20 18:00 10/26/20 10:03 Enoxaparin 60 Mg/0.6 Ml Inj SUB-Q 60 mg Q12HR EVELYN Administration Hydralazine HCl 5 mg 10/19/20 03:29 Hydralazine 20 Mg/1 Ml Inj IV Q4H PRN Hypertension Hydromorphone HCl 2 mg 10/21/20 17:30 10/26/20 07:34 Hydromorphone 2 Mg/1 Ml Inj IV 2 mg Q4H PRN Administration Pain , Severe (7-10) Loperamide HCl 2 mg 10/24/20 12:28 10/25/20 15:26 Loperamide 2 Mg Cap PO 2 mg Q2H PRN Administration Diarrhea Magnesium Hydroxide 30 ml 10/19/20 03:27 Magnesium Hydroxide (Mom) Oral Liqd Udc PO Q4H PRN Constipation Metoclopramide HCl 10 mg 10/19/20 03:27 10/24/20 13:25 Metoclopramide 10 Mg/2 Ml Inj IV 10 mg Q6H PRN Administration Nausea And Vomiting Morphine Sulfate 2 mg 10/19/20 09:36 10/21/20 15:52 Morphine 2 Mg/1 Ml Inj IV 2 mg Q4H PRN Administration Pain, Moderate (4-6) Naloxone HCl 0.1 mg 10/19/20 09:37 Naloxone 0.4 Mg/1 Ml Inj IV Q2MIN PRN Res Rate </= 8 or 02 SAT < 92% Ondansetron HCl 4 mg 10/19/20 03:27 10/25/20 15:18 Ondansetron 4 Mg/2 Ml Inj IV 4 mg Q8H PRN Administration Nausea And Vomiting Oxycodone HCl 10 mg 10/20/20 22:00 10/26/20 10:03 Oxycodone Er 10 Mg Tab PO 10 mg Q12HR EVELYN Administration Potassium Chloride 40 meq 10/25/20 10:00 10/26/20 10:02 Potassium Chloride Er 20 Meq Tab PO 20 meq BID EVELYN Administration Sodium Chloride 10 ml 10/19/20 10:00 10/26/20 10:04 Sodium Chloride 0.9% 10 Ml Flush Syringe IV 10 ml BID EVELYN Administration Sodium Chloride 10 ml 10/19/20 03:27 Sodium Chloride 0.9% 10 Ml Flush Syringe IV PRN PRN LINE FLUSH Tramadol HCl 50 mg 10/19/20 03:29 10/20/20 10:25 Tramadol 50 Mg Tab PO 50 mg Q6H PRN Administration Pain, Moderate (4-6) Trazodone HCl 50 mg 10/20/20 01:00 10/25/20 21:36 Trazodone 50 Mg Tab PO 50 mg QHS EVELYN Administration
[2020-10-26] MEDS: traZODone 50 MG TAB PO SCH (21:17)
[2020-10-27] MEDS: HYDROmorphone 2 MG/1 ML INJ IV PRN (06:04)
[2020-10-27] MEDS: LIPASE 12,000/PROTEASE 38,000/AMYLASE 60,000 (UNITS) DR CAP PO SCH ×3 (08:24→17:24)
[2020-10-27] MEDS: oxyCODONE ER 10 MG TAB PO SCH ×2 (09:38→22:25)
[2020-10-27] MEDS: ENOXAPARIN 60 MG/0.6 ML INJ SUB-Q SCH (09:38)
[2020-10-27] MEDS: CHOLESTYRAMINE (WITH SUGAR) 4 GM PACKET PO SCH ×2 (09:38→22:25)
--- NOTE | 2020-10-27 09:47 | Progress Note ---
Assessment and Plan Assessment and plan: #Intractable abdominal pain/pancolitis Likely secondary to colonic inflammation/pancreatic CA Completed antibiotics C. difficile negative Antidiarrheals GI recommendations appreciated-started on Questran Chemotherapy as outpatient #Severe electrolyte abnormalities Improved #Bilateral pulmonary embolism Switch lovenox to heparin drip Ultrasound lower extremity Doppler negative for any DVT Due to elevated HR >110. Will consult vascular to see if she will benefit from thrombectomy. # SVTs From underlying PE. Mgt as per above. #History of pancreatic mass On chemotherapy Follow-up with oncology as outpatient #Leukopenia From chemotherapy #DVT prophylaxis-patient is on Lovenox twice daily for PE Disposition-plan to discharge tomorrow if electrolytes are stable History Interval history: Patient is a 65-year-old female that presents emergency room for nausea vomiting weakness. Patient states she was sent here by her oncologist. Patient states she had a new chemotherapy on Wednesday and has had nausea and vomiting since. Patient states 3 days ago she developed diarrhea. Patient states she is now having weakness, loss of appetite and fatigue. Patient states she has had anything by mouth except for mild sips of water for the last 5 days. Patient states she feels dehydrated. Patient denies fever or chills. Patient denies blood in vomitus. Patient states she is on chemo for stage IV pancreatic cancer. Patient denies blood in her stool. ED work-up showed WBC 2.3 hemoglobin 11.6, platelets 168, sodium 135, potassium 3.1, creatinine 0.4, serum glucose 134, calcium 8.8, AST 81, ALT 213, and albumin 3.8. CT of the abdomen and pelvis with contrast done result is highly suspicious of pancolitis,: Has generalized mild thickening of the colon with mild surrounding inflammation colonic diverticulosis is seen without evidence of diverticulitis peritoneum showed multiple omental peritoneal nodules and pancreatic body mass measuring 3.8 x 3.3 cm. Patient seen at bedside in ED. Patient is alert oriented x3. Patient admits abdominal pain pain level 7/10. Patient also admits nausea and vomiting but denies chest pain and shortness of breath. Patient has a history of pancreatic CA getting chemotherapy via left subclavian Port-A-Cath. I reviewed patient medical record medication record and vital sign s. 10/20: GI input noted no plans for scope at this time. Continue current management we will restart patient's oxycodone for chronic pain is related to pancreatic cancer. Imaging studies reviewed appears to be possible increase in mass noted. Patient noted with leukopenia today hematology consulted to assist will start on sliding scale coverage due to elevated blood sugar doubt diabetes although with pancreatic cancer I would not be surprised. Advance care plan discussion with the patient for 30 minutes patient will remain a full code. We will advance diet once she begins to improve with improving pain. Also replace potassium and recheck in a.m. 10/21: 65-year-old female with history of pancreatic cancer admitted with nausea vomiting and generalized weakness now with severe hypokalemia likely secondary to loose bowel stools. Will transfer patient to telemetry as IMCU beds are not available. Multiple potassium replacement ordered. We will also obtain nephrology consult to assist with electrolyte replacement. Patient will be placed on a engine monitor due to severe hypokalemia. We will also give a gram of magnesium. Patient can be discharged once electrolytes are stabilized. She does not have any further nausea or vomiting at this time. GI input is appreciated 10/22. Remains on IV antibiotics for colitis. Potassium continues to be repleted. Appreciate GI recommendations. Nephrology following 10/23. Has tachycardia. Telemetry review showed sinus tach. Ordered TFTs. Echocardiogram ordered as well. Electrolytes stable today. 10/24. Heart rate remained elevated yesterday and TFTs were within normal limits. Echocardiogram showed slightly reduced EF. CTA chest showed bilateral PE and patient was started on Lovenox twice daily. This morning, she has no complaints except for multiple episodes of diarrhea. Potassium is low and this will be repleted 10/25. Reconsulted GI as she is still having diarrhea with electrolyte imbalance. On antidiarrheals already. Added creon pending GI evaluation. Switch fluid to K containing fluids. She remains on Lovenox for PE. Answered all her questions this AM. 10/26. Patient started on Questran per GI. Diarrhea is better. Electrolytes better as well. Switch to containing fluid to normal saline. Remains on Lovenox for PE. Plan to discharge tomorrow if she remains stable. 10/27. Her HR was up to 130-150's. Rhythm SVTs some PVCs. She denies any chest pain or palpations. She remains on lovenox bid. I will consult vascular surgery to see if she needs thrombectomy. Will consult cardiology as well. Her electrolytes this AM is still pending. Will hold DC for now. Hospitalist Physical - Physical exam Narrative exam: VITAL SIGNS: Reviewed. GENERAL: Awake HEAD: No signs of head trauma. EYES: Pupils are equal. Extraocular motions intact. MOUTH: Oropharynx is normal. NECK: No adenopathy, no JVD. CHEST: Chest with diminished breath sounds bilaterally. No wheezes, rales, or rhonchi. CARDIAC: normal S1 and S2, without murmurs, gallops, or rubs. ABDOMEN: Soft, abdominal discomfort MUSCULOSKELETAL: No edema NEUROLOGIC EXAM: Alert and oriented x3. No focal neurologic deficits SKIN: No obvious lesions - Constitutional Vitals: Temp Pulse Resp BP Pulse Ox 97.2 F L 112 H 18 95/65 98 10/27/20 07:28 10/27/20 07:28 10/27/20 07:28 10/27/20 07:28 10/27/20 07:28 Results - Labs CBC & Chem 7: 10/25/20 07:00 10/27/20 Unknown Labs: Laboratory Last Values WBC 9.0 K/mm3 (4.5-11.0) 10/25/20 07:00 RBC 3.26 M/mm3 (3.65-5.03) L 10/25/20 07:00 Hgb 9.6 gm/dl (10.1-14.3) L 10/25/20 07:00 Hct 28.2 % (30.3-42.9) L 10/25/20 07:00 MCV 87 fl (79-97) 10/25/20 07:00 MCH 29 pg (28-32) 10/25/20 07:00 MCHC 34 % (30-34) 10/25/20 07:00 RDW 15.1 % (13.2-15.2) 10/25/20 07:00 Plt Count 203 K/mm3 (140-440) 10/25/20 07:00 Lymph % (Auto) [employer] 10/20/20 08:40 [place] % (Auto) [employer] 10/20/20 08:40 Add Manual Diff Complete 10/25/20 07:00 Total Counted 100 10/25/20 07:00 Seg Neutrophils % [employer] 10/20/20 08:40 Seg Neuts % (Manual) 76.0 % (40.0-70.0) H 10/25/20 07:00 Band Neutrophils % 6.0 % 10/24/20 06:45 Lymphocytes % (Manual) 21.0 % (13.4-35.0) 10/25/20 07:00 Reactive Lymphs % (Man) 3.0 % 10/24/20 06:45 Monocytes % (Manual) 2.0 % (0.0-7.3) 10/25/20 07:00 Eosinophils % (Manual) 1.0 % (0.0-4.3) 10/25/20 07:00 Metamyelocytes % 1.0 % 10/24/20 06:45 Myelocytes % 2.0 % 10/24/20 06:45 Nucleated RBC % 5.0 % (0.0-0.9) H 10/25/20 07:00 Seg Neutrophils # Man 6.8 K/mm3 (1.8-7.7) 10/25/20 07:00 Band Neutrophils # 0.0 K/mm3 10/25/20 07:00 Lymphocytes # (Manual) 1.9 K/mm3 (1.2-5.4) 10/25/20 07:00 Abs React Lymphs (Man) 0.0 K/mm3 10/25/20 07:00 Monocytes # (Manual) 0.2 K/mm3 (0.0-0.8) 10/25/20 07:00 Eosinophils # (Manual) 0.1 K/mm3 (0.0-0.4) 10/25/20 07:00 Basophils # (Manual) 0.0 K/mm3 (0.0-0.1) 10/25/20 07:00 Metamyelocytes # 0.0 K/mm3 10/25/20 07:00 Myelocytes # 0.0 K/mm3 10/25/20 07:00 Promyelocytes # 0.0 K/mm3 10/25/20 07:00 Blast Cells # 0.0 K/mm3 10/25/20 07:00 WBC Morphology Not Reportable 10/25/20 07:00 Hypersegmented Neuts Not Reportable 10/25/20 07:00 Hyposegmented Neuts Not Reportable 10/25/20 07:00 Hypogranular Neuts Not Reportable 10/25/20 07:00 Smudge Cells Not Reportable 10/25/20 07:00 Toxic Granulation Not Reportable 10/25/20 07:00 Toxic Vacuolation Not Reportable 10/25/20 07:00 Dohle Bodies Not Reportable 10/25/20 07:00 Pelger-Huet Anomaly Not Reportable 10/25/20 07:00 Philip Rods Not Reportable 10/25/20 07:00 Platelet Estimate Consistent w auto 10/25/20 07:00 Clumped Platelets Not Reportable 10/25/20 07:00 Plt Clumps, EDTA Not Reportable 10/25/20 07:00 Large Platelets Not Reportable 10/25/20 07:00 Giant Platelets Not Reportable 10/25/20 07:00 Platelet Satelliting Not Reportable 10/25/20 07:00 Plt Morphology Comment Not Reportable 10/25/20 07:00 RBC Morphology Not Reportable 10/25/20 07:00 Dimorphic RBCs Not Reportable 10/25/20 07:00 Polychromasia Not Reportable 10/25/20 07:00 Hypochromasia Not Reportable 10/25/20 07:00 Poikilocytosis Rare 10/25/20 07:00 Anisocytosis Not Reportable 10/25/20 07:00 Microcytosis Not Reportable 10/25/20 07:00 Macrocytosis Not Reportable 10/25/20 07:00 Spherocytes Not Reportable 10/25/20 07:00 Pappenheimer Bodies Not Reportable 10/25/20 07:00 Sickle Cells Not Reportable 10/25/20 07:00 Target Cells Not Reportable 10/25/20 07:00 Tear Drop Cells Not Reportable 10/25/20 07:00 Ovalocytes Not Reportable 10/25/20 07:00 Helmet Cells Not Reportable 10/25/20 07:00 [place] Bodies Not Reportable 10/25/20 07:00 [place] Rings Not Reportable 10/25/20 07:00 Tresa Cells Not Reportable 10/25/20 07:00 Bite Cells Not Reportable 10/25/20 07:00 Crenated Cell Not Reportable 10/25/20 07:00 Elliptocytes Not Reportable 10/25/20 07:00 Acanthocytes (Spur) Not Reportable 10/25/20 07:00 Rouleaux Not Reportable 10/25/20 07:00 Hemoglobin C Crystals Not Reportable 10/25/20 07:00 Schistocytes Not Reportable 10/25/20 07:00 Malaria parasites Not Reportable 10/25/20 07:00 Emeterio Bodies Not Reportable 10/25/20 07:00 Hem Pathologist Commnt No 10/25/20 07:00 Sodium 140 mmol/L (137-145) 10/26/20 04:29 Potassium 4.4 mmol/L (3.6-5.0) D 10/26/20 04:29 Chloride 108.2 mmol/L (98-107) H 10/26/20 04:29 Carbon Dioxide 22 mmol/L (22-30) 10/26/20 04:29 Anion Gap 14 mmol/L 10/26/20 04:29 BUN < 1 mg/dL (7-17) L 10/26/20 04:29 Creatinine 0.3 mg/dL (0.6-1.2) L 10/26/20 04:29 Estimated GFR > 60 ml/min 10/26/20 04:29 BUN/Creatinine Ratio 3 % 10/26/20 04:29 Glucose 110 mg/dL (65-100) H 10/26/20 04:29 Calcium 7.8 mg/dL (8.4-10.2) L 10/26/20 04:29 Phosphorus 2.70 mg/dL (2.5-4.5) 10/19/20 05:50 Magnesium 1.70 mg/dL (1.7-2.3) 10/26/20 04:29 Total Bilirubin 0.40 mg/dL (0.1-1.2) 10/26/20 04:29 AST 13 units/L (5-40) 10/26/20 04:29 ALT 32 units/L (7-56) 10/26/20 04:29 Alkaline Phosphatase 72 units/L (35-129) 10/26/20 04:29 Total Protein 4.8 g/dL (6.3-8.2) L 10/26/20 04:29 Albumin 2.7 g/dL (3.9-5) L 10/26/20 04:29 Albumin/Globulin Ratio 1.3 % 10/26/20 04:29 TSH 4.190 mlU/mL (0.270-4.200) 10/23/20 14:38 Free T4 1.26 ng/dL (0.76-1.46) 10/23/20 14:38 Nasal Screen MRSA (PCR) Negative (Negative) 10/20/20 04:40 C. difficile Tox (PCR) Negative (Negative) 10/19/20 09:36 Gaspar/IV: Voiding Method Bedside Commode Active Medications - Current Medications Current Medications: Generic Name Dose Route Start Last Admin Trade Name Freq PRN Reason Stop Dose Admin Acetaminophen 650 mg 10/19/20 03:27 Acetaminophen 325 Mg Tab PO Q4H PRN Pain MILD(1-3)/Fever >100.5/KEVIN Al Hydrox/Mg Hydrox/Simethicone 30 ml 10/19/20 03:27 Alum-Mag Hydroxide-Simethicone 272-126-79ns/5ml Oral Liqd 30 Ml PO Q4H PRN Indigestion Lipase/Protease/Amylase 6 each 10/25/20 11:30 10/27/20 08:24 Lipase 12,000/Protease 38,000/Amylase 60,000 (Units) Dr Cap PO 6 each AC EVELYN Administration Cholestyramine Resin 4 gm 10/25/20 22:00 10/27/20 09:38 Cholestyramine (With Sugar) 4 Gm Packet PO 4 gm BID EVELYN Administration Enoxaparin Sodium 60 mg 10/23/20 18:00 10/27/20 09:38 Enoxaparin 60 Mg/0.6 Ml Inj SUB-Q 60 mg Q12HR EVELYN Administration Hydralazine HCl 5 mg 10/19/20 03:29 Hydralazine 20 Mg/1 Ml Inj IV Q4H PRN Hypertension Hydromorphone HCl 2 mg 10/21/20 17:30 10/27/20 06:04 Hydromorphone 2 Mg/1 Ml Inj IV 2 mg Q4H PRN Administration Pain , Severe (7-10) Loperamide HCl 2 mg 10/24/20 12:28 10/25/20 15:26 Loperamide 2 Mg Cap PO 2 mg Q2H PRN Administration Diarrhea Magnesium Hydroxide 30 ml 10/19/20 03:27 Magnesium Hydroxide (Mom) Oral Liqd Udc PO Q4H PRN Constipation Metoclopramide HCl 10 mg 10/19/20 03:27 10/24/20 13:25 Metoclopramide 10 Mg/2 Ml Inj IV 10 mg Q6H PRN Administration Nausea And Vomiting Morphine Sulfate 2 mg 10/19/20 09:36 10/21/20 15:52 Morphine 2 Mg/1 Ml Inj IV 2 mg Q4H PRN Administration Pain, Moderate (4-6) Naloxone HCl 0.1 mg 10/19/20 09:37 Naloxone 0.4 Mg/1 Ml Inj IV Q2MIN PRN Res Rate </= 8 or 02 SAT < 92% Ondansetron HCl 4 mg 10/19/20 03:27 10/25/20 15:18 Ondansetron 4 Mg/2 Ml Inj IV 4 mg Q8H PRN Administration Nausea And Vomiting Oxycodone HCl 10 mg 10/20/20 22:00 10/27/20 09:38 Oxycodone Er 10 Mg Tab PO 10 mg Q12HR EVELYN Administration Potassium Chloride 40 meq 10/25/20 10:00 10/26/20 21:17 Potassium Chloride Er 20 Meq Tab PO 40 meq BID EVELYN Administration Sodium Chloride 10 ml 10/19/20 10:00 10/27/20 09:39 Sodium Chloride 0.9% 10 Ml Flush Syringe IV 10 ml BID EVELYN Administration Sodium Chloride 10 ml 10/19/20 03:27 Sodium Chloride 0.9% 10 Ml Flush Syringe IV PRN PRN LINE FLUSH Tramadol HCl 50 mg 10/19/20 03:29 10/20/20 10:25 Tramadol 50 Mg Tab PO 50 mg Q6H PRN Administration Pain, Moderate (4-6) Trazodone HCl 50 mg 10/20/20 01:00 10/26/20 21:17 Trazodone 50 Mg Tab PO 50 mg QHS EVELYN Administration Nutrition/Malnutrition Assess - Dietary Evaluation Nutrition/Malnutrition Findings: Nutrition Notes Start: 10/19/20 13:06 Freq: Status: Active Protocol: Document 10/25/20 09:31 AT (Rec: 10/25/20 09:36 AT [id number]) Co-Sign 10/25/20 09:31 Nutrition Notes Initial or Follow up Reassessment Other Pertinent Diagnosis Stage 4 pancreatic CA (on chemo), abd pain, N/V/D, Dehydration, Pancolitis Current Diet GI soft Labs/Tests Hgb 9.6 Na 137 K 2.7 BUN <1 Cr 0.4 BG 163 Ca 7.2 Mg 1.5 Pertinent Medications K-Dur KCl 10 mEq/100 mL Mg Sulfate 2 g/50 mL KCl 40 mEq in NaCl Height 5 ft 4 in Weight 57.07 kg Usual Body Weight 72 kg [place] Body Weight (kg) 54.54 BMI 21.6 Weight Status Underweight Subjective/Other Information Follow up for diet tolerance and intakes. Pt reports that she is eating 25% of meals and 100% of ONS. Pt reports that she is consuming fluids more than foods at this time. Percent of energy/protein needs met: 72%/67% Burn Absent Trauma Absent GI Symptoms Nausea,Diarrhea Current % PO Poor (25-49%) Minimum of two criteria Yes Energy Intake (severe) < or equal to 50% Estimated Energy Requirement > or equal to 5 days Interpretation of Weight Loss (non- 1-2% in 1 week severe) #2 Nutrition Diagnosis Malnutrition Diagnosis Progress(for reassessment Continues documentation) #1 Nutrition Diagnosis Inadequate oral intake As Evidenced by Signs and Symptoms pt tolerating 25% of meals and 100% of ONS Diagnosis Progress(for reassessment Continues documentation) Is patient on ventilator? No Is Patient Ambulatory and/or Out of Bed Yes REE-([employer] [place] [place]-ambulatory/OOB) [ 1443.910 [id number]] Kcal/Kg value to use for calculation 30 Approximate Energy Requirements Using 1712 kcal/Kg Calculation Used for Recommendations Kcal/kg Additional Notes PRO needs: 68-85g (1.2-1.5 g/ kg) Fluid needs: 1 mL/kcal or per MD Nutrition Intervention Change Diet Order: Continue current Add Supplement/Snack (indicate name/kcal Ensure Clear TID /protein ) Provides kCal: 720 Provides Protein (gm) 24 Goal #1 PO tolerance Goal #2 Meet at least 80% of estimated energy and protein needs via diet and ONS Goal #3 Weight maintenance Anticipated Discharge Needs: Unable to determine at this time Follow-Up By: 10/28/20 Additional Comments F/U for stable intakes
[2020-10-27 11:10] LABS: Alanine Aminotransferase 32 units/L (7-56); Albumin 2.6 g/dL (3.9-5); Calcium 7.7 mg/dL (8.4-10.2); Hemolysis Index 7
[2020-10-27 11:16] LABS: BUN/Creatinine Ratio 3; Blood Urea Nitrogen 1 mg/dL (7-17)
[2020-10-27] MEDS: POTASSIUM CHLORIDE ER 20 MEQ TAB PO SCH ×2 (11:45→22:25)
[2020-10-27] MEDS ORDERED: HEPARIN 10,000 UNITS/10 ML VIAL IV PRN (12:48)
[2020-10-27] MEDS ORDERED: HEPARIN/ 0.45% NACL DRIP 25,000 UNIT/500 ML BAG IV SCH (13:00)
--- NOTE | 2020-10-27 14:34 | Consultation ---
History of Present Illness Consult date: 10/27/20 Consult reason: tachycardia History of present illness: Impression Acute pulmonary embolism Tele deomnstrates Sinus tachycardia with variable rate Pancreatic Cancer s/p chemo x 1 Plan supportive care for PE She is hemodynamically stable HR should improve with treatment for PE with anticoagulation watchful waiting on HR for now. Past History Past Medical History: cancer (Pancreatic cancer, presently on chemotherapy) Past Surgical History: No surgical history Social history: lives with family Family history: no significant family history Medications and Allergies Allergies Allergy/AdvReac Type Severity Reaction Status Date / Time No Known Allergies Allergy Verified 10/19/20 02:21 Home Medications Medication Instructions Recorded Confirmed Last Taken Type Celecoxib [celeBREX] 50 mg PO BID #30 capsule 08/09/20 10/23/20 Unknown Rx Sennosides/Docusate Sodium [Stool 1 each PO DAILY #30 tablet 08/09/20 10/23/20 Unknown Rx Soft-Stimulant Lax Tab] oxyCODONE ER [oxyCONTIN ER] 10 mg PO Q12HR #30 tablet 08/09/20 10/23/20 Unknown Rx traMADoL [Ultram 50 MG tab] 50 mg PO Q6HR PRN #12 tablet 08/09/20 10/23/20 Unknown Rx traZODone [Desyrel] 50 mg PO QHS PRN #30 tablet 08/09/20 10/23/20 Unknown Rx Dicyclomine [Bentyl] 20 mg PO QID PRN #20 tablet 08/23/20 10/23/20 Unknown Rx oxyCODONE [roxiCODONE] 5 mg PO Q6H PRN #12 tablet 08/23/20 10/23/20 Unknown Rx Active Meds: Active Medications Acetaminophen (Acetaminophen 325 Mg Tab) 650 mg PO Q4H PRN PRN Reason: Pain MILD(1-3)/Fever >100.5/KEVIN Al Hydrox/Mg Hydrox/Simethicone (Alum-Mag Hydroxide-Simethicone 047-742-20hh/5ml Oral Liqd 30 Ml) 30 ml PO Q4H PRN PRN Reason: Indigestion Lipase/Protease/Amylase (Lipase 12,000/Protease 38,000/Amylase 60,000 (Units) Dr Wade) 6 each PO AC EVELYN Last Admin: 10/27/20 11:45 Dose: 6 each Documented by: Cholestyramine Resin (Cholestyramine (With Sugar) 4 Gm Packet) 4 gm PO BID [facility] Last Admin: 10/27/20 09:38 Dose: 4 gm Documented by: Heparin Sodium (Porcine) (Heparin 10,000 Units/10 Ml Vial) 2,300 unit 40 unit/kg (2300 unit) IV Q6H PRN PRN Reason: Anti-Xa Assay < 0.1 units/ml Hydralazine HCl (Hydralazine 20 Mg/1 Ml Inj) 5 mg IV Q4H PRN PRN Reason: Hypertension Hydromorphone HCl (Hydromorphone 2 Mg/1 Ml Inj) 2 mg IV Q4H PRN PRN Reason: Pain , Severe (7-10) Last Admin: 10/27/20 06:04 Dose: 2 mg Documented by: Heparin Sodium/Sodium Chloride (Heparin/ 0.45% Nacl-25,000 Unit/500 Ml) 25,000 unit in 500 mls @ 16 mls/hr IV TITR [facility]; Protocol Last Admin: 10/27/20 13:49 Dose: 800 units/hr, 16 mls/hr Documented by: Loperamide HCl (Loperamide 2 Mg Cap) 2 mg PO Q2H PRN PRN Reason: Diarrhea Last Admin: 10/25/20 15:26 Dose: 2 mg Documented by: Magnesium Hydroxide (Magnesium Hydroxide (Mom) Oral Liqd Udc) 30 ml PO Q4H PRN PRN Reason: Constipation Metoclopramide HCl (Metoclopramide 10 Mg/2 Ml Inj) 10 mg IV Q6H PRN PRN Reason: Nausea And Vomiting Last Admin: 10/24/20 13:25 Dose: 10 mg Documented by: Morphine Sulfate (Morphine 2 Mg/1 Ml Inj) 2 mg IV Q4H PRN PRN Reason: Pain, Moderate (4-6) Last Admin: 10/21/20 15:52 Dose: 2 mg Documented by: Naloxone HCl (Naloxone 0.4 Mg/1 Ml Inj) 0.1 mg IV Q2MIN PRN PRN Reason: Res Rate </= 8 or 02 SAT < 92% Ondansetron HCl (Ondansetron 4 Mg/2 Ml Inj) 4 mg IV Q8H PRN PRN Reason: Nausea And Vomiting Last Admin: 10/25/20 15:18 Dose: 4 mg Documented by: Oxycodone HCl (Oxycodone Er 10 Mg Tab) 10 mg PO Q12HR [facility] Last Admin: 10/27/20 09:38 Dose: 10 mg Documented by: Potassium Chloride (Potassium Chloride Er 20 Meq Tab) 40 meq PO BID [facility] Last Admin: 10/27/20 11:45 Dose: 40 meq Documented by: Sodium Chloride (Sodium Chloride 0.9% 10 Ml Flush Syringe) 10 ml IV BID [facility] Last Admin: 10/27/20 09:39 Dose: 10 ml Documented by: Sodium Chloride (Sodium Chloride 0.9% 10 Ml Flush Syringe) 10 ml IV PRN PRN PRN Reason: LINE FLUSH Tramadol HCl (Tramadol 50 Mg Tab) 50 mg PO Q6H PRN PRN Reason: Pain, Moderate (4-6) Last Admin: 10/20/20 10:25 Dose: 50 mg Documented by: Trazodone HCl (Trazodone 50 Mg Tab) 50 mg PO QHS [facility] Last Admin: 10/26/20 21:17 Dose: 50 mg Documented by: Review of Systems All systems: negative (in the Impression) Physical Examination Vital Signs Temp Pulse Resp BP Pulse Ox 98.1 F 97 H 18 114/78 100 10/18/20 20:49 10/18/20 20:49 10/18/20 20:49 10/18/20 20:49 10/18/20 20:49 General appearance: no acute distress HEENT: Positive: PERRL Neck: Positive: neck supple Cardiac: Positive: Reg Rate and Rhythm, S1/S2 Abdomen: Positive: Soft Extremities: Absent: edema Results 10/25/20 07:00 10/27/20 Unknown Cardiac Enzymes 10/27/20 Range/Units Unknown AST 21 (5-40) units/L Comprehensive Metabolic Panel 10/27/20 Range/Units Unknown Sodium 134 L (137-145) mmol/L Potassium 3.3 L D (3.6-5.0) mmol/L Chloride 100.4 (98-107) mmol/L Carbon Dioxide 21 L (22-30) mmol/L BUN 1 L (7-17) mg/dL Creatinine 0.4 L (0.6-1.2) mg/dL Glucose 138 H (65-100) mg/dL Calcium 7.7 L (8.4-10.2) mg/dL AST 21 (5-40) units/L ALT 32 (7-56) units/L Alkaline Phosphatase 75 (35-129) units/L Total Protein 4.8 L (6.3-8.2) g/dL Albumin 2.6 L (3.9-5) g/dL
[2020-10-27 14:52] LABS: Hematocrit 29.3 % (30.3-42.9)
[2020-10-27 15:02] LABS: INR 1.76 (0.87-1.13)
[2020-10-27 15:03] LABS: Partial Thromboplastin Time 42.5 Sec. (24.2-36.6)
--- NOTE | 2020-10-27 17:05 | Consultation ---
History of Present Illness - Reason for Consult Consult date: 10/27/20 Bilateral Pulmonary Emboli Requesting physician: ALIX GARCES - History of Present Illness The patient is a 65-year-old female with a history of stage IV pancreatic cancer who is currently receiving chemotherapy through a left internal jugular port. She is currently been in the hospital with leukopenia and pancolitis. She recently was diagnosed with bilateral pulmonary emboli found on CTA of the chest. An echocardiogram revealed evidence of right heart enlargement with pulmonary hypertension. The patient has been mildly tachycardic but otherwise hemodynamically stable. At this time she denies any chest pain or shortness of breath. She states that several months ago, when she was being picked up from work by her , he commented on her appearing to have labored breathing on multiple occasions however she has not experienced any shortness of breath since that time. She denies any history of lower extremity swelling. She has no additional complaints at this time. Past History Past Medical History: cancer (Pancreatic cancer, presently on chemotherapy) Past Surgical History: Other (Left internal jugular Rosnna-a-Iura) Social history: lives with family Family history: no significant family history Medications and Allergies Allergies Allergy/AdvReac Type Severity Reaction Status Date / Time No Known Allergies Allergy Verified 10/19/20 02:21 Home Medications Medication Instructions Recorded Confirmed Last Taken Type Celecoxib [celeBREX] 50 mg PO BID #30 capsule 08/09/20 10/23/20 Unknown Rx Sennosides/Docusate Sodium [Stool 1 each PO DAILY #30 tablet 08/09/20 10/23/20 Unknown Rx Soft-Stimulant Lax Tab] oxyCODONE ER [oxyCONTIN ER] 10 mg PO Q12HR #30 tablet 08/09/20 10/23/20 Unknown Rx traMADoL [Ultram 50 MG tab] 50 mg PO Q6HR PRN #12 tablet 08/09/20 10/23/20 Unknown Rx traZODone [Desyrel] 50 mg PO QHS PRN #30 tablet 08/09/20 10/23/20 Unknown Rx Dicyclomine [Bentyl] 20 mg PO QID PRN #20 tablet 08/23/20 10/23/20 Unknown Rx oxyCODONE [roxiCODONE] 5 mg PO Q6H PRN #12 tablet 08/23/20 10/23/20 Unknown Rx Active Meds: Active Medications Acetaminophen (Acetaminophen 325 Mg Tab) 650 mg PO Q4H PRN PRN Reason: Pain MILD(1-3)/Fever >100.5/KEVIN Al Hydrox/Mg Hydrox/Simethicone (Alum-Mag Hydroxide-Simethicone [phone]/5ml Oral Liqd 30 Ml) 30 ml PO Q4H PRN PRN Reason: Indigestion Lipase/Protease/Amylase (Lipase 12,000/Protease 38,000/Amylase 60,000 (Units) Dr Wade) 6 each PO AC [facility] Last Admin: 10/27/20 11:45 Dose: 6 each Documented by: Cholestyramine Resin (Cholestyramine (With Sugar) 4 Gm Packet) 4 gm PO BID [facility] Last Admin: 10/27/20 09:38 Dose: 4 gm Documented by: Heparin Sodium (Porcine) (Heparin 10,000 Units/10 Ml Vial) 2,300 unit 40 unit/kg (2300 unit) IV Q6H PRN PRN Reason: Anti-Xa Assay < 0.1 units/ml Hydralazine HCl (Hydralazine 20 Mg/1 Ml Inj) 5 mg IV Q4H PRN PRN Reason: Hypertension Hydromorphone HCl (Hydromorphone 2 Mg/1 Ml Inj) 2 mg IV Q4H PRN PRN Reason: Pain , Severe (7-10) Last Admin: 10/27/20 06:04 Dose: 2 mg Documented by: Heparin Sodium/Sodium Chloride (Heparin/ 0.45% Nacl-25,000 Unit/500 Ml) 25,000 unit in 500 mls @ 16 mls/hr IV [facility]; Protocol Last Admin: 10/27/20 13:49 Dose: 800 units/hr, 16 mls/hr Documented by: Loperamide HCl (Loperamide 2 Mg Cap) 2 mg PO Q2H PRN PRN Reason: Diarrhea Last Admin: 10/25/20 15:26 Dose: 2 mg Documented by: Magnesium Hydroxide (Magnesium Hydroxide (Mom) Oral Liqd Udc) 30 ml PO Q4H PRN PRN Reason: Constipation Metoclopramide HCl (Metoclopramide 10 Mg/2 Ml Inj) 10 mg IV Q6H PRN PRN Reason: Nausea And Vomiting Last Admin: 10/24/20 13:25 Dose: 10 mg Documented by: Morphine Sulfate (Morphine 2 Mg/1 Ml Inj) 2 mg IV Q4H PRN PRN Reason: Pain, Moderate (4-6) Last Admin: 10/21/20 15:52 Dose: 2 mg Documented by: Naloxone HCl (Naloxone 0.4 Mg/1 Ml Inj) 0.1 mg IV Q2MIN PRN PRN Reason: Res Rate </= 8 or 02 SAT < 92% Ondansetron HCl (Ondansetron 4 Mg/2 Ml Inj) 4 mg IV Q8H PRN PRN Reason: Nausea And Vomiting Last Admin: 10/25/20 15:18 Dose: 4 mg Documented by: Oxycodone HCl (Oxycodone Er 10 Mg Tab) 10 mg PO Q12HR [facility] Last Admin: 10/27/20 09:38 Dose: 10 mg Documented by: Potassium Chloride (Potassium Chloride Er 20 Meq Tab) 40 meq PO BID [facility] Last Admin: 10/27/20 11:45 Dose: 40 meq Documented by: Sodium Chloride (Sodium Chloride 0.9% 10 Ml Flush Syringe) 10 ml IV BID [facility] Last Admin: 10/27/20 09:39 Dose: 10 ml Documented by: Sodium Chloride (Sodium Chloride 0.9% 10 Ml Flush Syringe) 10 ml IV PRN PRN PRN Reason: LINE FLUSH Tramadol HCl (Tramadol 50 Mg Tab) 50 mg PO Q6H PRN PRN Reason: Pain, Moderate (4-6) Last Admin: 10/20/20 10:25 Dose: 50 mg Documented by: Trazodone HCl (Trazodone 50 Mg Tab) 50 mg PO QHS [facility] Last Admin: 10/26/20 21:17 Dose: 50 mg Documented by: Review of Systems All systems: negative Exam - Constitutional Vitals: Temp Pulse Resp BP Pulse Ox 97.8 F 99 H 18 98/62 99 10/27/20 12:41 10/27/20 12:41 10/27/20 12:41 10/27/20 12:41 10/27/20 12:41 General appearance: Present: no acute distress - Neck Neck: Present: other (Left neck/chest [id number] without evidence of infection) - Respiratory Respiratory effort: normal - Cardiovascular Rhythm: regular - Extremities Extremities: no ischemia, pulses intact Extremity abnormal: edema (Minimal edema of bilateral lower extremity) - Abdominal General gastrointestinal: Present: soft Female genitourinary: Present: deferred Results - Labs CBC & Chem 7: 10/27/20 14:15 10/27/20 Unknown Labs: Abnormal lab results 10/27/20 10/27/20 10/27/20 Range/Units 14:15 14:15 Unknown Hgb 10.0 L (10.1-14.3) gm/dl Hct 29.3 L (30.3-42.9) % PT 20.4 H (12.2-14.9) Sec. INR 1.76 H (0.87-1.13) APTT 42.5 H (24.2-36.6) Sec. Sodium 134 L (137-145) mmol/L Potassium 3.3 L D (3.6-5.0) mmol/L Carbon Dioxide 21 L (22-30) mmol/L BUN 1 L (7-17) mg/dL Creatinine 0.4 L (0.6-1.2) mg/dL Glucose 138 H (65-100) mg/dL Calcium 7.7 L (8.4-10.2) mg/dL Magnesium 1.50 L (1.7-2.3) mg/dL Total Protein 4.8 L (6.3-8.2) g/dL Albumin 2.6 L (3.9-5) g/dL - Imaging and Cardiology CT scan - chest: image reviewed Assessment and Plan The patient is a 65-year-old female with a history of stage IV pancreatic cancer who is currently on chemotherapy. She has bilateral pulmonary emboli with significantly more thrombus burden on the right than the left. Her echocardiogram demonstrates evidence of right heart enlargement as well as pul monary artery hypertension. Characteristics of the thrombus on CTA as well as the patient's history suggest that there may be more of a chronic component then thought and this is somewhat subacute. At this time the patient is slightly tachycardic however she is otherwise hemodynamically stable. Her oxygen saturations have remained in the high 90s on room air and her breathing is nonlabored even with moving around the room. I think there is more risk than benefit involved with performing thrombolysis or thrombectomy to decrease the thrombus burden. Her tachycardia will resolve with continued anticoagulation. I would recommend anticoagulating the patient with a DOAC such as Eliquis 5 mg p.o. twice daily or therapeutic Lovenox for as long as she has active cancer. I discussed the findings and the plan with the patient who expressed understanding and agrees.
[2020-10-27] MEDS: traZODone 50 MG TAB PO SCH (22:25)
[2020-10-27] MEDS: ONDANSETRON 4 MG/2 ML INJ IV PRN (22:25)
[2020-10-28] MEDS: HYDROmorphone 2 MG/1 ML INJ IV PRN ×2 (06:14→21:16)
[2020-10-28] MEDS ORDERED: POTASSIUM CHLORIDE 10 MEQ 10 MEQ/100 ML BAG IV SCH (08:00)
[2020-10-28] MEDS ORDERED: MAGNESIUM SULFATE 2 GM/50 ML BAG IV NR (08:00)
[2020-10-28 08:03] LABS: Alanine Aminotransferase 39 units/L (7-56); Albumin 2.8 g/dL (3.9-5); Blood Urea Nitrogen 3 mg/dL (7-17); Calcium 8.1 mg/dL (8.4-10.2); Hemolysis Index 5
[2020-10-28 08:05] LABS: BUN/Creatinine Ratio 10
[2020-10-28] MEDS: POTASSIUM CHLORIDE ER 20 MEQ TAB PO SCH ×2 (09:05→21:17)
[2020-10-28] MEDS: oxyCODONE ER 10 MG TAB PO SCH ×2 (09:05→21:18)
[2020-10-28] MEDS ORDERED: SODIUM CHLORIDE 0.9% 1000 ML 500 ML IV NR (10:21)
--- NOTE | 2020-10-28 10:25 | Progress Note ---
Assessment and Plan Assessment and plan: #Intractable abdominal pain/pancolitis Likely secondary to colonic inflammation/pancreatic CA Completed antibiotics C. difficile negative Antidiarrheals GI recommendations appreciated-started on Questran Chemotherapy as outpatient #Severe electrolyte abnormalities Improved #Bilateral pulmonary embolism Vascular surgery recommendations appreciated Anticoagulation switched to Eliquis Continue to monitor heart rate. # SVTs From underlying PE. Cardiology recommendations appreciated Mgt as per above. #History of pancreatic mass On chemotherapy Follow-up with oncology as outpatient #Leukopenia From chemotherapy #DVT prophylaxis-patient is on Lovenox twice daily for PE Disposition-plan to DC when heart rate is stable History Interval history: Patient is a 65-year-old female that presents emergency room for nausea vomiting weakness. Patient states she was sent here by her oncologist. Patient states she had a new chemotherapy on Wednesday and has had nausea and vomiting since. Patient states 3 days ago she developed diarrhea. Patient states she is now having weakness, loss of appetite and fatigue. Patient states she has had anything by mouth except for mild sips of water for the last 5 days. Patient states she feels dehydrated. Patient denies fever or chills. Patient denies blood in vomitus. Patient states she is on chemo for stage IV pancreatic cancer. Patient denies blood in her stool. ED work-up showed WBC 2.3 hemoglobin 11.6, platelets 168, sodium 135, potassium 3.1, creatinine 0.4, serum glucose 134, calcium 8.8, AST 81, ALT 213, and albumin 3.8. CT of the abdomen and pelvis with contrast done result is highly suspicious of pancolitis,: Has generalized mild thickening of the colon with mild surrounding inflammation colonic diverticulosis is seen without evidence of diverticulitis peritoneum showed multiple omental peritoneal nodules and pancreatic body mass measuring 3.8 x 3.3 cm. Patient seen at bedside in ED. Patient is alert oriented x3. Patient admits abdominal pain pain level 7/10. Patient also admits nausea and vomiting but denies chest pain and shortness of breath. Patient has a history of pancreatic CA getting chemotherapy via left subclavian Port-A-Cath. I reviewed patient medical record medication record and vital signs. 10/20: GI input noted no plans for scope at this time. Continue current management we will restart patient's oxycodone for chronic pain is related to pancreatic cancer. Imaging studies reviewed appears to be possible increase in mass noted. Patient noted with leukopenia today hematology consulted to assist will start on sliding scale coverage due to elevated blood sugar doubt diabetes although with pancreatic cancer I would not be surprised. Advance care plan discussion with the patient for 30 minutes patient will remain a full code. We will advance diet once she begins to improve with improving pain. Also replace potassium and recheck in a.m. 10/21: 65-year-old female with history of pancreatic cancer admitted with nausea vomiting and generalized weakness now with severe hypokalemia likely secondary to loose bowel stools. Will transfer patient to telemetry as IMCU beds are not available. Multiple potassium replacement ordered. We will also obtain nephrology consult to assist with electrolyte replacement. Patient will be placed on a customer strategy manager due to severe hypokalemia. We will also give a gram of magnesium. Patient can be discharged once electrolytes are stabilized. She does not have any further nausea or vomiting at this time. GI input is appreciated 10/22. Remains on IV antibiotics for colitis. Potassium continues to be repleted. Appreciate GI recommendations. Nephrology following 10/23. Has tachycardia. Telemetry review showed sinus tach. Ordered TFTs. Echocardiogram ordered as well. Electrolytes stable today. 10/24. Heart rate remained elevated yesterday and TFTs were within normal limits. Echocardiogram showed slightly reduced EF. CTA chest showed bilateral PE and patient was started on Lovenox twice daily. This morning, she has no complaints except for multiple episodes of diarrhea. Potassium is low and this will be repleted 10/25. Reconsulted GI as she is still having diarrhea with electrolyte imbalance. On antidiarrheals already. Added creon pending GI evaluation. Switch fluid to K containing fluids. She remains on Lovenox for PE. Answered all her questions this AM. 10/26. Patient started on Questran per GI. Diarrhea is better. Electrolytes better as well. Switch to containing fluid to normal saline. Remains on Lovenox for PE. Plan to discharge tomorrow if she remains stable. 10/27. Her HR was up to 130-150's. Rhythm SVTs some PVCs. She denies any chest pain or palpations. She remains on lovenox bid. I will consult vascular surgery to see if she needs thrombectomy. Will consult cardiology as well. Her electrolytes this AM is still pending. Will hold DC for now. 10/28. Cardiology and vascular surgery recommendations appreciated. Anticoagulation switched to Eliquis 10 mg twice daily. Patient is very eager to be discharged. Electrolytes stable today. Heart rate still up to 130s with ambulation. Hospitalist Physical - Physical exam Narrative exam: VITAL SIGNS: Reviewed. GENERAL: Awake HEAD: No signs of head trauma. EYES: Pupils are equal. Extraocular motions intact. MOUTH: Oropharynx is normal. NECK: No adenopathy, no JVD. CHEST: Chest with diminished breath sounds bilaterally. No wheezes, rales, or rhonchi. CARDIAC: normal S1 and S2, without murmurs, gallops, or rubs. ABDOMEN: Soft, abdominal discomfort MUSCULOSKELETAL: No edema NEUROLOGIC EXAM: Alert and oriented x3. No focal neurologic deficits SKIN: No obvious lesions - Constitutional Vitals: Temp Pulse Resp BP Pulse Ox 97.9 F 107 H 16 89/58 100 10/28/20 07:50 10/28/20 07:50 10/28/20 07:50 10/28/20 07:50 10/28/20 07:50 Results - Labs CBC & Chem 7: 10/27/20 14:15 10/28/20 07:19 Labs: Laboratory Last Values WBC 9.0 K/mm3 (4.5-11.0) 10/25/20 07:00 RBC 3.26 M/mm3 (3.65-5.03) L 10/25/20 07:00 Hgb 10.0 gm/dl (10.1-14.3) L 10/27/20 14:15 Hct 29.3 % (30.3-42.9) L 10/27/20 14:15 MCV 87 fl (79-97) 10/25/20 07:00 MCH 29 pg (28-32) 10/25/20 07:00 MCHC 34 % (30-34) 10/25/20 07:00 RDW 15.1 % (13.2-15.2) 10/25/20 07:00 Plt Count 241 K/mm3 (140-440) 10/27/20 14:15 Lymph % (Auto) Calibrator Barometers 10/20/20 08:40 [place] % (Auto) Calibrator Barometers 10/20/20 08:40 Add Manual Diff Complete 10/25/20 07:00 Total Counted 100 10/25/20 07:00 Seg Neutrophils % Calibrator Barometers 10/20/20 08:40 Seg Neuts % (Manual) 76.0 % (40.0-70.0) H 10/25/20 07:00 Band Neutrophils % 6.0 % 10/24/20 06:45 Lymphocytes % (Manual) 21.0 % (13.4-35.0) 10/25/20 07:00 Reactive Lymphs % (Man) 3.0 % 10/24/20 06:45 Monocytes % (Manual) 2.0 % (0.0-7.3) 10/25/20 07:00 Eosinophils % (Manual) 1.0 % (0.0-4.3) 10/25/20 07:00 Metamyelocytes % 1.0 % 10/24/20 06:45 Myelocytes % 2.0 % 10/24/20 06:45 Nucleated RBC % 5.0 % (0.0-0.9) H 10/25/20 07:00 Seg Neutrophils # Man 6.8 K/mm3 (1.8-7.7) 10/25/20 07:00 Band Neutrophils # 0.0 K/mm3 10/25/20 07:00 Lymphocytes # (Manual) 1.9 K/mm3 (1.2-5.4) 10/25/20 07:00 Abs React Lymphs (Man) 0.0 K/mm3 10/25/20 07:00 Monocytes # (Manual) 0.2 K/mm3 (0.0-0.8) 10/25/20 07:00 Eosinophils # (Manual) 0.1 K/mm3 (0.0-0.4) 10/25/20 07:00 Basophils # (Manual) 0.0 K/mm3 (0.0-0.1) 10/25/20 07:00 Metamyelocytes # 0.0 K/mm3 10/25/20 07:00 Myelocytes # 0.0 K/mm3 10/25/20 07:00 Promyelocytes # 0.0 K/mm3 10/25/20 07:00 Blast Cells # 0.0 K/mm3 10/25/20 07:00 WBC Morphology Not Reportable 10/25/20 07:00 Hypersegmented Neuts Not Reportable 10/25/20 07:00 Hyposegmented Neuts Not Reportable 10/25/20 07:00 Hypogranular Neuts Not Reportable 10/25/20 07:00 Smudge Cells Not Reportable 10/25/20 07:00 Toxic Granulation Not Reportable 10/25/20 07:00 Toxic Vacuolation Not Reportable 10/25/20 07:00 Dohle Bodies Not Reportable 10/25/20 07:00 Pelger-Huet Anomaly Not Reportable 10/25/20 07:00 Philip Rods Not Reportable 10/25/20 07:00 Platelet Estimate Consistent w auto 10/25/20 07:00 Clumped Platelets Not Reportable 10/25/20 07:00 Plt Clumps, EDTA Not Reportable 10/25/20 07:00 Large Platelets Not Reportable 10/25/20 07:00 Giant Platelets Not Reportable 10/25/20 07:00 Platelet Satelliting Not Reportable 10/25/20 07:00 Plt Morphology Comment Not Reportable 10/25/20 07:00 RBC Morphology Not Reportable 10/25/20 07:00 Dimorphic RBCs Not Reportable 10/25/20 07:00 Polychromasia Not Reportable 10/25/20 07:00 Hypochromasia Not Reportable 10/25/20 07:00 Poikilocytosis Rare 10/25/20 07:00 Anisocytosis Not Reportable 10/25/20 07:00 Microcytosis Not Reportable 10/25/20 07:00 Macrocytosis Not Reportable 10/25/20 07:00 Spherocytes Not Reportable 10/25/20 07:00 Pappenheimer Bodies Not Reportable 10/25/20 07:00 Sickle Cells Not Reportable 10/25/20 07:00 Target Cells Not Reportable 10/25/20 07:00 Tear Drop Cells Not Reportable 10/25/20 07:00 Ovalocytes Not Reportable 10/25/20 07:00 Helmet Cells Not Reportable 10/25/20 07:00 [place] Bodies Not Reportable 10/25/20 07:00 Buckner Rings Not Reportable 10/25/20 07:00 Tresa Cells Not Reportable 10/25/20 07:00 Bite Cells Not Reportable 10/25/20 07:00 Crenated Cell Not Reportable 10/25/20 07:00 Elliptocytes Not Reportable 10/25/20 07:00 Acanthocytes (Spur) Not Reportable 10/25/20 07:00 Rouleaux Not Reportable 10/25/20 07:00 Hemoglobin C Crystals Not Reportable 10/25/20 07:00 Schistocytes Not Reportable 10/25/20 07:00 Malaria parasites Not Reportable 10/25/20 07:00 Emeterio Bodies Not Reportable 10/25/20 07:00 Hem Pathologist Commnt No 10/25/20 07:00 PT 20.4 Sec. (12.2-14.9) H 10/27/20 14:15 INR 1.76 (0.87-1.13) H 10/27/20 14:15 APTT 42.5 Sec. (24.2-36.6) H 10/27/20 14:15 Heparin Anti-Xa Level 0.64 U.I./ml (0.3-0.7) 10/28/20 07:19 Sodium 136 mmol/L (137-145) L 10/28/20 07:19 Potassium 4.0 mmol/L (3.6-5.0) D 10/28/20 07:19 Chloride 101.9 mmol/L (98-107) 10/28/20 07:19 Carbon Dioxide 23 mmol/L (22-30) 10/28/20 07:19 Anion Gap 15 mmol/L 10/28/20 07:19 BUN 3 mg/dL (7-17) L 10/28/20 07:19 Creatinine 0.3 mg/dL (0.6-1.2) L 10/28/20 07:19 Estimated GFR > 60 ml/min 10/28/20 07:19 BUN/Creatinine Ratio 10 % 10/28/20 07:19 Glucose 134 mg/dL (65-100) H 10/28/20 07:19 Calcium 8.1 mg/dL (8.4-10.2) L 10/28/20 07:19 Phosphorus 2.70 mg/dL (2.5-4.5) 10/19/20 05:50 Magnesium 1.60 mg/dL (1.7-2.3) L 10/28/20 07:19 Total Bilirubin 0.50 mg/dL (0.1-1.2) 10/28/20 07:19 AST 34 units/L (5-40) 10/28/20 07:19 ALT 39 units/L (7-56) 10/28/20 07:19 Alkaline Phosphatase 91 units/L (35-129) 10/28/20 07:19 Total Protein 5.8 g/dL (6.3-8.2) L D 10/28/20 07:19 Albumin 2.8 g/dL (3.9-5) L 10/28/20 07:19 Albumin/Globulin Ratio 0.9 % 10/28/20 07:19 TSH 4.190 mlU/mL (0.270-4.200) 10/23/20 14:38 Free T4 1.26 ng/dL (0.76-1.46) 10/23/20 14:38 Nasal Screen MRSA (PCR) Negative (Negative) 10/20/20 04:40 C. difficile Tox (PCR) Negative (Negative) 10/19/20 09:36 Gaspar/IV: Voiding Method Toilet Active Medications - Current Medications Current Medications: Generic Name Dose Route Start Last Admin Trade Name Freq PRN Reason Stop Dose Admin Acetaminophen 650 mg 10/19/20 03:27 Acetaminophen 325 Mg Tab PO Q4H PRN Pain MILD(1-3)/Fever >100.5/KEVIN Al Hydrox/Mg Hydrox/Simethicone 30 ml 10/19/20 03:27 Alum-Mag Hydroxide-Simethicone [id number]/5ml Oral Liqd 30 Ml PO Q4H PRN Indigestion Lipase/Protease/Amylase 6 each 10/25/20 11:30 10/27/20 17:24 Lipase 12,000/Protease 38,000/Amylase 60,000 (Units) Dr Cap PO 6 each AC EVELYN Administration Apixaban 10 mg 10/28/20 11:00 Apixaban 5 Mg Tab PO 11/03/20 22:01 Q12HR EVELYN Protocol Cholestyramine Resin 4 gm 10/25/20 22:00 10/27/20 22:25 Cholestyramine (With Sugar) 4 Gm Packet PO Not Given BID EVELYN Hydralazine HCl 5 mg 10/19/20 03:29 Hydralazine 20 Mg/1 Ml Inj IV Q4H PRN Hypertension Hydromorphone HCl 2 mg 10/21/20 17:30 10/28/20 06:14 Hydromorphone 2 Mg/1 Ml Inj IV 2 mg Q4H PRN Administration Pain , Severe (7-10) Sodium Chloride 500 mls @ 999 mls/hr 10/28/20 10:21 Nacl 0.9% 1000 Ml IV 10/28/20 10:51 BOLUS ONE Loperamide HCl 2 mg 10/24/20 12:28 10/25/20 15:26 Loperamide 2 Mg Cap PO 2 mg Q2H PRN Administration Diarrhea Magnesium Hydroxide 30 ml 10/19/20 03:27 Magnesium Hydroxide (Mom) Oral Liqd Udc PO Q4H PRN Constipation Metoclopramide HCl 10 mg 10/19/20 03:27 10/24/20 13:25 Metoclopramide 10 Mg/2 Ml Inj IV 10 mg Q6H PRN Administration Nausea And Vomiting Morphine Sulfate 2 mg 10/19/20 09:36 10/21/20 15:52 Morphine 2 Mg/1 Ml Inj IV 2 mg Q4H PRN Administration Pain, Moderate (4-6) Naloxone HCl 0.1 mg 10/19/20 09:37 Naloxone 0.4 Mg/1 Ml Inj IV Q2MIN PRN Res Rate </= 8 or 02 SAT < 92% Ondansetron HCl 4 mg 10/19/20 03:27 10/27/20 22:25 Ondansetron 4 Mg/2 Ml Inj IV 4 mg Q8H PRN Administration Nausea And Vomiting Oxycodone HCl 10 mg 10/20/20 22:00 10/28/20 09:05 Oxycodone Er 10 Mg Tab PO 10 mg Q12HR EVELYN Administration Potassium Chloride 40 meq 10/25/20 10:00 10/28/20 09:05 Potassium Chloride Er 20 Meq Tab PO 40 meq BID EVELYN Administration Sodium Chloride 10 ml 10/19/20 10:00 10/27/20 22:25 Sodium Chloride 0.9% 10 Ml Flush Syringe IV 10 ml BID EVELYN Administration Sodium Chloride 10 ml 10/19/20 03:27 Sodium Chloride 0.9% 10 Ml Flush Syringe IV PRN PRN LINE FLUSH Tramadol HCl 50 mg 10/19/20 03:29 10/20/20 10:25 Tramadol 50 Mg Tab PO 50 mg Q6H PRN Administration Pain, Moderate (4-6) Trazodone HCl 50 mg 10/20/20 01:00 10/27/20 22:25 Trazodone 50 Mg Tab PO 50 mg QHS EVELYN Administration Nutrition/Malnutrition Assess - Dietary Evaluation Nutrition/Malnutrition Findings: Nutrition Notes Start: 10/19/20 13:06 Freq: Status: Active Protocol: Document 10/25/20 09:31 AT (Rec: 10/25/20 09:36 AT [id number]) Co-Sign 10/25/20 09:31 MK Nutrition Notes Initial or Follow up Reassessment Other Pertinent Diagnosis Stage 4 pancreatic CA (on chemo), abd pain, N/V/D, Dehydration, Pancolitis Current Diet GI soft Labs/Tests Hgb 9.6 Na 137 K 2.7 BUN <1 Cr 0.4 BG 163 Ca 7.2 Mg 1.5 Pertinent Medications K-Dur KCl 10 mEq/100 mL Mg Sulfate 2 g/50 mL KCl 40 mEq in NaCl Height 5 ft 4 in Weight 57.07 kg Usual Body Weight 72 kg [place] Body Weight (kg) 54.54 BMI 21.6 Weight Status Underweight Subjective/Other Information Follow up for diet tolerance and intakes. Pt reports that she is eating 25% of meals and 100% of ONS. Pt reports that she is consuming fluids more than foods at this time. Percent of energy/protein needs met: 72%/67% Burn Absent Trauma Absent GI Symptoms Nausea,Diarrhea Current % PO Poor (25-49%) Minimum of two criteria Yes Energy Intake (severe) < or equal to 50% Estimated Energy Requirement > or equal to 5 days Interpretation of Weight Loss (non- 1-2% in 1 week severe) #2 Nutrition Diagnosis Malnutrition Diagnosis Progress(for reassessment Continues documentation) #1 Nutrition Diagnosis Inadequate oral intake As Evidenced by Signs and Symptoms pt tolerating 25% of meals and 100% of ONS Diagnosis Progress(for reassessment Continues documentation) Is patient on ventilator? No Is Patient Ambulatory and/or Out of Bed Yes REE-([place]-St. Jeor-ambulatory/OOB) [ 6873.910 [id number]] Kcal/Kg value to use for calculation 30 Approximate Energy Requirements Using 1712 kcal/Kg Calculation Used for Recommendations Kcal/kg Additional Notes PRO needs: 68-85g (1.2-1.5 g/ kg) Fluid needs: 1 mL/kcal or per MD Nutrition Intervention Change Diet Order: Continue current Add Supplement/Snack (indicate name/kcal Ensure Clear TID /protein ) Provides kCal: 720 Provides Protein (gm) 24 Goal #1 PO tolerance Goal #2 Meet at least 80% of estimated energy and protein needs via diet and ONS Goal #3 Weight maintenance Anticipated Discharge Needs: Unable to determine at this time Follow-Up By: 10/28/20 Additional Comments F/U for stable intakes
[2020-10-28] MEDS: APIXABAN 5 MG TAB PO SCH ×2 (11:20→21:17)
[2020-10-28 11:41] LABS: Hematocrit 28.2 % (30.3-42.9); Hemoglobin 9.6 gm/dl (10.1-14.3); Mean Corpuscular HGB Conc 34 % (30-34); Mean Corpuscular Volume 87 fl (79-97); Platelet Count 217 K/mm3 (140-440); Red Blood Count 3.23 M/mm3 (3.65-5.03); Red Cell Distribution Width 15.6 % (13.2-15.2)
[2020-10-28 11:49] LABS: INR 1.7 (0.87-1.13)
--- NOTE | 2020-10-28 11:49 | Progress Note ---
Assessment and Plan - Patient Problems (1) Sinus tachycardia Current Visit: Yes Status: Acute Plan to address problem: Sinus tachycardia is a physiologic response to the primary presenting pathology of acute pulmonary embolism. Conservative management of sinus tachycardia which should resolve with optimal treatment of the primary pathology. Subjective Date of service: 10/28/20 Interval history: Patient is comfortable, alert and oriented x3, no cardiac complaints. She is hospitalized with acute pulmonary embolism, and on echocardiogram during this hospitalization major finding was a moderate enlargement of the right heart chambers, with mild pulmonary hypertension consistent with acute pulmonary embolism. The left ventricular chamber size was within normal limits, with borderline mild left ventricular dysfunction, ejection fraction 45 to 50%. There was trace pericardial effusion. Cardiology consultation was requested for evaluation of sinus tachycardia, which is physiologic response to the primary presenting pathology. Currently, she is sinus at 103. TSH level was normal at 4.19. No complaints of chest pain, palpitations or unusual shortness of breath. Objective Vital Signs Temp Pulse Resp BP Pulse Ox 10/28/20 07:50 97.9 F 107 H 16 89/58 100 10/28/20 04:41 98.3 F 93 H 20 115/70 99 10/28/20 04:00 110 H 10/28/20 00:42 98.0 F 10/27/20 23:24 122.0 F H 98 H 20 121/80 99 10/27/20 23:00 20 10/27/20 20:08 97.9 F 105 H 20 114/79 98 10/27/20 17:06 97.8 F 97 H 18 99/60 98 10/27/20 16:00 110 H 10/27/20 12:41 97.8 F 99 H 18 98/62 99 - Physical Examination General: Appears Well, No Apparent Distress HEENT: Positive: PERRL Neck: Positive: neck supple Cardiac: Positive: Regular Rhythm Lungs: Positive: Decreased Breath Sounds Neuro: Positive: Grossly Intact Abdomen: Positive: Soft Skin: Positive: Clear Extremities: Absent: edema - Labs and Meds Cardiac Enzymes 10/28/20 Range/Units 07:19 AST 34 (5-40) units/L Coagulation 10/27/20 Range/Units 14:15 PT 20.4 H (12.2-14.9) Sec. INR 1.76 H (0.87-1.13) APTT 42.5 H (24.2-36.6) Sec. CBC 10/27/20 Range/Units 14:15 Hgb 10.0 L (10.1-14.3) gm/dl Hct 29.3 L (30.3-42.9) % Plt Count 241 (140-440) K/mm3 Comprehensive Metabolic Panel 10/28/20 Range/Units 07:19 Sodium 136 L (137-145) mmol/L Potassium 4.0 D (3.6-5.0) mmol/L Chloride 101.9 (98-107) mmol/L Carbon Dioxide 23 (22-30) mmol/L BUN 3 L (7-17) mg/dL Creatinine 0.3 L (0.6-1.2) mg/dL Glucose 134 H (65-100) mg/dL Calcium 8.1 L (8.4-10.2) mg/dL AST 34 (5-40) units/L ALT 39 (7-56) units/L Alkaline Phosphatase 91 (35-129) units/L Total Protein 5.8 L D (6.3-8.2) g/dL Albumin 2.8 L (3.9-5) g/dL
[2020-10-28 11:51] LABS: Partial Thromboplastin Time 52.5 Sec. (24.2-36.6)
[2020-10-28] MEDS: CHOLESTYRAMINE (WITH SUGAR) 4 GM PACKET PO SCH ×2 (15:59→21:18)
[2020-10-28] MEDS: LIPASE PO SCH (16:35)
[2020-10-28] MEDS: PROTEASE PO SCH (16:35)
[2020-10-28] MEDS: AMYLASE PO SCH (16:35)
[2020-10-28] MEDS: MORPHINE 2 MG/1 ML INJ IV PRN (16:36)
[2020-10-28] MEDS: traZODone 50 MG TAB PO SCH (21:18)
[2020-10-29] MEDS: HYDROmorphone 2 MG/1 ML INJ IV PRN (05:28)
[2020-10-29] MEDS: ONDANSETRON 4 MG/2 ML INJ IV PRN (05:29)
[2020-10-29 06:58] LABS: Hematocrit 29.7 % (30.3-42.9); Hemoglobin 10.1 gm/dl (10.1-14.3)
[2020-10-29 07:26] LABS: Alanine Aminotransferase 50 units/L (7-56); Albumin 2.7 g/dL (3.9-5); Blood Urea Nitrogen 3 mg/dL (7-17); Calcium 8.1 mg/dL (8.4-10.2); Hemolysis Index 5
[2020-10-29 07:37] VITALS: BP 109/71
[2020-10-29 07:50] LABS: BUN/Creatinine Ratio 10
[2020-10-29] MEDS: AMYLASE PO SCH (08:58)
[2020-10-29] MEDS: PROTEASE PO SCH (08:58)
[2020-10-29] MEDS: LIPASE PO SCH (08:58)
[2020-10-29] MEDS: oxyCODONE ER 10 MG TAB PO SCH (08:59)
[2020-10-29] MEDS: POTASSIUM CHLORIDE ER 20 MEQ TAB PO SCH (08:59)
--- NOTE | 2020-10-29 08:59 | Discharge Summary ---
Providers - Providers Date of Admission: 10/19/20 03:18 Date of discharge: 10/29/20 Attending physician: ALIX GARCES 10/19/20 03:49 Consult to Physician [CONS] Routine Comment: Consulting Provider: [facility] Physician Instructions: Reason For Exam: colitis 10/20/20 09:03 Consult to Physician [CONS] Routine Comment: Consulting Provider: JOSE C TORRES Physician Instructions: Reason For Exam: leukopenia 10/21/20 10:19 Consult to Physician [CONS] Routine Comment: Consulting Provider: YUSUF SHAW Physician Instructions: Reason For Exam: hypokalemia 10/24/20 10:15 Physical Therapy Evaluation and Treat [CONS] Routine Comment: Reason For Exam: Eval for gait weakness 10/25/20 09:17 Consult to Physician [CONS] Routine Comment: Consulting Provider: OLIMPIA BRAGG Physician Instructions: Reason For Exam: Chemo induced colitis 10/27/20 09:47 Consult to Physician [CONS] Routine Comment: Consulting Provider: SARMAD MYLES Physician Instructions: Reason For Exam: Pulmonary embolism, benefit of thrombectomy? 10/27/20 09:56 Consult to Physician [CONS] Routine Comment: Consulting Provider: DELFIN CARTER Physician Instructions: Reason For Exam: SVT Primary care physician: PROTECTION MANAGER Hospitalization Condition: Critical Hospital course: Patient is a 65-year-old female that presents emergency room for nausea vomiting weakness. Patient states she was sent here by her oncologist. Patient states she had a new chemotherapy on Wednesday and has had nausea and vomiting since. Patient states 3 days ago she developed diarrhea. Patient states she is now having weakness, loss of appetite and fatigue. Patient states she has had anything by mouth except for mild sips of water for the last 5 days. Patient states she feels dehydrated. Patient denies fever or chills. Patient denies blood in vomitus. Patient states she is on chemo for stage IV pancreatic cancer. Patient denies blood in her stool. ED work-up showed WBC 2.3 hemoglobin 11.6, platelets 168, sodium 135, potassium 3.1, creatinine 0.4, serum glucose 134, calcium 8.8, AST 81, ALT 213, and albumin 3.8. CT of the abdomen and pelvis with contrast done result is highly suspicious of pancolitis,: Has generalized mild thickening of the colon with mild surrounding inflammation colonic diverticulosis is seen without evidence of diverticulitis peritoneum showed multiple omental peritoneal nodules and pancreatic body mass measuring 3.8 x 3.3 cm. Patient seen at bedside in ED. Patient is alert oriented x3. Patient admits abdominal pain pain level 7/10. Patient also admits nausea and vomiting but denies chest pain and shortness of breath. Patient has a history of pancreatic CA getting chemotherapy via left subclavian Port-A-Cath. I reviewed patient medical record medication record and vital signs. 10/20: GI input noted no plans for scope at this time. Continue current management we will restart patient's oxycodone for chronic pain is related to pancreatic cancer. Imaging studies reviewed appears to be possible increase in mass noted. Patient noted with leukopenia today hematology consulted to assist will start on sliding scale coverage due to elevated blood sugar doubt diabetes although with pancreatic cancer I would not be surprised. Advance care plan dis cussion with the patient for 30 minutes patient will remain a full code. We will advance diet once she begins to improve with improving pain. Also replace potassium and recheck in a.m. 10/21: 65-year-old female with history of pancreatic cancer admitted with nausea vomiting and generalized weakness now with severe hypokalemia likely secondary to loose bowel stools. Will transfer patient to telemetry as IMCU beds are not available. Multiple potassium replacement ordered. We will also obtain nephrology consult to assist with electrolyte replacement. Patient will be placed on a residential monitor due to severe hypokalemia. We will also give a gram of magnesium. Patient can be discharged once electrolytes are stabilized. She does not have any further nausea or vomiting at this time. GI input is appreciated 10/22. Remains on IV antibiotics for colitis. Potassium continues to be repleted. Appreciate GI recommendations. Nephrology following 10/23. Has tachycardia. Telemetry review showed sinus tach. Ordered TFTs. Echocardiogram ordered as well. Electrolytes stable today. 10/24. Heart rate remained elevated yesterday and TFTs were within normal limits. Echocardiogram showed slightly reduced EF. CTA chest showed bilateral PE and patient was started on Lovenox twice daily. This morning, she has no complaints except for multiple episodes of diarrhea. Potassium is low and this will be repleted 10/25. Reconsulted GI as she is still having diarrhea with electrolyte imbalance. On antidiarrheals already. Added creon pending GI evaluation. Switch fluid to K containing fluids. She remains on Lovenox for PE. Answered all her questions this AM. 10/26. Patient started on Questran per GI. Diarrhea is better. Electrolytes better as well. Switch to containing fluid to normal saline. Remains on Lovenox for PE. Plan to discharge tomorrow if she remains stable. 10/27. Her HR was up to 130-150's. Rhythm SVTs some PVCs. She denies any chest pain or palpations. She remains on lovenox bid. I will consult vascular surgery to see if she needs thrombectomy. Will consult cardiology as well. Her electrolytes this AM is still pending. Will hold DC for now. 10/28. Cardiology and vascular surgery recommendations appreciated. Anticoagulation switched to Eliquis 10 mg twice daily. Patient is very eager to be discharged. Electrolytes stable today. Heart rate still up to 130s with ambulation. 10/29. HR is much better. Now in the 80's. She will continue eliquis 10mg BID for a total of 7 days and then switch to 5mg BID. She will continue potassium supplements and antidiarrheals +creon. She will have a repeat potassium level on 10/31 when she sees the oncology team. Dose of potassium will then be adjusted. Discussed with patients daughter and mother and they agree with plan. Disposition: DC-01 TO HOME OR SELFCARE Final Discharge Diagnosis (Prints w/discharge instructions): Acute colitis with severe electrolyte abnormalities. Acute pulmonary embolism Time spent for discharge: 40 mins Core Measure Documentation - Palliative Care Palliative Care/ Comfort Measures: Not Applicable - Core Measures Any of the following diagnoses?: none Exam - Physical Exam Narrative exam: VITAL SIGNS: Reviewed. GENERAL: Awake HEAD: No signs of head trauma. EYES: Pupils are equal. Extraocular motions intact. MOUTH: Oropharynx is normal. NECK: No adenopathy, no JVD. CHEST: Chest with diminished breath sounds bilaterally. No wheezes, rales, or rhonchi. CARDIAC: normal S1 and S2, without murmurs, gallops, or rubs. ABDOMEN: Soft, abdominal discomfort MUSCULOSKELETAL: No edema NEUROLOGIC EXAM: Alert and oriented x3. No focal neurologic deficits SKIN: No obvious lesions - Constitutional Vitals: Temp Pulse Resp BP Pulse Ox 97.5 F L 98 H 18 109/71 100 05/25/21 07:34 10/29/20 07:34 10/29/20 07:34 10/29/20 07:34 10/29/20 07:34 Plan Diet: regular Additional Instructions: Take eliquis 10mg twice a day until 11/03 then switch to 5mg twice a day until you are told to stop by your oncologist. Continue creon and cholestyramine. Continue potassium as ordered. You need to have a potassium level check on 10/31. Dose of potassium will be readjusted by your physician. Follow up with facing grinder in 1-2 weeks Follow up with: PRIMARY CARE, [Primary Care Provider] - 3-5 Days OLIMPIA BRAGG MD [Staff Physician] - 7 Days Prescriptions: Lipase/Protease/Amylase [Paulina Mahajan 6,000 Units] 12 each PO AC #90 capsule Hydromorphone HCl [Dilaudid] 4 mg PO BID PRN #12 tablet PRN Reason: severe pain Apixaban [Eliquis] 10 mg PO Q12HR #12 tablet Apixaban [Eliquis] 5 mg PO Q12HR #60 tablet Potassium Chloride [K-Dur] 40 meq PO DAILY #10 tablet Cholestyramine (with Sugar) [Questran] 4 gm PO BID #60 packet oxyCODONE [roxiCODONE] 5 mg PO Q6H PRN #12 tablet PRN Reason: Pain, Moderate (4-6)
--- NOTE | 2020-10-29 08:59 | Progress Note ---
Assessment and Plan Physiologic sinus tachycardia TSH level was normal at 4.19. Acute pulmonary embolism initiated on Eliquis Echocardiogram shows moderate enlargement of the right heart chambers, with mild pulmonary hypertension consistent with acute pulmonary embolism. The left ventricular chamber size was within normal limits, with borderline mild left ventricular dysfunction, ejection fraction 45 to 50%. There was trace pericardial effusion. Conservative cardiac management. Subjective Date of service: 10/29/20 Interval history: Patient is resting in bed and appears comfortable. Denies palpitations. Currently, she is stable sinus rhythm on telemetry with rate 98. Objective Vital Signs Temp Pulse Resp BP Pulse Ox 10/29/20 07:34 97.5 F L 98 H 18 109/71 100 10/29/20 04:08 97.4 F L 90 20 118/81 100 10/29/20 04:00 120 H 10/28/20 23:31 97.6 F 88 18 102/62 99 10/28/20 19:20 97.7 F 99 H 18 110/78 98 10/28/20 15:22 98.4 F 89 16 106/69 99 - Physical Examination General: No Apparent Distress HEENT: Positive: PERRL Neck: Positive: neck supple Cardiac: Positive: Reg Rate and Rhythm Neuro: Positive: Grossly Intact Abdomen: Positive: Soft Skin: Positive: Clear Extremities: Absent: edema - Labs and Meds Cardiac Enzymes 10/29/20 Range/Units 06:30 AST 51 H (5-40) units/L Coagulation 10/28/20 Range/Units 10:56 PT 19.9 H (12.2-14.9) Sec. INR 1.70 H (0.87-1.13) APTT 52.5 H (24.2-36.6) Sec. CBC 10/28/20 10/29/20 Range/Units 10:56 06:30 WBC 13.7 H (4.5-11.0) K/mm3 RBC 3.23 L (3.65-5.03) M/mm3 Hgb 9.6 L 10.1 (10.1-14.3) gm/dl Hct 28.2 L 29.7 L (30.3-42.9) % Plt Count 217 233 (140-440) K/mm3 Comprehensive Metabolic Panel 10/28/20 10/29/20 Range/Units 10:56 06:30 Sodium 136 L (137-145) mmol/L Potassium 3.8 (3.6-5.0) mmol/L Chloride 103.4 (98-107) mmol/L Carbon Dioxide 21 L (22-30) mmol/L BUN 3 L (7-17) mg/dL Creatinine 0.2 L 0.3 L (0.6-1.2) mg/dL Glucose 170 H (65-100) mg/dL Calcium 8.1 L (8.4-10.2) mg/dL AST 51 H (5-40) units/L ALT 50 (7-56) units/L Alkaline Phosphatase 89 (35-129) units/L Total Protein 5.5 L (6.3-8.2) g/dL Albumin 2.7 L (3.9-5) g/dL
[2020-10-29] MEDS: APIXABAN 5 MG TAB PO SCH (09:00)
[2020-10-29] MEDS: CHOLESTYRAMINE (WITH SUGAR) 4 GM PACKET PO SCH (09:00)
[2020-10-29] MEDS ORDERED: LIPASE 12,000/PROTEASE 38,000/AMYLASE 60,000 (UNITS) DR CAP PO SCH (16:30)
[2020-11-04] MEDS ORDERED: APIXABAN 5 MG TAB PO SCH (10:00)
== END 2020-10-29 11:45 | disposition home health service (06) | DRG 385 ==
LOC: ED 20:35 → 3A 10-19 03:18 → OBSVTOIN 10-19 03:18 → 4A 10-21 13:31
PROVIDERS: ADMIT Internal Medicine Geriatric Medicine; ATTEND Internal Medicine
DX: K51.00 Ulcerative (chronic) pancolitis without complications (principal); I26.99 Other pulmonary embolism without acute cor pulmonale; C25.9 Malignant neoplasm of pancreas, unspecified; K52.0 Gastroenteritis and colitis due to radiation; I47.1 Supraventricular tachycardia; R10.9 Unspecified abdominal pain; R11.2 Nausea with vomiting, unspecified; E86.0 Dehydration; R19.09 Other intra-abdominal and pelvic swelling, mass and lump; R73.03 Prediabetes; E83.42 Hypomagnesemia; T45.1X5A Adverse effect of antineoplastic and immunosuppressive drugs, initial encounter; R73.9 Hyperglycemia, unspecified; D72.819 Decreased white blood cell count, unspecified; E87.6 Hypokalemia; Z79.899 Other long term (current) drug therapy; Z79.891 Long term (current) use of opiate analgesic; Z79.01 Long term (current) use of anticoagulants; Z80.0 Family history of malignant neoplasm of digestive organs; Z84.89 Family history of other specified conditions; Z83.79 Family history of other diseases of the digestive system; Y92.89 Other specified places as the place of occurrence of the external cause
CPT/HCPCS: 36415; 71275; 74177; 80048; 80053; 82565; 83735; 84100; 84132; 84439; 84443; 85007; 85014; 85018; 85025; 85027; 85049; 85520; 85610; 85730; 87045; 87177; 87493; 87641; 93306; 93970; 96365; 96375; G0378; J1170; J1644; J1650; J2270; J2405; J2543; J2765; J3475; J3480; J7030; J7042; J7050; Q9967

== ENCOUNTER 2020-11-18 12:39 | Outpatient (CLI) | payer BC ==
[2020-11-18 13:26] LABS: BUN/Creatinine Ratio 13; Blood Urea Nitrogen 5 mg/dL (7-17); Calcium 9.1 mg/dL (8.4-10.2); Hemolysis Index 1
== END 2020-11-18 12:40 | disposition home or self-care (01) ==
LOC: LAB 12:39
PROVIDERS: ATTEND Internal Medicine
DX: E87.6 Hypokalemia (principal)
CPT/HCPCS: 36415; 80048; 83735

== ENCOUNTER 2021-01-14 10:29 | Outpatient (CLI) | payer BC ==
[2021-01-14 11:31] LABS: Blood Urea Nitrogen 11 mg/dL (7-17); Calcium 8.8 mg/dL (8.4-10.2); HDL Cholesterol 30 mg/dL (40-59); Hemolysis Index 1; LDL Cholesterol,Direct 67 mg/dL (50-130)
[2021-01-14 11:32] LABS: BUN/Creatinine Ratio 18
== END 2021-01-14 10:30 | disposition home or self-care (01) ==
LOC: LAB 10:29
PROVIDERS: ATTEND Internal Medicine
DX: E83.42 Hypomagnesemia (principal); E87.6 Hypokalemia; E11.65 Type 2 diabetes mellitus with hyperglycemia; E78.5 Hyperlipidemia, unspecified; D51.9 Vitamin B12 deficiency anemia, unspecified
CPT/HCPCS: 36415; 80048; 80061; 82607; 83036; 83735

== ENCOUNTER 2021-01-22 08:45 | Outpatient (CLI) | payer BC ==
[2021-01-22 09:54] LABS: Blood Urea Nitrogen 17 mg/dL (7-17)
--- NOTE | 2021-01-22 11:09 | Cat Scan Report ---
CT CHEST, ABDOMEN, AND PELVIS WITH IV CONTRAST INDICATION: MALIGNANT NEOPLASM OF BODY OF PANCREAS 100 ML OMNI 300 . TECHNIQUE: Axial CT images were obtained through the chest, abdomen, and pelvis with contrast. All CT scans at t his location are performed using CT dose reduction for ALARA by means of automated exposure control. COMPARISON: 10/23/2020. 10/18/2020 FINDINGS: Chest: Stable pleural-based nodules, unchanged from the prior exam.. There is persistent scarring wit hin both lower lungs when compared to 10/23/2020. No mediastinal adenopathy. No pericardial or pleural effusion. Abdomen and pelvis: There has been significant progression of intra-abdominal metastatic disease when compared to 10/19/2020. There has been significant progression of peritoneal carcinomatosis and there is now evidence of moderate ascites throughout the abdomen. The pancreatic head mass currently measu res 4.2 x 3.2 cm and previously measured approximately 3.7 x 3.3 cm in the 10/19/2020 exam. The hepatic lesion near the posterior aspect of the right hepatic lobe has not significant changed in the interim. There appears to be some increased scalloping of the hepatic margin consistent with per itoneal carcinomatosis. Both kidneys appear grossly unchanged. No small bowel obstruction identified. The uterus contains calcified fibroids and there is a cystlike lesion arising from the right adnexa, similar to the prior exam. Peritoneal carcinomatosis extends into the pelvis. Moderate to large volu me ascites present. Review of bone windows demonstrates severe arthrosis involving both SI joints and diffuse osteopenia. IMPRESSION: Severe progression of intra-abdominal metastatic disease when compared to 10/19/2020. Signer Name: Adam Marie MD Signed: 01/22/2021 11:05 AM Workstation Name: [id number]
== END 2021-01-22 08:46 | disposition home or self-care (01) ==
LOC: CT 08:45
PROVIDERS: ATTEND Internal Medicine Hematology & Oncology
DX: C25.1 Malignant neoplasm of body of pancreas (principal); R91.1 Solitary pulmonary nodule; D25.9 Leiomyoma of uterus, unspecified
CPT/HCPCS: 36415; 71260; 74177; 82565; 84520; Q9967

== ENCOUNTER 2021-01-28 16:47 | Inpatient (IN) | payer BC ==
[2021-01-28] MEDS ORDERED: SODIUM CHLORIDE 0.9% 1000 ML 1,000 ML IV ONE (16:59)
--- NOTE | 2021-01-28 17:02 | Emergency Department Report ---
Chief Complaint: Abdominal Pain Stated Complaint: BOWEL OBSTUCTION HYPOTENSION MSE screening note: Focused history and physical exam performed. Due to findings the following was ordered:labs, ivf, and radiographs. patient presented by ems due to abd pain. she had decreased bowel movements. known pancreatic ca. patient seen as part of the mse process. another provider will evaluate, review tests, and dispo the patient. ED Disposition for MSE Condition: Stable Instructions: Abdominal Pain (ED)
[2021-01-28] MEDS ORDERED: LACTATED RINGERS 2,000 ML IV ONE (18:19)
[2021-01-28] MEDS ORDERED: CEFEPIME/NS 2 GM/100 ML 2 GM/100 ML BAG IV ONE (18:19)
[2021-01-28] MEDS ORDERED: HYDROmorphone 1 MG/1 ML INJ IV ONE ×2 (18:20→20:24)
--- NOTE | 2021-01-28 18:25 | Emergency Department Report ---
ED General Adult HPI - General Chief complaint: Abdominal Pain Stated complaint: BOWEL OBSTUCTION HYPOTENSION PUI?: No Time Seen by Provider: 01/28/21 18:18 Source: patient, EMS (Verbal received from emergency medical services. EMS documentation not available at time of chart dictation ), RN notes reviewed Mode of arrival: Stretcher Limitations: Physical Limitation - History of Present Illness Initial comments: The patient was evaluated in the emergency department for symptoms described in the history of present illness. He/she was evaluated in the context of the global COVID-19 pandemic, which necessitated consideration that the patient might be at risk for infection with the virus that causes COVID-19. Institutional protocols and algorithms that pertain to the evaluation of patients at risk for COVID-19 are in a state of rapid change based on information released by regulatory bodies including the CDC and federal and state organizations. These policies and algorithms were followed during the patient's care in the emergency department. Please note that these policies, procedures and recommendations changed on a rapid basis. Hematology oncology: Dr. Leeanna Henry Past medical history: Pulmonary embolism, on anticoagulation, pancreatic cancer with extensive carcinomatosis and spread, colitis, physiologic tachycardia, hypokalemia The patient is a 65-year-old female. She is not known to myself previously. She is brought to the hospital by emergency medical services with a complaint of back pain, abdominal distention, nausea vomiting, failure to thrive, weakness for 1 week. EMS reports feculent emesis in the field. They report the patient was hypotensive in the field with a blood pressure in the 70s. The patient herself states that she has been bedbound for about 1 week. She denies fever. Patient denies focal extremity weakness, bladder and bowel retention or incontinence. The patient denies headache, neck pain and chest pain. The patient has received 1 round of COVID-19 vaccination. The patient denies loss of taste and smell. The patient's pain is constant. It is all over. The patient does not describe exacerbating or relieving factors. 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 hypokalemia related to enteritis -: Gradual, days(s) Location: back, pelvis Consistency: constant Improves with: other Worsens with: other - Related Data Previous Rx's Medication Instructions Recorded Last Taken Type Celecoxib [celeBREX] 50 mg PO BID #30 capsule 08/09/20 Unknown Rx Sennosides/Docusate Sodium [Stool 1 each PO DAILY #30 tablet 08/09/20 Unknown Rx Softener-Stim Lax Tablet] oxyCODONE ER [oxyCONTIN ER] 10 mg PO Q12HR #30 tablet 08/09/20 Unknown Rx traMADoL [Ultram 50 MG tab] 50 mg PO Q6HR PRN #12 tablet 08/09/20 Unknown Rx traZODone [Desyrel] 50 mg PO QHS PRN #30 tablet 08/09/20 Unknown Rx Dicyclomine [Bentyl] 20 mg PO QID PRN #20 tablet 08/23/20 Unknown Rx Apixaban [Eliquis] 5 mg PO Q12HR #60 tablet 10/29/20 Unknown Rx Apixaban [Eliquis] 10 mg PO Q12HR #12 tablet 10/29/20 Unknown Rx Cholestyramine (with Sugar) 4 gm PO BID #60 packet 10/29/20 Unknown Rx [Questran] Hydromorphone HCl [Dilaudid] 4 mg PO BID PRN #12 tablet 10/29/20 Unknown Rx Lipase/Protease/Amylase [Creon Dr 12 each PO AC #90 capsule 10/29/20 Unknown Rx 6,000 Units] Potassium Chloride [K-Dur] 40 meq PO DAILY #10 tablet 10/29/20 Unknown Rx oxyCODONE [roxiCODONE] 5 mg PO Q6H PRN #12 tablet 10/29/20 Unknown Rx Allergies Allergy/AdvReac Type Severity Reaction Status Date / Time No Known Allergies Allergy Verified 10/19/20 02:21 ED Review of Systems ROS: Stated complaint: BOWEL OBSTUCTION HYPOTENSION Other details as noted in HPI Constitutional: malaise, weakness ENT: denies: epistaxis Respiratory: denies: cough Cardiovascular: denies: chest pain Gastrointestinal: abdominal pain, nausea, vomiting, constipation Genitourinary: denies: dysuria Musculoskeletal: back pain, arthralgia, myalgia Neurological: weakness Hematological/Lymphatic: denies: easy bleeding ED Past Medical Hx - Past Medical History Hx Congestive Heart Failure: No Hx Diabetes: Yes (pre-diabetes) Hx Asthma: No Hx COPD: No Additional medical history: Pancreatic CA - Social History Smoking Status: Never Smoker Substance Use Type: None - Medications Home Medications: Home Medications Medication Instructions Recorded Confirmed Last Taken Type Celecoxib [celeBREX] 50 mg PO BID #30 capsule 08/09/20 10/23/20 Unknown Rx Sennosides/Docusate Sodium [Stool 1 each PO DAILY #30 tablet 08/09/20 10/23/20 Unknown Rx Softener-Stim Lax Tablet] oxyCODONE ER [oxyCONTIN ER] 10 mg PO Q12HR #30 tablet 08/09/20 10/23/20 Unknown Rx traMADoL [Ultram 50 MG tab] 50 mg PO Q6HR PRN #12 tablet 08/09/20 10/23/20 Unknown Rx traZODone [Desyrel] 50 mg PO QHS PRN #30 tablet 08/09/20 10/23/20 Unknown Rx Dicyclomine [Bentyl] 20 mg PO QID PRN #20 tablet 08/23/20 10/23/20 Unknown Rx Apixaban [Eliquis] 5 mg PO Q12HR #60 tablet 10/29/20 Unknown Rx Apixaban [Eliquis] 10 mg PO Q12HR #12 tablet 10/29/20 Unknown Rx Cholestyramine (with Sugar) 4 gm PO BID #60 packet 10/29/20 Unknown Rx [Questran] Hydromorphone HCl [Dilaudid] 4 mg PO BID PRN #12 tablet 10/29/20 Unknown Rx Lipase/Protease/Amylase [Creon Dr 12 each PO AC #90 capsule 10/29/20 Unknown Rx 6,000 Units] Potassium Chloride [K-Dur] 40 meq PO DAILY #10 tablet 10/29/20 Unknown Rx oxyCODONE [roxiCODONE] 5 mg PO Q6H PRN #12 tablet 10/29/20 Unknown Rx ED Physical Exam - General Limitations: Physical Limitation General appearance: in no apparent distress, in distress - Head Head exam: Present: atraumatic, normocephalic - Eye Eye exam: Present: normal appearance, EOMI. Absent: nystagmus - ENT ENT exam: Present: normal orophraynx, mucous membranes dry, normal external ear exam - Neck Neck exam: Present: normal inspection, full ROM. Absent: tenderness, meningismus - Respiratory Respiratory exam: Present: accessory muscle use, decreased breath sounds. Absent: wheezes, rales, rhonchi, stridor - Cardiovascular Cardiovascular Exam: Present: normal rhythm, tachycardia, normal heart sounds. Absent: bradycardia, irregular rhythm, systolic murmur, diastolic murmur, rubs, gallop - GI/Abdominal GI/Abdominal exam: Present: soft, distended. Absent: tenderness, guarding, rebound, rigid - Extremities Exam Extremities exam: Present: normal inspection, pedal edema (1+ edema in the bilateral lower extremity), other (2+ pulses noted in the bilateral upper and lower extremities. There is no palpable cord. negative Homans sign. Muscular compartments are soft. The pelvis is stable.). Absent: calf tenderness - Back Exam Back exam: Present: normal inspection, paraspinal tenderness. Absent: tenderness, CVA tenderness (R), CVA tenderness (L), vertebral tenderness - Neurological Exam Neurological exam: Present: alert, oriented X3, other (No facial droop. Tongue midline. Extraocular movements intact bilaterally. Facial sensation intact to light touch in V1, V2, V3 distribution bilaterally. 5 and a 5 strength in 4 extremities. Sensation intact to light touch in 4 extremities.) - Psychiatric Psychiatric exam: Present: flat affect - Skin Skin exam: Present: warm, dry, intact, normal color. Absent: rash ED Course Vital Signs 01/28/21 01/28/21 18:30 19:27 Pulse Rate 106 H 108 H Respiratory 21 21 Rate Blood Pressure 79/51 89/55 [Left] O2 Sat by Pulse 95 96 Oximetry - Reevaluation(s) Reevaluation #1: 01/28/21 18:29 Differential diagnosis, including the not limited to: Obstruction, ileus, colitis, diverticulitis, dehydration, pneumonia, urinary tract infection, sepsis, electrolyte derangement, pancreatic cancer Assessment and plan: 65-year-old female with complex past medical history, recently had CT scan abdomen pelvis and chest at this facility within the past week, which demonstrated worsening cancer burden in the abdomen, who now presents with 1 week of failure to thrive, inability to get out of bed/stretcher, she moves 4 extremities, and has sensation that is intact to light touch, and has no midline spinal tenderness, who is hypotensive and tachycardic. Prognosis is very poor overall. I engaged this patient in a discussion about advanced directives and goals of care. She tells me that she has not had this discussion in the past. We discussed various options for therapy and treatment, and we also extensively discussed conservative care versus aggressive medical care. We extensively discussed intubation, mechanical ventilation, chest compressions and CPR. The patient has not made a decision at this time to pursue palliative care, hospice care comfort care, at this point time she is thus a full code. To that end, she has a left-sided thoracic port, nursing team to access port, we will obtain appropriate laboratory studies, x-ray of the chest, rectal temperature, urinalysis and EKG. We will repeat CT scan of the abdomen pelvis. I extensively discussed the patient's recent CT scan findings with her, and also conveyed the very poor prognosis that her recent CT scan portends unfortunately. As a courtesy, I will reach out to her private oncologist, Dr. Henry We anticipate this patient will be admitted to the medical service once her initial diagnostics have resulted. I have discussed this plan of care with the patient. She has articulated understanding. There is no midline spinal tenderness or step-offs. She moves 4 extremities. She has intact sensation. 01/28/21 18:35 Received call back from covering hematology oncology, Dr. Lizarraga. To the best of his knowledge, advanced directive discussion and goals of care discussion have not been had with this patient. I have requested names and agents of patient's current neoadjuvant therapy. He will attempt to elucidate this, or convey this request to Dr. Henry, and provide this information to myself. 01/28/21 18:43 Dr Lizarraga called back he stated patient/chemotherapy was approximately 2 weeks ago. to the best of his knowledge, a dnr/dni has not been filled out. he did inform me that patient was involved with palliative care, but uncertain of which group 01/28/21 21:33 CT scan abdomen pelvis shows worsening carcinomatosis and worsening ascites. Pl eural effusion noted, and pulmonary opacities noted. Patient feels improved, blood pressure now 110 systolic. I had an extensive and long discussion about goals of care and advanced directives and overall prognosis and results of diagnostic testing with the patient, her Franco, and her daughter Deborah Del Castillo We discussed various goals of care options, and advanced directives, full code versus DO NOT RESUSCITATE, DO NOT INTUBATE. Extensively and thoroughly discussed each of these options. For the moment, the patient and family would prefer to remain full code. They are amenable to admission hospitalization for supportive care and antibiotics. Hospital physician, Dr. Prather to admit to [facility] family states that patient was previously [facility] 01/28/21 21:36 ED Medical Decision Making - Lab Data Result diagrams: 01/28/21 16:59 01/28/21 16:59 Vital Signs 01/28/21 01/28/21 18:30 19:27 Pulse Rate 106 H 108 H Respiratory 21 21 Rate Blood Pressure 79/51 89/55 [Left] O2 Sat by Pulse 95 96 Oximetry Lab Results 01/28/21 01/28/21 01/28/21 Range/Units 16:59 16:59 18:19 WBC 27.9 H (4.5-11.0) K/mm3 RBC 3.24 L (3.65-5.03) M/mm3 Hgb 9.4 L (10.1-14.3) gm/dl Hct 29.0 L (30.3-42.9) % MCV 90 (79-97) fl MCH 29 (28-32) pg MCHC 32 (30-34) % RDW 17.5 H (13.2-15.2) % Plt Count 258 (140-440) K/mm3 Seg Neutrophils % Digital Pre Press Operator PT 33.8 H (12.2-14.9) Sec. INR 3.32 H (0.87-1.13) APTT 41.5 H (24.2-36.6) Sec. Sodium 135 L (137-145) mmol/L Potassium 4.7 (3.6-5.0) mmol/L Chloride 104.9 (98-107) mmol/L Carbon Dioxide 18 L (22-30) mmol/L Anion Gap 17 mmol/L BUN 39 H (7-17) mg/dL Creatinine 1.3 H (0.6-1.2) mg/dL Estimated GFR 50 ml/min BUN/Creatinine Ratio 30 % Glucose 161 H (65-100) mg/dL Lactic Acid (0.7-2.0) mmol/L Calcium 7.2 L (8.4-10.2) mg/dL Magnesium (1.7-2.3) mg/dL Total Bilirubin 0.40 (0.1-1.2) mg/dL AST 10 (5-40) units/L ALT 6 L (7-56) units/L Alkaline Phosphatase 109 (35-129) units/L Total Creatine Kinase (30-135) units/L Total Protein 5.4 L (6.3-8.2) g/dL Albumin 2.2 L (3.9-5) g/dL Albumin/Globulin Ratio 0.7 % Lipase 8 L (13-60) units/L TSH (0.270-4.200) mlU/mL 01/28/21 01/28/21 01/28/21 Range/Units 18:19 18:25 18:48 WBC (4.5-11.0) K/mm3 RBC (3.65-5.03) M/mm3 Hgb (10.1-14.3) gm/dl Hct (30.3-42.9) % MCV (79-97) fl MCH (28-32) pg MCHC (30-34) % RDW (13.2-15.2) % Plt Count (140-440) K/mm3 Seg Neutrophils % PT (12.2-14.9) Sec. INR (0.87-1.13) APTT (24.2-36.6) Sec. Sodium (137-145) mmol/L Potassium (3.6-5.0) mmol/L Chloride (98-107) mmol/L Carbon Dioxide (22-30) mmol/L Anion Gap mmol/L BUN (7-17) mg/dL Creatinine (0.6-1.2) mg/dL Estimated GFR ml/min BUN/Creatinine Ratio % Glucose (65-100) mg/dL Lactic Acid 1.30 (0.7-2.0) mmol/L Calcium (8.4-10.2) mg/dL Magnesium 1.90 (1.7-2.3) mg/dL Total Bilirubin (0.1-1.2) mg/dL AST (5-40) units/L ALT (7-56) units/L Alkaline Phosphatase (35-129) units/L Total Creatine Kinase 19 L (30-135) units/L Total Protein (6.3-8.2) g/dL Albumin (3.9-5) g/dL Albumin/Globulin Ratio % Lipase (13-60) units/L TSH 10.590 H (0.270-4.200) mlU/mL - EKG Data -: EKG Interpreted by Sc EKG shows normal: sinus rhythm - EKG Data 01/28/21 21:36 The EKG is interpreted at 20: 57 Sinus rhythm, tachycardia, rate 110 bpm. Left axis deviation. Poor R wave progression. Motion artifact. QTC 462 ms. Not a STEMI. - Radiology Data Radiology results: report reviewed, image reviewed CT CHEST, ABDOMEN, AND PELVIS WITH IV CONTRAST INDICATION: MALIGNANT NEOPLASM OF BODY OF PANCREAS 100 ML OMNI 300 . TECHNIQUE: Axial CT images were obtained through the chest, abdomen, and pelvis with contrast. All CT scans at this location are performed using CT dose reduction for ALARA by means of automated exposure control. COMPARISON: 10/23/2020. 10/18/2020 FINDINGS: Chest: Stable pleural-based nodules, unchanged from the prior exam.. There is persistent scarring within both lower lungs when compared to 10/23/2020. No mediastinal adenopathy. No pericardial or pleural effusion. Abdomen and pelvis: There has been significant progression of intra-abdominal metastatic disease when compared to 10/19/2020. There has been significant progression of peritoneal carcinomatosis and there is now evidence of moderate ascites throughout the abdomen. The pancreatic head mass currently measures 4.2 x 3.2 cm and previously measured approximately 3.7 x 3.3 cm in the 10/19/2020 exam. The hepatic lesion near the posterior aspect of the right hepatic lobe has not significant changed in the interim. There appears to be some increased scalloping of the hepatic margin consistent with peritoneal carcinomatosis. Both kidneys appear grossly unchanged. No small bowel obstruction identified. The uterus contains calcified fibroids and there is a cystlike lesion arising from the right adnexa, similar to the prior exam. Peritoneal carcinomatosis extends into the pelvis. Moderate to large volume ascites present. Review of bone windows demonstrates severe arthrosis involving both SI joints and diffuse osteopenia. IMPRESSION: Severe progression of intra-abdominal metastatic disease when compared to 10/19/2020. Signer Name: Adam Marie MD Signed: 01/22/2021 10:05 AM Workstation Name: [employer] CHEST 1 VIEW INDICATION / CLINICAL INFORMATION: n/v weak. History pancreatic cancer COMPARISON: 01/22/2021 FINDINGS: SUPPORT DEVICES: Stable, satisfactory device positioning. HEART / MEDIASTINUM: No significant abnormality. LUNGS / PLEURA: There are pulmonary opacities in the right midlung. It is unclear if this is pneumonia or possibly metastatic disease. No pleural effusion. Left lung is grossly clear. No pneumothorax. ADDITIONAL FINDINGS: No significant additional findings. IMPRESSION: 1. Developing pulmonary opacities in the right midlung. Differential diagnosis includes pneumonia versus worsening metastatic disease. Signer Name: Emelina Garcia MD Signed: 01/28/2021 6:02 PM Workstation Name: [email or web address] [employer]-GDV CT abdomen pelvis w con INDICATION / CLINICAL INFORMATION: n/v weak, distension. History pancreatic cancer TECHNIQUE: Axial CT imaging of abdomen and pelvis was obtained with IV contrast. Coronal and sagittal reformatted imaging obtained and reviewed. All CT scans at this location are performed using CT dose reduction for ALARA by means of automated exposure control. COMPARISON: Prior CT abdomen/pelvis 01/22/2021 FINDINGS: CT abdomen with contrast once again demonstrates evidence for peritoneal carcinomatosis. There is increase in amount of ascites throughout the abdomen and pelvis since the CT scan from a few days ago, 01/22/2021. There is omental nodularity again noted. Metastasis within the posterior superior aspect of the right hepatic lobe is again noted. Spleen, kidneys, and adrenal glands are grossly normal. There are a few small simple renal cysts incidentally noted. The mass noted along the origin of the celiac access and SMA is again noted not appreciably changed in size and appearance since recent CT scan. Gallbladder is unremarkable. No biliary dilatation. CT pelvis with contrast demonstrates uterine fibroids and right ovarian cystic mass, stable. Urinary bladder is moderately distended. Increase in amount of ascites is noted throughout the pelvis. GI tract is grossly unremarkable without evidence of bowel obstruction. There has been interval development of small right pleural effusion. Pulmonary opacities are present in both lung bases-unclear if this is related to metastatic disease or infectious etiology. IMPRESSION: 1. Since the most recent CT scan of 01/22/2021, there has been definite increase in the amount of ascites throughout the abdomen and pelvis. The amount of ascites would be considered moderate to large. 2. Findings consistent with peritoneal carcinomatosis again noted. 3. Soft tissue malignant appearing mass along the anterior aspect of the abdominal aorta, at the origin of the celiac axis and SMA is again noted not appreciably changed. 4. Developing small right pleural effusion with bibasilar pulmonary opacities.. Signer Name: Emelina Garcia MD Signed: 01/28/2021 7:46 PM Workstation Name: [facility] Critical Care Time: Yes Critical care time in (mins) excluding proc time.: 45 Critical care attestation.: If time is entered above; I have spent that time in minutes in the direct care of this critically ill patient, excluding procedure time. ED Disposition Clinical Impression: SIRS (systemic inflammatory response syndrome), Pleural effusion, Peritoneal carcinomatosis, Pancreatic cancer, Full code status, Dehydration, Failure to thrive, Nausea and vomiting Disposition: 09 ADMITTED INPATIENT Is pt being admited?: Yes Does the pt Need Aspirin: No Condition: Poor Instructions: Abdominal Pain (ED) Referrals: PRIMARY CARE, [Primary Care Provider] - 3-5 Days
[2021-01-28] MEDS: ONDANSETRON 4 MG/2 ML INJ IV ONE ×2 (18:50→21:10)
--- NOTE | 2021-01-28 19:06 | XRay Report ---
CHEST 1 VIEW INDICATION / CLINICAL INFORMATION: n/v weak. History pancreatic cancer COMPARISON: 01/22/2021 FINDINGS: SUPPORT DEVICES: Stable, satisfactory device positioning. HEART / MEDIASTINUM: No significant abnormality. LUNGS / PLEURA: There are pulmonary opacities in the right midlung. It is unclear if this is pneumoni a or possibly metastatic disease. No pleural effusion. Left lung is grossly clear. No pneumothorax. ADDITIONAL FINDINGS: No significant additional findings. IMPRESSION: 1. Developing pulmonary opacities in the right midlung. Differential diagnosis includes pneumonia lucía gabriella worsening metastatic disease. Signer Name: Emelina Garcia MD Signed: 01/28/2021 7:02 PM Workstation Name: [employer]
[2021-01-28 19:17] LABS: Hemoglobin 9.4 gm/dl (10.1-14.3); Mean Corpuscular HGB Conc 32 % (30-34); Mean Corpuscular Volume 90 fl (79-97); Platelet Count 258 K/mm3 (140-440); Red Blood Count 3.24 M/mm3 (3.65-5.03); Red Cell Distribution Width 17.5 % (13.2-15.2)
[2021-01-28 19:24] LABS: Albumin 2.2 g/dL (3.9-5); Calcium 7.2 mg/dL (8.4-10.2)
[2021-01-28 19:28] LABS: INR 3.32 (0.87-1.13)
[2021-01-28 19:29] LABS: Partial Thromboplastin Time 41.5 Sec. (24.2-36.6)
--- NOTE | 2021-01-28 20:51 | Cat Scan Report ---
CT abdomen pelvis w con INDICATION / CLINICAL INFORMATION: n/v weak, distension. History pancreatic cancer TECHNIQUE: Axial CT imaging of abdomen and pelvis was obtained with IV contrast. Coronal and sagittal reformatte d imaging obtained and reviewed. All CT scans at this location are performed using CT dose reduction for ALARA by means of automated exposure control. COMPARISON: Prior CT abdomen/pelvis 01/22/2021 FINDINGS: CT abdomen with contrast once again demonstrates evidence for peritoneal carcinomatosis. There is inc rease in amount of ascites throughout the abdomen and pelvis since the CT scan from a few days ago, . There is omental nodularity again noted. Metastasis within the posterior superior aspect of the right hepatic lobe is again noted. Spleen, kidneys, and adrenal glands are grossly normal. There are a few small simple renal cysts incidentally noted. The mass noted along the origin of the celiac access and SMA is again noted not appreciably changed in size and appearance since recent CT scan. G allbladder is unremarkable. No biliary dilatation. CT pelvis with contrast demonstrates uterine fibroids and right ovarian cystic mass, stable. Urinary bladder is moderately distended. Increase in amount of ascites is noted throughout the pelvis. GI tra ct is grossly unremarkable without evidence of bowel obstruction. There has been interval development of small right pleural effusion. Pulmonary opacities are present in both lung bases-unclear if this is related to metastatic disease or infectious etiology. IMPRESSION: 1. Since the most recent CT scan of 01/22/2021, there has been definite increase in the amount of asci piedad throughout the abdomen and pelvis. The amount of ascites would be considered moderate to large. 2. Findings consistent with peritoneal carcinomatosis again noted. 3. Soft tissue malignant appearing mass along the anterior aspect of the abdominal aorta, at the orig in of the celiac axis and SMA is again noted not appreciably changed. 4. Developing small right pleural effusion with bibasilar pulmonary opacities.. Signer Name: Emelina Garcia MD Signed: 01/28/2021 8:46 PM Workstation Name: [facility]-GDV
[2021-01-28] MEDS ORDERED: ONDANSETRON 4 MG/2 ML INJ IV ONE (21:03)
[2021-01-28 21:14] LABS: Total Cells Counted 100
[2021-01-28 21:15] LABS: RBC Morphology Normal
[2021-01-28] MEDS ORDERED: LEVOTHYROXINE 100 MCG INJ IV STA (21:23)
--- NOTE | 2021-01-28 22:06 | History and Physical Report ---
History of Present Illness Date of examination: 01/28/21 Date of admission: 01/28/21 Chief complaint: Generalized pain low back pain abdominal distention nausea vomiting History of present illness: The patient is a 65-year-old female. She is brought to the hospital by emergency medical services with a complaint of back pain, abdominal distention, nausea vomiting, failure to thrive, weakness for 1 week. EMS reports feculent emesis in the field. They report the patient was hypotensive in the field with a blood pressure in the 70s. The patient herself states that she has been bedbound for about 1 week. She denies fever. Patient denies focal extremity weakness, bladder and bowel retention or incontinence. Patient was seen in the ED at bedside. Patient reports severe generalized body pain. Pain level 10/10. Patient seen with family members including daughter at the bedside. Noted Port-A-Cath on the left subclavian area. Patient has severe worsening pancreatic CA with metastasis. Reviewed CT of the abdomen reports conclusive with metastasis, including abdominal ascites and small pleural effusion. I reviewed patient medical record blood work results and vital signs. Patient has elevated WBCpatient started on antibiotic empirically. Infectious disease consulted also. CT of the chest shows developing pulmonary opacity in the right midlung differential diagnosis may include pneumonia versus worsening metastatic disease. CT of the abdomen showed air could not inject peritoneal carcinoma metastasis and again developing small right pleural effusion with basilar pulmonary opacity. Past History Past Medical History: cancer, other Past Surgical History: No surgical history Social history: lives with family, full code Family history: no significant family history Medications and Allergies Allergies Allergy/AdvReac Type Severity Reaction Status Date / Time No Known Allergies Allergy Verified 10/19/20 02:21 Home Medications Medication Instructions Recorded Confirmed Last Taken Type Celecoxib [celeBREX] 50 mg PO BID #30 capsule 08/09/20 10/23/20 Unknown Rx Sennosides/Docusate Sodium [Stool 1 each PO DAILY #30 tablet 08/09/20 10/23/20 Unknown Rx Softener-Stim Lax Tablet] oxyCODONE ER [oxyCONTIN ER] 10 mg PO Q12HR #30 tablet 08/09/20 10/23/20 Unknown Rx traMADoL [Ultram 50 MG tab] 50 mg PO Q6HR PRN #12 tablet 08/09/20 10/23/20 Unknown Rx traZODone [Desyrel] 50 mg PO QHS PRN #30 tablet 08/09/20 10/23/20 Unknown Rx Dicyclomine [Bentyl] 20 mg PO QID PRN #20 tablet 08/23/20 10/23/20 Unknown Rx Apixaban [Eliquis] 5 mg PO Q12HR #60 tablet 10/29/20 Unknown Rx Apixaban [Eliquis] 10 mg PO Q12HR #12 tablet 10/29/20 Unknown Rx Cholestyramine (with Sugar) 4 gm PO BID #60 packet 10/29/20 Unknown Rx [Questran] Hydromorphone HCl [Dilaudid] 4 mg PO BID PRN #12 tablet 10/29/20 Unknown Rx Lipase/Protease/Amylase [Creon Dr 12 each PO AC #90 capsule 10/29/20 Unknown Rx 6,000 Units] Potassium Chloride [K-Dur] 40 meq PO DAILY #10 tablet 10/29/20 Unknown Rx oxyCODONE [roxiCODONE] 5 mg PO Q6H PRN #12 tablet 10/29/20 Unknown Rx Review of Systems Constitutional: weight loss, anorexia, fatigue, weakness Ears, nose, mouth and throat: no epistaxis, no bleeding gums Breasts: no pain, no skin changes Cardiovascular: no leg edema Gastrointestinal: abdominal pain, nausea, vomiting, loss of appetite, other (Distended abdomen), no melena Genitourinary Female: no dysmenorrhea, no stress incontinence Rectal: no itching, no hemorrhoids Musculoskeletal: muscle weakness Integumentary: no rash, no pruritis Neurological: weakness, no head injury, no paralysis Psychiatric: no suicidal ideation, no disorientation Hematologic/Lymphatic: easy bruising, easy bleeding Allergic/Immunologic: no urticaria Exam - Constitutional Vitals: Temp Pulse Resp BP Pulse Ox 108 H 21 89/55 96 01/28/21 19:27 01/28/21 19:27 01/28/21 19:27 01/28/21 19:27 General appearance: Present: severe distress, cachectic - EENT Eyes: Present: PERRL ENT: hearing intact, clear oral mucosa - Neck Neck: Present: supple, normal ROM - Respiratory Respiratory effort: normal Respiratory: bilateral: CTA - Cardiovascular Heart Sounds: Present: S1 & S2. Absent: rub, click - Extremities Extremities: pulses symmetrical, No edema Peripheral Pulses: within normal limits - Abdominal General gastrointestinal: Present: tender, distended, hypoactive bowel sounds, other (Abdominal ascites appreciated on CT of the abdomen) Female genitourinary: Present: normal - Integumentary Integumentary: Present: clear, warm, dry - Musculoskeletal Musculoskeletal: gait normal, strength equal bilaterally - Psychiatric Psychiatric: appropriate mood/affect, intact judgment & insight - Neurologic Neurologic: CNII-XII intact, moves all extremities - Allied Health Allied health notes reviewed: nursing Results - Labs CBC & Chem 7: 01/29/21 04:44 01/28/21 16:59 Labs: Abnormal lab results 01/28/21 01/28/21 01/28/21 Range/Units 16:59 16:59 18:19 WBC 27.9 H (4.5-11.0) K/mm3 RBC 3.24 L (3.65-5.03) M/mm3 Hgb 9.4 L (10.1-14.3) gm/dl Hct 29.0 L (30.3-42.9) % RDW 17.5 H (13.2-15.2) % Seg Neuts % (Manual) 89.0 H (40.0-70.0) % Lymphocytes % (Manual) 4.0 L (13.4-35.0) % Seg Neutrophils # Man 24.8 H (1.8-7.7) K/mm3 Lymphocytes # (Manual) 1.1 L (1.2-5.4) K/mm3 Monocytes # (Manual) 2.0 H (0.0-0.8) K/mm3 PT 33.8 H (12.2-14.9) Sec. INR 3.32 H (0.87-1.13) APTT 41.5 H (24.2-36.6) Sec. Sodium 135 L (137-145) mmol/L Carbon Dioxide 18 L (22-30) mmol/L BUN 39 H (7-17) mg/dL Creatinine 1.3 H (0.6-1.2) mg/dL Glucose 161 H (65-100) mg/dL Calcium 7.2 L (8.4-10.2) mg/dL ALT 6 L (7-56) units/L Total Creatine Kinase (30-135) units/L Total Protein 5.4 L (6.3-8.2) g/dL Albumin 2.2 L (3.9-5) g/dL Lipase 8 L (13-60) units/L TSH (0.270-4.200) mlU/mL 01/28/21 01/28/21 Range/Units 18:19 18:25 WBC (4.5-11.0) K/mm3 RBC (3.65-5.03) M/mm3 Hgb (10.1-14.3) gm/dl Hct (30.3-42.9) % RDW (13.2-15.2) % Seg Neuts % (Manual) (40.0-70.0) % Lymphocytes % (Manual) (13.4-35.0) % Seg Neutrophils # Man (1.8-7.7) K/mm3 Lymphocytes # (Manual) (1.2-5.4) K/mm3 Monocytes # (Manual) (0.0-0.8) K/mm3 PT (12.2-14.9) Sec. INR (0.87-1.13) APTT (24.2-36.6) Sec. Sodium (137-145) mmol/L Carbon Dioxide (22-30) mmol/L BUN (7-17) mg/dL Creatinine (0.6-1.2) mg/dL Glucose (65-100) mg/dL Calcium (8.4-10.2) mg/dL ALT (7-56) units/L Total Creatine Kinase 19 L (30-135) units/L Total Protein (6.3-8.2) g/dL Albumin (3.9-5) g/dL Lipase (13-60) units/L TSH 10.590 H (0.270-4.200) mlU/mL Assessment and Plan - Patient Problems (1) Pancreatic cancer Current Visit: Yes Status: Acute Plan to address problem: Continue pain management. Patient has a history of pancreatic cancer that has metastasized CT of the abdomen shows ascites and metastatic lesions patient may benefit from palliative Care (2) Acute abdominal pain Current Visit: No Status: Acute Plan to address problem: Pain management as needed as needed (3) Dehydration Current Visit: Yes Status: Acute Plan to address problem: Continue IV hydration with normal saline Monitor vital signs (4) DVT prophylaxis Current Visit: Yes Status: Acute Plan to address problem: SCD on Eliquis (5) Leucocytosis Current Visit: Yes Status: Acute Plan to address problem: Continue empiric antibiotic Blood culture and urinalysis (6) Full code status Current Visit: Yes Status: Acute Plan to address problem: Patient is presently a full code (7) TSH elevation Current Visit: Yes Status: Acute Plan to address problem: Check T4 and T3 Start Synthroid if needed (8) Failure to thrive Current Visit: Yes Status: Acute Plan to address problem: Secondary to poor appetite and disease process Patient has low H&Hstart iron and a multivitamin supplement Encourage oral food intake Consult computer scientist.
[2021-01-28] MEDS ORDERED: ACETAMINOPHEN 325 MG TAB PO PRN ×2 (23:32→23:36)
[2021-01-28] MEDS ORDERED: ONDANSETRON 4 MG/2 ML INJ IV PRN (23:32)
[2021-01-28] MEDS ORDERED: NALOXONE 0.4 MG/1 ML INJ IV PRN (23:32)
[2021-01-28] MEDS ORDERED: MAGNESIUM HYDROXIDE (MOM) ORAL LIQD UDC PO PRN (23:32)
[2021-01-28] MEDS ORDERED: MORPHINE 4 MG/1 ML INJ IV PRN (23:32)
[2021-01-28] MEDS ORDERED: METOCLOPRAMIDE 10 MG/2 ML INJ IV PRN (23:32)
[2021-01-28] MEDS ORDERED: SENNOSIDES 8.6 MG TAB PO PRN (23:32)
[2021-01-28] MEDS ORDERED: oxyCODONE /ACETAMINOPHEN 5-325MG TAB PO PRN (23:32)
[2021-01-28] MEDS ORDERED: ALUM-MAG HYDROXIDE-SIMETHICONE 200-200-20MG/5ML ORAL LIQD 30 ML PO PRN (23:32)
[2021-01-28] MEDS ORDERED: HYDROmorphone 1 MG/1 ML INJ IV PRN (23:36)
[2021-01-28] MEDS ORDERED: D5W/0.9% NACL 1,000 ML IV SCH (23:45)
[2021-01-29] MEDS: AZITHROMYCIN/NS 500 MG/250 ML 500 MG/250 ML BAG IV SCH ×2 (01:00→10:14)
[2021-01-29] MEDS ORDERED: SODIUM CHLORIDE 0.9% 1000 ML 1,000 ML IV ONE (03:20)
[2021-01-29 05:24] LABS: Hematocrit 24.9 % (30.3-42.9); Hemoglobin 8.1 gm/dl (10.1-14.3); Mean Corpuscular HGB Conc 33 % (30-34); Mean Corpuscular Volume 90 fl (79-97); Platelet Count 218 K/mm3 (140-440); Red Blood Count 2.78 M/mm3 (3.65-5.03); Red Cell Distribution Width 17.3 % (13.2-15.2)
[2021-01-29] MEDS ORDERED: HYDROMORPHONE HCL 4 MG PO PRN (06:11)
[2021-01-29] MEDS ORDERED: oxyCODONE 5 MG TAB PO PRN (06:11)
[2021-01-29] MEDS ORDERED: traZODone 50 MG TAB PO PRN (06:11)
[2021-01-29 06:26] LABS: BUN/Creatinine Ratio 31; Blood Urea Nitrogen 28 mg/dL (7-17); Calcium 6.5 mg/dL (8.4-10.2); Hemolysis Index 1
[2021-01-29] MEDS ORDERED: LIPASE PO SCH (07:30)
[2021-01-29] MEDS ORDERED: AMYLASE PO SCH (07:30)
[2021-01-29] MEDS ORDERED: PROTEASE PO SCH (07:30)
[2021-01-29] MEDS ORDERED: KETOROLAC 30 MG/1 ML INJ IV ONE (07:41)
[2021-01-29] MEDS ORDERED: KETOROLAC 30 MG/1 ML INJ ONE (07:42)
[2021-01-29 09:24] LABS: Bacteria,Urine 1+ /HPF (Negative); Bilirubin,Urine NEG (Negative); Blood,Urine NEG (Negative); Color,Urine Yellow (Yellow); Mucus,Urine FEW /HPF; Urobilinogen,Urine < 2.0 mg/dL (<2.0)
[2021-01-29] MEDS: FAMOTIDINE 10 MG TAB PO SCH ×2 (09:33→22:02)
[2021-01-29] MEDS ORDERED: FAMOTIDINE 20 MG/2 ML INJ IV SCH (10:00)
[2021-01-29] MEDS ORDERED: MULTIVITAMINS ,THERAPEUTIC TAB PO SCH (10:00)
[2021-01-29] MEDS ORDERED: NON-FORMULARY EACH (Apixaban 5 MG Tablet) PO SCH (10:00)
[2021-01-29] MEDS ORDERED: oxyCODONE ER 10 MG TAB PO SCH (10:00)
[2021-01-29] MEDS ORDERED: cefTRIAXone/NS 1 GM/50 ML 1 GM/50 ML BAG IV SCH (10:00)
[2021-01-29] MEDS ORDERED: FERROUS SULFATE 325 MG TAB PO SCH (10:00)
[2021-01-29] MEDS ORDERED: ENOXAPARIN 40 MG/0.4 ML INJ SUB-Q SCH (10:00)
--- NOTE | 2021-01-29 11:30 | Electrocardiograph Report ---
[facility] Test Date: 2021-01-28 Test Time: 20:57:35 Pat Name: GRACY LIU Department: Room: [place] [address] Gender: F It Risk Advisor: CANDACE : 1955 Requested By: KIMBERLY PERDOMO Order Number: [id number] Reading MD: Omkar Younger Measurements Intervals [place] Rate: 110 P: 49 IA: 161 QRS: 264 QRSD: 80 T: 69 QT: 341 QTc: 462 Interpretive Statements Sinus tachycardia Low voltage complexes in limb and precordial leads. Aberrant conduction of SV complex(es) Left anterior fascicular block Anterior infarct, old No previous ECG available for comparison Electronically Signed On 01-29-2021 11:30:02 EDT by Omkar Younger
[2021-01-29 11:33] LABS: Band Neutrophils # (Manual) 0.3 K/mm3; Total Cells Counted 100
[2021-01-29 11:34] LABS: Toxic Granulation 1+
[2021-01-29 11:35] LABS: Platelet Estimate Consistent w Auto
[2021-01-29] MEDS ORDERED: VANCOMYCIN 750 MG in SODIUM CHLORIDE 0.9% 500 ML 500 ML IV ONE (13:45)
--- NOTE | 2021-01-29 13:47 | Consultation ---
History of Present Illness - Reason for Consult Consult date: 01/29/21 leucocytosis Requesting physician: LUCITA FULLER - History of Present Illness The patient is a 65-year-old female with metastatic pancreatic cancer was admitted to the hospital with feculent emesis, back pain, abdominal distention, failure to thrive. She was hypotensive, labs with leukocytosis, also tachycardic. Chest x-ray showed pulmonary opacities, CT abdomen and pelvis showed moderate to large ascites, peritoneal carcinomatosis, notably her recent CT abdomen and pelvis a week prior had shown increasing intra-abdominal metastatic disease. ID was consulted due to leukocytosis Review of Systems: Deferred to minimize risk of transmission in case patient has COVID-19 Past History Past Medical History: cancer, other Past Surgical History: No surgical history Social history: lives with family, full code Family history: no significant family history Medications and Allergies Allergies Allergy/AdvReac Type Severity Reaction Status Date / Time No Known Allergies Allergy Verified 10/19/20 02:21 Home Medications Medication Instructions Recorded Confirmed Last Taken Type Celecoxib [celeBREX] 50 mg PO BID #30 capsule 08/09/20 10/23/20 Unknown Rx Sennosides/Docusate Sodium [Stool 1 each PO DAILY #30 tablet 08/09/20 10/23/20 Unknown Rx Softener-Stim Lax Tablet] oxyCODONE ER [oxyCONTIN ER] 10 mg PO Q12HR #30 tablet 08/09/20 10/23/20 Unknown Rx traMADoL [Ultram 50 MG tab] 50 mg PO Q6HR PRN #12 tablet 08/09/20 10/23/20 Unknown Rx traZODone [Desyrel] 50 mg PO QHS PRN #30 tablet 08/09/20 10/23/20 Unknown Rx Dicyclomine [Bentyl] 20 mg PO QID PRN #20 tablet 08/23/20 10/23/20 Unknown Rx Apixaban [Eliquis] 5 mg PO Q12HR #60 tablet 10/29/20 Unknown Rx Apixaban [Eliquis] 10 mg PO Q12HR #12 tablet 10/29/20 Unknown Rx Cholestyramine (with Sugar) 4 gm PO BID #60 packet 10/29/20 Unknown Rx [Questran] Hydromorphone HCl [Dilaudid] 4 mg PO BID PRN #12 tablet 10/29/20 Unknown Rx Lipase/Protease/Amylase [Creon Dr 12 each PO AC #90 capsule 10/29/20 Unknown Rx 6,000 Units] Potassium Chloride [K-Dur] 40 meq PO DAILY #10 tablet 10/29/20 Unknown Rx oxyCODONE [roxiCODONE] 5 mg PO Q6H PRN #12 tablet 10/29/20 Unknown Rx Active Meds: Active Medications Acetaminophen (Acetaminophen 325 Mg Tab) 650 mg PO Q4H PRN PRN Reason: Pain MILD(1-3)/Fever >100.5/KEVIN Al Hydrox/Mg Hydrox/Simethicone (Alum-Mag Hydroxide-Simethicone [id number]/5ml Oral Liqd 30 Ml) 30 ml PO Q4H PRN PRN Reason: Indigestion Enoxaparin Sodium (Enoxaparin 40 Mg/0.4 Ml Inj) 40 mg SUB-Q QDAY [facility] Last Admin: 01/29/21 09:34 Dose: 40 mg Documented by: Famotidine (Famotidine 10 Mg Tab) 10 mg PO BID EVELYN Last Admin: 01/29/21 09:33 Dose: 10 mg Documented by: Ferrous Sulfate (Ferrous Sulfate 325 Mg Tab) 325 mg PO QDAY [facility] Last Admin: 01/29/21 09:33 Dose: 325 mg Documented by: Hydromorphone HCl (Hydromorphone 1 Mg/1 Ml Inj) 0.25 mg IV Q4H PRN PRN Reason: Pain, Moderate (4-6) Hydromorphone HCl (Hydromorphone 1 Mg/1 Ml Inj) 1 mg IV Q3H PRN PRN Reason: Pain , Severe (7-10) Dextrose/Sodium Chloride (D5ns) 1,000 mls @ 75 mls/hr IV DIRECT EVELYN Last Admin: 01/29/21 01:00 Dose: 75 mls/hr Documented by: Azithromycin (Zithromax/Ns) 500 mg in 250 mls @ 250 mls/hr IV Q24HR EVELYN; Alessia col Last Admin: 01/29/21 10:14 Dose: 250 mls/hr Documented by: Ceftriaxone Sodium (Rocephin/Ns 1 Gm/50 Ml) 1 gm in 50 mls @ 100 mls/hr IV Q24HR EVELYN; Protocol Last Admin: 01/29/21 09:33 Dose: 100 mls/hr Documented by: Magnesium Hydroxide (Magnesium Hydroxide (Mom) Oral Liqd Udc) 30 ml PO Q4H PRN PRN Reason: Constipation Metoclopramide HCl (Metoclopramide 10 Mg/2 Ml Inj) 10 mg IV Q6H PRN PRN Reason: Nausea And Vomiting Morphine Sulfate (Morphine 4 Mg/1 Ml Inj) 4 mg IV Q4H PRN PRN Reason: Pain , Severe (7-10) Last Admin: 01/29/21 09:31 Dose: 4 mg Documented by: Multivitamins (Multivitamins ,Therapeutic Tab) 1 each PO QDAY [facility] Last Admin: 01/29/21 09:34 Dose: 1 each Documented by: Naloxone HCl (Naloxone 0.4 Mg/1 Ml Inj) 0.1 mg IV Q2MIN PRN PRN Reason: Res Rate </= 8 or 02 SAT < 92% Ondansetron HCl (Ondansetron 4 Mg/2 Ml Inj) 4 mg IV Q8H PRN PRN Reason: Nausea And Vomiting Last Admin: 01/29/21 05:08 Dose: 4 mg Documented by: Oxycodone HCl (Oxycodone 5 Mg Tab) 5 mg PO Q6H PRN PRN Reason: Pain, Moderate (4-6) Oxycodone HCl (Oxycodone Er 10 Mg Tab) 10 mg PO Q12HR [facility] Senna (Sennosides 8.6 Mg Tab) 8.6 mg PO Q12HR PRN PRN Reason: Constipation Sodium Chloride (Sodium Chloride 0.9% 10 Ml Flush Syringe) 10 ml IV BID [facility] Last Admin: 01/29/21 09:31 Dose: 10 ml Documented by: Trazodone HCl (Trazodone 50 Mg Tab) 50 mg PO QHS PRN PRN Reason: Insomnia Physical Examination - Physical Exam Narrative exam: Physical Exam (reviewed in chart to minimize risk of transmission) Constitutional: deferred Head, Ears, Nose: deferred Eyes: deferred Neck: deferred Oral: deferred Cardiovascular: deferred Respiratory: deferred GI: deferred Musculoskeletal: deferred Skin: deferred Hem/Lymphatic: deferred Psych: deferred Neurological: deferred - Constitutional Vitals: Vital Signs Temp Pulse Resp BP Pulse Ox 111 H 24 97/49 97 01/29/21 07:16 01/29/21 07:16 01/29/21 07:16 01/29/21 07:16 Results - Labs CBC & Chem 7: 01/29/21 04:44 01/29/21 04:44 Labs: Abnormal lab results 01/28/21 01/28/21 01/28/21 Range/Units 16:59 16:59 18:19 WBC 27.9 H (4.5-11.0) K/mm3 RBC 3.24 L (3.65-5.03) M/mm3 Hgb 9.4 L (10.1-14.3) gm/dl Hct 29.0 L (30.3-42.9) % RDW 17.5 H (13.2-15.2) % Seg Neuts % (Manual) 89.0 H (40.0-70.0) % Lymphocytes % (Manual) 4.0 L (13.4-35.0) % Seg Neutrophils # Man 24.8 H (1.8-7.7) K/mm3 Lymphocytes # (Manual) 1.1 L (1.2-5.4) K/mm3 Monocytes # (Manual) 2.0 H (0.0-0.8) K/mm3 PT 33.8 H (12.2-14.9) Sec. INR 3.32 H (0.87-1.13) APTT 41.5 H (24.2-36.6) Sec. Sodium 135 L (137-145) mmol/L Chloride (98-107) mmol/L Carbon Dioxide 18 L (22-30) mmol/L BUN 39 H (7-17) mg/dL Creatinine 1.3 H (0.6-1.2) mg/dL Glucose 161 H (65-100) mg/dL Calcium 7.2 L (8.4-10.2) mg/dL ALT 6 L (7-56) units/L Total Creatine Kinase (30-135) units/L Total Protein 5.4 L (6.3-8.2) g/dL Albumin 2.2 L (3.9-5) g/dL Lipase 8 L (13-60) units/L TSH (0.270-4.200) mlU/mL Free T4 (0.76-1.46) ng/dL 01/28/21 01/28/21 01/29/21 Range/Units 18:19 18:25 04:44 WBC 26.0 H (4.5-11.0) K/mm3 RBC 2.78 L (3.65-5.03) M/mm3 Hgb 8.1 L (10.1-14.3) gm/dl Hct 24.9 L (30.3-42.9) % RDW 17.3 H (13.2-15.2) % Seg Neuts % (Manual) 95.0 H (40.0-70.0) % Lymphocytes % (Manual) (13.4-35.0) % Seg Neutrophils # Man 24.7 H (1.8-7.7) K/mm3 Lymphocytes # (Manual) 0.0 L (1.2-5.4) K/mm3 Monocytes # (Manual) 1.0 H (0.0-0.8) K/mm3 PT (12.2-14.9) Sec. INR (0.87-1.13) APTT (24.2-36.6) Sec. Sodium (137-145) mmol/L Chloride (98-107) mmol/L Carbon Dioxide (22-30) mmol/L BUN (7-17) mg/dL Creatinine (0.6-1.2) mg/dL Glucose (65-100) mg/dL Calcium (8.4-10.2) mg/dL ALT (7-56) units/L Total Creatine Kinase 19 L (30-135) units/L Total Protein (6.3-8.2) g/dL Albumin (3.9-5) g/dL Lipase (13-60) units/L TSH 10.590 H (0.270-4.200) mlU/mL Free T4 (0.76-1.46) ng/dL 01/29/21 01/29/21 Range/Units 04:44 Unknown WBC (4.5-11.0) K/mm3 RBC (3.65-5.03) M/mm3 Hgb (10.1-14.3) gm/dl Hct (30.3-42.9) % RDW (13.2-15.2) % Seg Neuts % (Manual) (40.0-70.0) % Lymphocytes % (Manual) (13.4-35.0) % Seg Neutrophils # Man (1.8-7.7) K/mm3 Lymphocytes # (Manual) (1.2-5.4) K/mm3 Monocytes # (Manual) (0.0-0.8) K/mm3 PT (12.2-14.9) Sec. INR (0.87-1.13) APTT (24.2-36.6) Sec. Sodium (137-145) mmol/L Chloride 110.4 H (98-107) mmol/L Carbon Dioxide 17 L (22-30) mmol/L BUN 28 H (7-17) mg/dL Creatinine (0.6-1.2) mg/dL Glucose 203 H (65-100) mg/dL Calcium 6.5 L (8.4-10.2) mg/dL ALT (7-56) units/L Total Creatine Kinase (30-135) units/L Total Protein (6.3-8.2) g/dL Albumin (3.9-5) g/dL Lipase (13-60) units/L TSH (0.270-4.200) mlU/mL Free T4 0.71 L (0.76-1.46) ng/dL - Imaging and Cardiology Chest x-ray: report reviewed, image reviewed (pulm opacities) Assessment and Plan Cultures: 01/28/2021 blood culture: In process A/P: 65-year-old female with metastatic pancreatic cancer was admitted to the [facility] with feculent emesis, back pain, abdominal distention, failure to thrive: #SIRS/sepsis: Labs with leukocytosis. Possible pneumonia, ?aspiration versus metastasis. Also should rule out COVID-19. Chest x-ray showed pulmonary opacities, CT abdomen and pelvis showed moderate to large ascites, peritoneal carcinomatosis, notably her recent CT abdomen and pelvis a week prior had shown increasing intra-abdominal metastatic disease #Metastatic pancreatic cancer with bowel obstruction #Malignant ascites #Failure to thrive: Likely related to malignancy Recs: Empiric Ceftriaxone, Flagyl and vancomycin for now, if cultures remain negative, complete 5 days COVID-19 PCR ordered Extremely poor prognosis, recommend hospice ID will sign off, please call with questions Lelo Drake MD, FACP [facility] ([facility]) O: [phone] F: [phone]
[2021-01-29] MEDS ORDERED: VANCOMYCIN PHARMACY TO DOSE IV SCH (14:00)
[2021-01-29] MEDS ORDERED: ONDANSETRON 4 MG/2 ML INJ IV PRN (14:36)
--- NOTE | 2021-01-29 14:56 | Progress Note ---
Assessment and Plan -- Pancreatic cancer Current Visit: Yes Status: Acute Plan to address problem: Continue pain management. Patient has a history of pancreatic cancer that has metastasized CT of the abdomen shows ascites and metastatic lesions patient may benefit from palliative Care -- Acute abdominal pain Current Visit: No Status: Acute Plan to address problem: due to underlying cancer, Pain management as needed as needed -- Dehydration with hypotension Current Visit: Yes Status: Acute Plan to address problem: Continue IV hydration with normal saline Monitor vital signs -- Failure to thrive Current Visit: Yes Status: Acute Plan to address problem: Secondary to poor appetite and disease process Patient has low H&Hstart iron and a multivitamin supplement Encourage oral food intake Consult station gateman. -- Leucocytosis/SIRS Current Visit: Yes Status: Acute Plan to address problem: Continue empiric antibiotic Blood culture and urinalysis -- Full code status Current Visit: Yes Status: Acute Plan to address problem: Patient is presently a full code -- TSH elevation Current Visit: Yes Status: Acute Plan to address problem: Check T4 and T3 Start Synthroid if needed --Hemoptysis, check h/h, hold eliquis -- DVT prophylaxis Current Visit: Yes Status: Acute Plan to address problem: SCD Daily clinical course: 01/29/21: Patient continued to remain hypotensive, continue IV fluid hydration. Patient continued to complains of pain, change to IV Dilaudid more frequently with as needed Zofran for nausea and vomiting. Continue empiric antibiotic. Patient with stage IV pancreatic cancer with extremely poor prognosis. I discussed with patient about the prognosis. I also discussed with Dr. Henry about prognosis. Discussed with patient and daughter and they agreed to discharge patient home with home hospice. T3/T4 level low - start synthroid, cont supportive care. had a bloodt emesis - order h/h, hold eliquis Subjective Date of service: 01/29/21 Interval history: Patient seen and examined. Medical records and medication list reviewed. No acute event overnight noted by the RN. Patient remains hypotensive c/o abdominal pain, nausea vomiting. Discussed plan of care at bedside with patient, RN. Objective - Exam Narrative Exam: GENERAL: elderly malnourished AAF lying on bed appeared to be in moderate discomfort. HEENT: Normocephalic. Atraumatic. No conjunctival congestion or icterus. Patient has moist mucous membranes. NECK: Supple. Trachea midline. CHEST/LUNGS: No wheezes crackles or rhonchi. HEART/CARDIOVASCULAR: Regular in rate and rhythm. S1 and S2 positive. ABDOMEN: Abdomen is soft, tender, distended. Patient has normal bowel sounds. SKIN: There is no rash. Warm and dry. NEURO: No focal motor deficit. Follows command. MUSCULOSKELETAL: No joint effusion or tenderness. appears malnourished EXTRIMITY: No edema, no cyanosis or clubbing. PSYCH: Cooperative but in distress. - Constitutional Vitals: Vital Signs - 12hr 01/29/21 01/29/21 01/29/21 03:00 03:16 03:30 Pulse Rate 114 H 126 H 114 H Respiratory 24 26 H 25 H Rate Blood Pressure 86/55 86/55 81/53 O2 Sat by Pulse 96 92 95 Oximetry 01/29/21 01/29/21 01/29/21 03:46 04:00 04:16 Pulse Rate 114 H 114 H 113 H Respiratory 25 H 11 L 19 Rate Blood Pressure 83/57 89/59 89/59 O2 Sat by Pulse 97 96 97 Oximetry 01/29/21 01/29/21 01/29/21 04:30 04:46 05:00 Pulse Rate 111 H 110 H 113 H Respiratory 25 H 33 H 27 H Rate Blood Pressure 87/52 94/56 104/55 O2 Sat by Pulse 94 97 96 Oximetry 01/29/21 01/29/21 01/29/21 05:16 05:30 05:46 Pulse Rate 113 H 111 H Respiratory 21 26 H Rate Blood Pressure 104/55 93/51 93/51 O2 Sat by Pulse 94 97 93 Oximetry 01/29/21 01/29/21 01/29/21 06:00 06:16 06:30 Pulse Rate 110 H Respiratory 30 H Rate Blood Pressure 93/66 93/51 97/49 O2 Sat by Pulse 94 94 96 Oximetry 01/29/21 01/29/21 01/29/21 06:46 07:00 07:16 Pulse Rate 107 H 114 H 111 H Respiratory 28 H 28 H 24 Rate Blood Pressure 97/49 95/62 97/49 O2 Sat by Pulse 96 96 97 Oximetry - Labs CBC & Chem 7: 01/30/21 05:26 01/29/21 04:44 Labs: Abnormal lab results 01/28/21 01/28/21 01/28/21 Range/Units 16:59 16:59 18:19 WBC 27.9 H (4.5-11.0) K/mm3 RBC 3.24 L (3.65-5.03) M/mm3 Hgb 9.4 L (10.1-14.3) gm/dl Hct 29.0 L (30.3-42.9) % RDW 17.5 H (13.2-15.2) % Seg Neuts % (Manual) 89.0 H (40.0-70.0) % Lymphocytes % (Manual) 4.0 L (13.4-35.0) % Seg Neutrophils # Man 24.8 H (1.8-7.7) K/mm3 Lymphocytes # (Manual) 1.1 L (1.2-5.4) K/mm3 Monocytes # (Manual) 2.0 H (0.0-0.8) K/mm3 PT 33.8 H (12.2-14.9) Sec. INR 3.32 H (0.87-1.13) APTT 41.5 H (24.2-36.6) Sec. Sodium 135 L (137-145) mmol/L Chloride (98-107) mmol/L Carbon Dioxide 18 L (22-30) mmol/L BUN 39 H (7-17) mg/dL Creatinine 1.3 H (0.6-1.2) mg/dL Glucose 161 H (65-100) mg/dL Calcium 7.2 L (8.4-10.2) mg/dL ALT 6 L (7-56) units/L Total Creatine Kinase (30-135) units/L Total Protein 5.4 L (6.3-8.2) g/dL Albumin 2.2 L (3.9-5) g/dL Lipase 8 L (13-60) units/L TSH (0.270-4.200) mlU/mL Free T4 (0.76-1.46) ng/dL 01/28/21 01/28/21 01/29/21 Range/Units 18:19 18:25 04:44 WBC 26.0 H (4.5-11.0) K/mm3 RBC 2.78 L (3.65-5.03) M/mm3 Hgb 8.1 L (10.1-14.3) gm/dl Hct 24.9 L (30.3-42.9) % RDW 17.3 H (13.2-15.2) % Seg Neuts % (Manual) 95.0 H (40.0-70.0) % Lymphocytes % (Manual) (13.4-35.0) % Seg Neutrophils # Man 24.7 H (1.8-7.7) K/mm3 Lymphocytes # (Manual) 0.0 L (1.2-5.4) K/mm3 Monocytes # (Manual) 1.0 H (0.0-0.8) K/mm3 PT (12.2-14.9) Sec. INR (0.87-1.13) APTT (24.2-36.6) Sec. Sodium (137-145) mmol/L Chloride (98-107) mmol/L Carbon Dioxide (22-30) mmol/L BUN (7-17) mg/dL Creatinine (0.6-1.2) mg/dL Glucose (65-100) mg/dL Calcium (8.4-10.2) mg/dL ALT (7-56) units/L Total Creatine Kinase 19 L (30-135) units/L Total Protein (6.3-8.2) g/dL Albumin (3.9-5) g/dL Lipase (13-60) units/L TSH 10.590 H (0.270-4.200) mlU/mL Free T4 (0.76-1.46) ng/dL 01/29/21 01/29/21 Range/Units 04:44 Unknown WBC (4.5-11.0) K/mm3 RBC (3.65-5.03) M/mm3 Hgb (10.1-14.3) gm/dl Hct (30.3-42.9) % RDW (13.2-15.2) % Seg Neuts % (Manual) (40.0-70.0) % Lymphocytes % (Manual) (13.4-35.0) % Seg Neutrophils # Man (1.8-7.7) K/mm3 Lymphocytes # (Manual) (1.2-5.4) K/mm3 Monocytes # (Manual) (0.0-0.8) K/mm3 PT (12.2-14.9) Sec. INR (0.87-1.13) APTT (24.2-36.6) Sec. Sodium (137-145) mmol/L Chloride 110.4 H (98-107) mmol/L Carbon Dioxide 17 L (22-30) mmol/L BUN 28 H (7-17) mg/dL Creatinine (0.6-1.2) mg/dL Glucose 203 H (65-100) mg/dL Calcium 6.5 L (8.4-10.2) mg/dL ALT (7-56) units/L Total Creatine Kinase (30-135) units/L Total Protein (6.3-8.2) g/dL Albumin (3.9-5) g/dL Lipase (13-60) units/L TSH (0.270-4.200) mlU/mL Free T4 0.71 L (0.76-1.46) ng/dL
[2021-01-29] MEDS: D5W/0.45% NACL 1,000 ML IV SCH ×2 (15:47→22:03)
[2021-01-29] MEDS: metroNIDAZOLE/NS 500 MG/100 ML 500 MG/100 ML BAG IV SCH (15:47)
[2021-01-29] MEDS ORDERED: VANCOMYCIN/NS 1 GM/250 ML 1 GM/250 ML BAG IV SCH (16:00)
[2021-01-29] MEDS: HYDROmorphone 1 MG/1 ML INJ IV PRN ×2 (17:03→22:02)
--- NOTE | 2021-01-29 18:10 | Discharge Summary ---
Providers - Providers Date of Admission: 01/28/21 21:37 Date of discharge: 01/29/21 Attending physician: AARON FIORE 01/29/21 05:53 Consult to Physician [CONS] Routine Comment: Consulting Provider: RUPERTO OLIVAREZ Physician Instructions: Reason For Exam: Leukocytosis 01/29/21 09:07 Consult to Physician [CONS] Routine Comment: Consulting Provider: JOSE C TORRES Physician Instructions: Reason For Exam: pancreatic cancer Primary care physician: ACID BLOWER Hospitalization Condition: Poor Disposition: 50 HOSPICE/HOME Time spent for discharge: 34 minutes Core Measure Documentation - Palliative Care Palliative Care/ Comfort Measures: Not Applicable - Core Measures Any of the following diagnoses?: none Exam - Constitutional Vitals: Temp Pulse Resp BP Pulse Ox 111 H 24 97/49 97 01/29/21 07:16 01/29/21 07:16 01/29/21 07:16 01/29/21 07:16 Plan Follow up with: PRIMARY CAREMD [Primary Care Provider] - 3-5 Days
--- NOTE | 2021-01-29 18:35 | Hem/Onc Consultation ---
History of Present Illness - Reason for Consult Consult date: 01/29/21 pancreatic cancer - History of Present Illness Prelim Heme Consult 65yo female with advanced pancreatic cancer with mets In ER for severe abd pain, n/v, worsening ascites Bed bound x 1 week Pancytopenia and entercolitis--chemo induced Hx of PE IMP: CT: worsening peritoneal carcinomatosis, ascites pancytopenia d/t recent chemotherapy REC: Monitor cbc--hgb 8 hct 24 IV hydration Pain control End of life discussion--hospice /palliative care DATA REVIEWED BELOW Laboratory Last Values WBC 26.0 K/mm3 (4.5-11.0) H 01/29/21 04:44 RBC 2.78 M/mm3 (3.65-5.03) L 01/29/21 04:44 Hgb 8.1 gm/dl (10.1-14.3) L 01/29/21 04:44 Hct 24.9 % (30.3-42.9) L 01/29/21 04:44 MCV 90 fl (79-97) 01/29/21 04:44 MCH 29 pg (28-32) 01/29/21 04:44 MCHC 33 % (30-34) 01/29/21 04:44 RDW 17.3 % (13.2-15.2) H 01/29/21 04:44 Plt Count 218 K/mm3 (140-440) 01/29/21 04:44 Add Manual Diff Complete 01/28/21 16:59 Total Counted 100 01/29/21 04:44 Seg Neutrophils % Customer Project Manager 01/29/21 04:44 Seg Neuts % (Manual) 95.0 % (40.0-70.0) H 01/29/21 04:44 Band Neutrophils % 1.0 % 01/29/21 04:44 Lymphocytes % (Manual) 4.0 % (13.4-35.0) L 01/28/21 16:59 Monocytes % (Manual) 4.0 % (0.0-7.3) 01/29/21 04:44 Nucleated RBC % Not Reportable 01/28/21 16:59 Seg Neutrophils # Man 24.7 K/mm3 (1.8-7.7) H 01/29/21 04:44 Band Neutrophils # 0.3 K/mm3 01/29/21 04:44 Lymphocytes # (Manual) 0.0 K/mm3 (1.2-5.4) L 01/29/21 04:44 Abs React Lymphs (Man) 0.0 K/mm3 01/29/21 04:44 Monocytes # (Manual) 1.0 K/mm3 (0.0-0.8) H 01/29/21 04:44 Eosinophils # (Manual) 0.0 K/mm3 (0.0-0.4) 01/29/21 04:44 Basophils # (Manual) 0.0 K/mm3 (0.0-0.1) 01/29/21 04:44 Metamyelocytes # 0.0 K/mm3 01/29/21 04:44 Myelocytes # 0.0 K/mm3 01/29/21 04:44 Promyelocytes # 0.0 K/mm3 01/29/21 04:44 Blast Cells # 0.0 K/mm3 01/29/21 04:44 WBC Morphology Not Reportable 01/28/21 16:59 Hypersegmented Neuts Not Reportable 01/28/21 16:59 Hyposegmented Neuts Not Reportable 01/28/21 16:59 Hypogranular Neuts Not Reportable 01/28/21 16:59 Smudge Cells Not Reportable 01/28/21 16:59 Toxic Granulation 1+ 01/29/21 04:44 Toxic Vacuolation Not Reportable 01/28/21 16:59 Dohle Bodies Not Reportable 01/28/21 16:59 Pelger-Huet Anomaly Not Reportable 01/28/21 16:59 Philip Rods Not Reportable 01/28/21 16:59 Platelet Estimate Consistent w auto 01/29/21 04:44 Clumped Platelets Not Reportable 01/28/21 16:59 Plt Clumps, EDTA Not Reportable 01/28/21 16:59 Large Platelets Not Reportable 01/28/21 16:59 Giant Platelets Not Reportable 01/28/21 16:59 Platelet Satelliting Not Reportable 01/28/21 16:59 Plt Morphology Comment Not Reportable 01/28/21 16:59 RBC Morphology Normal 01/29/21 04:44 Dimorphic RBCs Not Reportable 01/28/21 16:59 Polychromasia Not Reportable 01/28/21 16:59 Hypochromasia Not Reportable 01/28/21 16:59 Poikilocytosis Not Reportable 01/28/21 16:59 Anisocytosis Not Reportable 01/28/21 16:59 Microcytosis Not Reportable 01/28/21 16:59 Macrocytosis Not Reportable 01/28/21 16:59 Spherocytes Not Reportable 01/28/21 16:59 Pappenheimer Bodies Not Reportable 01/28/21 16:59 Sickle Cells Not Reportable 01/28/21 16:59 Target Cells Not Reportable 01/28/21 16:59 Tear Drop Cells Not Reportable 01/28/21 16:59 Ovalocytes Not Reportable 01/28/21 16:59 Helmet Cells Not Reportable 01/28/21 16:59 Page-Quinton Bodies Not Reportable 01/28/21 16:59 Mcdermott Rings Not Reportable 01/28/21 16:59 Tresa Cells Not Reportable 01/28/21 16:59 Bite Cells Not Reportable 01/28/21 16:59 Crenated Cell Not Reportable 01/28/21 16:59 Elliptocytes Not Reportable 01/28/21 16:59 Acanthocytes (Spur) Not Reportable 01/28/21 16:59 Rouleaux Not Reportable 01/28/21 16:59 Hemoglobin C Crystals Not Reportable 01/28/21 16:59 Schistocytes Not Reportable 01/28/21 16:59 Malaria parasites Not Reportable 01/28/21 16:59 Emeterio Bodies Not Reportable 01/28/21 16:59 Hem Pathologist Commnt No 01/28/21 16:59 PT 33.8 Sec. (12.2-14.9) H 01/28/21 18:19 INR 3.32 (0.87-1.13) H 01/28/21 18:19 APTT 41.5 Sec. (24.2-36.6) H 01/28/21 18:19 Sodium 138 mmol/L (137-145) 01/29/21 04:44 Potassium 3.6 mmol/L (3.6-5.0) D 01/29/21 04:44 Chloride 110.4 mmol/L (98-107) H 01/29/21 04:44 Carbon Dioxide 17 mmol/L (22-30) L 01/29/21 04:44 Anion Gap 14 mmol/L 01/29/21 04:44 BUN 28 mg/dL (7-17) H 01/29/21 04:44 Creatinine 0.9 mg/dL (0.6-1.2) 01/29/21 04:44 Estimated GFR > 60 ml/min 01/29/21 04:44 BUN/Creatinine Ratio 31 % 01/29/21 04:44 Glucose 203 mg/dL (65-100) H 01/29/21 04:44 Lactic Acid 1.30 mmol/L (0.7-2.0) 01/28/21 18:48 Calcium 6.5 mg/dL (8.4-10.2) L 01/29/21 04:44 Magnesium 1.90 mg/dL (1.7-2.3) 01/28/21 18:19 Total Bilirubin 0.40 mg/dL (0.1-1.2) 01/28/21 16:59 AST 10 units/L (5-40) 01/28/21 16:59 ALT 6 units/L (7-56) L 01/28/21 16:59 Alkaline Phosphatase 109 units/L (35-129) 01/28/21 16:59 Total Creatine Kinase 19 units/L (30-135) L 01/28/21 18:19 Total Protein 5.4 g/dL (6.3-8.2) L 01/28/21 16:59 Albumin 2.2 g/dL (3.9-5) L 01/28/21 16:59 Albumin/Globulin Ratio 0.7 % 01/28/21 16:59 Lipase 8 units/L (13-60) L 01/28/21 16:59 TSH 10.590 mlU/mL (0.270-4.200) H 01/28/21 18:25 Free T4 0.71 ng/dL (0.76-1.46) L 01/29/21 Unknown Urine Color Yellow (Yellow) 01/29/21 Unknown Urine Turbidity Slightly-cloudy (Clear) 01/29/21 Unknown Urine pH 5.0 (5.0-7.0) 01/29/21 Unknown Ur Specific [place] 1.012 (1.003-1.030) 01/29/21 Unknown Urine Protein 100 mg/dl mg/dL (Negative) 01/29/21 Unknown Urine Glucose (UA) Neg mg/dL (Negative) 01/29/21 Unknown Urine Ketones Neg mg/dL (Negative) 01/29/21 Unknown Urine Blood Neg (Negative) 01/29/21 Unknown Urine Nitrite Neg (Negative) 01/29/21 Unknown Urine Bilirubin Neg (Negative) 01/29/21 Unknown Urine Urobilinogen < 2.0 mg/dL (<2.0) 01/29/21 Unknown Ur Leukocyte Esterase Neg (Negative) 01/29/21 Unknown Urine WBC (Auto) 1.0 /HPF (0.0-6.0) 01/29/21 Unknown Urine RBC (Auto) 2.0 /HPF (0.0-6.0) 01/29/21 Unknown U Epithel Cells (Auto) 5.0 /HPF (0-13.0) 01/29/21 Unknown Urine Bacteria (Auto) 1+ /HPF (Negative) 01/29/21 Unknown Urine Mucus Few /HPF 01/29/21 Unknown Blood Type A POSITIVE 01/29/21 00:40 Antibody Screen Negative 01/29/21 00:40 Past History Past Medical History: cancer, other Past Surgical History: No surgical history Social history: lives with family, full code Family history: no significant family history Medications and Allergies Allergies Allergy/AdvReac Type Severity Reaction Status Date / Time No Known Allergies Allergy Verified 10/19/20 02:21 Home Medications Medication Instructions Recorded Confirmed Last Taken Type Celecoxib [celeBREX] 50 mg PO BID #30 capsule 08/09/20 10/23/20 Unknown Rx Sennosides/Docusate Sodium [Stool 1 each PO DAILY #30 tablet 08/09/20 10/23/20 Unknown Rx Softener-Stim Lax Tablet] oxyCODONE ER [oxyCONTIN ER] 10 mg PO Q12HR #30 tablet 08/09/20 10/23/20 Unknown Rx traMADoL [Ultram 50 MG tab] 50 mg PO Q6HR PRN #12 tablet 08/09/20 10/23/20 Unknown Rx traZODone [Desyrel] 50 mg PO QHS PRN #30 tablet 08/09/20 10/23/20 Unknown Rx Dicyclomine [Bentyl] 20 mg PO QID PRN #20 tablet 08/23/20 10/23/20 Unknown Rx Apixaban [Eliquis] 5 mg PO Q12HR #60 tablet 10/29/20 Unknown Rx Apixaban [Eliquis] 10 mg PO Q12HR #12 tablet 10/29/20 Unknown Rx Cholestyramine (with Sugar) 4 gm PO BID #60 packet 10/29/20 Unknown Rx [Questran] Hydromorphone HCl [Dilaudid] 4 mg PO BID PRN #12 tablet 10/29/20 Unknown Rx Lipase/Protease/Amylase [Creon Dr 12 each PO AC #90 capsule 10/29/20 Unknown Rx 6,000 Units] Potassium Chloride [K-Dur] 40 meq PO DAILY #10 tablet 10/29/20 Unknown Rx oxyCODONE [roxiCODONE] 5 mg PO Q6H PRN #12 tablet 10/29/20 Unknown Rx Active Meds: Active Medications Acetaminophen (Acetaminophen 325 Mg Tab) 650 mg PO Q4H PRN PRN Reason: Pain MILD(1-3)/Fever >100.5/KEVIN Al Hydrox/Mg Hydrox/Simethicone (Alum-Mag Hydroxide-Simethicone [phone]/5ml Oral Liqd 30 Ml) 30 ml PO Q4H PRN PRN Reason: Indigestion Enoxaparin Sodium (Enoxaparin 40 Mg/0.4 Ml Inj) 40 mg SUB-Q QDAY [facility] Last Admin: 01/29/21 09:34 Dose: 40 mg Documented by: Famotidine (Famotidine 10 Mg Tab) 10 mg PO BID [facility] Last Admin: 01/29/21 09:33 Dose: 10 mg Documented by: Ferrous Sulfate (Ferrous Sulfate 325 Mg Tab) 325 mg PO QDAY [facility] Last Admin: 01/29/21 09:33 Dose: 325 mg Documented by: Hydromorphone HCl (Hydromorphone 1 Mg/1 Ml Inj) 0.25 mg IV Q4H PRN PRN Reason: Pain, Moderate (4-6) Hydromorphone HCl (Hydromorphone 1 Mg/1 Ml Inj) 1 mg IV Q3H PRN PRN Reason: Pain , Severe (7-10) Last Admin: 01/29/21 17:03 Dose: 1 mg Documented by: Ceftriaxone Sodium (Rocephin/Ns 1 Gm/50 Ml) 1 gm in 50 mls @ 100 mls/hr IV Q24HR [facility]; Protocol Last Admin: 01/29/21 09:33 Dose: 100 mls/hr Documented by: Metronidazole (Flagyl 500 Mg/100 Ml) 500 mg in 100 mls @ 100 mls/hr IV Q8H [facility]; Protocol Last Admin: 01/29/21 15:47 Dose: 100 mls/hr Documented by: Dextrose/Sodium Chloride (D5/0.45ns) 1,000 mls @ 100 mls/hr IV DIRECT [facility] Last Admin: 01/29/21 15:47 Dose: 100 mls/hr Documented by: Vancomycin HCl (Vancomycin/Ns 1 Gm/250 Ml) 1 gm in 250 mls @ 125 mls/hr IV Q24H [facility]; Protocol Magnesium Hydroxide (Magnesium Hydroxide (Mom) Oral Liqd Udc) 30 ml PO Q4H PRN PRN Reason: Constipation Metoclopramide HCl (Metoclopramide 10 Mg/2 Ml Inj) 10 mg IV Q6H PRN PRN Reason: Nausea And Vomiting Multivitamins (Multivitamins ,Therapeutic Tab) 1 each PO QDAY [facility] Last Admin: 01/29/21 09:34 Dose: 1 each Documented by: Naloxone HCl (Naloxone 0.4 Mg/1 Ml Inj) 0.1 mg IV Q2MIN PRN PRN Reason: Res Rate </= 8 or 02 SAT < 92% Ondansetron HCl (Ondansetron 4 Mg/2 Ml Inj) 4 mg IV Q6H PRN PRN Reason: Nausea Senna (Sennosides 8.6 Mg Tab) 8.6 mg PO Q12HR PRN PRN Reason: Constipation Sodium Chloride (Sodium Chloride 0.9% 10 Ml Flush Syringe) 10 ml IV BID [facility] Last Admin: 01/29/21 09:31 Dose: 10 ml Documented by: Trazodone HCl (Trazodone 50 Mg Tab) 50 mg PO QHS PRN PRN Reason: Insomnia Exam - Constitutional Vitals: Last Vital Signs Temp Pulse 111 H 01/29/21 07:16 Resp 24 01/29/21 07:16 BP 97/49 01/29/21 07:16 Pulse Ox 97 01/29/21 07:16 Results - Labs lab Results: Laboratory Results - last 24 hr 01/28/21 01/28/21 01/28/21 16:59 16:59 18:19 WBC 27.9 H RBC 3.24 L Hgb 9.4 L Hct 29.0 L MCV 90 MCH 29 MCHC 32 RDW 17.5 H Plt Count 258 Add Manual Diff Complete Total Counted 100 Seg Neutrophils % Customer Project Manager Seg Neuts % (Manual) 89.0 H Band Neutrophils % Lymphocytes % (Manual) 4.0 L Monocytes % (Manual) 7.0 Nucleated RBC % Not Reportable Seg Neutrophils # Man 24.8 H Band Neutrophils # 0.0 Lymphocytes # (Manual) 1.1 L Abs React Lymphs (Man) 0.0 Monocytes # (Manual) 2.0 H Eosinophils # (Manual) 0.0 Basophils # (Manual) 0.0 Metamyelocytes # 0.0 Myelocytes # 0.0 Promyelocytes # 0.0 Blast Cells # 0.0 WBC Morphology Not Reportable Hypersegmented Neuts Not Reportable Hyposegmented Neuts Not Reportable Hypogranular Neuts Not Reportable Smudge Cells Not Reportable Toxic Granulation Not Reportable Toxic Vacuolation Not Reportable Dohle Bodies Not Reportable Pelger-Huet Anomaly Not Reportable Philip Rods Not Reportable Platelet Estimate Not Reportable Clumped Platelets Not Reportable Plt Clumps, EDTA Not Reportable Large Platelets Not Reportable Giant Platelets Not Reportable Platelet Satelliting Not Reportable Plt Morphology Comment Not Reportable RBC Morphology Normal Dimorphic RBCs Not Reportable Polychromasia Not Reportable Hypochromasia Not Reportable Poikilocytosis Not Reportable Anisocytosis Not Reportable Microcytosis Not Reportable Macrocytosis Not Reportable Spherocytes Not Reportable Pappenheimer Bodies Not Reportable Sickle Cells Not Reportable Target Cells Not Reportable Tear Drop Cells Not Reportable Ovalocytes Not Reportable Helmet Cells Not Reportable Page-Quinton Bodies Not Reportable Mcdermott Rings Not Reportable Altair Cells Not Reportable Bite Cells Not Reportable Crenated Cell Not Reportable Elliptocytes Not Reportable Acanthocytes (Spur) Not Reportable Rouleaux Not Reportable Hemoglobin C Crystals Not Reportable Schistocytes Not Reportable Malaria parasites Not Reportable Emeterio Bodies Not Reportable Hem Pathologist Commnt No PT 33.8 H INR 3.32 H APTT 41.5 H Sodium 135 L Potassium 4.7 Chloride 104.9 Carbon Dioxide 18 L Anion Gap 17 BUN 39 H Creatinine 1.3 H Estimated GFR 50 BUN/Creatinine Ratio 30 Glucose 161 H Lactic Acid Calcium 7.2 L Magnesium Total Bilirubin 0.40 AST 10 ALT 6 L Alkaline Phosphatase 109 Total Creatine Kinase Total Protein 5.4 L Albumin 2.2 L Albumin/Globulin Ratio 0.7 Lipase 8 L TSH Free T4 Urine Color Urine Turbidity Urine pH Ur Specific [place] Urine Protein Urine Glucose (UA) Urine Ketones Urine Blood Urine Nitrite Urine Bilirubin Urine Urobilinogen Ur Leukocyte Esterase Urine WBC (Auto) Urine RBC (Auto) U Epithel Cells (Auto) Urine Bacteria (Auto) Urine Mucus Blood Type Antibody Screen 01/28/21 01/28/21 01/28/21 18:19 18:25 18:48 WBC RBC Hgb Hct MCV MCH MCHC RDW Plt Count Add Manual Diff Total Counted Seg Neutrophils % Seg Neuts % (Manual) Band Neutrophils % Lymphocytes % (Manual) Monocytes % (Manual) Nucleated RBC % Seg Neutrophils # Man Band Neutrophils # Lymphocytes # (Manual) Abs React Lymphs (Man) Monocytes # (Manual) Eosinophils # (Manual) Basophils # (Manual) Metamyelocytes # Myelocytes # Promyelocytes # Blast Cells # WBC Morphology Hypersegmented Neuts Hyposegmented Neuts Hypogranular Neuts Smudge Cells Toxic Granulation Toxic Vacuolation Dohle Bodies Pelger-Huet Anomaly Philip Rods Platelet Estimate Clumped Platelets Plt Clumps, EDTA Large Platelets Giant Platelets Platelet Satelliting Plt Morphology Comment RBC Morphology Dimorphic RBCs Polychromasia Hypochromasia Poikilocytosis Anisocytosis Microcytosis Macrocytosis Spherocytes Pappenheimer Bodies Sickle Cells Target Cells Tear Drop Cells Ovalocytes Helmet Cells Page-Quinton Bodies Mcdermott Rings [place]tair Cells Bite Cells Crenated Cell Elliptocytes Acanthocytes (Spur) Rouleaux Hemoglobin C Crystals Schistocytes Malaria parasites Emeterio Bodies Hem Pathologist Commnt PT INR APTT Sodium Potassium Chloride Carbon Dioxide Anion Gap BUN Creatinine Estimated GFR BUN/Creatinine Ratio Glucose Lactic Acid 1.30 Calcium Magnesium 1.90 Total Bilirubin AST ALT Alkaline Phosphatase Total Creatine Kinase 19 L Total Protein Albumin Albumin/Globulin Ratio Lipase TSH 10.590 H Free T4 Urine Color Urine Turbidity Urine pH Ur Specific [place] Urine Protein Urine Glucose (UA) Urine Ketones Urine Blood Urine Nitrite Urine Bilirubin Urine Urobilinogen Ur Leukocyte Esterase Urine WBC (Auto) Urine RBC (Auto) U Epithel Cells (Auto) Urine Bacteria (Auto) Urine Mucus Blood Type Antibody Screen 01/29/21 01/29/21 01/29/21 00:40 04:44 04:44 WBC 26.0 H RBC 2.78 L Hgb 8.1 L Hct 24.9 L MCV 90 MCH 29 MCHC 33 RDW 17.3 H Plt Count 218 Add Manual Diff Total Counted 100 Seg Neutrophils % Customer Project Manager Seg Neuts % (Manual) 95.0 H Band Neutrophils % 1.0 Lymphocytes % (Manual) Monocytes % (Manual) 4.0 Nucleated RBC % Seg Neutrophils # Man 24.7 H Band Neutrophils # 0.3 Lymphocytes # (Manual) 0.0 L Abs React Lymphs (Man) 0.0 Monocytes # (Manual) 1.0 H Eosinophils # (Manual) 0.0 Basophils # (Manual) 0.0 Metamyelocytes # 0.0 Myelocytes # 0.0 Promyelocytes # 0.0 Blast Cells # 0.0 WBC Morphology Hypersegmented Neuts Hyposegmented Neuts Hypogranular Neuts Smudge Cells Toxic Granulation 1+ Toxic Vacuolation Dohle Bodies Pelger-Huet Anomaly Philip Rods Platelet Estimate Consistent w auto Clumped Platelets Plt Clumps, EDTA Large Platelets Giant Platelets Platelet Satelliting Plt Morphology Comment RBC Morphology Normal Dimorphic RBCs Polychromasia Hypochromasia Poikilocytosis Anisocytosis Microcytosis Macrocytosis Spherocytes Pappenheimer Bodies Sickle Cells Target Cells Tear Drop Cells Ovalocytes Helmet Cells Page-Quinton Bodies Mcdermott Rings [place] Cells Bite Cells Crenated Cell Elliptocytes Acanthocytes (Spur) Rouleaux Hemoglobin C Crystals Schistocytes Malaria parasites Emeterio Bodies Hem Pathologist Commnt PT INR APTT Sodium 138 Potassium 3.6 D Chloride 110.4 H Carbon Dioxide 17 L Anion Gap 14 BUN 28 H Creatinine 0.9 Estimated GFR > 60 BUN/Creatinine Ratio 31 Glucose 203 H Lactic Acid Calcium 6.5 L Magnesium Total Bilirubin AST ALT Alkaline Phosphatase Total Creatine Kinase Total Protein Albumin Albumin/Globulin Ratio Lipase TSH Free T4 Urine Color Urine Turbidity Urine pH Ur Specific [place] Urine Protein Urine Glucose (UA) Urine Ketones Urine Blood Urine Nitrite Urine Bilirubin Urine Urobilinogen Ur Leukocyte Esterase Urine WBC (Auto) Urine RBC (Auto) U Epithel Cells (Auto) Urine Bacteria (Auto) Urine Mucus Blood Type A POSITIVE Antibody Screen Negative 01/29/21 01/29/21 Unknown Unknown WBC RBC Hgb Hct MCV MCH MCHC RDW Plt Count Add Manual Diff Total Counted Seg Neutrophils % Seg Neuts % (Manual) Band Neutrophils % Lymphocytes % (Manual) Monocytes % (Manual) Nucleated RBC % Seg Neutrophils # Man Band Neutrophils # Lymphocytes # (Manual) Abs React Lymphs (Man) Monocytes # (Manual) Eosinophils # (Manual) Basophils # (Manual) Metamyelocytes # Myelocytes # Promyelocytes # Blast Cells # WBC Morphology Hypersegmented Neuts Hyposegmented Neuts Hypogranular Neuts Smudge Cells Toxic Granulation Toxic Vacuolation Dohle Bodies Pelger-Huet Anomaly Philip Rods Platelet Estimate Clumped Platelets Plt Clumps, EDTA Large Platelets Giant Platelets Platelet Satelliting Plt Morphology Comment RBC Morphology Dimorphic RBCs Polychromasia Hypochromasia Poikilocytosis Anisocytosis Microcytosis Macrocytosis Spherocytes Pappenheimer Bodies Sickle Cells Target Cells Tear Drop Cells Ovalocytes Helmet Cells Page-Quinton Bodies Mcdermott Rings [place] Cells Bite Cells Crenated Cell Elliptocytes Acanthocytes (Spur) Rouleaux Hemoglobin C Crystals Schistocytes Malaria parasites Emeterio Bodies Hem Pathologist Commnt PT INR APTT Sodium Potassium Chloride Carbon Dioxide Anion Gap BUN Creatinine Estimated GFR BUN/Creatinine Ratio Glucose Lactic Acid Calcium Magnesium Total Bilirubin AST ALT Alkaline Phosphatase Total Creatine Kinase Total Protein Albumin Albumin/Globulin Ratio Lipase TSH Free T4 0.71 L Urine Color Yellow Urine Turbidity Slightly-cloudy Urine pH 5.0 Ur Specific [place] 1.012 Urine Protein 100 mg/dl Urine Glucose (UA) Neg Urine Ketones Neg Urine Blood Neg Urine Nitrite Neg Urine Bilirubin Neg Urine Urobilinogen < 2.0 Ur Leukocyte Esterase Neg Urine WBC (Auto) 1.0 Urine RBC (Auto) 2.0 U Epithel Cells (Auto) 5.0 Urine Bacteria (Auto) 1+ Urine Mucus Few Blood Type Antibody Screen
[2021-01-30] MEDS: metroNIDAZOLE/NS 500 MG/100 ML 500 MG/100 ML BAG IV SCH
[2021-01-30] MEDS: HYDROmorphone 1 MG/1 ML INJ IV PRN ×4 (01:07→11:12)
[2021-01-30 06:29] VITALS: BP 84/55
[2021-01-30 06:35] LABS: Hematocrit 25.1 % (30.3-42.9); Mean Corpuscular HGB Conc 32 % (30-34); Mean Corpuscular Volume 90 fl (79-97); Platelet Count 222 K/mm3 (140-440); Red Blood Count 2.79 M/mm3 (3.65-5.03); Red Cell Distribution Width 18.1 % (13.2-15.2)
[2021-01-30 06:47] LABS: Blood Urea Nitrogen 19 mg/dL (7-17); Calcium 6.9 mg/dL (8.4-10.2); Hemolysis Index 3
[2021-01-30 06:50] LABS: BUN/Creatinine Ratio 32
[2021-01-30 07:55] LABS: Band Neutrophils # (Manual) 0.5 K/mm3; Total Cells Counted 100
[2021-01-30 07:56] LABS: Anisocytosis 1+; Burr Cells 1+; Poikilocytosis 1+; Schistocytes Rare
[2021-01-30 07:57] LABS: Platelet Estimate Consistent w Auto; Tear Drop Cells Few
[2021-01-30] MEDS ORDERED: POTASSIUM CHLORIDE ER 20 MEQ TAB PO SCH (08:00)
--- NOTE | 2021-01-30 11:30 | Discharge Summary ---
Providers - Providers Date of Admission: 01/28/21 21:37 Attending physician: KIMBERLY CESAR 01/29/21 05:53 Consult to Physician [CONS] Routine Comment: Consulting Provider: RUPERTO OLIVAREZ Physician Instructions: Reason For Exam: Leukocytosis 01/29/21 09:07 Consult to Physician [CONS] Routine Comment: Consulting Provider: JOSE C TORRES Physician Instructions: Reason For Exam: pancreatic cancer Primary care physician: ASSISTED LIVING COORDINATOR Hospitalization Condition: Poor Disposition: 50 HOSPICE/HOME Exam - Constitutional Vitals: Temp Pulse Resp BP Pulse Ox 118 H 25 H 84/55 95 01/30/21 06:00 01/29/21 23:46 01/30/21 06:00 01/30/21 10:00 Plan Follow up with: AUSTEN RODRIGUEZ MD [Primary Care Provider] - 3-5 Days
--- NOTE | 2021-01-30 13:28 | Event Note ---
Date: 01/30/21 Noted plans for home hospice. ID will sign off.
[2021-01-31] MEDS ORDERED: LEVOTHYROXINE 100 MCG INJ IV SCH (06:00)
== END 2021-01-30 10:30 | disposition hospice, home (50) | DRG 871 ==
LOC: ED 16:47 → 3A 21:37
PROVIDERS: ADMIT Hospitalist; ATTEND Internal Medicine
DX: A41.9 Sepsis, unspecified organism (principal); N17.0 Acute kidney failure with tubular necrosis; C25.9 Malignant neoplasm of pancreas, unspecified; J90 Pleural effusion, not elsewhere classified; R18.0 Malignant ascites; C78.6 Secondary malignant neoplasm of retroperitoneum and peritoneum; K56.609 Unspecified intestinal obstruction, unspecified as to partial versus complete obstruction; E86.0 Dehydration; E11.9 Type 2 diabetes mellitus without complications; Z79.899 Other long term (current) drug therapy; Z79.01 Long term (current) use of anticoagulants; Z86.711 Personal history of pulmonary embolism
CPT/HCPCS: 36415; 71045; 74177; 80048; 80053; 81001; 82140; 82550; 83690; 83735; 84439; 84443; 84481; 85007; 85025; 85610; 85730; 86850; 86900; 86901; 87040; 87086; 93005; G0378; J0456; J0692; J0696; J1170; J1650; J1885; J2270; J2405; J7030; J7042; J7120; Q9967